=== PATIENT | female | born 1990 | race Caucasian/White ===

== ENCOUNTER 2024-01-27 19:52 | Outpatient (REF) | payer BC, SELFPAY ==
[2024-02-03 17:08] LABS: Age Gdln ACOG Testing Note (.); HPV Aptima Positive (Negative); IGP, Aptima HPV, rfx 16/18,45 Note (.)
== END 2024-01-27 19:53 | disposition home or self-care (01) ==
LOC: LAB 19:52
PROVIDERS: Visit Provider Obstetrics & Gynecology
DX: Z01.419 Encounter for gynecological examination (general) (routine) without abnormal findings (principal)
CPT/HCPCS: 87624; G0145

== ENCOUNTER 2024-02-09 12:17 | Outpatient (REF) | payer BC, SELFPAY | END 2024-02-09 12:18 | disposition home or self-care (01) | LOC: LAB 12:17 | PROVIDERS: Visit Provider Obstetrics & Gynecology | DX: R87.622 Low grade squamous intraepithelial lesion on cytologic smear of vagina (LGSIL) (principal) | CPT/HCPCS: 88305 ==

== ENCOUNTER 2024-08-16 21:05 | Outpatient (REF) | payer BC, SELFPAY ==
--- OUTSIDE RECORDS SUMMARY | 2024-08-16 21:09 | XMS_ITS | CCD ---
Author Organization [facility] Care Team Providers Care Piping Manager Name Role Phone PAOLA, DR MENDIETA Attending Unavailable PAOLA, DR MENDIETA Consulting Unavailable PAOLA, DR MENDIETA Admitting Unavailable REQUEST, DR NONE LISTED Primary Care UnavailJeanne Ceballos Primary Care Physician Rosenda William Attending Provider Rosenda William Attending Unavailable Rosenda William Admitting Unavailable ROSENDA WILLIAM Attending Unavailable ROSENDA WILLIAM Attending Unavailable ROSENDA WILLIAM Attending Unavailable Madhav Fuentes Primary Care Physician Den Mcqueen Attending Unavailable Jorge Sue Attending Unavailable Natalya Prado Attending Unavailable Ender Logan Referring Unavailable Natalya Prado Attending Unavailable Natalya Prado Referring Unavailable Cuco Uribe Attending Unavailable HARSHA HOFFMAN Attending Unavailabl Madhav Snyder Attending Unavailable Madhav Fuentes Attending Unavailable Ender Logan Admitting Unavailable Ender Logan Attending Unavailable Ender Logan Referring Unavailable Ender Logan Admitting Unavailable Ender Logan Attending Unavailable Ender Logan Referring Unavailable Allergies Allergy Classification Reported Allergen(s) Allergy Type Date of Onset Reaction(s) Facility Penicillins (antibiotic) (2 sources) Penicillin; Translations: [penicillins] Drug Allergy [facility] Repository (8 sources) Penicillins; Translations: [penicillins] Drug allergy [facility] Medications Current Medications Medication Drug Class(es) Dates Sig (Normalized) Sig (Original) Tylenol (2 sources) Start: 07-21-2024 Tylenol 500 mg, Daily, PRN as needed for pain, Refills(s) 0 Start Date: 07/21/24 Status: Ordered gabapentin 300 mg oral capsule (3 sources) Anti-epileptic Agent Start: 07-21-2024 End: 09-19-2024 take 2 capsules by mouth three times daily gabapentin 300 mg Cap 600 mg = 2 cap(s), Oral, TID, X 30 day(s), # 180 cap(s), Refills(s) 1, Pharmacy: [id number], 152.4, cm, 07/21/24 12:58:00 EDT, Height/Length Dosing, 58.1, kg, 07/21/24 12:58:00 EDT, Weight Dosing Start Date: 07/21/24 Stop Date: 09/19/24 Status: Ordered Start: 06-03-2024 End: 06-13-2024 take 1 capsule by mouth twice daily gabapentin 100 mg Cap 100 mg = 1 cap(s), Oral, BID, X 10 day(s), # 20 cap(s), Refills(s) 0, Pharmacy: [id number], 152, cm, 06/03/24 13:25:00 EDT, Height/Length Dosing, 61.5, kg, 06/03/24 13:25:00 EDT, Weight Dosing Start Date: 06/03/24 Stop Date: 06/13/24 Status: Ordered Ibuprofen (2 sources) Nonsteroidal Anti-inflammatory Drug Start: 07-21-2024 ibuprofen 200 mg, Daily, PRN as needed for pain, Refills(s) 0 Start Date: 07/21/24 Status: Ordered Magnesium (2 sources) Start: 07-21-2024 Magnesium Magnesium, Oral, Daily Start Date: 07/21/24 Status: Ordered methocarbamol 500 mg oral tablet (2 sources) Muscle Relaxant Start: 06-01-2024 End: 06-08-2024 take 2 tablets by mouth four times daily methocarbamol 500 mg Tab 1,000 mg = 2 tab(s), Oral, QID, X 7 day(s), # 56 tab(s), Refills(s) 0, Pharmacy: [id number], 152, cm, 06/01/24 9:55:00 EDT, Height/Length Dosing, 59, kg, 06/01/24 9:55:00 EDT, Weight Dosing Start Date: 06/01/24 Stop Date: 06/08/24 Status: Ordered naproxen 500 mg oral tablet (6 sources) Nonsteroidal Anti-inflammatory Drug Start: 07-06-2024 take 1 tablet by mouth twice daily as needed for pain naproxen 500 mg Tab 500 mg = 1 tab(s), Oral, BID, PRN Pain, # 30 tab(s), Refills(s) 0, Pharmacy: [id number], 152.4, cm, 07/06/24 20:34:00 EDT, Height/Length Dosing, 58.3, kg, 07/06/24 20:34:00 EDT, Weight Dosing Start Date: 07/06/24 Status: Ordered Start: 06-03-2024 End: 06-13-2024 take 1 tablet by mouth twice daily naproxen 500 mg Tab 500 mg = 1 tab(s), Oral, BID, X 10 day(s), # 20 tab(s), Refills(s) 0, Pharmacy: [id number], 152, cm, 06/03/24 13:25:00 EDT, Height/Length Dosing, 61.5, kg, 06/03/24 13:25:00 EDT, Weight Dosing Start Date: 06/03/24 Stop Date: 06/13/24 Status: Ordered predniSONE 50 mg oral tablet (5 sources) Start: 07-06-2024 End: 07-13-2024 take 1 tablet by mouth once daily predniSONE 50 mg Tab 50 mg = 1 tab(s), Oral, Daily, X 7 day(s), # 7 tab(s), Refills(s) 0, Pharmacy: [id number], 152.4, cm, 07/06/24 20:34:00 EDT, Height/Length Dosing, 58.3, kg, 07/06/24 20:34:00 EDT, Weight Dosing Start Date: 07/06/24 Stop Date: 07/13/24 Status: Ordered Start: 06-03-2024 End: 06-08-2024 take 3 tablets by mouth once daily predniSONE 20 mg Tab 60 mg = 3 tab(s), Oral, Daily, X 5 day(s), # 15 tab(s), Refills(s) 0, Pharmacy: [id number], 152, cm, 06/03/24 13:25:00 EDT, Height/Length Dosing, 61.5, kg, 06/03/24 13:25:00 EDT, Weight Dosing Start Date: 06/03/24 Stop Date: 06/08/24 Status: Ordered Start: 06-01-2024 End: 06-08-2024 take 2 tablets by mouth once daily predniSONE 20 mg Tab 40 mg = 2 tab(s), Oral, Daily, X 7 day(s), # 14 tab(s), Refills(s) 0, Pharmacy: [id number], 152, cm, 06/01/24 9:55:00 EDT, Height/Length Dosing, 59, kg, 06/01/24 9:55:00 EDT, Weight Dosing Start Date: 06/01/24 Stop Date: 06/08/24 Status: Ordered Problems Active Problems Problem Classification Problem Date Documented Date Episodic/Chronic Asthma (8 sources) Asthma 02-24-2017 Chronic Immunizations and screening for infectious disease (1 source) Encounter for screening for human papillomavirus (HPV); Translations: [ENC SCREENING HUMAN PAPILLOMAVIRUS] Onset: 04-05-2021 Episodic Other nervous system disorders (1 source) Chronic pain; Translations: [Other chronic pain] Onset: 07-06-2024 Chronic Other non-traumatic joint disorders (3 sources) Pain of left shoulder joint; Translations: [Pain in left shoulder] Onset: 06-01-2024 Episodic Other non-traumatic joint disorders (2 sources) Shoulder joint pain; Translations: [Pain in unspecified shoulder] Onset: 07-09-2024 Episodic Other non-traumatic joint disorders (4 sources) Shoulder pain 07-09-2024 Episodic Other nutritional; endocrine; and metabolic disorders (2 sources) Overweight in adulthood with body mass index of 25 or more but less than 30; Translations: [Body mass index (BMI) 25.0-25.9, adult] Onset: 07-09-2024 Episodic Other screening for suspected conditions (not mental disorders or infectious disease) (4 sources) Encounter for screening for malignant neoplasm of cervix; Translations: [ENC SCREENING MALIG NEOPLASM CERV] Onset: 03-29-2021 Episodic Residual codes; unclassified (2 sources) Patient encounter status; Translations: [Other specified health status] Onset: 07-09-2024 Episodic Spondylosis; intervertebral disc disorders; other back problems (1 source) Degeneration of cervical intervertebral disc; Translations: [Other cervical disc degeneration, unspecified cervical region] Onset: 07-29-2024 Chronic Spondylosis; intervertebral disc disorders; other back problems (9 sources) Neck pain; Translations: [Cervicalgia] Onset: 06-03-2024 Episodic Past or Other Problems Problem Classification Problem Date Documented Da te Episodic/Chronic Other complications of (7 sources) Abnormal placenta affecting management of mother Onset: 09-04-2018 06-01-2024 Episodic Viral infection (1 source) Disease caused by 2019-nCoV; Translations: [COVID-19] Results Test Name Value Interpretation Reference Range Facil ity CT Spine Cervical w/o Contra ston 08-13-2024 CT Spine Cervical w/o Contrast Exam Date/Time: 08/10/2024 17:30 EDT Reason for Exam: M47.22 Report IMPRESSION: LEFT C6-7 DISC PROTRUSION/EXTRUSION, SIMILAR TO THE RECENT MRI. MILD CERVICAL SPONDYLOSIS. EXAM: CT Spine Cervical w/o Contrast DATE: 08/10/2024 4:56 PM CLINICAL HISTORY: M47.22. COMPARISON: Cervical spine MRI 07/13/[address] with contrast 02/24/2017. TECHNIQUE: Spiral unenhanced imaging was obtained of the cervical spine, with routine reconstructions performed. All CT scans at this facility use dose modulation, iterative reconstruction, and/or weight based dosing when appropriate to reduce radiation dose to as low as reasonably achievable. FINDINGS: The spine is visualized from the craniovertebral junction through the T2-3 level. There is no fracture, dislocation, or acute findings identified. Mild reversal of the normal cervical lordosis is probably related to patient positioning and/or muscle spasm, similar to 02/24/2017. Mild disc space narrowing and posterolateral endplate osteophytosis is present at C3-4, C5-6, and C6-7. An approximately 6 to 7 mm left subarticular to foraminal disc protrusion/extrusion at C6-7 (image 67 - axial series 5) , similar to the previous CT. Ordering Provider: Ender Logan FINAL REPORT Dictated: 08/13/2024 1:51 pm Ayaan Dong MD Signed (Electronic Signature): 08/13/2024 1:51 pm Signed by: Ayaan Dong MD Transcribed by: OLY Technologist: APURVA [facility] Ambulatory Visit Summaryon 0 07-29-2024 Ambulatory Visit Summary Ambulatory Visit Summary DARRICK MCKEON :1990 Visit Date:07/29/2024 Ambulatory Visit Instructions Your Diagnosis Degenerative disc disease, cervical Cervical radiculopathy at C7 Shoulder pain BMI 25.0-25.9,adult Non-smoker Your Care Team Attending Physician Madhav Guzman DO Primary Care Physician - Madhav Fuentes DO This Is Your Medications List Non-Formulary Medication (Magnesium) acetaminophen (Tylenol) gabapentin (gabapentin 300 mg Cap) ibuprofen naproxen (naproxen 500 mg Tab) Procedures Performed Laparoscope (2007). Discharge Vitals Heart Rate (Peripheral) 82 Blood Pressure 112/72 Height 152.4 cm Height 60 in Weight 59.6 kg Weight 131.12 lb BMI 25.66 What to do next Scheduled Follow-Up Appointments 2023 5:00 PM EDT With: Where: [facility] 2023 4:15 PM EDT With: Where: [facility] Friday 1:45 PM EDT With: Where: [facility] Friday 5:00 PM EDT With: Where: [facility] Friday 4:00 PM EDT With: Where: [facility] Friday 4:00 PM EDT With: Where: [facility] Friday 12:30 PM EDT With: Natalya Prado PA-C Where: [facility] Medications What How Much When Why Instructions Unchanged acetaminophen (Tylenol) 500 Milligram Every day as needed for as needed for pain Unchanged gabapentin (gabapentin 300 mg Cap) 2 Capsules By Mouth 3 times a day Cervical neuritis Cervical herniation Degeneration of cervical disc without myelopathy Cervical spinal stenosis Duration: 30 Days Unchanged ibuprofen 200 Milligram Every day as needed for as needed for pain Unchanged naproxen (naproxen 500 mg Tab) 1 Tablets By Mouth 2 times a day as needed for Pain Unchanged Non-Formulary Medication (Magnesium) By Mouth Every day Medications and Immunizations Administered Not Given influenza virus vaccine, inactivated, Postpone due to refusal Allergies penicillins Problems Ongoing - Any problem that you are currently receiving treatment for. Abnormal placenta affecting management of mother Cervical dysfunction Shoulder pain Patient Survey You may receive a survey via text or e-mail asking about your office visit. Please share your experience with us by completing your survey. We appreciate your feedback and thank you for choosing us for your care. [facility] Family Medicine Office/Clini c Noteon 07-29-2024 Family Medicine Office/Clinic Note Family Medicine Office/Clinic Note Chief Complaint 2 week follow up HPI Staff Patient here for 2 week f/u Cervical dysfunction: At last visit patient received a trigger point injection, notes no improvement. Completed MRI, would like to review today. Patient has seen pain management, last visit 07/21, advised patient to start a Gabapentin titration schedule, working up to 600mg TID and referred to PT (patient has had 2 appointment so far) . Has an appointment with Neurosurgeon on 08/03. Flu: declines Pap: per pt 02/14, Dr. William History of Present Illness Patient presents today for 2 weeks follow-up on testing. - Patient following with Dr. Logan for cervical radiculopathy, MRI completed - Trigger point injection provided at last visit Patient states that her pain is better controlled after the trigger point injection. It still reaches 8-9/10 depending on her activity level. She would like to review her MRI. She sees her surgeon on 08/03/2024. Denies any new symptoms today. Review of Systems PHQ Score Initial Depression Screen Score: 0 SCORE ROS - Provider Constitutional: no fever, no chills Skin: no rash, no lesions ENMT: no ear pain, no sore throat, no congestion, no hoarseness. Respiratory: no shortness of breath, no cough, no wheezing. Cardiovascular: no chest pain, no palpitations, no edema. Gastrointestinal: no nausea, no vomiting, no diarrhea, Musculoskeletal: yes back pain, no trauma, yes left shoulder pain Neurologic: no headache, no dizziness, yes numbness, no weakness. Psychiatric: no sleeping problems, no irritability, no mood swings/depression. Physical Exam Vitals & Measurements HR: 82(Peripheral) BP: 112/72 SpO2: 98% HT: 60 in HT: 152.4 cm WT: 59.6 kg WT: 131.12 lb BMI: 25.66 General: Well developed, well nourished, in no acute distress Head: Normocephalic/atraumati c Eyes: Pupils equal, round, and reactive to light. Sclerae normal, and extraocular movements intact Lungs: Normal respiratory effort and clear to auscultation Cardio: Regular rate and rhythm, normal S1 and S2, no murmur, no rub Musculoskeletal: No deformity or scoliosis noted. Normal range of motion. Joints normal. No erythema, edema, effusion, or ecchymosis, exquisitely tender to touch, unable to diagnose shoulder for pain, hypertonicity in the left shoulder musculature diffusely with tissue edema and bogginess Extremity: No clubbing, cyanosis, edema, or deformity, with normal ROM in both upper and lower bilateral extremities Neurologic: Grossly normal Skin: No rash, petechiae, suspicious lesions Mental Status: Alert and oriented x3. Normal mood and affect Assessment/Plan 1. Degenerative disc disease, cervical (M50.30: Other cervical disc degeneration, unspecified cervical region) Identified on the MRI at the C7 nerve root level. Follow with neurosurgery, manage with pain control at this time as tolerated, and consider surgical intervention. Patient to call with any concerns or new symptoms. 2. Cervical radiculopathy at C7 (M54.12: Radiculopathy, cervical region) Secondary to #1 3. Shoulder pain (M25.519: Pain in unspecified shoulder) Secondary to #1 4. BMI 25.0-25.9,adult (Z68.25: Body mass index [BMI] 25.0-25.9, adult) The standard range for ages 18 and older is >=18.5 and < 25 kg/m2. Your BMI today was above this range, this falls in the overweight to obese category and there are medical benefits to weight loss. We can offer counselling, referral, and/or medical support in addressing this problem. Your BMI and weight management will be followed at subsequent visits. 5. Non-smoker (Z78.9: Other specified health status) Stable. Follow-up With When Contact Information Link Madhav [facility] Within 4 weeks [address] [place] [address]- Additional Instructions: 4 WEEKS FOLLOWUP Problem List/Past Medical History Ongoing Abnormal placenta affecting management of mother Cervical dysfunction Shoulder pain Historical No qualifying data Procedure/Surgical History Laparoscope (2008). Medications gabapentin 300 mg Cap, 600 mg= 2 cap(s), Oral, TID, 1 refills ibuprofen, 200 mg, Daily, PRN Magnesium, Oral, Daily naproxen 500 mg Tab, 500 mg= 1 tab(s), Oral, BID, PRN Tylenol, 500 mg, Daily, PRN Allergies penicillins Social History Alcohol - Denies Alcohol Use, 04/25/2019 Substance Abuse - Denies Substance Abuse, 07/09/2024 Tobacco - Denies Tobacco Use, 09/11/2021 Never (less than 100 in lifetime) Tobacco Use:. Never Smokeless Tobacco Use:. Household tobacco concerns: No., 07/29/2024 Family History Family history is negative Immunizations Vaccine Date Status Comments influenza virus vaccine, inactivated - Not Given Postpone due to refusal [facility] Comment on above: Result Comment: Elec tronically Signed By: Madhav Fuentes DO.br\Date and Time Signed: 07/29/24 09:08 EDT Provider Letteron 07-29-2024 Provider Letter Provider Letter July 29, 2024 DARRICK MCKEON [address] [place] [address] : 1990 To Whom It May Concern, Please excuse above patient from work. Date of Illness: From: 07/29/24 May Return to Work On: Same day Restrictions: none Comments: none Sincerely, Family [facility] [address] [place] [address] [facility] MRI Spine Cervical w/o Contr tunde 07-19-2024 MRI Spine Cervical w/o Contrast Exam Date/Time: 07/13/2024 18:56 EDT Reason for Exam: M47.22 Report IMPRESSION: Degenerative changes cervical spine as discussed. Disc protrusion at C6-C7 with abutment/effacement of the exiting left C7 nerve root. Small disc protrusions at C3-C4 and C5-C6 as discussed. EXAMINATION: MRI Spine Cervical w/o Contrast HISTORY: Left shoulder pain with numbness and tingling in the left arm and hand. No recent injury. TECHNIQUE: Routine cervical spine MR protocol without gadolinium. COMPARISON: Radiographs 06/03/2024 RESULT: CERVICAL: Counting reference: Craniocervical junction. Anatomic Variants: None. Alignment: Straightening/reversal of the cervical lordosis. Otherwise alignment anatomic. Craniocervical junction: Craniocervical junction is unremarkable. Cord: The cervical spinal cord is within normal limits of signal intensity and morphology. Bone marrow signal/fracture: No evidence for acute or chronic fracture. No destructive osseous process. Cervical soft tissues: The paraspinal soft tissues are unremarkable. C2-C3: No significant canal or foraminal narrowing. C3-C4: Endplate osteophytes with associated small disc protrusions in the bilateral foraminal zones. Mild bilateral foraminal narrowing without significant canal narrowing. C4-C5: No significant canal or foraminal narrowing. C5-C6: Broad-based disc bulge. Endplate osteophytes. Small disc protrusions within Report the bilateral foraminal zones. Mild bilateral foraminal narrowing without significant canal narrowing. C6-C7: Moderate to large disc protrusion within the left foraminal zone with moderate left foraminal narrowing and abutment/effacement of the exiting left C7 nerve root. No significant canal or right foraminal narrowing.. C7-T1: No significant canal or foraminal narrowing. Upper thoracic spine: Visualized upper thoracic canal and foramina without significant narrowing. Ordering Provider: Ender Logan FINAL REPORT Dictated: 07/19/2024 11:57 am Mookie Carter MD Signed (Electronic Signature): 07/19/2024 11:57 am Signed by: Mookie Carter MD Transcribed by: OLY Technologist: COLTON Technical Comments None [facility] Ambulatory Visit Summaryon 0 07-09-2024 Ambulatory Visit Summary Ambulatory Visit Summary DARCIDARRICK DIAZ :1990 Visit Date:07/09/2024 Ambulatory Visit Instructions Your Diagnosis Cervical dysfunction Shoulder pain BMI 25.0-25.9,adult Non-smoker Your Care Team Attending Madhav Buitrago DO Primary Care Physician - Madhav Fuentes DO This Is Your Medications List naproxen (naproxen 500 mg Tab) predniSONE (predniSONE 50 mg Tab) Procedures Performed Laparoscope (2007). Discharge Vitals Heart Rate (Peripheral) 72 Blood Pressure 119/78 Height 152.4 cm Height 60 in Weight 59.5 kg Weight 130.9 lb BMI 25.62 What to do next Scheduled Follow-Up Appointments Friday 1:00 PM EDT With: Natalya Prado PA-C Where: [facility] Medications What How Much When Instructions Unchanged naproxen (naproxen 500 mg Tab) 1 Tablets By Mouth 2 times a day as needed for Pain Unchanged predniSONE (predniSONE 50 mg Tab) 1 Tablets By Mouth Every day Duration: 7 Days Medications and Immunizations Administered Given Kenalog-40, 40 mg, IntraMuscular. For: Cervical dysfunction Allergies penicillins Problems Ongoing - Any problem that you are currently receiving treatment for. Abnormal placenta affecting management of mother Cervical dysfunction Shoulder pain Patient Survey You may receive a survey via text or e-mail asking about your office visit. Please share your experience with us by completing your survey. We appreciate your feedback and thank you for choosing us for your care. [facility] Family Medicine Office/Clini c Noteon 07-09-2024 Family Medicine Office/Clinic Note Family Medicine Office/Clinic Note Chief Complaint Establish Care HPI Staff Patient here to establish care Establish Care: History: Any previous diagnosis: no History of seeing any specialist: Neurology (Dr. Logan) When was your last doctors visit: quite a while ago Last provider: Jeanne Ocampo Any recent labs: no Health Maintenance UTD: Pelvic/Pap: Per pt 01/2024, Dr. William ([place]) Acute: Current issues/complaints: Patient was recently seen at [facility] 07/06/24. Left shoulder/arm pain. Given Ketorolac and Prednisone in ER. Prescribed Naproxen and Prednisone. Advised to f/u with PCP. - Per pt pain in left shoulder/arm started 05/2024. Denies any trauma to area. ER referred to Neurology after x-rays were clear. Patient has tried ice, heat, Biofreeze, aspirin, Tylenol, Motrin, Aleve and Gabapentin. Has seen Chiropractor. Patient notes she did have some relief when taking Prednisone, but about 5 days after completing pain came back more intense. History of Present Illness Care History Patient known to me from prior practice at [facility]. Previously seen Jeanne Ocampo INCOMING FREIGHT CLERK. Patient currently sees neurosurgery for cervical radiculopathy. She is pending an MRI approval for imaging of her neck for findings. She denies any new falls or injuries. She was recently (07/06/2024) for this and received Toradol and prednisone. She has been following with Dr. Logan, and is scheduling to get an MRI done. She states that she has had no new findings, but her pain is severe, 10/10, and radiates from shoulder to arm. pins and needles sensation is confined to left forearm and digits 1-3. She states that she has some pins and needles that will radiate to her anterior chest intermittently as well as by her shoulderblade intermittently. She has tried gabapentin without benefit, NSAID's are only very mildly beneficial, and she has had only had improvement with steroid bursts temporarily. Social Patient is a 34-year-old female Patient is currently , she has 3 children. 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 Patient has no smoking history. Patient has no use of marijuana. Patient has never abused drugs or prescriptions. Patient has social alcohol use without abuse. Patient has from records found to have the following information relevant to their care: - [facility] Review of Systems PHQ Score Initial Depression Screen Score: 0 SCORE ROS - Provider Constitutional: no fever, no chills Skin: no rash, no lesions ENMT: no ear pain, no sore throat, no congestion, no hoarseness. Respiratory: no shortness of breath, no cough, no wheezing. Cardiovascular: no chest pain, no palpitations, no edema. Gastrointestinal: no nausea, no vomiting, no diarrhea, Musculoskeletal: yes back pain, no trauma, yes left shoulder pain Neurologic: no headache, no dizziness, yes numbness, no weakness. Psychiatric: no sleeping problems, no irritability, no mood swings/depression. Physical Exam Vitals & Measurements HR: 72(Peripheral) BP: 119/78 SpO2: 98% HT: 60 in HT: 152.4 cm WT: 59.5 kg WT: 130.9 lb BMI: 25.62 General: Well developed, well nourished, in no acute distress Head: Normocephalic/atraumati c Eyes: Pupils equal, round, and reactive to light. Sclerae normal, and extraocular movements intact Lungs: Normal respiratory effort and clear to auscultation Cardio: Regular rate and rhythm, normal S1 and S2, no murmur, no rub Musculoskeletal: No deformity or scoliosis noted. Normal range of motion. Joints normal. No erythema, edema, effusion, or ecchymosis, exquisitely tender to touch, unable to diagnose shoulder for pain, hypertonicity in the left shoulder musculature diffusely with tissue edema and bogginess Extremity: No clubbing, cyanosis, edema, or deformity, with normal ROM in both upper and lower bilateral extremities Neurologic: Grossly normal Skin: No rash, petechiae, suspicious lesions Mental Status: Alert and oriented x3. Normal mood and affect Osteopathic: Evaluation and treatment of somatic dysfunction as per the procedures section. Procedure Patient informed of the risks and benefits of the procedure. Risks are stated to include, but are not limited to, injection into improper location, infection, nerve damage, muscle damage, medication reaction, and instrumentation failure. Patient accepts these risks and wishes to pursue procedure. Sites were identified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 alternative treatments if conservative management fails 4. Work limitations due to pain - Encourage patient to continue working as tolerated - Reevaluate work limitations at follow-up visit after initiating gabapentin and physical therapy 5. Follow up with primary care physician, Dr. Fuentes - Encourage patient to maintain scheduled appointment with Dr. Fuentes for continuity of care and additional evaluation if needed FELISHA score: 48%. OARRS reviewed. Future Appointments Appointment Date:07/23/2024 03:30:00 PM Scheduled Provider: Location:[facility] [place] Appointment Type:PT Evmaryann (FT) Appointment Date:07/29/2024 08:40:00 AM Scheduled Provider:Madhav Fuentes DO Location:[facility] [place] Appointment Type:FM Open Appointment Date:09/01/2024 12:30:00 PM Scheduled Provider:Natalya Prado PA-C Location:[facility] Appointment Type:Pain Management - Follow Up (FT) [facility] 08-28-2024 NoteConsultation Note Patient: DARRICK MCKEON Age: 34 years Sex: Female : 1990 Associated Diagnoses: None Author: Natalya Prado PA-C Basic Information Accompanied by: No one. Source of history: Self. Referral source: Doreen LUKE, Ender Hassan History limitation: None. Chief Complaint 07/21/2024 12:42 EDT Left shoulder and neck pain History of Present Illness The patient is a 34-year-old individual presenting with left arm pain, which began around June 01.The pain is associated with a disc herniation impacting the left C7 nerve, as confirmed by a recentMRI. The patient reports that the pain worsens with any movement of the arm or neck and is particularly severe when lying down. There is no recollection of any specific injury or incident that triggered the pain, and the patient initially assumed it was due to sleeping on the left side. The patient has experienced extreme, excruciating nerve pain, which at one point was so severe thatit led to passing out and a subsequent visit to the ER. During the ER visits, the patient was treated with gabapentin, steroids, and naproxen. The patient is uncertain which medication provided relief, but naproxen alone did not seem effective. Gabapentin is suspected to have been beneficial, as itis known to help with nerve irritation. She has since seen a surgeon and she has not yet scheduled follow-up to follow-up after the MRI as this was just done earlier this week. 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 The patient has previously received three steroid injections from their family doctor, which did not provide significant relief, and an additional muscle injectionwas administered in the office. The patient does not smoke and is otherwise healthy. Review of Systems Constitutional: No fever, No chills. Eye: No recent visual problem. Ear/Nose/Mouth/Throat: No decreased hearing. Respiratory: No shortness of breath, No cough. Cardiovascular: No chest pain. Gastrointestinal: No nausea, No vomiting. Genitourinary: No dysuria, No hematuria. Hematology/Lymphatics: No bruising tendency, No bleeding tendency. Immunologic: Not immunocompromised. Musculoskeletal: Neck pain, Muscle pain, Claudication. Integumentary: No rash, No pruritus. Neurologic: Alert and oriented X4, Numbness, Tingling. Psychiatric: No anxiety, No depression. Health Status Allergies: Allergic Reactions (Selected) Severity Not Documented Penicillins- No reactions were documented. Current medications: No qualifying data available Problem list: All Problems Asthma / SNOMED CT 8196840172 / Confirmed Abnormal placenta affecting management of mother / SNOMED CT 81862364 / Confirmed Cervical dysfunction / SNOMED CT 683047266 / Confirmed Shoulder pain / SNOMED CT 64987531 / Confirmed Histories Past Medical History: No active or resolved past medical history items have been selected or recorded. Family History: Entire family history is negative. Procedure history: Laparoscope (SNOMED CT 263744886) in 2007 at 18 Years. Comments: 07/09/2024 7:04 Nikole Prasad LPN To check for Endometriosis Social History Social & Psychosocial Habits Alcohol 07/21/2024 Risk Assessment: Denies Alcohol Use Substance Abuse 07/21/2024 Risk Assessment: Denies Substance Abuse Tobacco 07/21/2024 Risk Assessment: Denies Tobacco Use 07/21/2024 Tobacco Use: Never (less than 100 in l Smokeless tobacco use: Never Concerns about tobacco use in household: No . Physical Examination Vital Signs (last 24 hrs) Last Charted Heart Rate Peripheral 74 bpm (JUL 21 12:42) SBP 117 mmHg (JUL 21 12:42) DBP 87 mmHg (JUL 21 12:42) Weight 58.1 kg (JUL 21 12:42) BMI 25.02 (JUL 21 12:42) General: Alert and oriented, Mild distress. Eye: Pupils are equal, round and reactive to light. HENT: Normocephalic, Normal hearing. Respiratory: Respirations are non-labored. Cardiovascular: No edema. Musculoskeletal Normal range of motion. Normal strength. 5/5 upper extremity strength other than left deltoid 4/5 Negative Wilda's. Neurologic: Alert, Oriented. Cognition and Speech: Oriented, Speech clear and coherent. Psychiatric: Cooperative, Appropriate mood & affect. Integumentary: Warm, Dry, [place]. Review / Management Results review: No qualifying data available . * Final Report * Reason For Exam M47.22 POWERSCRIBE REPORT IMPRESSION: Degenerative changes cervical spine as discussed. Disc protrusion at C6-C7 with abutment/effacement of the exiting left C7 nerve root. Small disc protrusions at C3-C4 and C5-C6 as discussed. EXAMINATION: MRI Spine Cervical w/o Contrast HISTORY: Left shoulder pain with numbness and tin (more content not included)... [facility] Comment: Electronically Signed By: Johan TSANG, Ntaalya\.br\Date and Time Signed: 07/21/24 13:13 EDT 07-09-2024 Hospital Discharge instructions Follow Up Care 07/09/2024 07:50:06 With:Madhav Fuentes DO, FAM Address: [address] [place] [address]- When:4 weeks Comments:4 WEEKS FOLLOWUP [facility] 08-13-2024 Hospital Discharge instructions Patient Education 07/06/2024 21:32:51 Cervical Radiculopathy, Rdwj-ln-Ybbn Cervical Radiculopathy Cervical radiculopathy means that a nerve in the neck (a cervical nerve) is pinched or bruised. This can happen because of an injury to the cervical spine (vertebrae) in the neck, or as a normal partof getting older. This condition can cause pain or loss of feeling (numbness) that runs from your neck all the way down to your arm and fingers. Often, this condition gets better with rest. Treatmentmay be needed if the condition does not get better. What are the causes? A neck injury. A bulging disk in your spine. Sudden muscle tightening (muscle spasms). Tight muscles in your neck due to overuse. Arthritis. Breakdown in the bones and joints of the spine (spondylosis) due to getting older. Bone spurs that form near the nerves in the neck. What are the signs or symptoms? Pain. The pain may: ?Run from the neck to the arm and hand. ?Be very bad or irritating. ?Get worse when you move your neck. Loss of feeling or tingling in your arm or hand. Weakness in your arm or hand, in very bad cases. How is this treated? In many cases, treatment is not needed for this condition. With rest, the condition often gets better over time. If treatment is needed, options may include: Wearing a soft neck collar (cervical collar) for short periods of time. Doing exercises (physical therapy) to strengthen your neck muscles. Taking medicines. Having shots (injections) in your spine, in very bad cases. Having surgery. This may be needed if other treatments do not help. The type of surgery that is used will depend on the cause of your condition. Follow these instructions at home: If you have a soft neck collar: Wear it as told by your doctor. Take it off only as told by your doctor. Ask your doctor if you can take the collar off for cleaning and bathing. If you are allowed to takethe collar off for cleaning or bathing: ?Follow instructions from your doctor about how to take off the collar safely. ?Clean the collar by wiping it with mild soap and water and drying it completely. ?Take out any removable pads in the collar every 1 2 days. Wash them by hand with soap and water. Let them air-dry completely before you put them back in the collar. ?Check your skin under the collar for redness or sores. If you see any, tell your doctor. Managing pain Take ogfg-ztl-hemtnoz and prescription medicines only as told by your doctor. If told, put ice on the painful area. To do this: ?If you have a soft neck collar, take if off as told by your doctor. ?Put ice in a plastic bag. ?Place a towel between your skin and the bag. ?Leave the ice on for 20 minutes, 2 3 times a day. ?Take off the ice if your skin turns bright red. This is very important. If you cannot feel pain, heat, or cold, you have a greater risk of damage to the area. If using ice does not help, you can try using heat. Use the heat source that your doctor recommends, such as a moist heat pack or a heating pad. ?Place a towel between your skin and the heat source. ?Leave the heat on for 20 30 minutes. ?Take off the heat if your skin turns bright red. This is very important. If you cannot feel pain, heat, or cold, you have a greater risk of getting burned. You may try a gentle neck and shoulder rub (massage). Activity Rest as needed. Return to your normal activities when your doctor says that it is safe. Do exercises as told by your doctor or physical therapist. You may have to avoid lifting. Ask your doctor how much you can safely lift. General instructions Use a flat pillow when you sleep. Do not drive while wearing a soft neck collar. If you do not have a soft neck collar, ask your doctor if it is safe to drive while your neck heals. Ask your doctor if you should avoid driving or using machines while you are taking your medicine. Do not smoke or use any products that contain nicotine or tobacco. If you need help quitting, ask your doctor. Keep all follow-up visits. Contact a doctor if: Your condition does not get better with treatment. Get help right away if: Your pain gets worse and medicine does not help. You lose feeling or feel weak in your hand, arm, face, or leg. You have a high fever. Your neck is stiff. You cannot control when you poop or pee (have incontinence). You have trouble with walking, balance, or talking. Summary Cervical radiculopathy means that a nerve in the neck is pinched or bruised. A nerve can get pinched from a bulging disk, arthritis, an injury to the neck, or other causes. Symptoms include pain, tingling, or loss of feeling that goes from the neck to the arm or hand. Weakness in your arm or hand can happen in very bad cases. Treatment may include resting, wearing a soft neck collar, and doing exercises. You might need to take medicines for pain. In very bad cases, shots or surgery may be needed. This information is not intended to replace advice given to you by your health care provider. Make sure you discuss any questions you have with your health care provider. Document Revised: 05/16/2022 Document Reviewed: 05/16/2022 [employer] Patient Education 2022 [employer]. Follow Up Care 07/06/2024 20:29:46 With:Continue following up with your back surgeon as previously scheduled for the MRI. Use the naproxen as needed and the steroid as prescribed. Return to the ED with any worsening symptoms. Address:Unknown When:07/09/2024 21:31:40 With:Jeanne Ocampo Address: [address] [place] [address], [address] [place] [address]- Business (1) When:Within 3 Day(s) [facility] 08-13-2024 NoteED Patient Education Note Orthopedics Cervical Radiculopathy Cervical radiculopathy means that a nerve in the neck (a cervical nerve) is pinched or bruised. This can happen because of an injury to the cervical spine (vertebrae) in the neck, or as a normal partof getting older. This condition can cause pain or loss of feeling (numbness) that runs from your neck all the way down to your arm and fingers. Often, this condition gets better with rest. Treatmentmay be needed if the condition does not get better. What are the causes? ? A neck injury. ? A bulging disk in your spine. ? Sudden muscle tightening (muscle spasms). ? Tight muscles in your neck due to overuse. ? Arthritis. ? Breakdown in the bones and joints of the spine (spondylosis) due to getting older. ? Bone spurs that form near the nerves in the neck. What are the signs or symptoms? ? Pain. The pain may: ? Run from the neck to the arm and hand. ? Be very bad or irritating. ? Get worse when you move your neck. ? Loss of feeling or tingling in your arm or hand. ? Weakness in your arm or hand, in very bad cases. How is this treated? In many cases, treatment is not needed for this condition. With rest, the condition often gets better over time. If treatment is needed, options may include: ? Wearing a soft neck collar (cervical collar) for short periods of time. ? Doing exercises (physical therapy) to strengthen your neck muscles. ? Taking medicines. ? Having shots (injections) in your spine, in very bad cases. ? Having surgery. This may be needed if other treatments do not help. The type of surgery that is used will depend on the cause of your condition. Follow these instructions at home: If you have a soft neck collar: ? Wear it as told by your doctor. Take it off only as told by your doctor. ? Ask your doctor if you can take the collar off for cleaning and bathing. If you are allowed to take the collar off for cleaning or bathing: ? Follow instructions from your doctor about how to take off the collar safely. ? Clean the collar by wiping it with mild soap and water and drying it completely. ? Take out any removable pads in the collar every 1?2 days. Wash them by hand with soap and water. Let them air-dry completely before you put them back in the collar. ? Check your skin under the collar for redness or sores. If you see any, tell your doctor. Managing pain ? Take ycua-ukr-sgayfik and prescription medicines only as told by your doctor. ? If told, put ice on the painful area. To do this: ? If you have a soft neck collar, take if off as told by your doctor. ? Put ice in a plastic bag. ? Place a towel between your skin and the bag. ? Leave the ice on for 20 minutes, 2?3 times a day. ? Take off the ice if your skin turns bright red. This is very important. If you cannot feel pain, heat, or cold, you have a greater risk of damage to the area. ? If using ice does not help, you can try using heat. Use the heat source that your doctor recommends, such as a moist heat pack or a heating pad. ? Place a towel between your skin and the heat source. ? Leave the heat on for 20?30 minutes. ? Take off the heat if your skin turns bright red. This is very important. If you cannot feel pain,heat, or cold, you have a greater risk of getting burned. ? You may try a gentle neck and shoulder rub (massage). Activity ? Rest as needed. ? Return to your normal activities when your doctor says that it is safe. ? Do exercises as told by your doctor or physical therapist. ? You may have to avoid lifting. Ask your doctor how much you can safely lift. General instructions ? Use a flat pillow when you sleep. ? Do not drive while wearing a soft neck collar. If you do not have a soft neck collar, ask your doctor if it is safe to drive while your neck heals. ? Ask your doctor if you should avoid driving or using machines while you are taking your medicine. ? Do not smoke or use any products that contain nicotine or tobacco. If you need help quitting, askyour doctor. ? Keep all follow-up visits. Contact a doctor if: ? Your condition does not get better with treatment. Get help right away if: ? Your pain gets worse and medicine does not help. ? You lose feeling or feel weak in your hand, arm, face, or leg. ? You have a high fever. ? Your neck is stiff. ? You cannot control when you poop or pee (have incontinence). ? You have trouble with walking, balance, or talking. Summary ? Cervical radiculopathy means that a nerve in the neck is pinched or bruised. ? A nerve can get pinched from a bulging disk, arthritis, an injury to the neck, or other causes. ? Symptoms include pain, tingling, or loss of feeling that goes from the neck to the arm or hand. ? Weakness in your arm or hand can happen in very bad cases. ? Treatment may include resti (more content not included)...[facility] Evaluation + Plan noteExtracted from: Title:ED Note Author:Eri Bobo PA-C te:07/06/24 Cervical radiculopathy, lunchroom monitor bertha (M54.12: Radiculopathy, cervical region) Chronic left shoulder pain (M25.512: Pain in left shoulder) Other chronic pain (G89.29: Other chronic pain) Orders: ketorolac, 30 mg = 1 mL, Injection, IntraMuscular, Once, Stop date 07/06/24 21:16:00 EDT, STAT, Start date 07/06/24 21:16:00 EDT, 07/06/24 21:16:00 EDT predniSONE, 60 mg = 3 tab(s), Tab, Oral, Once, Stop date 07/06/24 21:16:00 EDT, STAT, Start date 07/06/24 21:16:00 EDT, 07/06/24 21:16:00 EDT Future Appointments Appointment Date:07/09/2024 07:00:00 AM Scheduled Provider:Link DO, Madhav C Location:[facility] Appointment Type:FM New Patient - Adult Appointment Date:07/21/2024 01:00:00 PM Scheduled Provider:Natalya Prado PA-C Location[facility] [place] Appointment Type:Pain Management - New (FT) [facility] 08-13-2024 Hospital Discharge instructions Follow Up Care 07/06/2024 09:59:04 With:Madhav Fuentes DO, FAM Address: [address] [address]- When:4 weeks Comments:4 WEEKS FOLLOWUP [facility] [place] 07-11-2024 Hospital Discharge instructions Patient Education 06/03/2024 15:28:27 Cervical Radiculopathy Cervical Radiculopathy Cervical radiculopathy happens when a nerve in the neck (a cervical nerve) is pinched or bruised. This condition can happen because of an injury to the cervical spine (vertebrae) in the neck, or as part of the normal aging process. Pressure on the cervical nerves can cause pain or numbness that travels from the neck all the way down to the arm and fingers. This condition usually gets better with rest. Treatment may be needed if the condition does not improve. What are the causes? This condition may be caused by: A neck injury. A bulging (herniated) disk. Muscle spasms. Muscle tightness in the neck due to overuse. Arthritis. Breakdown or degeneration in the bones and joints of the spine (spondylosis) due to aging. Bone spurs that may develop near the cervical nerves. What are the signs or symptoms? Symptoms of this condition include: Pain. The pain may travel from the neck to the arm and hand. The pain can be severe or irritating. It may get worse when you move your neck. Numbness or tingling in your arm or hand. Weakness in the affected arm and hand, in severe cases. How is this diagnosed? This condition may be diagnosed based on your symptoms, your medical history, and a physical exam. You may also have tests, including: X-rays. CT scan. MRI. Electromyogram (EMG). Nerve conduction tests. How is this treated? In many cases, treatment is not needed for this condition. With rest, the condition usually gets better over time. If treatment is needed, options may include: Wearing a soft neck collar (cervical collar) for short periods of time. Doing physical therapy to strengthen your neck muscles. Taking medicines. These may include NSAIDs, such as ibuprofen, or oral corticosteroids. Having spinal injections, in severe cases. Having surgery. This may be needed if other treatments do not help. Different types of surgery may be done depending on the cause of this condition. Follow these instructions at home: If you have a cervical collar: Wear it as told by your health care provider. Remove it only as told by your health care provider. Ask your health care provider if you can remove the cervical collar for cleaning and bathing. If you are allowed to remove the collar for cleaning or bathing: ?Follow instructions from your health care provider about how to remove the collar safely. ?Clean the collar by wiping it with mild soap and water and drying it completely. ?Take out any removable pads in the collar every 1 2 days, and wash them by hand with soap and water. Let them air-dry completely before you put them back in the collar. ?Check your skin under the collar for irritation or sores. If you see any, tell your health care provider. Managing pain Take ciqg-zkj-uhgstpi and prescription medicines only as told by your health care provider. If directed, put ice on the affected area. To do this: ?If you have a soft neck collar, remove it as told by your health care provider. ?Put ice in a plastic bag. ?Place a towel between your skin and the bag. ?Leave the ice on for 20 minutes, 2 3 times a day. ?Remove the ice if your skin turns bright red. This is very important. If you cannot feel pain, heat, or cold, you have a greater risk of damage to the area. If applying ice does not help, you can try using heat. Use the heat source that your health care provider recommends, such as a moist heat pack or a heating pad. ?Place a towel between your skin and the heat source. ?Leave the heat on for 20 30 minutes. ?Remove the heat if your skin turns bright red. This is especially important if you are unable to feel pain, heat, or cold. You have a greater risk of getting burned. Try a gentle neck and shoulder massage to help relieve symptoms. Activity Rest as needed. Return to your normal activities as told by your health care provider. Ask your health care provider what activities are safe for you. Do stretching and strengthening exercises as told by your health care provider or your physical therapist. You may have to avoid lifting. Ask your health care provider how much you can safely lift. General instructions Use a flat pillow when you sleep. Do not drive while wearing a cervical collar. If you do not have a cervical collar, ask your healthcare provider if it is safe to drive while your neck heals. Ask your health care provider if the medicine prescribed to you requires you to avoid driving or using machinery. Do not use any products that contain nicotine or tobacco. These products include cigarettes, chewing tobacco, and vaping devices, such as e-cigarettes. If you need help quitting, ask your health careprovider. Keep all follow-up visits. This is important. Contact a health care provider if: Your condition does not improve with treatment. Get help right away if: Your pain gets much worse and is not controlled with medicines. You have weakness or numbness in your hand, arm, face, or leg. You have a high fever. You have a stiff, rigid neck. You lose control of your bowels or your bladder (have incontinence). You have trouble with walking, balance, or speaking. Summary Cervical radiculopathy happens when a nerve in the neck is pinched or bruised. A nerve can get pinched from a bulging disk, arthritis, muscle spasms, or an injury to the neck. Symptoms include pain, tingling, or numbness radiating from the neck to the arm or hand. Weakness can also occur in severe cases. Treatment may include rest, wearing a cervical collar, and physical therapy. Medicines may be prescribed to help with pain. In severe cases, injections or surgery may be needed. This information is not intended to replace advice given to you by your health care provider. Make sure you discuss any questions you have with your health care provider. Document Revised: 05/16/2022 Document Reviewed: 05/16/2022 [employer] Patient Education 2022 [employer]. Follow Up Care 06/03/2024 13:10:01 With:Ender Logan Address: [address], [address] [place] [address]- [phone] Business (1) When:06/06/2024 15:18:17 With:Jeanne Beck Address: [address] [place] [address], [address] [place] [phone] Business (1) When:Within 3 Day(s) [facility]07-11-2024 NoteED Patient Education Note Orthopedics Cervical Radiculopathy Cervical radiculopathy happens when a nerve in the neck (a cervical nerve) is pinched or bruised. This condition can happen because of an injury to the cervical spine (vertebrae) in the neck, or as part of the normal aging process. Pressure on the cervical nerves can cause pain or numbness that travels from the neck all the way down to the arm and fingers. This condition usually gets better with rest. Treatment may be needed if the condition does not improve. What are the causes? This condition may be caused by: ? A neck injury. ? A bulging (herniated) disk. ? Muscle spasms. ? Muscle tightness in the neck due to overuse. ? Arthritis. ? Breakdown or degeneration in the bones and joints of the spine (spondylosis) due to aging. ? Bone spurs that may develop near the cervical nerves. What are the signs or symptoms? Symptoms of this condition include: ? Pain. The pain may travel from the neck to the arm and hand. The pain can be severe or irritating. It may get worse when you move your neck. ? Numbness or tingling in your arm or hand. ? Weakness in the affected arm and hand, in severe cases. How is this diagnosed? This condition may be diagnosed based on your symptoms, your medical history, and a physical exam. You may also have tests, including: ? X-rays. ? CT scan. ? MRI. ? Electromyogram (EMG). ? Nerve conduction tests. How is this treated? In many cases, treatment is not needed for this condition. With rest, the condition usually gets better over time. If treatment is needed, options may include: ? Wearing a soft neck collar (cervical collar) for short periods of time. ? Doing physical therapy to strengthen your neck muscles. ? Taking medicines. These may include NSAIDs, such as ibuprofen, or oral corticosteroids. ? Having spinal injections, in severe cases. ? Having surgery. This may be needed if other treatments do not help. Different types of surgery may be done depending on the cause of this condition. Follow these instructions at home: If you have a cervical collar: ? Wear it as told by your health care provider. Remove it only as told by your health care provider. ? Ask your health care provider if you can remove the cervical collar for cleaning and bathing. If you are allowed to remove the collar for cleaning or bathing: ? Follow instructions from your health care provider about how to remove the collar safely. ? Clean the collar by wiping it with mild soap and water and drying it completely. ? Take out any removable pads in the collar every 1?2 days, and wash them by hand with soap and water. Let them air-dry completely before you put them back in the collar. ? Check your skin under the collar for irritation or sores. If you see any, tell your health care provider. Managing pain ? Take fefd-unf-bbzvmfi and prescription medicines only as told by your health care provider. ? If directed, put ice on the affected area. To do this: ? If you have a soft neck collar, remove it as told by your health care provider. ? Put ice in a plastic bag. ? Place a towel between your skin and the bag. ? Leave the ice on for 20 minutes, 2?3 times a day. ? Remove the ice if your skin turns bright red. This is very important. If you cannot feel pain, heat, or cold, you have a greater risk of damage to the area. ? If applying ice does not help, you can try using heat. Use the heat source that your health care provider recommends, such as a moist heat pack or a heating pad. ? Place a towel between your skin and the heat source. ? Leave the heat on for 20?30 minutes. ? Remove the heat if your skin turns bright red. This is especially important if you are unable to feel pain, heat, or cold. You have a greater risk of getting burned. ? Try a gentle neck and shoulder massage to help relieve symptoms. Activity ? Rest as needed. ? Return to your normal activities as told by your health care provider. Ask your health care provider what activities are safe for you. ? Do stretching and strengthening exercises as told by your health care provider or your physical therapist. ? You may have to avoid lifting. Ask your health care provider how much you can safely lift. General instructions ? Use a flat pillow when you sleep. ? Do not drive while wearing a cervical collar. If you do not have a cervical collar, ask your health care provider if it is safe to drive while your neck heals. ? Ask your health care provider if the medicine prescribed to you requires you to avoid driving or using machinery. ? Do not use any products that contain nicotine or tobacco. These products include cigarettes, chewing tobacco, and vaping devices, such as e-cigarettes. If you need help quitting, ask your health care provider. ? Keep all follow-up visits. This is im (more content not included)...[facility]07-09-2024 Hospital Discharge instructions Patient Education 06/01/2024 10:18:00 Musculoskeletal Pain Musculoskeletal Pain Musculoskeletal pain refers to aches and pains in your bones, joints, muscles, and the tissues thatsurround them. This pain can occur in any part of the body. It can last for a short time (acute) ora long time (chronic). A physical exam, lab tests, and imaging studies may be done to find the cause of your musculoskeletal pain. Follow these instructions at home: Lifestyle Try to control or lower your stress levels. Stress increases muscle tension and can worsen musculoskeletal pain. It is important to recognize when you are anxious or stressed and learn ways to manageit. This may include: ?Meditation or yoga. ?Cognitive or behavioral therapy. ?Acupuncture or massage therapy. You may continue all activities unless the activities cause more pain. When the pain gets better, slowly resume your normal activities. Gradually increase the intensity and duration of your activities or exercise. Managing pain, stiffness, and swelling Treatment may include medicines for pain and inflammation that are taken by mouth or applied to theskin. Take gsxt-utr-ntamwch and prescription medicines only as told by your health care provider. When your pain is severe, bed rest may be helpful. Lie or sit in any position that is comfortable, but get out of bed and walk around at least every couple of hours. If directed, apply heat to the affected area as often as told by your health care provider. Use theheat source that your health care provider recommends, such as a moist heat pack or a heating pad. ?Place a towel between your skin and the heat source. ?Leave the heat on for 20 30 minutes. ?Remove the heat if your skin turns bright red. This is especially important if you are unable to feel pain, heat, or cold. You may have a greater risk of getting burned. If directed, put ice on the painful area. To do this: ?Put ice in a plastic bag. ?Place a towel between your skin and the bag. ?Leave the ice on for 20 minutes, 2 3 times a day. ?Remove the ice if your skin turns bright red. This is very important. If you cannot feel pain, heat, or cold, you have a greater risk of damage to the area. General instructions Your health care provider may recommend that you see a physical therapist. This person can help youcome up with a safe exercise program. If told by your health care provider, do physical therapy exercises to improve movement and strength in the affected area. Keep all follow-up visits. This is important. This includes any physical therapy visits. Contact a health care provider if: Your pain gets worse. Medicines do not help ease your pain. You cannot use the part of your body that hurts, such as your arm, leg, or neck. You have trouble sleeping. You have trouble doing your normal activities. Get help right away if: You have a new injury and your pain is worse or different. You feel numb or you have tingling in the painful area. Summary Musculoskeletal pain refers to aches and pains in your bones, joints, muscles, and the tissues thatsurround them. This pain can occur in any part of the body. Your health care provider may recommend that you see a physical therapist. This person can help youcome up with a safe exercise program. Do any exercises as told by your physical therapist. Lower your stress level. Stress can worsen musculoskeletal pain. Ways to lower stress may include meditation, yoga, cognitive or behavioral therapy, acupuncture, and massage therapy. This information is not intended to replace advice given to you by your health care provider. Make sure you discuss any questions you have with your health care provider. Document Revised: 03/15/2021 Document Reviewed: 02/21/2021 [employer] Patient Education 2022 [employer] 06/01/2024 10:17:57 Heat Therapy, Eswn-zm-Hppi Heat Therapy Heat therapy can help ease sore, stiff, injured, and tight muscles and joints. Heat relaxes your muscles. This may help ease your pain and muscle spasms. What are the risks? If you have any of the following conditions, do not use heat therapy unless your doctor says it is okay. These conditions include: New bruises. Open wounds. Any of these in the area being treated: ?Healing wounds. ?Infected skin. ?Scarred skin. Problems with how blood moves through your body (circulation). Loss of feeling (numbness) in the part of your body that is being treated. Unusual swelling of the part of the body that is being treated. Blood clots. Diabetes. Heart disease. Cancer. Not being able to communicate pain. This may include young children and people who have problems with their brain function (dementia). How to use heat therapy There are different kinds of heat therapy. These include: Moist heat pack. Hot water bottle. Electric heating pad. Heated gel pack. Heated wrap. Warm water bath. Your doctor will tell you how to use heat therapy. In general, you should: 1.Place a towel between your skin and the heat source. 2.Leave the heat on for 20 30 minutes. Your skin may turn pink. 3.Take off the heat if your skin turns bright red. This is very important. If you cannot feel pain,heat, or cold, you have a greater risk of getting burned. Your doctor may also tell you to take a warm water bath. To do this: 1.Put a non-slip pad in the bathtub to prevent a fall. 2.Fill the bathtub with warm water. 3.Check the water temperature. 4.Soak in the water for 15 20 minutes, or as told by your doctor. 5.Be careful when you stand up after the bath. You may feel dizzy. 6.Pat yourself dry after the bath. Do not rub your skin to dry it. General recommendations for heat therapy Be careful not to burn your skin when using heat therapy. High heat or using heat for a long time can cause sandoval. Do not sleep while using heat therapy. Only use heat therapy while you are awake. Check your skin during heat therapy. Do not use heat therapy if you have a new injury, especially if you have swelling on the injured area. Do not use heat therapy on areas of your skin that are already irritated, such as with a rash or sunburn. Do not use heat therapy if your skin turns bright red. Contact a doctor if: You have blisters, redness, swelling, or loss of feeling in the area where you use heat therapy. You have new pain. You have pain that gets worse. Summary Heat therapy is the use of heat to help ease sore, stiff, injured, and tight muscles and joints. There are different types of heat therapy. Your doctor will tell you which one to use. Only use heat therapy while you are awake. Watch your skin to make sure you do not get burned while using heat therapy. This information is not intended to replace advice given to you by your health care provider. Make sure you discuss any questions you have with your health care provider. Document Revised: 09/12/2021 Document Reviewed: 09/12/2021 [employer] Patient Education 2022 [employer]. [facility] 07-09-2024 NotePatient Education Orthopedics Musculoskeletal Pain Musculoskeletal pain refers to aches and pains in your bones, joints, muscles, and the tissues thatsurround them. This pain can occur in any part of the body. It can last for a short time (acute) ora long time (chronic). A physical exam, lab tests, and imaging studies may be done to find the cause of your musculoskeletal pain. Follow these instructions at home: Lifestyle ? Try to control or lower your stress levels. Stress increases muscle tension and can worsen musculoskeletal pain. It is important to recognize when you are anxious or stressed and learn ways to manage it. This may include: ? Meditation or yoga. ? Cognitive or behavioral therapy. ? Acupuncture or massage therapy. ? You may continue all activities unless the activities cause more pain. When the pain gets better,slowly resume your normal activities. Gradually increase the intensity and duration of your activities or exercise. Managing pain, stiffness, and swelling ? Treatment may include medicines for pain and inflammation that are taken by mouth or applied to the skin. Take erfd-gzr-orfllle and prescription medicines only as told by your health care provider. ? When your pain is severe, bed rest may be helpful. Lie or sit in any position that is comfortable, but get out of bed and walk around at least every couple of hours. ? If directed, apply heat to the affected area as often as told by your health care provider. Use the heat source that your health care provider recommends, such as a moist heat pack or a heating pad. ? Place a towel between your skin and the heat source. ? Leave the heat on for 20?30 minutes. ? Remove the heat if your skin turns bright red. This is especially important if you are unable to feel pain, heat, or cold. You may have a greater risk of getting burned. ? If directed, put ice on the painful area. To do this: ? Put ice in a plastic bag. ? Place a towel between your skin and the bag. ? Leave the ice on for 20 minutes, 2?3 times a day. ? Remove the ice if your skin turns bright red. This is very important. If you cannot feel pain, heat, or cold, you have a greater risk of damage to the area. General instructions ? Your health care provider may recommend that you see a physical therapist. This person can help you come up with a safe exercise program. ? If told by your health care provider, do physical therapy exercises to improve movement and strength in the affected area. ? Keep all follow-up visits. This is important. This includes any physical therapy visits. Contact a health care provider if: ? Your pain gets worse. ? Medicines do not help ease your pain. ? You cannot use the part of your body that hurts, such as your arm, leg, or neck. ? You have trouble sleeping. ? You have trouble doing your normal activities. Get help right away if: ? You have a new injury and your pain is worse or different. ? You feel numb or you have tingling in the painful area. Summary ? Musculoskeletal pain refers to aches and pains in your bones, joints, muscles, and the tissues that surround them. ? This pain can occur in any part of the body. ? Your health care provider may recommend that you see a physical therapist. This person can help you come up with a safe exercise program. Do any exercises as told by your physical therapist. ? Lower your stress level. Stress can worsen musculoskeletal pain. Ways to lower stress may includemeditation, yoga, cognitive or behavioral therapy, acupuncture, and massage therapy. This information is not intended to replace advice given to you by your health care provider. Make sure you discuss any questions you have with your health care provider. Document Revised: 03/15/2021 Document Reviewed: 02/21/2021 [employer] Patient Education ? 2022 [employer] [facility] Heat Therapy Heat therapy can help ease sore, stiff, injured, and tight muscles and joints. Heat relaxes your muscles. This may help ease your pain and muscle spasms. What are the risks? If you have any of the following conditions, do not use heat therapy unless your doctor says it is okay. These conditions include: ? New bruises. ? Open wounds. ? Any of these in the area being treated: ? Healing wounds. ? Infected skin. ? Scarred skin. ? Problems with how blood moves through your body (circulation). ? Loss of feeling (numbness) in the part of your body that is being treated. ? Unusual swelling of the part of the body that is being treated. ? Blood clots. ? Diabetes. ? Heart disease. ? Cancer. ? Not being able to communicate pain. This may include young children and people who have problems with their brain function (dementia). How to use heat therapy There are different kinds of heat therapy. These include: ? Moist heat (more content not included)...[facility]10-19-2021 Evaluation + Plan note Future Scheduled Tests Laboratory* Rapid COVID Antigen ([facility]) 09[facility]11/[facility] Future [facility]ments Appointment Date:06/11/2024 02:40:00 PM Scheduled Provider:MODESTO SALTER Location:[facility] Appointment Type: New [facility] - Adult [facility] Future Appointments Appointment Date:07/21/2024 01:00:00 PM Scheduled Provider:Natalya Prado PA-C [facility] [place] [facility] Type:Pain Management - New () Appointment Date:07/29/2024 08:40:00 AM Scheduled Provider:Madhav Fuentes DO Location:[facility] Appointment Type: Open [facility] [place] Evaluation + Plan note Future Appointments Appointment Date:08/05/2024 04:15:00 PM Scheduled [facility]: [facility] [place] [facility]:PT 45 ([facility]) Appointment Date:08/06/2024 01:45:00 PM Scheduled Provider: Location:[facility] [place] Appointment Type:PT 45 (FT) Appointment Date:08/10/2024 05:00:00 PM Scheduled Provider: Location[place] [place] Appointment Type:PT 45 (FT) Appointment Date:08/13/2024 04:00:00 PM Scheduled Provider: Location:[facility] [place] Appointment Type:PT 45 (FT) Appointment Date:08/18/2024 04:00:00 PM Scheduled Provider: Location:[facility] [place] Appointment Type:PT Re-Eval 30 (FT) Appointment Date:09/01/2024 12:30:00 PM Scheduled Provider:Natalya Prado PA-C Location:[facility] [place] Appointment Type:Pain Management - Follow Up ([facility]) [facility] [place] Evaluation noteNo assessment information available [facility] Work Phone: Hospital course Narrative No data available for this section [facility] No data available for this section [facility] No data available for this section [facility] Summary Purpose Family History No Family History Records FoundNo Family History Records FoundNo Family History Records Found No data available for this section No data available for this section No data available for this section No data available for this section No data available for this section No data available for this section No data available for this section No Family History Records Found Advance Directives No Advanced Directives Records FoundNo Advanced Directives Records FoundNo Advanced Directives Records FoundNo Advanced Directives Records Found Additional Source Comments INFORMATION SOURCE (unrecogn ized section and content) DATE CREATED AUTHOR 04/07/2021 [facility] DATE CREATED AUTHOR AUTHOR'S ORGANIZ ATION 02/17/2024 [facility] DATE CREATED AUTHOR AUTHOR'S ORGANIZ ATION 05/08/2024 [facility] EPIC DATE CREATED AUTHOR AUTHOR'S ORGANIZ ATION 08/16/2024 [facility] Care Team (unrecognized sect ion and content) Team Status: Inactive Member Role Status Dates Rosenda William Attending Provider Active Start: [facility] 2023 End: February 09, 2024 Goals (unrecognized section and content) Goals may be documented in a n alternate section FOR RECORDS PERTAINING TO PATIENTS WHO ARE OR HAVE BEEN ENROLLED IN A CHEMICAL DEPENDENCY/SUBSTANCEABUSE PROGRAM, SOME INFORMATION MAY BE OMITTED. This clinical summary was aggregated from multiple sources. Caution should be exercised in using it in the provision of clinical care. This summary normalizes information from multiple sources, and as a consequence, information in this document may materially change the coding, format and clinical context of patient data. In addition, data may be omitted in some cases. CLINICAL DECISIONS SHOULD BE BASED ON THE PRIMARY CLINICAL RECORDS. [facility] [employer] [facility]. provides no warranty or guarantee of the accuracy or completeness of information in this document.
== END 2024-08-16 21:06 | disposition home or self-care (01) ==
LOC: LAB 21:05
PROVIDERS: Visit Provider Obstetrics & Gynecology
DX: R87.612 Low grade squamous intraepithelial lesion on cytologic smear of cervix (LGSIL) (principal)
CPT/HCPCS: 87624; 88175

== ENCOUNTER 2025-01-27 10:13 | Outpatient (OUT) | payer BC, SELFPAY | END 2025-01-27 10:14 | disposition home or self-care (01) | PROVIDERS: PCP Family Medicine; Visit Provider Obstetrics & Gynecology | DX: Z01.818 Encounter for other preprocedural examination (principal); R87.612 Low grade squamous intraepithelial lesion on cytologic smear of cervix (LGSIL); R87.810 Cervical high risk human papillomavirus (HPV) DNA test positive ==

== ENCOUNTER 2025-02-04 05:45 | Day surgery (SDC) | payer BC, SELFPAY ==
[2025-01-27 10:24] VITALS: BP 106/67; PULSE 80; TEMP 36.3; O2SAT 98; BMI 25.4
--- OUTSIDE RECORDS SUMMARY | 2025-02-04 05:49 | XMS_ITS | CCD ---
Author Organization [facility] Care Team Providers Care Heel Seat Pounder Name Role Phone PAOLA, DR MENDIETA Attending Unavailable PAOLA, DR MENDIETA Consulting Unavailable PAOLA, DR MENDIETA Admitting Unavailable REQUEST, NONE LISTED Primary Care Unavaila Jeanne Blount Primary Care Physician Willem William Attending Provider Willem William Attending Unavailable Willem William Admitting Unavailable Madhav Fuentes Primary Care Physician Unallocated , Noms Provider Primary Care Provi jonathan Ender Logan Attending Unavailable Ender Logan Referring Unavailable Ender Logan Admitting Unavailable Ender Logan Admitting Unavailable Ender Logan Attending Unavailable Ender Logan Referring Unavailable Jeanne Ocampo Referring Unavailable Natalya Prado Admitting Unavailable Natalya Prado Attending Unavailable Christofferson, TOGGLE PRESS OPERATOR Natalya L Consulting Willow vailable Christofferson, Natalya L Consulting Unavail able Christofferson, Natalya L Consulting Unavail able Christofferson, Natalya L Consulting Unavail able Christofferson, Natalya L Consulting Unavail able Christofferson, Natalya L Consulting Unavail able Christofferson, Natalya L Consulting Unavail able Christofferson, Natalya L Consulting Unavail able Christofferson, Natalya L Consulting Unavail able Christofferson, Natalya L Consulting Unavail able Ender Logan Referring Unavailable Ender Logan Attending Unavailable Ender Loagn Admitting Unavailable Christofferson, Natalya L Consulting Unavail able Christofferson, Natalay L Consulting Unavail able Christofferson, Natalya L Consulting Unavail able Christofferson, Natalya L Consulting Unavail able Christofferson, Natalya L Consulting Unavail able Christofferson, Antalya L Consulting Unavail able Christofferson, Natalya L Consulting Unavail able Christofferson, Natalya L Consulting Unavail able Prado, Natalya Attending Unavailable Prado, Natalya Referring Unavailable Rhiew, Ender B Attending Unavailable Rhiew, Ender B Referring Unavailable Rhiew, Ender B Admitting Unavailable Cuco Uribe Attending Unavailable HARSHA HOFFMAN Attending Unavailabl Madhav Snyder Attending Unavailable Link, Madhav Anne Attending Unavailable Rhiew, Ender Sood Attending Unavailable Rhiew, Ender B Referring Unavailable Rhiew, Ender B Admitting Unavailable Jorge Sue Attending Unavailable Den Mcqueen Attending Unavailable Rhiew, Ender Sood Attending Unavailable Rhiew, Ender B Referring Unavailable Rhiew, Ender B Admitting Unavailable Prado, Natalya Attending Unavailable Rhmercyw, Ender B Referring Unavailable Prado, Natalya Admitting Unavailable Prado, Natalya Attending Unavailable Link, Madhav Anne Referring Unavailable Unallocated MD, Noms Provider Primary Care Provi jonathan WILLEM WILLIAM Attending Unavailable NATALIIA, WILLEM Attending Unavailable NATALIIA, WILLEM Attending Unavailable NATALIIA, WILLEM Attending Unavailable NATALIIA, WILLEM Attending Unavailable NATALIIA, WILLEM Attending Unavailable Allergies Allergy Classification Reported Allergen(s) Allergy Type Date of Onset Reaction(s) Facility Penicillins (antibiotic) (2 sources) Penicillin; Translations: [penicillins] Drug Allergy [facility] Repository (20 sources) Penicillins; Translations: [penicillins] Drug allergy 3 Hives, Rash, Wheezing [facility] Medications Current Medications Medication Drug Class(es) Dates Sig (Normalized) Sig (Original) Tylenol (7 sources) Start: 07-21-2024 Tylenol 500 mg, Daily, PRN as needed for pain, Refills(s) 0 Start Date: 07/21/24 Status: Ordered acetaminophen 325 mg / oxyCODONE hydrochloride 5 mg oral tablet (1 source) Opioid Agonist Start: 09-16-2024 End: 09-23-2024 Percocet 5 mg-325 mg oral tablet 1 tab(s), Oral, TID Pain 4-7 for 7 day(s), 21 tab(s), Refill(s) 0, [facility], 155.5, cm, 09/01/24 10:15:00 EDT, Height/Length Dosing, 59, kg, 09/01/24 10:15:00 EDT, Weight Dosing Start Date: 09/16/24 Stop Date: 09/23/24 Status: Ordered amitriptyline hydrochloride 25 mg oral tablet (4 sources) Tricyclic Antidepressant Start: 09-01-2024 End: 10-31-2024 take 2 tablets by mouth once daily at bedtime amitriptyline (Elavil) 25 MG tablet TAKE 2 TABLETS BY MOUTH EVERY DAY AT BEDTIME 09/13/2024 Active cyclobenzaprine hydrochloride 10 mg oral tablet (1 source) Muscle Relaxant Start: 09-16-2024 End: 10-07-2024 take 1 tablet by mouth three times daily cyclobenzaprine 10 mg Tab 10 mg = 1 tab(s), Oral, TID, X 21 day(s), # 63 tab(s), Refills(s) 0, Pharmacy: [facility] #37, 155.5, cm, 09/01/24 10:15:00 EDT, Height/Length Dosing, 59, kg, 09/01/24 10:15:00 EDT, Weight Dosing Start Date: 09/16/24 Stop Date: 10/07/24 Status: Ordered [id number] 0.3 ml EPINEPHrine 1 mg/ml auto-injector (1 source) alpha-Adrenergic Agonist, beta-Adrenergic Agonist, Catecholamine Start: 09-02-2022 EPINEPHrine (EpiPen 2-Armando) 0.3 MG/0.3ML injection syringe as directed Injection outside of thigh prn for 1 year 09/02/2022 Active gabapentin 300 mg oral capsule (5 sources) Anti-epileptic Agent Start: 07-21-2024 End: 09-19-2024 take 2 capsules by mouth in the morning, then take 2 capsules by mouth in the evening, then take 2 capsules by mouth at bedtime gabapentin (Neurontin) 300 MG capsule Take 600 mg by mouth in the morning and 600 mg in the evening and 600 mg before bedtime. 07/21/2024 Active Start: 06-03-2024 End: 06-13-2024 take 1 capsule by mouth twice daily gabapentin 100 mg Cap 100 mg = 1 cap(s), Oral, BID, X 10 day(s), # 20 cap(s), Refills(s) 0, Pharmacy: [facility] #37, 152, cm, 06/03/24 13:25:00 EDT, Height/Length Dosing, 61.5, kg, 06/03/24 13:25:00 EDT, Weight Dosing Start Date: 06/03/24 Stop Date: 06/13/24 Status: Ordered Ibuprofen (3 sources) Nonsteroidal Anti-inflammatory Drug Start: 07-21-2024 ibuprofen 200 mg, Daily, PRN as needed for pain, Refills(s) 0 Start Date: 07/21/24 Status: Ordered levonorgestrel 0.277784 mg/hr intrauterine system (8 sources) Progestin, Progestin-containing Intrauterine Device Start: 03-15-2024 End: 03-14-2029 Levonorgestrel intrauterine device 52 mg Magnesium (3 sources) Start: 07-21-2024 Magnesium Magnesium, Oral, Daily Start Date: 07/21/24 Status: Ordered methocarbamol 500 mg oral tablet (2 sources) Muscle Relaxant Start: 06-01-2024 End: 06-08-2024 take 2 tablets by mouth four times daily methocarbamol 500 mg Tab 1,000 mg = 2 tab(s), Oral, QID, X 7 day(s), # 56 tab(s), Refills(s) 0, Pharmacy: [facility] #37, 152, cm, 06/01/24 9:55:00 EDT, Height/Length Dosing, 59, kg, 06/01/24 9:55:00 EDT, Weight Dosing Start Date: 06/01/24 Stop Date: 06/08/24 Status: Ordered naproxen 500 mg oral tablet (7 sources) Nonsteroidal Anti-inflammatory Drug Start: 07-06-2024 take 1 tablet by mouth twice daily as needed for pain naproxen 500 mg Tab 500 mg = 1 tab(s), Oral, BID, PRN Pain, # 30 tab(s), Refills(s) 0, Pharmacy: [facility] #37, 152.4, cm, 07/06/24 20:34:00 EDT, Height/Length Dosing, 58.3, kg, 07/06/24 20:34:00 EDT, Weight Dosing Start Date: 07/06/24 Status: Ordered Start: 06-03-2024 End: 06-13-2024 take 1 tablet by mouth twice daily naproxen 500 mg Tab 500 mg = 1 tab(s), Oral, BID, X 10 day(s), # 20 tab(s), Refills(s) 0, Pharmacy: [facility] #37, 152, cm, 06/03/24 13:25:00 EDT, Height/Length Dosing, 61.5, kg, 06/03/24 13:25:00 EDT, Weight Dosing Start Date: 06/03/24 Stop Date: 06/13/24 Status: Ordered predniSONE 50 mg oral tablet (5 sources) Start: 07-06-2024 End: 07-13-2024 take 1 tablet by mouth once daily predniSONE 50 mg Tab 50 mg = 1 tab(s), Oral, Daily, X 7 day(s), # 7 tab(s), Refills(s) 0, Pharmacy: [facility] #37, 152.4, cm, 07/06/24 20:34:00 EDT, Height/Length Dosing, 58.3, kg, 07/06/24 20:34:00 EDT, Weight Dosing Start Date: 07/06/24 Stop Date: 07/13/24 Status: Ordered Start: 06-03-2024 End: 06-08-2024 take 3 tablets by mouth once daily predniSONE 20 mg Tab 60 mg = 3 tab(s), Oral, Daily, X 5 day(s), # 15 tab(s), Refills(s) 0, Pharmacy: [facility] #37, 152, cm, 06/03/24 13:25:00 EDT, Height/Length Dosing, 61.5, kg, 06/03/24 13:25:00 EDT, Weight Dosing Start Date: 06/03/24 Stop Date: 06/08/24 Status: Ordered Start: 06-01-2024 End: 06-08-2024 take 2 tablets by mouth once daily predniSONE 20 mg Tab 40 mg = 2 tab(s), Oral, Daily, X 7 day(s), # 14 tab(s), Refills(s) 0, Pharmacy: [facility] #37, 152, cm, 06/01/24 9:55:00 EDT, Height/Length Dosing, 59, kg, 06/01/24 9:55:00 EDT, Weight Dosing Start Date: 06/01/24 Stop Date: 06/08/24 Status: Ordered pregabalin 200 mg oral capsule (12 sources) Start: 09-01-2024 take 1 capsule by mouth three times daily Lyrica 200 mg Cap 200 mg = 1 cap(s), Oral, TID, # 90 cap(s), Refills(s) 1, Pharmacy: [facility] #37, 155.5, cm, 09/01/24 10:15:00 EDT, Height/Length Dosing, 59, kg, 09/01/24 10:15:00 EDT, Weight Dosing Start Date: 09/01/24 Status: Ordered Start: 08-18-2024 take 1 capsule by [facility] three times daily Lyrica 200 mg Cap 200 mg = 1 cap(s), Oral, TID, # 90 cap(s), Refills(s) 0, Pharmacy: [facility] #37, 152.4, cm, 07/29/24 8:42:00 EDT, Height/Length Dosing, 59.6, kg, 07/29/24 8:42:00 EDT, Weight Dosing Start Date: 08/18/24 Status: Ordered Start: 08-06-2024 End: 12-27-2024 take 1 capsule by mouth once daily pregabalin (Lyrica) 200 MG capsule Take 200 mg by mouth Daily 08/06/2024 12/27/2024 Discontinued Start: 08-06-2024 take 1 capsule by [facility] twice daily pregabalin 200 mg Cap 200 mg = 1 cap(s), Oral, BID, DC GPN, # 60 cap(s), Refills(s) 0, Pharmacy: [facility] #37, 152.4, cm, 07/29/24 8:42:00 EDT, Height/Length Dosing, 59.6, kg, 07/29/24 8:42:00 EDT, Weight Dosing Start Date: 08/06/24 Status: Ordered Completed/Discontinued Medications Medication Drug Class(es) Dates Sig (Normalized) Sig (Original) Vit-Fe Svv-NM-Gpevl (PNV Plus Multivit+DHA) 27-1 & 312 MG misc (2 sources) End: 08-16-2024 take 1 tablet by mouth in the morning Vit-Fe Vhr-FI-Szvtj (PNV Plus Multivit+DHA) 27-1 & 312 MG misc Take 1 tablet by mouth in the morning. 08/16/2024 Discontinued take 1 tablet by mouth in the mo rning Vit-Fe Psj-RZ-Lcosl (PNV Plus Multivit+DHA) 27-1 & 312 MG misc Take 1 tablet by mouth in the morning. Active Problems Active Problems Problem Classification Problem Date Documented Date Episodic/Chronic Asthma (13 sources) Asthma 02-24-2017 Chronic Cancer of cervix (4 sources) Low grade squamous intraepithelial lesion on cervical Papanicolaou smear; Translations: [Low grade squamous intraepithelial lesion on cytologic smear of cervix (LGSIL)] 08-16-2024 Episodic Immunizations and screening for infectious disease (1 source) Encounter for screening for human papillomavirus (HPV); Translations: [ENC SCREENING HUMAN PAPILLOMAVIRUS] Onset: 04-05-2021 Episodic Other aftercare (1 source) Long-term current use of drug therapy; Translations: [Other half-way (current) drug therapy] Onset: 09-17-2024 Episodic Other nervous system disorders (1 source) Chronic pain; Translations: [Other chronic pain] Onset: 07-06-2024 Chronic Other non-traumatic joint disorders (3 sources) Pain of left shoulder joint; Translations: [Pain in left shoulder] Onset: 06-01-2024 Episodic Other non-traumatic joint disorders (2 sources) Shoulder joint pain; Translations: [Pain in unspecified shoulder] Onset: 07-09-2024 Episodic Other non-traumatic joint disorders (9 sources) Shoulder pain 07-09-2024 Episodic Other nutritional; endocrine; and metabolic disorders (2 sources) Overweight in adulthood with body mass index of 25 or more but less than 30; Translations: [Body mass index (BMI) 25.0-25.9, adult] Onset: 07-09-2024 Episodic Other upper respiratory disease (8 sources) Allergic rhinitis due to pollen; Translations: [Allergic rhinitis due to pollen] Onset: 05-05-2023 05-05-2023 Chronic Residual codes; unclassified (2 sources) Patient encounter status; Translations: [Other specified health status] Onset: 07-09-2024 Episodic Sexually transmitted infections (not HIV or hepatitis) (1 source) Human papillomavirus deoxyribonucleic acid test positive, high risk on cervical specimen; Translations: [Cervical high risk human papillomavirus (HPV) DNA test positive] 01-12-2025 Episodic Spondylosis; intervertebral disc disorders; other back problems (1 source) Degeneration of cervical intervertebral disc; Translations: [Other cervical disc degeneration, unspecified cervical region] Onset: 07-29-2024 Chronic Spondylosis; intervertebral disc disorders; other back problems (14 sources) Neck pain; Translations: [Cervicalgia] Onset: 06-03-2024 Episodic Past or Other Problems Problem Classification Problem Date Documented Da te Episodic/Chronic Other complications of (12 sources) Abnormal placenta affecting management of mother Onset: 09-04-2018 06-01-2024 Episodic Other screening for suspected conditions (not mental disorders or infectious disease) (12 sources) Encounter for screening for malignant neoplasm of cervix; Translations: [Abnormal cervical Papanicolaou smear] Onset: 03-29-2021 Episodic Viral infection (1 source) Disease caused by 2019-nCoV; Translations: [COVID-19] Results Test Name Value Interpretation Reference Range Facility XR Spine Single View Specify Levelon 09-22-2024 XR Spine Single View Specify Level Exam Date/Time: 09/16/2024 12:40 EDT Reason for Exam: Disc problems Report IMPRESSION: Intraoperative imaging. EXAMINATION/TECHNIQUE : XR Spine Single View Specify Level HISTORY: ACDF C6-C7. COMPARISON: CT 09/17/2024. MRI 07/13/2024. RESULT: Fluoroscopy provided for surgical procedure. Air Kerma (Ka,r): 2.95 mGy. No diagnostic images. Please refer to performing provider note for further details. ACDF C6-C7. No other significant abnormality. Ordering Provider: Ender Logan FINAL REPORT Dictated: 09/22/2024 10:51 am Mookie Carter MD. Signed (Electronic Signature): 09/22/2024 10:51 am Signed by: Mookie Carter MD Transcribed by: OLY Technologist: APURVA Technical Comments Radiation Dose: Ka,r in mGy = 2.95 DAP = na Normal [facility] Main OR Intraoperative Recor don 09-20-2024 Main OR Intraoperative Record Main OR Intraoperative Record IntraOp Document Type FT Summary Primary Physician: Ender Loagn MD Finalized Date/Time: 09/20/24 08:44:42 Pt. Name: DARRICK VILLAFUERTE.O.B./Sex: 1990 Female Med Rec #: [id number] Physician: Ender Logan MD Financial #: [id number] Pt. Type: O Room/Bed: [place] [address] Admit/Disch: 09/16/24 09:22:53 - 09/17/24 16:45:00 Institution: Case Times FT Entry 1 Patient Times In Room 09/16/24 10:42:00 Out Room 09/16/24 12:53:00 Procedure Times Start 09/16/24 11:15:00 Stop 09/16/24 12:39:00 Anesthesia Times Start 09/16/24 10:42:00 Stop 09/16/24 12:53:00 Last Modified By: Juve GUILLEN, Yasmine Kamara 09/16/24 12:53:06 General Comments: 09/20/24 Chart opened to review and send charges [facility] CSFA Case Attendance FT Entry 1 Entry 2 Entry 3 Case Attendee Kayleigh DNP, SOFTWARE SUPPORT REPRESENTATIVE, Ender Briceno MD, CST, Agustín Ridley Role Performed SOFTWARE SUPPORT REPRESENTATIVE Surgeon - Primary PEDIATRIC ASSISTANT/SA Time In 09/16/24 10:42:00 09/16/24 10:42:00 09/16/24 10:42:00 Time Out 09/16/24 12:53:00 09/16/24 12:53:00 09/16/24 12:53:00 Procedure CERVICAL ANTERIOR CERVICAL ANTERIOR CERVICAL ANTERIOR DISCECTOMY W/ FUSION,(.) DISCECTOMY W/ FUSION,(.) DISCECTOMY W/ FUSION,(.) Comments DR GO SUPERVISING OUT OF ROOM [id number] Last Modified By: Juve GUILLEN, Yasmine An RN, Yasmine Hill RN 09/16/24 12:53:07 09/16/24 12:53:07 09/16/24 12:53:07 Entry 4 Entry 5 Entry 6 Case Attendee Aniyah Lacey RN, Yasmine Jonas DEVOPS ENGINEERGrecia Role Performed EDGE SETTER Fabrication Manager - Primary Scrub - Primary Time In 09/16/24 10:42:00 09/16/24 10:42:00 09/16/24 10:42:00 Time Out 09/16/24 12:53:00 09/16/24 12:53:00 09/16/24 12:53:00 Procedure CERVICAL ANTERIOR CERVICAL ANTERIOR CERVICAL ANTERIOR DISCECTOMY W/ FUSION,(.) DISCECTOMY W/ FUSION,(.) DISCECTOMY W/ FUSION,(.) Comments OUT OF ROOM [id number] OUT FOR LUNCH FROM OUT OF ROOM [id number] Last Modified By: Juve RN, Yasmine An RN, Yasmine An RN, Yasmine Kamara 09/16/24 12:53:07 09/16/24 12:53:07 09/16/24 12:53:07 Entry 7 Entry 8 Entry 9 Case Attendee Coby Schultz, Peggy Alvares Performed Fabrication Manager - Relief Scrub - Relief Engineering Coordinator Time In 09/16/24 11:03:00 09/16/24 11:45:00 09/16/24 10:42:00 Time Out 09/16/24 11:39:00 09/16/24 12:25:00 09/16/24 12:33:00 Procedure CERVICAL ANTERIOR CERVICAL ANTERIOR CERVICAL ANTERIOR DISCECTOMY W/ FUSION,(.) DISCECTOMY W/ FUSION,(.) DISCECTOMY W/ FUSION,(.) Comments LUNCH RELIEF Last Modified By: Juve RN, Yasmine An RN, Yamsine An RN, Yasmine Kamara 09/16/24 12:53:07 09/16/24 12:53:07 09/16/24 12:53:07 General Comments: TESHA GOMEZ, GLOBUS REP, AND ISABEL KERR, SYNAPSES REP, ALSO IN ATTENDANCE. Epifanio CONTRERAS Perioperative Protocols FT Pre-Care Text: Implements protective measures prior to operative or invasive procedure, confirms identity before the operative or invasive procedure, verifies operative procedure, surgical site, and laterality Entry 1 Procedure(s) CERVICAL ANTERIOR Patient Identity Birthday, ID Band DISCECTOMY W/ FUSION,(.) Verified (select at Check, Patient least 2): Participation Consents / H and P Anesthesia Consent, Operative Site Present Verified H&P, Surgery/Procedure Marking Verified Consent Surgical Site Yes Laterality Verified n/a Verified Procedure Verified Yes Correct Patient Yes Position Verified Availability Equipment, Implant, Prep Dry Yes Verified (If Medication, X-ray Applicable) PreOp Antibiotic Yes Time Out Kayleigh LOCKHART, VARGAS, Queen Jeronimo Participants NLynnette, Doreen LUKE, Ender Sood, Wilner ALAN, Abhijit Dee Amber M, Antoine, Coby E, [place] DEVOPS ENGINEER, Grecia Fuentes, Peggy Pan Time Out Complete 09/16/24 11:10:00 Outcomes Met? Yes Last Modified By: Yasmine An RN 09/16/24 11:50:22 Post-Care Text: The patient is free from signs and symptoms of injury caused by extraneous objects Allergy Information FT Pre-Care Text: Verifies allergies Entry 1 Allergies Reviewed? Yes Allergies Reviewed Self/Patient With Outcomes Met? Yes Last Modified By: Yasmine An RN 09/16/24 08:35:20 Post-Care Text: The patient received appropriate medication(s) safely administered during the perioperative period Surgical Procedures FT Entry 1 Procedure Description Procedure CERVICAL ANTERIOR Modifiers . DISCECTOMY W/ FUSION, (ACDF) Surgeon Description ANTERIOR CERVICAL DISCECTOMY, ARTHRODESIS, C6-7, MICRODISSECTION, FLUOROSCOPY, SPINAL MONITORING, PREOPERATIVE STEREOTACTIC PLANNING, INSERTION PLATE SCREWS INTERBODY CAGE Primary Procedure Yes Primary Surgeon Ender Logan MD Start 09/16/24 11:15:00 Stop 09/16/24 12:39:00 Anesthesia Type General Surgical Service Neurology Wound Class 1 - Clean Last Modified By: Yasmine An RN 09/16/24 12:53:09 General Case Data FT Pre-Care Text: Classifies surgical wound, implements aseptic technique, initiates traffic control Entry (more content not included)... Normal [facility] Surgical Pathology Reporton 09-20-2024 Surgical Pathology Report [address] [place] [address]- Surgical Pathology Report Collected Date/Time: 09/16/2024 12:06 EDT Pathologist: Saravanan LUKE PhD, Skylar Flores Received Date/Time: 09/16/2024 14:14 EDT Ender Logan MD, MD, Richard B Surgical Pathology Report - 09/20/2024 15:58 EDT - Auth (Verified) Final Diagnosis HERNIATED DISC, CERVICAL SPINE, DISCECTOMY: - BENIGN CARTILAGINOUS TISSUE, CONSISTENT WITH HERNIATED DISC. (Electronic Signature) Skylar Coe MD PhD 09/20/2024 15:58 Clinical Information Cervical stenosis c6-7 Pre-Op Diagnosis: Cervical stenosis c6-7 Procedure: Anterior cervical discectomy Post-Op Diagnosis: cervical herniated disc stenosis c67 triceps biceps hand intrinsics weakness 2/5 with numbness thumb index middle fingers left Specimen(s) Received Herniated disc cervical spine Gross Description Received in formalin labeled with patient name, number, and herniated disc cervical spine are multiple fragments of soot/pink firm rubbery granular tissue measuring in aggregate 2.5 x 1.8 x 0.5 cm. Specimen is entirely submitted in one cassette. (DC) DC:[facility] Microscopic Description Microscopic examination performed unless gross only specified. Normal [facility] Comment on above: Performed By: #### [id number] #### [facility] [address] [place] [address] Ionized Calciumon 09-18-2024 Calcium.ionized ISE [Mass/Vol] 4.9 mg/dL Invalid Interpretation Code 4.5-5.6 [facility] Comment on above: Result Comment: Perf ormed at: [facility] [address] [id number] PhD Kristal Vieira Performed By: #### 2 [id number] #### [facility] [address] [place] [address] BMPon 09-17-2024 Anion gap [Moles/Vol] 8 mmol/L Normal 6-16 [facility] Comment on above: Performed By: #### 2 [id number] #### [facility] [address] [place] [address] Calcium [Mass/Vol] 8.6 mg/dL Low 8.9-11.1 [facility] Comment on above: Performed By: #### 2 [id number] #### [facility] [address] [place] [address] Chloride [Moles/Vol] 107 mmol/L Normal 101-111 [facility] Comment on above: Performed By: #### 2 [id number] #### [facility] [address] [place] [address] CO2 [Moles/Vol] 27 mmol/L Normal 21-31 [facility] Comment on above: Performed By: #### 2 [id number] #### [facility] [address] [place] [address] Creatinine [Mass/Vol] 0.6 mg/dL Normal 0.5-1.3 [facility] Comment on above: Performed By: #### 2 [id number] #### [facility] [address] [place] [address] Glucose [Mass/Vol] 104 mg/dL Normal 55-199 [facility] Comment on above: Performed By: #### 2 [id number] #### [facility] [address] [place] [address] Potassium [Moles/Vol] 3.8 mmol/L Normal 3.5-5.3 [facility] Comment on above: Performed By: #### 2 [id number] #### [facility] [address] [place] [address] Sodium [Moles/Vol] 138 mmol/L Normal 135-145 [facility] Comment on above: Performed By: #### 2 [id number] #### [facility] [address] [place] [address] Urea nitrogen [Mass/Vol] 9 mg/dL Normal 5-21 [facility] Comment on above: Performed By: #### 2 [id number] #### [facility] [address] [place] [address] Urea nitrogen/Creatinine [Mass ratio] 15 No Units Normal 10-20 [facility] Comment on above: Performed By: #### 2 [id number] #### [facility] [address] [place] [address] CBC w/Indiceson 09-17-2024 Erythrocyte distribution width (RBC) [Ratio] 15.0 % High 10.9-14.2 [facility] Comment on above: Performed By: #### 2 [id number] #### [facility] [address] [place] [address] Hematocrit (Bld) [Volume fraction] 35.8 % Normal 34.0-46.0 [facility] Comment on above: Performed By: #### 2 [id number] #### [facility] [address] [place] [address] Hemoglobin (Bld) [Mass/Vol] 12.2 g/dL Normal 12.0-16.0 [facility] Comment on above: Performed By: #### 2 [id number] #### [facility] [address] [place] [address] MCH (RBC) [Entitic mass] 29.5 pg Normal 27.0-34.0 [facility] Comment on above: Performed By: #### 2 [id number] #### [facility] [address] [place] [address] MCHC (RBC) [Mass/Vol] 33.9 g/dL Normal 31.4-36.0 [facility] Comment on above: Performed By: #### 2 [id number] #### [facility] [address] [place] [address] MCV (RBC) [Entitic vol] 86.8 fL Normal 80.0-100.0 [facility] Comment on above: Performed By: #### 2 [id number] #### [facility] Laboratory [address] [place] [address] Platelet mean volume (Bld) [Entitic vol] 8.3 fL Normal 6.4-10.8 [facility] Comment on above: Performed By: #### 2 [id number] #### [facility] Laboratory [address] [place] [address] Platelets (Bld) [#/Vol] 305.0 E9/L Normal 150.0-500.0 [facility] Comment on above: Performed By: #### 2 [id number] #### [facility] Laboratory [address] [place] [address] RBC (Bld) [#/Vol] 4.1 E12/L Low 4.3-5.9 [facility] Comment on above: Performed By: #### 2 [id number] #### [facility] Laboratory [address] [place] [address] WBC corrected for nucl RBC Auto (Bld) [#/Vol] 9.5 E9/L Normal 4.0-11.0 [facility] Comment on above: Performed By: #### 2 [id number] #### [facility] Laboratory [address] [place] [address] CHEMISTRYOrdered By: SYSTEM SYSTEM on 09-17-2024 Anion gap [Moles/Vol] 8 mmol/L Normal 6 - 16 mEq/L R emisol Chem Calcium [Mass/Vol] 8.6 mg/dL Low 8.9 - 11. 1 mg/dL Remisol Chem Chloride [Moles/Vol] 107 mmol/L Normal 101 - 1 11 mmol/L Remisol Chem CO2 [Moles/Vol] 27 mmol/L Normal 21 - 31 mmol/L Remisol Chem Creatinine [Mass/Vol] 0.6 mg/dL Normal 0.5 - 1.3 mg/dL Remisol Chem eGFR 120 mL/min/1.73 m2 Normal >=59mL/mi n/1 .73 m2 Remisol Chem Glucose [Mass/Vol] 104 mg/dL Normal 55 - 199 mg/dL Remisol Chem Magnesium [Mass/Vol] 1.8 mg/dL Normal 1.3 - 2 .4 mg/dL Remisol Chem Phosphate [Mass/Vol] 3.8 mg/dL Normal 1.9 - 4 .6 mg/dL Remisol Chem Potassium [Moles/Vol] 3.8 mmol/L Normal 3.5 - 5.3 mmol/L Remisol Chem Sodium [Moles/Vol] 138 mmol/L Normal 135 - 145 mmol/L Remisol Chem Urea nitrogen [Mass/Vol] 9 mg/dL Normal 5 - 21 mg/dL Remisol Chem Urea nitrogen/Creatinine [Mass ratio] 15 mg/mg Normal 10 - [address] Spine Cervical w/o Contra ston 09-17-2024 CT Spine Cervical w/o Contrast Exam Date/Time: 09/17/2024 08:06 EDT Reason for Exam: Post Cervical Spine Surgery;Other (please specify) Report IMPRESSION: EXPECTED POSTOPERATIVE CHANGES FROM INTERVAL C6-7 ACDF. EXAM: CT Spine Cervical w/o Contrast DATE: 09/17/2024 8:02 AM CLINICAL HISTORY: Post Cervical Spine Surgery. COMPARISON: Preoperative cervical spine CT 08/10/2024 and MRI 07/13/2024. TECHNIQUE: Spiral unenhanced imaging was obtained of the cervical spine, with routine reconstructions performed. All CT scans at this facility use dose modulation, iterative reconstruction, and/or weight based dosing when appropriate to reduce radiation dose to as low as reasonably achievable. FINDINGS: The spine is visualized from the craniovertebral junction through the T3 level. Expected postoperative changes from interval placement of an integrated plate-space or fixation implant at the C6-7 level, with mild associated soft tissue swelling. There are no other significant changes identified. Ordering Provider: Ender Logan FINAL REPORT Dictated: 09/17/2024 8:44 am Ayaan Dong MD Signed (Electronic Signature): 09/17/2024 8:44 am Signed by: Ayaan Dong MD Transcribed by: OLY Technologist: ELLI Blum [facility] Discharge Note-Nursingon Discharge Note-Nursing Discharge Note-Nursing DARRICK VILLAFUERTE :1990 Visit Date:09/16/2024 Inpatient Discharge Instructions Your Care Team Admitting Physician - Ender Logan MD Consulting Physician - Natalya Quintero CNP Referring Physician - Ender Logan MD Reason for Your Visit M47.22 OTHER SPONDYLOSIS WITH RADICULOPATHY, CERVICAL REGIONAL Your Diagnosis Cervical stenosis of spine On deep vein thrombosis (DVT) prophylaxis Tests Performed Ionized Calcium Level -- Results Pending -- CT Spine Cervical w/o Contrast XR Spine Single View Specify Level -- Results Pending -- Please visit your patient portal for your results or contact your primary care physician. This Is Your Medications List acetaminophen (Tylenol) acetaminophen-oxycodo ne (Percocet 5 mg-325 mg oral tablet) amitriptyline (amitriptyline 25 mg Tab) cyclobenzaprine (cyclobenzaprine 10 mg Tab) pregabalin (Lyrica 200 mg Cap) Procedure History Laparoscope (2007). Discharge Vitals Temperature (Axillary) 37.6 ???C Heart Rate (Monitored) 113 Respiratory Rate 14 Blood Pressure 91/64 Weight 65.3 kg What to do next Instructions From Your Doctor No qualifying data available. Previously Scheduled Follow-Up Appointments Friday 10:30 AM EST With: Natalya Prado PA-C Where: [facility] New Follow Up Appointments after Discharge Follow Up with Ender Logan When: Comments: f/u3wks ok shower and remove dressing [id number] no lift>5lbs keep incis dry clean, wear cervical brace 24/ 6wks Where: [id number] [facility], [address] [place] [phone] [employer] (1) Medications What How Much When Why Instructions Next Dose Unchanged acetaminophen (Tylenol) 500 Milligram Every day as needed for as needed for pain Take every day as needed for pain Unchanged acetaminophen-oxycodo ne (Percocet 5 mg-325 mg oral tablet) 1 Tablets By Mouth 3 times a day as needed for Pain 4-7 Cervical stenosis of spine Duration: 7 Days Pickup at [facility] Take as needed 3 times a day as needed for severe pain. Unchanged amitriptyline (amitriptyline 25 mg Tab) 2 Tablets By Mouth Once a day (at bedtime) Duration: 30 Days 9pm Unchanged cyclobenzaprine (cyclobenzaprine 10 mg Tab) 1 Tablets By Mouth 3 times a day Duration: 21 Days Pickup at [facility] 9pm Unchanged pregabalin (Lyrica 200 mg Cap) 1 Capsules By Mouth 3 times a day 9pm Pharmacy Information [facility]: [address], [place] [phone] Test Results CBC BMP WBC: 9.5 E9/L (09/17/24 05:50:00) Glucose Lvl: 104 mg/dL (09/17/24 05:50:00) RBC: 4.1 E12/L Low (09/17/24 05:50:00) BUN: 9 mg/dL (09/17/24 05:50:00) HGB: 12.2 gm/dL (09/17/24 05:50:00) Creatinine: 0.6 mg/dL (09/17/24 05:50:00) Hct: 35.8 % (09/17/24 05:50:00) BUN/Creat Ratio: 15 (09/17/24 05:50:00) MCV: 86.8 fL (09/17/24 05:50:00) Sodium Lvl: 138 mmol/L (09/17/24 05:50:00) MCH: 29.5 pg (09/17/24 05:50:00) Potassium Lvl: 3.8 mmol/L (09/17/24 05:50:00) MCHC: 33.9 gm/dL (09/17/24 05:50:00) Chloride: 107 mmol/L (09/17/24 05:50:00) RDW: 15 % High (09/17/24 05:50:00) CO2: 27 mmol/L (09/17/24 05:50:00) Platelet: 305 E9/L (09/17/24 05:50:00) AGAP: 8 mEq/L (09/17/24 05:50:00) MPV: 8.3 fL (09/17/24 05:50:00) Calcium Lvl: 8.6 mg/dL Low (09/17/24 05:50:00) Allergies penicillins (Hives) Problems Ongoing - Any problem that you are currently receiving treatment for. Abnormal placenta affecting management of mother Cervical dysfunction Shoulder pain Devices Implanted/Removed This Visit Notice: You have devices implanted this visit that may not be MRI compatible. Implanted CERVICAL ANTERIOR DISCECTOMY W/ FUSION, Neck OSTEOCEL PRO ALLOGRAFT CELLULAR BONE MATRIX 09/16/2024 [facility] AGXRP PLATE 09/16/2024 HEDRON IC SPACER 09/16/2024 SCREW (2), 09/16/2024 [employer] Anterior Cervical Diskectomy and Fusion Anterior cervical diskectomy and fusion is a surgery to remove and replace an intervertebral disk. Intervertebral disks are plates of cartilage located between the bones of the spine. This surgery is done when an intervertebral disk in the neck puts pressure on the spine or on a nerve. The surgery is done through the front (anterior) part of the neck. During the surgery, the damaged disk is removed and replaced with a plastic implant, a bone from another part of the body (bone graft), or both. Sometimes metal plates and screws are also used to keep the implant or bone graft in place and to join the bones together. Tell a health care provider about: ??? Any allergies you have. ??? All medicines you are taking, including vitamins, herbs, eye drops, creams, and vxqf-nne-xyuppfs medicines. ??? Any problems you or family members have had with anesthetic medicines. ??? Any blood disorders you have. ??? Any surgeries you have (more content not included)... Normal [facility] HEMATOLOGYOrdered By: SYSTEM SYSTEM on 09-17-2024 Erythrocyte distribution width (RBC) [Ratio] 15.0 % High 10.9 - 14.2 % Remisol Heme Hematocrit (Bld) [Volume fraction] 35.8 % Normal 34.0 - 46.0 % Remisol Heme Hemoglobin (Bld) [Mass/Vol] 12.2 g/dL Normal 12.0 - 16.0 gm/dL Remisol Heme MCH (RBC) [Entitic mass] 29.5 pg Normal 27.0 - 34.0 pg Remisol Heme MCHC (RBC) [Mass/Vol] 33.9 g/dL Normal 31.4 - 36.0 gm/dL Remisol Heme MCV (RBC) [Entitic vol] 86.8 fL Normal 80.0 - 100.0 fL Remisol Heme Platelet mean volume (Bld) [Entitic vol] 8.3 fL Normal 6.4 - 10.8 fL Remisol Heme Platelets (Bld) [#/Vol] 305.0 E9/L Normal 150.0 - 500.0 E9/L Remisol Heme RBC (Bld) [#/Vol] 4.1 E12/L Low 4.3 - 5.9 E12/L Remisol Heme WBC corrected for nucl RBC Auto (Bld) [#/Vol] 9.5 E9/L Normal 4.0 - 11.0 E9/L Remisol Heme Interdisciplinary Note - Alejandro e Manageron 09-17-2024 Interdisciplinary Note - Ruffling Hemmer Automatic Interdisciplinary Note - Ruffling Hemmer Automatic CRM to room 315 Patient is awake, alert and oriented. Patient is from home with her fiancee, children and her Mom. She [place] have a ride at [place]. Patient verified PCP, DME and insurance. Patient is an ambulatory surgery for Stenosis Sx. She is assigned to Dr Logan and hospitalist Holly DOMÍNGUEZ, see notes. Patient has no DC needs for DME, HH or Paramed. PT has cleared for no needs. She will DC once Dr Logan clears. Patient was provided CRM contact, white board updated. CRM following Normal [facility] Comment on above: Result Comment: Elec tronically Signed By: Aniyah Castro\.br\Date and Time Signed: 09/17/24 11:38 EDT Interdisciplinary Note - Carrie n 09-17-2024 Interdisciplinary Note - OT Interdisciplinary Note - OT Ot [facility] six clicks score / = no further OT inpatient needs. Patient is Ind w/ basic adls/transfers and is aware of all post op precautions w/ good carryover during functional tasks. DC inpatient OT services. Normal [facility] Magnesiumon 09-17-2024 Magnesium [Mass/Vol] 1.8 mg/dL Normal 1.3-2.4 [facility] Comment on above: Performed By: #### 2 [id number] #### [facility] Laboratory [address] [place] [address] Phosphoruson 09-17-2024 Phosphate [Mass/Vol] 3.8 mg/dL Normal 1.9-4.6 [facility] Comment on above: Performed By: #### 2 [id number] #### [facility] Laboratory [address] [place] [address] eGFRon 09-17-2024 eGFR 120 mL/min/1.73 m2 Normal >=59 [facility] Comment on above: Performed By: #### 1 [id number] #### [facility] Laboratory [address] [place] [address] ABO/Rhon 09-16-2024 ABO/Rh Positive Invalid Interpretation Code [facility] Comment on above: Performed By: #### 2 [id number] #### [facility] Laboratory [address] [place] [address] ABO/Rh History Checkon 09-16 ABO/Rh History Check Verified Hx Blood Type Normal [facility] Comment on above: Performed By: #### 1 [id number] #### [facility] Laboratory [address] [place] [address] ABSCon 09-16-2024 ABSC Gel Interp Negative Normal [facility] Comment on above: Performed By: #### 1 [id number] #### [facility] Laboratory [address] [place] [address] BLOOD BANKOrdered By: Francia De La Cruz on 09-16-2024 ABO/Rh Interp Positive Invalid Interpretation Code [facility] BB Subsection ABSC Gel Interp Negative (09/16/24 10:04 AM) Normal [facility] BB Subsection Blood Bank ID#on 09-16-2024 BBID# [id number] Invalid Interpretation Code [facility] Comment on above: Performed By: #### 1 [id number] #### [facility] Laboratory [address] [place] [address] Inpatient Patient Summaryon 09-16-2024 Inpatient Patient Summary Inpatient Patient Summary [address] [address] [facility] Clinical Discharge Instructions PERSON INFORMATION Name: DARRICK VILLAFUERTE PHYSICIANS Admitting Physician: Ender Logan MD Attending Physician: Ender Logan MD PCP: Madhav Fuentes DO Discharge Diagnosis: Comment: PATIENT EDUCATION INFORMATION Instructions: Medication Leaflets: Follow up: With: Address: When: Ender Logan [address] [facility], [address] [place] [phone] Business (1) Comments: f/u3wks ok shower and remove dressing [id number] no lift>5lbs keep incis dry clean, wear cervical brace 16/06 6wks Type Location Start [facility] - Follow Up ([facility]) [facility] [employer] 10/29/2024 10:30 AM 10/29/2024 10:45 AM Confirmed MEDICATION LIST New Medications [facility] [address], [address], [place] [id number], [phone] acetaminophen-oxycodo ne (Percocet 5 mg-325 mg oral tablet) 1 Tablets By Mouth 3 times a day as needed Pain 4-7 for 7 Days. Refills: 0. cyclobenzaprine (cyclobenzaprine 10 mg Tab) 1 Tablets By Mouth 3 times a day for 21 Days. Refills: 0. Medications to Continue Taking That Have Changed Other Medications START: pregabalin (Lyrica 200 mg Cap) 1 Capsules By Mouth 3 times a day. Refills: 1. Medications to Continue with No Changes Other Medications acetaminophen (Tylenol) 500 Milligram every day as needed as needed for pain. amitriptyline (amitriptyline 25 mg Tab) 2 Tablets By Mouth once a day (at bedtime) for 30 Days. Refills: 1. Comment: Normal [facility] Main OR Intraoperative Recor don 09-16-2024 Main OR Intraoperative Record Main OR Intraoperative Record IntraOp Document Type FT Summary Primary Physician: Ender Logan MD Finalized Date/Time: 09/16/24 12:53:16 Pt. Name: DARRICK VILLAFUERTE./Sex: 1990 Female Med Rec #: [id number] Physician: Ender Logan MD Financial #: [id number] Pt. Type: A Room/Bed: [place] [address] Admit/Disch: 09/16/24 09:22:53 - Institution: Case Times FT Entry 1 Patient Times In Room 09/16/24 10:42:00 Out Room 09/16/24 12:53:00 Procedure Times Start 09/16/24 11:15:00 Stop 09/16/24 12:39:00 Anesthesia Times Start 09/16/24 10:42:00 Stop 09/16/24 12:53:00 Last Modified By: Yasmine An RN 09/16/24 12:53:06 Case Attendance FT Entry 1 Entry 2 Entry 3 Case Attendee Kayleigh LOCKHART, VARGAS, Ender Briceno MD, CST, Wolf M N. Role Performed VARGAS Surgeon - Primary PEDIATRIC ASSISTANT/SA Time In 09/16/24 10:42:00 09/16/24 10:42:00 09/16/24 10:42:00 Time Out 09/16/24 12:53:00 09/16/24 12:53:00 09/16/24 12:53:00 Procedure CERVICAL ANTERIOR CERVICAL ANTERIOR CERVICAL ANTERIOR DISCECTOMY W/ FUSION,(.) DISCECTOMY W/ FUSION,(.) DISCECTOMY W/ FUSION,(.) Comments DR GO SUPERVISING OUT OF ROOM [id number] Last Modified By: Juve GUILLEN, Yasmine An RN, Yasmine An RN, Yasmine Kamara 09/16/24 12:53:07 09/16/24 12:53:07 09/16/24 12:53:07 Entry 4 Entry 5 Entry 6 Case Attendee Aniyah Lacey RN, Yasmine Jonas DEVOPS ENGINEER, Grecia Fuentes Role Performed EDGE SETTER Fabrication Manager - Primary Scrub - Primary Time In 09/16/24 10:42:00 09/16/24 10:42:00 09/16/24 10:42:00 Time Out 09/16/24 12:53:00 09/16/24 12:53:00 09/16/24 12:53:00 Procedure CERVICAL ANTERIOR CERVICAL ANTERIOR CERVICAL ANTERIOR DISCECTOMY W/ FUSION,(.) DISCECTOMY W/ FUSION,(.) DISCECTOMY W/ FUSION,(.) Comments OUT OF ROOM [id number] OUT FOR LUNCH FROM OUT OF ROOM [id number] Last Modified By: Juve GUILLEN, Yasmine An RN, Yasmine An RN, Yasmine Kamara 09/16/24 12:53:07 09/16/24 12:53:07 09/16/24 12:53:07 Entry 7 Entry 8 Entry 9 Case Attendee Coby Schultz, Peggy Alvares Role Performed Fabrication Manager - Relief Scrub - Relief Engineering Coordinator Time In 09/16/24 11:03:00 09/16/24 11:45:00 09/16/24 10:42:00 Time Out 09/16/24 11:39:00 09/16/24 12:25:00 09/16/24 12:33:00 Procedure CERVICAL ANTERIOR CERVICAL ANTERIOR CERVICAL ANTERIOR DISCECTOMY W/ FUSION,(.) DISCECTOMY W/ FUSION,(.) DISCECTOMY W/ FUSION,(.) Comments LUNCH RELIEF Last Modified By: Juve GUILLEN, Yasmine An RN, Yasmine An RN, Yasmine Kamara 09/16/24 12:53:07 09/16/24 12:53:07 09/16/24 12:53:07 General Comments: TESHA GOMEZ, JEAN REP, AND ISABEL KERR, [facility] REP, ALSO IN ATTENDANCE. Epifanio CONTRERAS Perioperative Protocols FT Pre-Care Text: Implements protective measures prior to operative or invasive procedure, confirms identity before the operative or invasive procedure, verifies operative procedure, surgical site, and laterality Entry 1 Procedure(s) CERVICAL ANTERIOR Patient Identity Birthday, ID Band DISCECTOMY W/ FUSION,(.) Verified (select at Check, Patient least 2): Participation Consents / H and P Anesthesia Consent, Operative Site Present Verified H&P, Surgery/Procedure Marking Verified Consent Surgical Site Yes Laterality Verified n/a Verified Procedure Verified Yes Correct Patient Yes Position Verified Availability Equipment, Implant, Prep Dry Yes Verified (If Medication, X-ray Applicable) PreOp Antibiotic Yes Time Out Kayleigh LOCKHART, VARGAS, Queen Jeronimo Participants N., Doreen LUKE, Ender Sood, Wilner ALAN, Agustín Perez, Aniyah Lacey, Coby Schultz, Pritesh CAGEN, Viviane Ding Chelsea R Time Out Complete 09/16/24 11:10:00 Outcomes Met? Yes Last Modified By: Yasmine An RN 09/16/24 11:50:22 Post-Care Text: The patient is free from signs and symptoms of injury caused by extraneous objects Allergy Information FT Pre-Care Text: Verifies allergies Entry 1 Allergies Reviewed? Yes Allergies Reviewed Self/Patient With Outcomes Met? Yes Last Modified By: Yasmine An RN 09/16/24 08:35:20 Post-Care Text: The patient received appropriate medication(s) safely administered during the perioperative period Surgical Procedures FT Entry 1 Procedure Description Procedure CERVICAL ANTERIOR Modifiers . DISCECTOMY W/ FUSION, (ACDF) Surgeon Description ANTERIOR CERVICAL DISCECTOMY, ARTHRODESIS, C6-7, MICRODISSECTION, FLUOROSCOPY, SPINAL MONITORING, PREOPERATIVE STEREOTACTIC PLANNING, INSERTION PLATE SCREWS INTERBODY CAGE Primary Procedure Yes Primary Surgeon Ender Logan MD Start 09/16/24 11:15:00 Stop 09/16/24 12:39:00 Anesthesia Type General Surgical Service Neurology Wound Class 1 - Clean Last Modified By: Yasmine An RN 09/16/24 12:53:09 General Case Data FT Pre-Care Text: Classifies surgical wound, implements aseptic technique, initiates traffic control Entry 1 Case Information OR OR 7 FT Case Level Level 6 Wound Class 1 - Clean Specialty Neurology ASA (more content not included)... Normal [facility] Main OR PACU I Recordon 08-25 Main OR PACU I Record Main OR PACU I Rec ord PACU Phase I Document Type FT Summary Primary Physician: Ender Logan MD Finalized Date/Time: 09/16/24 13:49:57 Pt. Name: DARRICK VILLAFUERTE Tacho LovelaceB./Sex: 1990 Female Med Rec #: [id number] Physician: Ender Logan MD Financial #: [id number] Pt. Type: A Room/Bed: [facility] Admit/Disch: 09/16/24 09:22:53 - Institution: Case Times PACU I FT Pre-Care Text: Identifies barriers to communication and implements measures to provide psychological support Develops individualized plan of care, and ensures continuity of care Maintains patient's dignity and privacy, and maintains patient confidentiality Identifies and reports philosophical, cultural, and spiritual beliefs and values Identifies individual values and wishes concerning care Implements aseptic technique, and administers prescribed antibiotic therapy and immunizing agents as ordered Evaluates postoperative tissue perfusion Implements thermoregulation measures, and monitors body temperature Evaluates postoperative respiratory status Evaluates postoperative cardiac status Evaluates postoperative neurological status Assesses pain control, collaborated in initiating patient-controlled analgesia and implements alternative methods of pain control Verifies allergies, administers prescribed medications and solutions, evaluates response to medications Entry 1 In PACU I 09/16/24 12:55:00 Discharge from PACU 09/16/24 13:25:00 I Outcomes Met? Yes Last Modified By: Rocío Caba RN 09/16/24 13:49:42 Post-Care Text: The patient demonstrates knowledge of the expected response to the operative or invasive procedure The patient's care is consistent with the individualized perioperative plan of care The patient's right to privacy is maintained The patient's value system, lifestyle, ethnicity, and culture are considered, respected, and incorporated into the perioperative plan of care The patient participates in decisions affecting his or her perioperative plan of care The patient is free from signs and symptoms of infection The patient has wound/tissue perfusion consistent with or improved from baseline levels established preoperatively The patient is at or returning to normothermia at the conclusion of the immediate postoperative period The patient's respiratory function is consistent with or improved from baseline levels established preoperatively The patient's cardiovascular status is consistent with or improved from baseline levels established preoperatively The patient's cardiovascular status is consistent with or improved from baseline levels established preoperatively The patient demonstrates and/or reports adequate pain control throughout the perioperative period The patient received appropriate medication(s), safely administered during the perioperative period Acuity Level PACU I FT Entry 1 Start Time 09/16/24 12:55:00 Stop Time 09/16/24 13:25:00 Acuity Level Acuity Level I Last Modified By: Rocío Caba RN 09/16/24 13:49:53 Finalized By: Rocío Caba RN Document Signatures Signed By: Rocío Caba RN 09/16/24 13:49 Normal [facility] Main OR PACU II Recordon Main OR PACU II Record Main OR PACU II Record PACU Phase II Document Type FT Summary Primary Physician: Ender Logan MD Finalized Date/Time: 09/16/24 15:41:40 Pt. Name: NOYDARRICK D.O.B./Sex: 1990 Female Med Rec #: [id number] Physician: Ender Lgoan MD Financial #: [id number] Pt. Type: A Room/Bed: N315[facility] Admit/Disch: 09/16/24 09:22:53 - Institution: Case Times PACU II FT Pre-Care Text: Identifies barriers to communication and implements measures to provide psychological support and determines knowledge level Develops individualized plan of care, and ensures continuity of care Maintains patient's dignity and privacy, and maintains patient confidentiality Identifies and reports philosophical, cultural, and spiritual beliefs and values Identifies individual values and wishes concerning care administers prescribed antibiotic therapy and immunizing agents as ordered, Evaluates postoperative tissue perfusion Implements thermoregulation measures, and monitors body temperature Evaluates postoperative respiratory status Evaluates postoperative cardiac status Evaluates postoperative neurological status Assesses pain control, collaborated in initiating patient-controlled analgesia and implements alternative methods of pain control Verifies allergies, administers prescribed medications and solutions, evaluates response to medications Entry 1 In PACU II 09/16/24 13:25:00 Discharge from PACU 09/16/24 15:25:00 II Outcomes Met? Yes Last Modified By: Peggy Sheikh RN 09/16/24 15:41:38 Post-Care Text: The patient demonstrates knowledge of the expected response to the operative or invasive procedure The patient's care is consistent with the individualized perioperative plan of care The patient's right to privacy is maintained The patient's value system, lifestyle, ethnicity, and culture are considered, respected, and incorporated into the perioperative plan of care The patient participates in decisions affecting his or her perioperative plan of care. The patient is free from signs and symptoms of infection The patient has wound/tissue perfusion consistent with or improved from baseline levels established preoperatively The patient is at or returning to normothermia at the conclusion of the immediate postoperative period The patient's respiratory function is consistent with or improved from baseline levels established preoperatively The patient's cardiovascular status is consistent with or improved from baseline levels established preoperatively The patient's neurological status is consistent with or improved from baseline levels established preoperatively The patient demonstrates and/or reports adequate pain control throughout the perioperative period The patient received appropriate medication(s), safely administered during the perioperative period Finalized By: Peggy Sheikh RN Document Signatures Signed By: Peggy Sheikh RN 09/16/24 15:41 Normal [facility] Main OR Preoperative Recordo n 09-16-2024 Main OR Preoperative Record Main OR Preoperative Record PreOp Document Type FT Summary Primary Physician: Ender Logan MD Finalized Date/Time: 09/16/24 11:50:36 Pt. Name: DARRICK VILLAFUERTE/Sex: 1990 Female Med Rec #: [id number] Physician: Ender Logan MD Financial #: [id number] Pt. Type: A Room/Bed: [place] [address] Admit/Disch: 09/16/24 09:22:53 - Institution: Case Times PreOp FT Pre-Care Text: Verifies consent for planned procedure, identifies individual values and wishes concerning care, includes family members in perioperative teaching Entry 1 Patient Times. In Pre Surgery 09/16/24 09:25:00 Out Pre Surgery 09/16/24 10:40:00 Outcomes Met? Yes Last Modified By: Yasmine An RN 09/16/24 11:50:34 Post-Care Text: The patient participates in decisions affecting his or her perioperative plan of care Finalized By: Yasmine An RN Document Signatures Signed By: Yasmine An RN 09/16/24 11:50 Normal [facility] Operative Reporton Operative Report Operative Report Patient: DARRICK VILLAFUERTE Age: 34 years Sex: Female : 1990 Associated Diagnoses: None Author: Ender Logan MD Postoperative Information Procedure: c6-7 anterior cervical discectomy arthrodesis autograft allograft microdissection fluoroscopy spinal monitoring preoperative stereotactic planning insertion interbody cage plate screws Date/ Time: 09/16/2024 12:47:00 Preoperative Diagnosis: cervical herniated disc stenosis c67 triceps biceps hand intrinsics weakness 2/5 with numbness thumb index middle fingers left. Postoperative Diagnosis: same. Performed by: Ender Logan MD. Prosthesis: globus. . Estimated Blood Loss: 10 ml. Complications: None. Notes: Risks, benefits and alternatives to surgery were discussed: Risks including bleeding, infection, temporary or permanent numbness, tingling, weakness, paralysis, bowel or bladder dysfunction, leaking of cerebrospinal fluid leading to meningitis, no pain improvement or worsening of pain, future staged surgery, seizure, stroke, blindness, heart attack, blood clot in legs, pulmonary embolism, coma, , or other. Risk of recurrent or residual symptoms and scar tissue formation which cannot be improved by further surgery. Benefit to include neurologic stabilization to that there is no further loss of function but without promise or guarantee of any improvement as any function already lost may be irreversible from longstanding injury or an injury that was too severe to allow recovery. The goal of surgery would be to prevent you from becoming any worse and losing even more neurological function, such as weakness, numbness or worse pain. Alternatives to be exhausted prior to surgery may include: medication, therapy, interventional pain management, chiropractic, acupuncture, massage therapy. Operative procedure: Patient was brought to the operating room at [facility]. Timeout procedure performed. Patient was intubated by anesthesia service, monitoring lines were placed, preoperative antibiotics were given. Patient was placed in a supine position meticulous padding all pressure points to prevent pressure sores. I performed preoperative stereotactic planning and was placed on multiple axial sagittal coronal plane images on x-ray CT MRI. Spinal monitoring was used with pre and post positioning monitoring within acceptable parameters. Patient prepped and draped in the usual sterile manner as well as operative microscope. Operative microdissection and microtechnique required and used throughout the case. Fluoroscopy was draped in its usual sterile manner multiple AP lateral fluoroscopy images used throughout the case with my real-time interpretation of those images. Local anesthesia was infiltrated and sharp skin incision was made. Dissection through the platysma. Identification and preservation and retraction of the carotid sheath laterally and the trachea esophagus medially. Dissection to the prevertebral fascia with retractors placed. Osteophytectomy performed with removal anterior longitudinal ligament complete discectomy including posterior longitudinal ligament at C6-7. Application of intervertebral biomechanical device interbody cage at C6-7. Anterior instrumentation with plate and screws at C6-7. Anterior interbody arthrodesis with disc base preparation discectomy osteophytectomy decompression spinal cord and nerve roots at C6-7 with autograft local fragments from same incision and allograft morselized osteoporotic material for spine surgery. Full decompression of the thecal sac and nerve roots was performed at C6-7. Large herniated disc fragment noted left C6-7 into foramen and removed and sent for permanent pathology 7mm. Copious antibiotic irrigation applied and meticulous hemostasis was achieved. All sponge needle instrument counts were correct multiple times. Multilayer closure was performed and sterile dressing was applied. Patient was extubated and transferred to recovery room in stable condition. Cervical collar placed and head of bed 30 degrees. This note was created using voice recognition software and was not corrected for typographical or grammatical errors and may have unintended errors . Anesthesia type: General. Normal [facility] Comment on above: Result Comment: Elec tronically Signed By: Doreen LUKE, Ender Sood\.joe\Date and Time Signed: 09/16/24 12:48 EDT Outpatient Surgery Discharge Instructionon 09-16-2024 Outpatient Surgery Discharge Instruction Outpatient Surgery Discharge Instruction [address] [address] Patient Discharge Instructions PERSON INFORMATION Name: DARRICK VILLAFUERTE Date of : 1990 Current Date: 09/16/2024 10:11:12 PHYSICIANS Admitting Physician: Doreen LUKE, Ender Sood Discharge Diagnosis: ANITAMARKOSDAVY DARRICK S has been given the following list of follow-up instructions, prescriptions, and patient education materials: IF UNABLE TO CONTACT YOUR PHYSICIAN AND YOU FEEL IT IS AN EMERGENCY, GO TO THE NEAREST EMERGENCY ROOM OR CALL 911 I, DARRICK VILLAFUERTE, have received the attached patient education materials/instruction s and have verbalized understanding: May we do a follow up call? Yes No I was present when discharge instructions were given Patient Signature Date Clinican/Nurse Signature Date Follow up: With: Address: When: Ender Logan [address] [facility], [address] [place] [address] [phone] Business (1) Comments: f/u3wks ok shower and remove dressing [id number] no lift>5lbs keep incis dry clean, wear cervical brace 16/06 6wks Type Location Start Finish State Pain Management - Follow Up (FT) FT.Pain Mgmt [place] 10/29/2024 10:30 AM 10/29/2024 10:45 AM Confirmed Pharmacy Information: You may receive a survey from [employer] asking you to rate your care experience. Your feedback is important and will help us understand what we do well and how we can improve the quality of care we provide to you, your loved ones and our community. It???s an honor to serve you. Thank you for choosing [facility] HERE ARE THE MEDICATION CHANGES THAT OCCURRED DURING YOUR HOSPITAL STAY New Medications [employer] [id number], [address] [place] [id number], [phone] acetaminophen-oxycodo ne (Percocet 5 mg-325 mg oral tablet) 1 Tablets By Mouth 3 times a day as needed Pain 4-7 for 7 Days. Refills: 0. cyclobenzaprine (cyclobenzaprine 10 mg Tab) 1 Tablets By Mouth 3 times a day for 21 Days. Refills: 0. Medications to Continue Taking That Have Changed Other Medications START: pregabalin (Lyrica 200 mg Cap) 1 Capsules By Mouth 3 times a day. Refills: 1. Medications to Continue with No Changes Other Medications acetaminophen (Tylenol) 500 Milligram every day as needed as needed for pain. amitriptyline (amitriptyline 25 mg Tab) 2 Tablets By Mouth once a day (at bedtime) for 30 Days. Refills: 1. PATIENT EDUCATION INFORMATION Instructions: Medication Leaflets: Normal [facility] Patient Education - Texton 1 Patient Education - Text Patient Education - Text Normal [facility] SEROLOGYOrdered By: Blanca De La Cruz on 09-16-2024 HCG.beta subunit (U) [Moles/Vol] Negative Normal [facility] Man Sero U BetaHcg Qualon 09-16-2024 HCG.beta subunit (U) [Moles/Vol] Negative Normal [facility] Comment on above: Performed By: #### 2 [id number] #### [facility] Laboratory [address] [place] [address] XR Chest 2 Viewson XR Chest 2 Views Exam Date/Time: 08/25/2024 10:16 EDT Reason for Exam: P.A.T. Report IMPRESSION: NO RADIOGRAPHIC EVIDENCE OF ACUTE INTRATHORACIC PROCESS. EXAMINATION: XR Chest 2 Views HISTORY: Preoperative evaluation TECHNIQUE: Frontal and lateral views of the chest. COMPARISON: FINDINGS: Cardiomediastinal silhouette is within normal limits. No pneumothorax, pleural effusion, or consolidation. S-shaped scoliotic curvature of the thoracolumbar spine. No acute osseous abnormality. Ordering Provider: Ender Logan FINAL REPORT Dictated: 08/27/2024 4:08 pm Gilmar Diego DO Signed (Electronic Signature): 08/27/2024 4:08 pm Signed by: Gilmar Diego DO Transcribed by: OLY Technologist: ALY Technical Comments Radiation Dose: Ka,r in mGy = . DAP = . Normal [facility] BMPon 08-25-2024 Anion gap [Moles/Vol] 9 mmol/L Normal 6-16 [facility] Comment on above: Performed By: #### 2 [id number] #### [facility] [address] [place] [address] Calcium [Mass/Vol] 9.3 mg/dL Normal 8.9-11.1 [facility] Comment on above: Performed By: #### 2 [id number] #### [facility] [address] [place] [address] Chloride [Moles/Vol] 105 mmol/L Normal 101-111 [facility] Comment on above: Performed By: #### 2 [id number] #### [facility] [address] [place] [address] CO2 [Moles/Vol] 28 mmol/L Normal 21-31 [facility] Comment on above: Performed By: #### 2 [id number] #### [facility] [address] [place] [address] Creatinine [Mass/Vol] 0.6 mg/dL Normal 0.5-1.3 [facility] Comment on above: Performed By: #### 2 [id number] #### [facility] [address] [place] [address] Glucose [Mass/Vol] 80 mg/dL Normal 55-199 [facility] Comment on above: Performed By: #### 2 [id number] #### [facility] [address] [place] [address] Potassium [Moles/Vol] 4.2 mmol/L Normal 3.5-5.3 [facility] Comment on above: Performed By: #### 2 [id number] #### [facility] [address] [place] [address] Sodium [Moles/Vol] 138 mmol/L Normal 135-145 [facility] Comment on above: Performed By: #### 2 [id number] #### [facility] [address] [place] [address] Urea nitrogen [Mass/Vol] 11 mg/dL Normal 5-21 [facility] Comment on above: Performed By: #### 2 [id number] #### [facility] [address] [place] [address] Urea nitrogen/Creatinine [Mass ratio] 18 No Units Normal 10-20 [facility] Comment on above: Performed By: #### 2 [id number] #### [facility] [address] [place] [address] CBC w/ Auto Diffon 4 Basophils/100 WBC (Bld) 0.5 % Normal 0.0-2.0 [facility] Comment on above: Performed By: #### 2 [id number] #### [facility] [address] [place] [address] Basophils/Leukocytes Auto (Bld) [Pure # fraction] 0.0 E9/L Normal 0.0-0.2 [facility] Comment on above: Performed By: #### 2 [id number] #### [facility] [address] [place] [address] Eosinophils (Bld) [#/Vol] 0.1 E9/L Normal 0.0-0.5 [facility] Comment on above: Performed By: #### 2 [id number] #### [facility] [address] [place] [address] Eosinophils/100 WBC (Bld) 2.5 % Normal 0.0-8.0 [facility] Comment on above: Performed By: #### 2 [id number] #### [facility] [address] [place] [address] Erythrocyte distribution width (RBC) [Ratio] 16.1 % High 10.9-14.2 [facility] Comment on above: Performed By: #### 2 [id number] #### [facility] [address] [place] [address] Hematocrit (Bld) [Volume fraction] 38.9 % Normal 34.0-46.0 [facility] Comment on above: Performed By: #### 2 [id number] #### [facility] [address] [place] [address] Hemoglobin (Bld) [Mass/Vol] 12.9 g/dL Normal 12.0-16.0 [facility] Comment on above: Performed By: #### 2 [id number] #### [facility] Laboratory [address] [place] [address] Lymphocytes (Bld) [#/Vol] 1.3 E9/L Normal 1.0-4.0 [facility] Comment on above: Performed By: #### 2 [id number] #### [facility] [address] [place] [address] Lymphocytes/100 WBC (Bld) 25.4 % Normal 14.0-50.0 [facility] Comment on above: Performed By: #### 2 [id number] #### [facility] [address] [place] [address] MCH (RBC) [Entitic mass] 28.7 pg Normal 27.0-34.0 [facility] Comment on above: Performed By: #### 2 [id number] #### [facility] [address] [place] [address] MCHC (RBC) [Mass/Vol] 33.1 g/dL Normal 31.4-36.0 [facility] Comment on above: Performed By: #### 2 [id number] #### [facility] [address] [place] [address] MCV (RBC) [Entitic vol] 86.8 fL Normal 80.0-100.0 [facility] Comment on above: Performed By: #### 2 [id number] #### [facility] [address] [place] [address] Monocytes (Bld) [#/Vol] 0.5 E9/L Normal 0.2-1.0 [facility] Comment on above: Performed By: #### 2 [id number] #### [facility] [address] [place] [address] Neutrophils (Bld) [#/Vol] 3.2 E9/L Normal 2.0-7.5 [facility] Comment on above: Performed By: #### 2 [id number] #### [facility] [address] [place] [address] Neutrophils/100 WBC (Bld) 61.0 % Normal 36.0-75.0 [facility] Comment on above: Performed By: #### 2 [id number] #### [facility] [address] [place] [address] Platelet mean volume (Bld) [Entitic vol] 8.4 fL Normal 6.4-10.8 [facility] Comment on above: Performed By: #### 2 [id number] #### [facility] [address] [place] [address] Platelets (Bld) [#/Vol] 274.0 E9/L Normal 150.0-500.0 [facility] Comment on above: Performed By: #### 2 [id number] #### [facility] [address] [place] [address] RBC (Bld) [#/Vol] 4.5 E12/L Normal 4.3-5.9 [facility] Comment on above: Performed By: #### 2 [id number] #### [facility] [address] [place] [address] WBC corrected for nucl RBC Auto (Bld) [#/Vol] 5.2 E9/L Normal 4.0-11.0 [facility] Comment on above: Performed By: #### 2 [id number] #### [facility] [address] [place] [address] CHEMISTRYOrdered By: SYSTEM SYSTEM on 08-25-2024 Anion gap [Moles/Vol] 9 mmol/L Normal 6 - 16 mEq/L R emisol Chem Calcium [Mass/Vol] 9.3 mg/dL Normal 8.9 - 11. 1 mg/dL [facility] Chloride [Moles/Vol] 105 mmol/L Normal 101 - 1 11 mmol/L [facility] CO2 [Moles/Vol] 28 mmol/L Normal 21 - 31 mmol/L [facility] Creatinine [Mass/Vol] 0.6 mg/dL Normal 0.5 - 1.3 mg/dL [facility] eGFR 120 mL/min/1.73 m2 Normal >=59mL/mi n/1 .73 m2 [facility] Glucose [Mass/Vol] 80 mg/dL Normal 55 - 199 mg/dL [facility] Potassium [Moles/Vol] 4.2 mmol/L Normal 3.5 - 5.3 mmol/L [facility] Sodium [Moles/Vol] 138 mmol/L Normal 135 - 145 mmol/L [facility] Urea nitrogen [Mass/Vol] 11 mg/dL Normal 5 - 21 mg/dL [facility] Urea nitrogen/Creatinine [Mass ratio] 18 mg/mg Normal 10 - 20 [facility] COAGULATIONOrdered By: Chuyita Lino on 08-25-2024 aPTT Coag (PPP) [Time] 33.7 s Normal 25.1 - 36.5 second(s) [facility] Auto Coag Comment on above: Interpretive Data: Yusra siu 15 days - 4 weeks 1 - 5 months 6 - 11 months 1 - 5 years 6 - 10 years 11 - 17 years PTT Mean: 35.4 (27.6-45.6) Mean: 33.5 (24.8-40.7) Mean: 32.4 (25.1-40.7) Mean: 31.6 (24.0-39.2) Mean: 31.6 (26.9-38.7) Mean: 31.0 (24.6-38.4) Pediatric Reference ranges were obtained from a study by Juan Carlos Norfolk, et al. prepared from 1437 samples obtained at 7 different centers using the same coagulation reagent and instrumentation as [facility]. Currently there are no coagulation studies available worldwide for children to 14 days, and no normal ranges. Heparin therapeutic range (represented by Anti-Factor Xa activity of 0.2 - 0.4 U/mL) corresponds to PTT of 56.6 - 109.0 sec. INR Coag (PPP) [Relative time] 1.00 {INR} Invalid Interpretation Code [facility] Auto Coag Comment on above: Interpretive Data: I NR results are specifically intended to assess patients stabilized on long-term Anticoagulation therapy suggested INR s Less Intensive Anticoagulation 2.0 3.0 Conventional Range 3.0 4.5 PT Coag (PPP) [Time] 11.2 s Normal 9.4 - 1 2.5 second(s) [facility] Auto Coag Comment on above: Interpretive Data: 1 5 days - 4 weeks 1 - 5 months 6 -11 months 1 5 years 6 10 years 11 -17 years Mean: 11.2 (9.5 12.6) Mean: 11.0 (9.7 12.8) Mean: 11.0 (9.8 13.0) Mean: 11.3 (9.9 13.4) Mean: 11.7 (10.0 14.6) Mean: 11.8 (10.0 - 14.1) Pediatric Reference ranges were obtained from a study by Juan Carlos French et al. prepared from 1437 samples obtained at 7 different centers using the same coagulation reagent and instrumentation as [facility]. Currently there are no coagulation studies available worldwide for children to 14 days, and no normal ranges. COAGULATIONOrdered By: Jasmin Pang on 08-25-2024 Platelet function (closure time) collagen+EPINEPHrine induced (Bld) [Time] 106 s Normal 70 - 138 second(s) [facility] Man Sero Comment on above: Interpretive Data: N ormal ASA vWD Glanzmann s Thrombasthenia ------- ------ ------- COL/EPI Normal Abnormal Abnormal Abnormal Col/ADP Normal Normal Abnormal Abnormal HEMATOLOGYOrdered By: SYSTEM SYSTEM on 08-25-2024 Basophils/100 WBC (Bld) 0.5 % Normal 0.0 - 2.0 % Remisol Heme Basophils/Leukocytes Auto (Bld) [Pure # fraction] 0.0 E9/L Normal 0.0 - 0.2 E9/L [facility] Eosinophils (Bld) [#/Vol] 0.1 E9/L Normal 0.0 - 0.5 E9/L [facility] Eosinophils/100 WBC (Bld) 2.5 % Normal 0.0 - 8.0 % [facility] Erythrocyte distribution width (RBC) [Ratio] 16.1 % High 10.9 - 14.2 % [facility] Hematocrit (Bld) [Volume fraction] 38.9 % Normal 34.0 - 46.0 % [facility]e Hemoglobin (Bld) [Mass/Vol] 12.9 g/dL Normal 12.0 - 16.0 gm/dL [facility] Lymphocytes (Bld) [#/Vol] 1.3 E9/L Normal 1.0 - 4.0 E9/L [facility] Lymphocytes/100 WBC (Bld) 25.4 % Normal 14.0 - 50.0 % [facility] MCH (RBC) [Entitic mass] 28.7 pg Normal 27.0 - 34.0 pg Rem[facility]e MCHC (RBC) [Mass/Vol] 33.1 g/dL Normal 31.4 - 36.0 gm/dL [facility] MCV (RBC) [Entitic vol] 86.8 fL Normal 80.0 - 100.0 fL [facility] Monocytes (Bld) [#/Vol] 0.5 E9/L Normal 0.2 - 1.0 E9/L [facility] Monocytes/100 WBC (Bld) 10.6 % Normal 4.0 - 14.0 % [facility] Neutrophils (Bld) [#/Vol] 3.2 E9/L Normal 2.0 - 7.5 E9/L [facility] Neutrophils/100 WBC (Bld) 61.0 % Normal 36.0 - 75.0 % [facility] Platelet mean volume (Bld) [Entitic vol] 8.4 fL Normal 6.4 - 10.8 fL [facility] Platelets (Bld) [#/Vol] 274.0 E9/L Normal 150.0 - 500.0 E9/L [facility] RBC (Bld) [#/Vol] 4.5 E12/L Normal 4.3 - 5.9 E12/L [facility] WBC corrected for nucl RBC Auto (Bld) [#/Vol] 5.2 E9/L Normal 4.0 - 11.0 E9/L Rem[facility]e PT & PTTon 08-25-2024 aPTT Coag (PPP) [Time] 33.7 second(s) Normal 25.1-36.5 [facility] Comment on above: Result Comment: Para meter 15 days - 4 weeks 1 - 5 months 6 - 11 months 1 - 5 years 6 - 10 years 11 - 17 years PTT Mean: 35.4 (27.6-45.6) Mean: 33.5 (24.8-40.7) Mean: 32.4 (25.1-40.7) Mean: 31.6 (24.0-39.2) Mean: 31.6 (26.9-38.7) Mean: 31.0 (24.6-38.4) Pediatric Reference ranges were obtained from a study by Juan Carlos French et al. prepared from 1437 samples obtained at 7 different centers using the same coagulation reagent and instrumentation as [facility]. Currently there are no coagulation studies available worldwide for children to 14 days, and no normal ranges. Heparin therapeutic range (represented by Anti-Factor Xa activity of 0.2 - 0.4 U/mL) corresponds to PTT of 56.6 - 109.0 sec. Performed By: #### 1 [id number] #### [facility] [address] [place] [address] INR Coag (PPP) [Relative time] 1.00 {INR} Invalid Interpretation Code [facility] Comment on above: Result Comment: INR results are specifically intended to assess patients stabilized on long-term Anticoagulation therapy suggested INR?s ?Less Intensive Anticoagulation? 2.0 ? 3.0 Conventional Range 3.0 ? 4.5 Performed By: #### 1 [id number] #### [facility] [address] [place] [address] PT Coag (PPP) [Time] 11.2 second(s) Normal 9.4-12.5 [facility] Comment on above: Result Comment: 15 d ays - 4 weeks 1 - 5 months 6 -11 months 1 ? 5 years 6 ? 10 years 11 -17 years Mean: 11.2 (9.5 ? 12.6) Mean: 11.0 (9.7 ? 12.8) Mean: 11.0 (9.8 ? 13.0) Mean: 11.3 (9.9 ? 13.4) Mean: 11.7 (10.0 ? 14.6) Mean: 11.8 (10.0 - 14.1) Pediatric Reference ranges were obtained from a study by Juan Carlos French et al. prepared from 1437 samples obtained at 7 different centers using the same coagulation reagent and instrumentation as [facility]. Currently there are no coagulation studies available worldwide for children to 14 days, and no normal ranges. Performed By: #### 1 [id number] #### [facility] [address] [place] [address] Plt Function Assayon 024 Platelet function (closure time) collagen+EPINEPHrine induced (Bld) [Time] 106 second(s) Normal 70-138 [facility] Comment on above: Result Comment: Norm al ASA vWD Glanzmann?s Thrombasthenia ------- ------ ------- COL/EPI Normal Abnormal Abnormal Abnormal Col/ADP Normal Normal Abnormal Abnormal Performed By: #### 1 [id number] #### [facility] [address] [place] [address] UA with Cult Rflxon 08-25-20 24 Bilirubin Ql (U) Negative Normal Negative [facility] Comment on above: Performed By: #### 4 [id number] #### [facility] [facility] [address] [place] [address] Clarity (U) Clear Normal Clear [facility] Comment on above: Performed By: #### 4 [id number] #### [facility] [address] [place] [address] Color (U) Colorless Abnormal Yellow [facility] Comment on above: Result Comment: Micr oscopic readings are only performed on those samples that meet specific criteria set forth by [facility]. Performed By: #### 4 [id number] #### [facility] [address] [place] [address] Glucose Ql (U) Negative Normal Negative [facility] Comment on above: Performed By: #### 4 [id number] #### [facility] [address] [place] [address] Hemoglobin Auto test strip (U) [Mass/Vol] Negative Normal Negative [facility] Comment on above: Performed By: #### 4 [id number] #### [facility] [address] [place] [address] Ketones Auto test strip Ql (U) Negative Normal Negative [facility] Comment on above: Performed By: #### 4 [id number] #### [facility] [address] [place] [address] Leukocyte esterase Auto test strip Ql (U) Negative Normal Negative [facility] Comment on above: Performed By: #### 4 [id number] #### [facility] [address] [place] [address] Nitrite Auto test strip Ql (U) Negative Normal Negative [facility] Comment on above: Performed By: #### 4 [id number] #### [facility] [address] [place] [address] pH (U) 6.5 [pH] Invalid Interpretation Code 5.0-9.0 [facility] Comment on above: Performed By: #### 4 [id number] #### [facility] [address] [place] [address] Protein Ql (U) Negative Normal Negative [facility] Comment on above: Performed By: #### 4 [id number] #### [facility] [address] [place] [address] Specific gravity (U) [Rel density] 1.005 Invalid Interpretation Code 1.005-1.030 [facility] Comment on above: Performed By: #### 4 [id number] #### [facility] [address] [place] [address] Urobilinogen (U) [Mass/Vol] Negative Normal Negative [facility] Comment on above: Performed By: #### 4 [id number] #### [facility] [address] [place] [address] Type of Urine collection method Clean Catch Normal [facility] Comment on above: Performed By: #### 4 [id number] #### [facility] [address] [place] [address] URINALYSISOrdered By: SYSTEM SYSTEM on 08-25-2024 Bilirubin Ql (U) Negative Normal Negativemg/ d L [facility] UA Auto SS Clarity (U) Clear (08/25/24 10:01 AM) Normal Clear [facility] UA Auto SS Color (U) Colorless 1 *ABN* (08/25/24 10:01 AM) Invalid Interpretation Code Yellow [facility] Auto SS Comment on above: Interpretive Data: M icroscopic readings are only performed on those samples that meet specific criteria set forth by [facility]. Glucose Ql (U) Negative Normal Negativemg/d L [facility] UA Auto SS Hemoglobin Auto test strip (U) [Mass/Vol] Negative Normal Negativemg/d L [facility] UA Auto SS Ketones Auto test strip Ql (U) Negative Normal Negativemg/d L [facility] UA Auto SS Leukocyte esterase Auto test strip Ql (U) Negative Normal NegativeLeu/ uL [facility] UA Auto SS Nitrite Auto test strip Ql (U) Negative Normal Negativemg/d L [facility] UA Auto SS pH (U) 6.5 *NA* (08/25/24 10:01 AM) Invalid Interpretation Code 5.0 - 9.0 [facility] UA Auto SS Protein Ql (U) Negative Normal Negativemg/d L [facility] UA Auto SS Specific gravity (U) [Rel density] 1.005 *NA* (08/25/24 10:01 AM) Invalid Interpretation Code 1.005 - 1.030 [facility] UA Auto SS Urobilinogen (U) [Mass/Vol] Negative Normal Negativemg/d L [facility] UA Auto SS URINALYSISOrdered By: Major Barillas on 08-25-2024 UA Spec Desc Clean Catch (08/25/24 10:01 AM) Normal [facility] UA Auto SS eGFRon 08-25-2024 eGFR 120 mL/min/1.73 m2 Normal >=59 [facility] Comment on above: Performed By: #### 1 [id number] #### [facility] [address] [place] [address] IGP,APTIMA HPV,AGE GDLNon AGE GDLN ACOG TESTING Note . [facility] Comment on above: TESTS RESULT FLAG UN ITS REF RANGE LAB Clinician Provided Cytology Information Source.............Cervix;Endocervix No. of containers..01 ThinPrep Vial Age Algo ACOG Araseli... 29 FLAG LEGEND: L-Low Normal,H-High Normal,LL-Alert Low,HH-Alert High <-Panic Low,>-Panic High,A-Abnormal,AA-Critical Abnormal Performed at: 01 =G [email or web address] [address] [place] [address] Michaela Thomas MD, HPV APTIMA Positive Abnormal Negative [facility] Comment on above: This nucleic acid am plification test detects fourteen high- risk HPV types (16,18,31,33,35,39,45,51,52,56,58,59,66,68) without differentiation. Performed at: =G [email or web address] [id number] Assemblies And Installations Inspector: Michaela Thomas MD, Phone: [phone] Performed at: [facility], [place] [id number] Assemblies And Installations Inspector: Michaela Thomas MD, Phone: [phone] IGP, APTIMA HPV, RFX 16/18,45 Note Abnormal . [facility] Comment on above: TESTS RESULT FLAG UN ITS REF RANGE LAB DIAGNOSIS: [A] 02 EPITHELIAL CELL ABNORMALITY. LOW GRADE SQUAMOUS INTRAEPITHELIAL LESION (LSIL). Specimen adequacy: 02 Satisfactory for evaluation. Endocervical and/or squamous metaplastic cells (endocervical component) are present. Performed by: Canelo Olson, Middle School Technology Teacher (ASCP) Electronically si... 02 Stephanie Bautista MD, Pathologist . 02 Pathologist ICD10: 02 R87.612 Note: Note 02 The Pap smear is a screening test designed to aid in the detection of premalignant and malignant conditions of the uterine cervix. It is not a diagnostic procedure and should not be used as the sole means of detecting cervical cancer. Both false-positive and false-negative reports do occur. Test Methodology: Note 02 This liquid based ThinPrep(R) pap test was screened with the use of an image guided system. HPV Genotype Reflex Note 02 Criteria not met, HPV Genotype not performed. FLAG LEGEND: L-Low Normal,H-High Normal,LL-Alert Low,HH-Alert High <-Panic Low,>-Panic High,A-Abnormal,AA-Critical Abnormal Performed at: [address] [facility] [place] [address] Michaela Thomas MD, Interpretation and review of laboratory results Abnormal [facility] BRUSH-SPATULA CERVIX ENDOCERVIX [facility] CT Spine Cervical w/o Contra ston 08-13-2024 [...] Dong MD Transcribed by: OLY Technologist: APURVA Salguero [facility] Ambulatory Visit Summaryon 0 07-29-2024 Ambulatory Visit Summary Ambulatory Visit Summary NOYDARRICK :1990 Visit Date:07/29/2024 Ambulatory Visit Instructions Your Diagnosis Degenerative disc disease, cervical Cervical radiculopathy at C7 Shoulder pain BMI 25.0-25.9,adult Non-smoker Your Care Team Attending Physician - Madhav Fuentes DO Primary Care Physician - Madhav Fuentes [...] choosing us for your care. Normal Salguero [facility] Family Medicine Office/Clini c Noteon 07-29-2024 [...] well nourished, in no acute distress Head: Normocephalic/atrauma tic Eyes: Pupils equal, round, and reactive to [...] GARVIN FAM Within 4 weeks [address] [place] [address]- Additional Instructions: 4 WEEKS FOLLOWUP Problem List/Past Medical History Ongoing Abnormal placenta affecting management of mother Cervical dysfunction Shoulder pain Historical No qualifying data Procedure/Surgical History Laparoscope (2007). Medications gabapentin 300 mg Cap, 600 mg= [...] - Not Given Postpone due to refusal [facility] Comment on above: Result Comment: Elec tronically Signed By: Madhav Fuentes DO\.br\Date and Time Signed: 07/29/24 09:08 EDT Provider Letteron 07-29-2024 Provider Letter Provider Letter July 29, 2024 DARRICK VILLAFUERTE [address] [place] [address] : 1990 To Whom It May Concern, Please excuse above patient from work. Date of Illness: From: 07/29/24 May Return to Work On: Same day Restrictions: none Comments: none Sincerely, [facility] [place] [address] [place] [address] Normal [facility] MRI Spine Cervical w/o Contr [...] reference: Craniocervical junction. Anatomic Variants: None. Alignment: Straightening/reversa l of the cervical lordosis. Otherwise alignment anatomic. [...] OLY Technologist: COLTON Technical Comments None Normal [facility] Ambulatory Visit Summaryon 0 07-09-2024 Ambulatory Visit Summary Ambulatory Visit Summary DARRICK VILLAFUERTE :1990 Visit Date:07/09/2024 Ambulatory Visit Instructions Your [...] choosing us for your care. Normal Salguero [facility] Family Medicine Office/Clini c Noteon 07-09-2024 Family [...] UTD: Pelvic/Pap: Per pt 01/2024, Dr. William ([place]) Acute: Current issues/complaints: Patient was recently seen at [facility] ER 07/06/24. Left shoulder/arm pain. Given Ketorolac [...] known to me from prior practice at [facility]. Previously seen Jeanne Ocampo CNP. Patient currently sees neurosurgery for cervical radiculopathy. [...] , she has 3 children. 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 Patient has no smoking history. Patient has no use of marijuana. Patient has never abused drugs or prescriptions. Patient has social alcohol use without abuse. Patient has from records found to have the following information relevant to their care: - [facility] Review of Systems PHQ Score Initial Depression [...] well nourished, in no acute distress Head: Normocephalic/atrauma tic Eyes: Pupils equal, round, and reactive to [...] and was satisfi (more content not included)... Normal [facility] Comment on above: Result Comment: Elec tronically Signed By: Madhav Fuentes DO\.br\Date and Time Signed: 07/09/24 07:52 EDT Provider Letteron 07-09-2024 Provider Letter Provider Letter July 09, 2024 DARRICK VILLAFUERTE [address] [place] [address] : 1990 To Whom It May Concern, Please excuse above patient from work. Date of Illness: From: 07/09/24 May Return to Work On: 07/13/24 Restrictions: none Comments: none Sincerely, [facility] [place] [address] [place] [address] [facility] ED Note-Physicianon 07-07-20 ED Note-Physician ED Note-Physician Basic Information Time Seen: Eir Bobo PA-C 07/06/2024 21:03 Chief Complaint L shoulder pain [...] Additional Instructions: Jeanne Ocampo In [address] [place] [address], [address] [place] [address]- Business (1) Additional Instructions: Patient Education Cervical Radiculopathy, Ilnk-mi-Yusm Attestation Patient seen and evaluated by the physician dairy and food laboratory assistant. Attending physician was present in the emergency department and supervised care. This visit was performed by both the physician and an APC. I performed all aspects of the MDM as documented. This report was transcribed using voice recognition software. Every effort was made to ensure accuracy, however, inadvertently computerized lactation specialist mistakes may be present. Appropriate (more content not included)... Normal [facility] Comment on above: Result Comment: Elec tronically Signed By: Eri Bobo PA-C\.br\Date and Time Signed: 07/06/24 23:48 EDT\.br\Electronically Co-Signed By: Jorge Sue DO\.br\Date and Time Co-Signed: 07/07/24 01:08 EDT ED Clinical Summaryon 2023 ED Clinical Summary ED Clinical Summary [place] [id number] ED Clinical Summary Person Information Name: DARRICK VILLAFUERTE [facility] Age: 34 Years : 1990 Sex: Female Language: Haitian PCP: Jeanne Ocampo CNP Marital Status: Single Phone: [phone] Visit Id: Visit Reason: Arm pain-swelling; LT [...] 07/06/2024 21:42:33 07/06/2024 21:42:33 07/06/2024 21:42:33 ADDRESS: [address] [place] [id number] PHYS DOC NOTES: MEDICAL INFORMATION: Prescriptions Given: New Medications [facility], [address] [place], [place] [id number], [phone] naproxen (naproxen 500 mg Tab) 1 Tablets By Mouth 2 times a day as needed Pain. Refills: 0. predniSONE (predniSONE 50 mg Tab) 1 Tablets By Mouth every day for 7 Days. Refills: 0. PATIENT EDUCATION INFORMATION: Instructions: Cervical Radiculopathy, Iiws-ug-Bhmz Follow up: With: Address: When: Continue following up with your back surgeon as previously scheduled for the MRI. Use the naproxen as needed and the steroid as prescribed. Return to the ED with any worsening symptoms. In 3 days 07/09/2024 With: Address: When: Jeanne Ocampo [address] [place] [address], [facility], [address] [place] [address] Business (1) In 3 days DIAGNOSIS: Cervical radiculopathy, chronic; Chronic left shoulder pain; Other chronic pain Normal [facility] ED Patient Summaryon 024 ED Patient Summary ED Patient Summary [facility] [address] [place], [place] [address] Patient Discharge Instructions Person Information Name: DARRICK VILLAFUERTE Age: 34 Years Arrival Date: 07/06/2024 20:27:28 Discharge Diagnosis: Cervical radiculopathy, chronic; Chronic left shoulder pain; Other chronic pain Primary Care Physician: Jeanne Ocampo CNP Provider Information Primary Provider: Jorge Sue DO Advanced Service Unit Operator Oil Well:Eri Bobo PA-C The exam and treatment you received in the Emergency Department were for an urgent problem and are not intended as complete care. It is important that you follow up with a doctor, nurse practitioner, or physician?s dairy and food laboratory assistant for ongoing care. If your symptoms become worse or you do not improve as expected and you are unable to reach your usual health care provider, you should return to the Emergency Department. We are available 24 hours a day. DARRICK VILLAFUERTE has been given the following list of patient education materials, prescriptions and follow-up instructions: Follow-up Instructions: With: Address: When: Continue following up with your back surgeon as previously scheduled for the MRI. Use the naproxen as needed and the steroid as prescribed. Return to the ED with any worsening symptoms. In 3 days 07/09/2024 With: Address: When: Jeanne Ocampo [address] [facility], [facility], [address] [place] [address] Business (1) In 3 days In the event that this physician does not participate in your insurance network, please consult with your insurance company to find a nearby participating provider. Patient Education Materials: Cervical Radiculopathy, Gtnr-bh-Wcbz A MESSAGE TO ALL PATIENTS REGARDING OPIOIDS PRESCRIPTION OPIOIDS: WHAT YOU NEED TO KNOW Prescription opioids can be used to help relieve rvbeimwi-lb-bwsozw pain and are often prescribed following a [...] Food a (more content not included)... Normal [facility] ED Note-Physicianon 06-04-20 ED Note-Physician ED Note-Physician [...] day(s), # 20 cap(s), Refills(s) 0, Pharmacy: [facility], 152, cm, 06/03/24 13:25:00 EDT, Height/Length Dosing, 61.5, kg, 06/03/24 13:25:00 EDT, Weight Dosing ketorolac, 30 mg = 1 mL, Injection, IntraMuscular, Once, Stop date 06/03/24 14:13:00 EDT, STAT, Start date 06/03/24 14:13:00 EDT, 06/03/24 14:13:00 EDT naproxen, 500 mg = 1 tab(s), Oral, BID, X 10 day(s), # 20 tab(s), Refills(s) 0, Pharmacy: [facility], 152, cm, 06/03/24 13:25:00 EDT, Height/Length Dosing, 61.5, kg, 06/03/24 13:25:00 EDT, Weight Dosing predniSONE, 60 mg = 3 tab(s), Oral, Daily, X 5 day(s), # 15 tab(s), Refills(s) 0, Pharmacy: [facility], 152, cm, 06/03/24 13:25:00 EDT, Height/Length [...] Ender Logan In 3 days 06/06/2024 EDT [address] [facility], [address] [place] [phone] Business (1) Additional Instructions: Jeanne Ocampo In 3 days [address] [facility], [address] [place] [address]- Business (1) Additional Instructions: Patient Education Cervical Radiculopathy Attestation Patient seen and evaluated by the physician dairy and food laboratory assistant. A (more content not included)... Normal [facility] Comment on above: Result Comment: Elec tronically Signed By: Wade Perez PA-C\.br\Date and Time Signed: 06/03/24 15:30 EDT\.br\Electronically Co-Signed By: Wade Perez PA-C\.br\Date and Time Co-Signed: 06/03/24 15:31 EDT\.br\Electronically Co-Signed By: Den Mcqueen M.D.\.br\Date and Time Co-Signed: 06/04/24 23:25 EDT ED Clinical Summaryon 2023 ED Clinical Summary ED Clinical Summary [address] [address] ED Clinical Summary Person Information Name: DARRIKC VILLAFUERTE/[place] Age: 34 Years : 1990 Sex: Female Language: Haitian PCP: Jeanne Ocampo CNP Marital Status: Single Phone: [phone] Visit Id: Visit Reason: Arm pain-swelling; LEFT [...] 06/03/2024 15:28:27 06/03/2024 15:28:27 06/03/2024 15:28:27 ADDRESS: [address] [place] [phone] PHYS DOC NOTES: MEDICAL INFORMATION: Prescriptions Given: New Medications [facility], [address], [place] [id number], [phone] gabapentin (gabapentin 100 mg Cap) 1 Capsules By Mouth 2 times a day for 10 Days. Refills: 0. naproxen (naproxen 500 mg Tab) 1 Tablets By Mouth 2 times a day for 10 Days. Refills: 0. Medications to Continue Taking That Have Changed [facility], [address] [place], [place] [id number], [phone] START: predniSONE (predniSONE 20 mg Tab) 3 [...] Follow up: With: Address: When: Ender Logan [address] [place] [address], [address] [place] [phone] Business (1) In 3 days 06/06/2024 With: Address: When: Jeanne Ocampo [address] [facility], [address] [place] [address] Business (1) In 3 days DIAGNOSIS: Cervical radiculopathy; Cervicalgia; Left shoulder pain Normal [facility] ED Patient Summaryon 024 ED Patient Summary ED Patient Summary [address] [address] Patient Discharge Instructions Person Information Name: DARRICK VILLAFUERTE Age: 34 Years Arrival Date: 06/03/2024 13:08:42 Discharge Diagnosis: Cervical radiculopathy; Cervicalgia; Left shoulder pain Primary Care Physician: Jeanne Ocampo CNP Provider Information Primary Provider: Den Mcqueen M.D. Advanced Service Unit Operator Oil Well:Wade Perez PA-C The exam and treatment you received in the Emergency Department were for an urgent problem and are not intended as complete care. It is important that you follow up with a doctor, nurse practitioner, or physician?s dairy and food laboratory assistant for ongoing care. If your symptoms become worse or you do not improve as expected and you are unable to reach your usual health care provider, you should return to the Emergency Department. We are available 24 hours a day. DARRICK VILLAFUERTE has been given the following list of patient education materials, prescriptions and follow-up instructions: Follow-up Instructions: With: Address: When: Ender Socrateskal [address] [facility], [address] [place] [phone] Business (1) In 3 days 06/06/2024 With: Address: When: Jeanne Ocampo [address] [facility], [address] [place], [place] [id number] Business (1) In 3 days In the event that this physician does not participate in your insurance network, please consult with your insurance company to find a nearby participating provider. Patient Education Materials: Cervical Radiculopathy A MESSAGE TO ALL PATIENTS REGARDING OPIOIDS PRESCRIPTION OPIOIDS: WHAT YOU NEED TO KNOW Prescription opioids can be used to help relieve cofhejhn-jq-whving pain and are often prescribed following a [...] guidance from the Food and Drug Administration (www.fda.gov/Drugs/Re sourcesForYou). ? Visit www.cdc.gov/drugoverd ose to learn about the risks of opioid (more content not included)... Normal [facility] XR Shoulder Complete Lefton 06-03-2024 XR Shoulder [...] mGy = . DAP = . Normal [facility] XR Spine Cervical 2 or 3 Vie [...] mGy = . DAP = . Normal [facility] Ambulatory Visit Summaryon 0 06-01-2024 Ambulatory Visit Summary Ambulatory Visit Summary DARRICK VILLAFUERTE :1990 Visit Date:06/01/2024 Ambulatory Visit Instructions Your [...] shoulder pain Duration: 7 Days Pickup at [facility] New predniSONE (predniSONE 20 mg Tab) 2 Tablets By Mouth Every day Left shoulder pain Duration: 7 Days Pickup at [facility] Pharmacy Information [facility]: [address] [place], [place] [id number] [phone] Allergies penicillins Problems Ongoing - Any problem that you are currently receiving treatment for. Abnormal placenta affecting management of mother Patient Survey You may receive a survey via text or e-mail asking about your office visit. Please share your experience with us by completing your survey. We appreciate your feedback and thank you for choosing us for your care. Normal [facility] Family Medicine Office/Clini c Noteon 06-01-2024 Family [...] agree with above documented HPI by medical office assistant instructor. Patient is a 34-year-old female who presents [...] strength in her hands. She denies any torr-vjx-pwuqmsu medications for symptom relief. She states she [...] day(s), # 56 tab(s), Refills(s) 0, Pharmacy: [facility], 152, cm, 06/01/24 9:55:00 EDT, Height/Length Dosing, 59, kg, 06/01/24 9:55:00 EDT, Weight Dosing predniSONE, 40 mg = 2 tab(s), Oral, Daily, X 7 day(s), # 14 tab(s), Refills(s) 0, Pharmacy: [facility], 152, cm, 06/01/24 9:55:00 EDT, Height/Length Dosing, 59, kg, 06/01/24 9:55:00 EDT, Weight Dosing Portions of this record may have been created with voice recognition artificial intelligence software, specifically [employer] and or [employer]. Occasional wrong-word or `lyukv-x-fnpa? substitutions may have occurred due to the inherent limitations of voice recognition and artificial intelligence software. Follow-up No qualifying data available Patient Education Musculoskeletal Pain Heat Therapy, Axyx-bj-Fnud Problem List/Past Medical History Ongoing Abnormal placenta [...] Family History Family history is negative Normal [facility] Comment on above: Result Comment: Elec tronically Signed By: Jojo ESPANA, Cuco Smith\.joe\Date and Time Signed: 06/01/24 10:18 EDT Ruben 02-09-2024 L Specimen: [id number] Received: 02/10/24-7 Status: SOUT Req Num: [id number] Spec Type: Surgical Subm Dr: Willem William Tissues: A Endometrium - Biopsy (EMBX) Procedures: HE/2, Gross/Micro L4 Age/ Patient Sex Location Account Attending Physician NoyDarrick 33/F [facility] [id number] Willem William SPEC NUM: [id number] RECD: 02/10/24 STATUS: SHAISTA VILLALTA NUM: [id number] HILDA: 02/09/24- SUBM DR: Willem William ENTERED: 02/10/24 [facility] DR: Joana,Lab SPEC TYPE: Surgical DEPT: LILIANA CHARLES ORDERED: HE/2, Gross/Micro L4 ORDERED: HE/2, Gross/Micro L4 Supplemental Report Addendum 1 Entered: 02/16/24 Supplementals for findings of consultation report from [facility]: A, Vagina Per requisition: -Benign endocervical epithelium Addendum Signed (signature on file) Chin-Matt Coe MD 02/16/24 1111 -------- Pathological Diagnosis Vagina per requisition: -Aggregate of clear mucus admixed with soto tissue -Case will also be submitted to [facility] for further consultation review Note: -The Proxy pathologist sign off this case for the original and/or assigned staff -------- Specimen: [id number] Received: 02/10/24 Status: SHAISTA Betina Num: [id number] Spec Type: Surgical Subm Dr: Willem William Tissues: A Endometrium - Biopsy (EMBX) Procedures: Gabe MORFIN/Daniela L4 -------- Patient: NoyDarrick S [id number] (Continued) -------- Specimen: [id number] Received: 02/10/24 (Continued) Signed (signature on file) Ramila Coe MD 02/16/24 1108 -------- Specimen: [id number] Received: 02/10/24 Status: SHAISTA Villalta Num: [id number] Spec Type: Surgical Subm Dr: Willem William Tissues: A Endometrium - Biopsy (EMBX) Procedures: ARTIEGabe Cooney/Daniela L4 -------- Patient: Darrick Villafuerte [id number] (Continued) -------- Specimen: [id number] Received: 02/10/24 (Continued) Clinical Information LGSIL, HPV positive Gross Description Received in formalin labeled with the patient's name, date of and vagina per requisition is a 2.7 x 0.7 x 0.1 cm aggregate of clear mucus admixed with soto tissue. Entirely submitted in one cassette labeled A1. CPT Codes 45022 -------- -------- Specimen: [id number] Received: 02/10/24 Status: SHAISTA Villalta Num: [id number] Spec Type: Surgical Subm Dr: Willem William Tissues: A Endometrium - Biopsy (EMBX) Procedures: HE/2, Gross/Micro L4 -------- Patient: Darrick Villafuerte [id number] (Continued) -------- Signed (signature on file) Ramila Coe MD 02/16/24 1108 [facility] PAP ACOG PANEL 2: 30 to 65on 04-03-2021 . . Normal [facility] Comment on above: Result Comment: Perf ormed at: WB Performed By: #### [id number] #### [facility] [address] [place] [address] Michelle Castro Age Gdln ACOG Testing 30-65 [facility] Comment on above: Performed By: #### [id number] #### [facility] [address] [place] [address] Michelle Castro DIAGNOSIS: Comment [facility] Comment on above: Result Comment: NEGA TIVE FOR INTRAEPITHELIAL LESION OR MALIGNANCY. Performed at: WB Performed By: #### [id number] #### [facility] [address] [address] Michelle Castro HPV Aptima Negative Normal Negative [facility] Comment on above: Result Comment: This nucleic acid amplification test detects fourteen high-risk HPV types (16,18,31,33,35,39,45,51,52,56,58,59,66,68) without differentiation. Performed at: =G Performed By: #### [id number] #### [facility] [address] [place] [address] Michelle Castro Methodology: Comment [facility] Comment on above: Result Comment: This liquid based ThinPrep(R) pap test was screened with the use of an image guided system. Performed at: WB Performed By: #### [id number] #### [facility] [address] [place] [address] Michelle Castro Note: Comment Normal [facility] Comment on above: Result Comment: The Pap smear is a screening test designed to aid in the detection of premalignant and malignant conditions of the uterine cervix. It is not a diagnostic procedure and should not be used as the sole means of detecting cervical cancer. Both false-positive and false-negative reports do occur. . Performed at: WB Performed By: #### [id number] #### [facility] [address] [place] [address] Michelle Castro Performed by: Comment Normal [facility] Comment on above: Result Comment: Rafael Ayon, Middle [employer] Technology Teacher (ASCP) Performed at: WB Performed By: #### [id number] #### [facility] [address] [place] [address] Michelle Castro Specimen adequacy: Comment Normal [facility] Comment on above: Result Comment: Sati sfactory for evaluation. Endocervical and/or squamous metaplastic cells (endocervical component) are present. Performed at: WB Performed By: #### [id number] #### [facility] [address] [place] [address] Michelle Castro Vital Signs Date Time Vital Sign Value Performing Clinician Facility 01-12-2025 14:10-0500 Body mass index (BMI) [Ratio] 25 kg/m2 [facility] Work Phone: [facility] 01-12-2025 14:10-0500 Body weight 58.06 kg [facility] Work Phone: [facility] 01-12-2025 14:10-0500 Diastolic blood pressure 74 mm[Hg] [facility] Work Phone: [facility] 01-12-2025 14:10-0500 Systolic blood pressure 112 mm[Hg] Willem Nataliia DO Work Phone: [facility] 12-27-2024 14:02-0500 Body mass index (BMI) [Ratio] 25.55 kg/m2 Willem Nataliia DO Work Phone: [facility] 12-27-2024 14:02-0500 Body weight 59.33 kg Willem Nataliia DO Work Phone: [facility] 12-27-2024 14:02-0500 Diastolic blood pressure 60 mm[Hg] Willem Nataliia DO Work Phone: [facility] 12-27-2024 14:02-0500 Systolic blood pressure 100 mm[Hg] Willem Nataliia DO Work Phone: [facility] 10-29-2024 10:35-0500 Diastolic blood pressure 78 mm[Hg] Natalya GoNabit [facility] 10-29-2024 10:35-0500 Heart rate 68 /min Natalya GoNabit [facility] 10-29-2024 10:35-0500 Mean blood pressure 85 mm[Hg] Natalya GoNabit [facility] 10-29-2024 10:35-0500 Respiratory rate 16 /min [facility]ya GoNabit [facility] 10-29-2024 10:35-0500 Systolic blood pressure 100 mm[Hg] Natalya GoNabit [facility] 09-17-2024 15:43-0400 Heart rate 113 /min Ender Rhiew [facility] 09-17-2024 15:43-0400 SaO2% (BldA) [Mass fraction] 96 % Ender Rh[facility] 09-17-2024 15:42-0400 Body temperature 99.68 [degF] Ender Rhiew [facility] 09-17-2024 15:42-0400 Diastolic blood pressure 64 mm[Hg] Ender Rhiew [facility] 09-17-2024 15:42-0400 Mean blood pressure 73 mm[Hg] Ender Rhiew [facility] 09-17-2024 15:42-0400 Systolic blood pressure 91 mm[Hg] Ender Rhiew [facility] 09-17-2024 15:06-0400 Hourly Rounding Ender Rh[facility] 09-17-2024 15:06-0400 Promise to Return Ender Rhiew [facility] 09-17-2024 14:56-0400 Hour[address] [facility]der [facility] 09-17-2024 14:56-0400 Promise to Return Ender Rhiew [facility] 09-17-2024 13:56-04[address] [facility]der [facility] 09-17-2024 13:56-0400 Promise to Return Ender Rhiew [facility] 09-17-2024 11:21-0400 Blood Pressure Location Ender Rhiew [facility] 09-17-2024 11:21-0400 Body temperature 98.06 [degF] Ender Rhiew [facility] 09-17-2024 11:21-0400 Diastolic blood pressure 60 mm[Hg] Ender Rhiew [facility] 09-17-2024 11:21-0400 Heart rate 93 /min [facility] 09-17-2024 11:21-0400 Mean blood pressure 71 mm[Hg] Ender Rh[facility] 09-17-2024 11:21-0400 Respiratory rate 14 /min [facility] 09-17-2024 11:21-0400 SaO2% (BldA) [Mass fraction] 98 % [facility]der [facility] 09-17-2024 11:21-0400 Systolic blood pressure 93 mm[Hg] Ender Rh[facility] 09-17-2024 07:21-0400 Blood Pressure Location Ender Rh[facility] 09-17-2024 07:21-0400 Body temperature 98.24 [degF] Ender Rh[facility] 09-17-2024 07:21-0400 Diastolic blood pressure 62 mm[Hg] Ender Rh[facility] 09-17-2024 07:21-0400 Heart rate 89 /min [facility] 09-17-2024 07:21-0400 Mean blood pressure 73 mm[Hg] Ender Rhiew [facility] 09-17-2024 07:21-0400 Respiratory rate 16 /min [facility] 09-17-2024 07:21-0400 SaO2% (BldA) [Mass fraction] 96 % [facility]der [facility] 09-17-2024 07:21-0400 Systolic blood pressure 96 mm[Hg] Ender Rhiew [facility] 09-17-2024 04:00-0400 Body temperature 97.88 [degF] Ender Rh[facility] 09-17-2024 04:00-0400 Mean blood pressure 77 mm[Hg] Ender [facility] 09-17-2024 00:59-0400 Body temperature 98.42 [degF] Ender Rhiew [facility] 09-16-2024 20:08-0400 Mean blood pressure 72 mm[Hg] Ender [facility] 09-16-2024 20:07-0400 Body temperature 98.6 [degF] Ender Rhiew [facility] 09-16-2024 15:35-0400 Mean blood pressure 73 mm[Hg] Ender Rhiew [facility] 09-16-2024 15:34-0400 Body temperature 98.06 [degF] Ender Rhiew [facility] 09-16-2024 14:00-0400 Body temperature 97.7 [degF] Ender Rhiew [facility] 09-16-2024 13:20-0400 Respiratory rate 15 /min [facility] 09-16-2024 13:10-0400 Respiratory rate 13 /min [facility] 09-16-2024 13:05-0400 Respiratory rate 12 /min [facility] 09-01-2024 10:06-0400 Diastolic blood pressure 74 mm[Hg] Natalya GoNabit [facility] 09-01-2024 10:06-0400 Heart rate 98 /min [facility]ya [facility]Nabit [facility] 09-01-2024 10:06-0400 Mean blood pressure 86 mm[Hg] Natalya GoNabit [facility] 09-01-2024 10:06-0400 Respiratory rate 20 /min Natalya Prado [facility] 09-01-2024 10:06-0400 Systolic blood pressure 110 mm[Hg] Natalya Prado [facility] 08-25-2024 09:32-0400 Blood Pressure Location Ender Rhiew [facility] 08-25-2024 09:32-0400 Diastolic blood pressure 76 mm[Hg] Ender Rhiew [facility] 08-25-2024 09:32-0400 Systolic blood pressure 105 mm[Hg] Ender Rhiew [facility] 08-25-2024 09:31-0400 Blood Pressure Location Ender Rhiew [facility] 08-25-2024 09:31-0400 Body temperature 98.24 [degF] Ender Rhiew [facility] 08-25-2024 09:31-0400 Diastolic blood pressure 74 mm[Hg] Ender Rhiew [facility] 08-25-2024 09:31-0400 Heart rate 73 /min Ender Rhiew [facility] 08-25-2024 09:31-0400 Respiratory rate 16 /min [facility]der Rhiew [facility] 08-25-2024 09:31-0400 SaO2% (BldA) [Mass fraction] 98 % Ender Rhiew [facility] 08-25-2024 09:31-0400 Systolic blood pressure 106 mm[Hg] Ender Rhiew [facility] 08-16-2024 09:09-0400 Body mass index (BMI) [Ratio] 25.55 kg/m2 Willem Nataliia DO Work Phone: [facility] 08-16-2024 09:09-0400 Body weight 59.33 kg Willem Nataliia DO Work Phone: [facility] 08-16-2024 09:09-0400 Diastolic blood pressure 70 mm[Hg] Willem Nataliia DO Work Phone: [facility] 08-16-2024 09:09-0400 Systolic blood pressure 110 mm[Hg] Willem Nataliia DO Work Phone: [facility] 07-29-2024 08:39-0400 Blood Pressure Location [facility]hav [facility] 07-29-2024 08:39-0400 Diastolic blood pressure 72 mm[Hg] [facility] 07-29-2024 08:39-0400 Heart rate 82 /min [facility] 07-29-2024 08:39-0400 SaO2% (BldA) [Mass fraction] 98 % [facility] 07-29-2024 08:39-0400 Systolic blood pressure 112 mm[Hg] Madhav [facility] 07-21-2024 12:42-0400 Diastolic blood pressure 87 mm[Hg] Natalya GoNabit [facility] 07-21-2024 12:42-0400 Heart rate 74 /min Natalya GoNabit [facility] 07-21-2024 12:42-0400 Mean blood pressure 97 mm[Hg] Natalya GoNabit [facility] 07-21-2024 12:42-0400 Respiratory rate 18 /min Natalya GoNabit [facility] 07-21-2024 12:42-0400 Systolic blood pressure 117 mm[Hg] Natalya Forter [facility] 07-09-2024 07:03-0400 Blood Pressure Location Madhav Link [facility] 07-09-2024 07:03-0400 Diastolic blood pressure 78 mm[Hg] Madhav Link [facility] 07-09-2024 07:03-0400 Heart rate 72 /min Madhav Link [facility] 07-09-2024 07:03-0400 SaO2% (BldA) [Mass fraction] 98 % Madhav Link [facility] 07-09-2024 07:03-0400 Systolic blood pressure 119 mm[Hg] Madhav Link [facility] 07-06-2024 20:29-0400 Body temperature 97.88 [degF] Jorge Linette [facility] 07-06-2024 20:29-0400 Diastolic blood pressure 77 mm[Hg] Jorge Linette [facility] 07-06-2024 20:29-0400 Heart rate 91 /min Jorge Linette [facility] 07-06-2024 20:29-0400 Respiratory rate 18 /min Jorge Linette [facility] 07-06-2024 20:29-0400 SaO2% (BldA) [Mass fraction] 99 % Jorge Linette [facility] 07-06-2024 20:29-0400 Systolic blood pressure 155 mm[Hg] Jorge Linette [facility] 06-03-2024 13:20-0400 Body temperature 98.24 [degF] Den Mcqueen [facility] 06-03-2024 13:20-0400 Diastolic blood pressure 67 mm[Hg] [facility] 06-03-2024 13:20-0400 Heart rate 83 /min [facility] 06-03-2024 13:20-0400 Respiratory rate 18 /min [facility] 06-03-2024 13:20-0400 SaO2% (BldA) [Mass fraction] 100 % [facility] 06-03-2024 13:20-0400 Systolic blood pressure 107 mm[Hg] [facility] 06-01-2024 09:53-0400 Blood Pressure Location [facility] 06-01-2024 09:53-0400 Body temperature 97.52 [degF] [facility] 06-01-2024 09:53-0400 Diastolic blood pressure 76 mm[Hg] [facility] 06-01-2024 09:53-0400 Heart rate 77 /min [facility] 06-01-2024 09:53-0400 SaO2% (BldA) [Mass fraction] 98 % [facility] 06-01-2024 09:53-0400 Systolic blood pressure 112 mm[Hg] [facility] Encounters Encounter Date Encounter Type Care Provider Facility Start: 01-12-2025 End: 01-12-2025 [employer] Willem Nataliia DO Work Phone: [facility] Start: 01-12-2025 End: 01-12-2025 [employer] Willem Nataliia DO Work Phone: [facility] Start: 01-12-2025 End: 01-12-2025 Office outpatient visit 15 minutes Willem Nataliia DO Work Phone: [facility] Comment on above: Pre-op evaluation; LGSIL on Pap smear of cervix; Cervical high risk human papillomavirus (HPV) DNA test positive Start: 01-12-2025 End: 01-12-2025 Preprocedural examination done Willem Nataliia DO Work Phone: [facility] Start: 01-12-2025 End: 01-12-2025 ambulatory WILLEM NATALIIA Not Available Start: 12-27-2024 End: 12-27-2024 Bamboo flowsheet Willem Nataliia DO Work Phone: [facility] Start: 12-27-2024 End: 12-27-2024 Bamboo flowsheet Willem Nataliia DO Work Phone: [facility] Start: 12-27-2024 End: 12-27-2024 Office outpatient visit 15 minutes Willem Nataliia DO Work Phone: [facility] Comment on above: LGSIL on Pap smear o f cervix Start: 12-27-2024 End: 12-27-2024 ambulatory WILLEM NATALIIA Not Available Start: 10-29-2024 End: 10-29-2024 ambulatory Natalya Prado Facility:[facility] Start: 10-29-2024 End: 10-29-2024 Patient encounter procedure Natalya Prado [facility] Start: 09-16-2024 End: 09-17-2024 ambulatory Ender Logan Facility:[facility] Start: 09-16-2024 End: 09-17-2024 Patient encounter procedure Ender Logan [facility] Start: 09-01-2024 End: 09-01-2024 ambulatory Jeanne Ocampo Facility:[facility] Start: 09-01-2024 End: 09-01-2024 Patient encounter procedure Natalya Prado [facility] Start: 08-25-2024 End: 08-25-2024 ambulatory Ender Logan Facility:[facility] Start: 08-25-2024 End: 08-25-2024 Patient encounter procedure Ender Logan [facility] Start: 08-16-2024 End: 08-16-2024 Bamboo flowsheet Willem Nataliia DO Work Phone: [facility] Start: 08-16-2024 End: 08-24-2024 Clinisync Result Encounter Willem Nataliia DO Work Phone: [facility] Unsolicited Start: 08-16-2024 End: 08-24-2024 Clinisync Result Encounter Willem Nataliia DO Work Phone: [facility] Unsolicited Start: 08-16-2024 End: 08-16-2024 Office outpatient visit 15 minutes Willem Nataliia DO Work Phone: [facility] Comment on above: LGSIL on Pap smear o f cervix Start: 08-16-2024 End: 08-16-2024 ambulatory WILLEM NATALIIA Not Available Start: 08-10-2024 End: 08-10-2024 ambulatory Ender Logan Facility:[facility] Start: 08-10-2024 End: 08-10-2024 Patient encounter procedure Ender Logan [facility] Start: 07-29-2024 End: 07-29-2024 ambulatory Madhav Fuentes Facility:[facility] Start: 07-29-2024 End: 07-29-2024 Patient encounter procedure Madhav Fuentes [facility] [place] Start: 07-23-2024 End: 09-23-2024 ambulatory Natalya Prado Facility:[facility] Start: 07-21-2024 End: 07-21-2024 ambulatory Natalya Prado Facility:[facility] Start: 07-21-2024 End: 07-21-2024 Pain Management [address] Prado [facility] Start: 07-13-2024 End: 07-13-2024 ambulatory Ender Logan Facility:[facility] Start: 07-13-2024 End: 07-13-2024 Patient encounter procedure Ender Logan [facility] Start: 07-09-2024 End: 07-09-2024 ambulatory Madhav C Link Facility:[facility] Start: 07-09-2024 End: 07-09-2024 Patient encounter procedure Madhav C Link [facility] [place] Start: 07-06-2024 End: 07-06-2024 Emergency department patient visit Jorge Sue [facility] Start: 07-06-2024 ambulatory Natalya Prado Facilit y:[facility] Start: 06-11-2024 ambulatory HARSHA HOFFMAN Fa cility:[facility] Start: 06-03-2024 End: 06-03-2024 Emergency department patient visit Den Reyes Charisse [facility] Start: 06-01-2024 End: 06-01-2024 ambulatory Cuco Uribe Facility:[facility] Start: 06-01-2024 End: 06-01-2024 Patient encounter procedure Cuco Uribe [facility] Start: 05-03-2024 End: 05-03-2024 ambulatory WILLEM NATALIIA Not Available Start: 04-12-2024 End: 04-12-2024 ambulatory WILLEM NATALIIA Not Available Start: 04-05-2024 End: 04-05-2024 ambulatory WILLEM NATALIIA Not Available Start: 03-15-2024 End: 03-15-2024 ambulatory WILLEM NATALIIA Not Available Start: 03-08-2024 End: 03-08-2024 ambulatory WILLEM NATALIIA Not Available Start: 02-16-2024 End: 02-16-2024 ambulatory WILLEM NATALIIA Not Available Start: 02-09-2024 End: 02-09-2024 ambulatory Willem Nataliia Facility:[facility] Start: 02-09-2024 End: 02-09-2024 ambulatory Willem Nataliia Work Phone: [facility] Work Phone: Start: 02-09-2024 End: 02-09-2024 Departed Referred Willem Nataliia Work Phone: [facility] Start: 02-09-2024 End: 02-09-2024 ambulatory WILLEM NATALIIA Not Available Start: 01-27-2024 End: 01-27-2024 ambulatory WILLEM NATALIIA Not Available Start: 01-26-2024 End: 01-26-2024 ambulatory WILLEM NATALIIA Not Available Start: 05-01-2022 End: 07-30-2022 Patient encounter procedure Jeanne Ocampo [facility] Start: 03-29-2021 End: 03-29-[address] ANAM GUEVARA Facility:[facility] Procedures Date Procedure Procedure Detail Performing Clinician Start: 09-16-2024 History of surgical procedure on cervical spine Natalya Prado Comment on above: Dr. Logan- 09/16/24 Start: 08-16-2024 IGP,APTIMA HPV,AGE GDLN Willem Nataliia DO Work Phone: Start: 08-16-2024 Microscopic observat ion [Identifier] in Cervix by Cyto stain Willem Nataliia DO Work Phone: Start: 01-27-2024 Microscopic observat ion [Identifier] in Cervix by Cyto stain Willem Nataliia DO Work Phone: Start: 11-24-2007 Laparoscope, device (physical object) Madhav Fuentes Comment on above: To check for Endomet riosis Laparoscope, device (physical object) Jeanne Ocampo Plan of Treatment Date Care Activity Detail Author Start: 08-16-2027 Screening for malign ant neoplasm of cervix [facility] Start: 01-26-2027 Screening for malign ant neoplasm of cervix [facility] Start: 02-09-2025 End: 02-09-2025 Patient encounter procedure 02/09/2025 3:40 PM EDT Procedure Visit [facility] [address] [place] [id number] Willem William, DO [address] [place] [address] [place] [address] [facility] Start: 01-12-2025 End: 01-12-2025 Patient encounter procedure [facility] Comment on above: Arrived Start: 12-27-2024 End: 12-27-2024 Patient encounter procedure 12/27/2024 1:50 PM EST Office Visit [facility] [address] [place] [id number] Willem William, DO [address] [place] [address] [place] [address] Arrived [facility] Comment on above: Arrived Start: 08-16-2024 End: 08-16-2024 Patient encounter procedure 08/16/2024 9:00 AM EDT Procedure Visit [facility] [address] [place] [id number] Willem William, DO [address] [place] [address] [place] [address] Arrived [facility] Comment on above: Arrived Start: 07-25-2024 Influenza vaccination Influenza Vacc ine (#1) [facility] Start: 2019 Screening for malign ant neoplasm of cervix HPV/Cotest [facility] Cytology Cervical or vaginal smear or scraping study Pap Smear Pathology and Cytology Routine LGSIL on Pap smear of cervix Ordered: 08/16/2024 [facility] Work Phone: Comment on above: Ordered: 08/16/2024 Human papilloma viru s DNA [Presence] in Unspecified specimen by Probe with amplification HPV DNA probe, amplified Microbiology Routine LGSIL on Pap smear of cervix Ordered: 08/16/2024 [facility] Comment on above: Ordered: 08/16/2024 Immunizations Immunization Date Immunization Notes Care Provider Kamilah breen NEGATED: Highlighted row has not occurred!07-29-2024 influenza virus vaccine, unspecified formulation Madhav Link [facility] [place] Payers Date Payer Category Payer Self-pay 2021 [facility] [[email or web address] BCBS Memb er Subscriber Plan / Payer (Effective 2021-Present) Name: AnitamarkosdavyDarrick Relation to Subscriber: Self Name: AnitaDarrick hernandez Payer ID: Not on file Type: Not on file Address: [address] [place] [id number] 2021 Unknown BCBS BCBS xxxxxx [id number] 2021-Present [phone] [id number] 2021 Unknown [id number] 1989 Unknown [id number] 2.16.840.1.141499.3.579. 2.593 1989 Unknown [id number] 2.16.840.1.850385.3.579. 2.727 1989 Unknown [id number] 2.16.840.1.322083.3.579. 2.727 1989 Unknown [id number] 2.16.840.1.977485.3.579. 2.727 1989 Unknown [id number] 2.16.840.1.025281.3.579. 2.72 1989 Unknown [id number] 2.16.840.1.733743.3.579. 2 1989 Unknown [id number] 2.16.840.1.599884.3.579. 2 1989 Unknown [id number] 2.840.1.057914.3.579. 2 1989 Unknown [id number] 2.16.840.1.147952.3.579. 2. 1989 Unknown [id number] 2.16840.1.775355.3.579. 2 1989 Unknown [id number] 2.840.1.886928.3.579. 2 1989 Unknown [id number] 2.840.1.722125.3.579. 2 1989 Unknown [id number] 2.840.1.976684.3.579. 2 1989 Unknown [id number] 2840.1.243865.3.579. 2 1989 Unknown [id number] 2.840.1.797849.3.579. 2 1989 Unknown [id number] 2840.1.782661.3.579. 2 1989 Unknown [id number] 2.16840.1.931144.3.579. 2. 1989 Unknown [id number] 2.16840.1.417190.3.579. 2 1989 Unknown [id number] 2.16840.1.342919.3.579. 2.1258 1989 Unknown [id number] 2.16840.1.821902.3.579. 2.1258 1989 Unknown [id number] 2.16.840.1.296176.3.579. 2.9 1989 Unknown [id number] 2.16.840.1.842722.3.579. 2.1258 1989 Unknown [id number] 2.16.840.1.183474.3.579. 2.1258 1989 Unknown [id number] 2.16.840.1.005138.3.579. 2.1258 1989 Unknown [id number] 2.16.840.1.993457.3.579. 2.1258 1989 Unknown [id number] 2.16.840.1.157003.3.579. 2.1258 1989 Unknown [id number] 2.16.840.1.155319.3.579. 2.1258 1989 Unknown [id number] 2.16.840.1.989974.3.579. 2.1258 1989 Unknown [id number] 2.16.840.1.683091.3.579. 2.1258 1989 Unknown [id number] 2.16.840.1.928405.3.579. 2.9 1959 Unknown [id number] Medicaid [employer]LL[employer] [id number] Unknown [id number] Social History Date Type Detail Facility Start: 09-11-2021 End: 06-30-2023 Tobacco smoking status Never smoked tobacco (finding) [facility] Tobacco smoking status Never [facility] Start: 03-15-2024 Sex Assigned At Female F [facility] Start: 1990 Sex Assigned At Female F [facility] Start: 06-30-2023 Tobacco use and exposure Smokeless tobacco non-user [facility] Start: 08-16-2024 End: 12-27-2024 Alcoholic beverage intake Lifetime non-drinker (finding) [facility] Start: 03-15-2024 History of Social function [facility] Start: 04-18-2023 Alcohol Comment Caffeine intak e: 1 cup per day of coffee [facility] Start: 1990 Sex assigned at Not on file N [facility] Medical Equipment Procedure Code Equipment Code Equipment Origin al Text Equipment Identifier Dates CERVICAL ANTERIO R DISCECTOMY W/ FUSION, Ender Logan MD 09/16/24 Unknown Neck FDA Start: 09-16-2024 CERVICAL ANTERIO R DISCECTOMY W/ FUSION, Ender Logan MD 09/16/24 Unknown Neck FDA Start: 09-16-2024 CERVICAL ANTERIO R DISCECTOMY W/ FUSION, Ender Logan MD 09/16/24 Unknown Neck FDA Start: 09-16-2024 CERVICAL ANTERIO R DISCECTOMY W/ FUSION, Ender Logan MD 09/16/24 Unknown Neck FDA Start: 09-16-2024 CERVICAL ANTERIO R DISCECTOMY W/ FUSIONDoreen MD, Richard B 09/16/24 Unknown Neck FDA Start: 09-16-2024 CERVICAL ANTERIO R DISCECTOMY W/ FUSION, Ender Logan MD 09/16/24 Unknown Neck FDA Start: 09-16-2024 CERVICAL ANTERIO R DISCECTOMY W/ FUSION, Ender Logan MD 09/16/24 Unknown Neck FDA Start: 09-16-2024 CERVICAL ANTERIO R DISCECTOMY W/ FUSIONDoreen MD, Richard B 09/16/24 Unknown Neck FDA Start: 09-16-2024 Functional Status Date Assessment Result Facility 10-29-2024 Functional Status N/A [facility] 09-01-2024 Functional Status N/A [facility] 08-25-2024 Functional Status No [facility] 07-29-2024 Functional Status N/A [facility] 07-21-2024 Functional Status N/A [facility] 07-09-2024 Functional Status N/A [facility] 07-06-2024 Functional Status N/A [facility] 06-03-2024 Functional Status N/A [facility] 06-01-2024 Functional Status N/A [facility] Clinical Notes 09-11-2021 to 01-12-2025 Nelda Ramos - 01/12/2025 1:50 PM ESTWillem William DO - 12/27/2024 1:50 PM EST Note Date & Type Note Facility 01-12-2025 History of Presen t illness Narrative Reason for Appointment: Patient ID: Darrick Villafuerte is a 34 y.o. female who presents for Pre-op Visit Patient presents today for Pre Op appointment. Patient is scheduled to undergo LEEP on 02/04/[address] William at [facility]. MEDICATIONS Current Outpatient Medications Medication Instructions amitriptyline (Elavil) 25 MG tablet TAKE 2 TABLETS BY MOUTH EVERY DAY AT BEDTIME EPINEPHrine (EpiPen 2-Armando) 0.3 MG/0.3ML injection syringe as directed Injection outside of thigh prn for 1 year gabapentin (NEURONTIN) 600 mg, 3 times daily ALLERGIES Allergies Allergen Reactions Penicillins Hives, Rash and Wheezing Other Reaction(s): Other: See Comments Possible trouble breathing. Happened when pt was 3 years old A YOUNG CHILD Other Reaction(s): Hives PROBLEMS Active Ambulatory Problems Diagnosis Date Noted Acute allergic rhinitis due to pollen 05/05/2023 Abnormal glandular Papanicolaou smear of cervix 02/09/2024 Resolved Ambulatory Problems Diagnosis Date Noted No Resolved Ambulatory Problems Past Medical History: Diagnosis Date Asthma ([facility]) Parotitis 02/24/2017 HISTORY PAST MEDICAL HISTORY SOCIAL HISTORY Past Medical History: Diagnosis Date Asthma ([facility]) Parotitis 02/24/2017 Social History Tobacco Use Smoking status: Never Smokeless tobacco: Never Substance Use Topics Alcohol use: Never Comment: Caffeine intake: 1 cup per day of coffee Drug use: Not on file FAMILY HISTORY Family History Problem Relation Name Age of Onset No Known Problems Mother No Known Problems Father Cancer Maternal Grandmother No Known Problems Maternal Grandfather No Known Problems Paternal Grandmother No Known Problems Paternal Grandfather No Known Problems Sibling No Known Problems Mother's Sister No Known Problems Child No Known Problems Father's Brother No Known Problems Father's Sister No Known Problems Mother's Brother SURGICAL HISTORY Past Surgical History: Procedure Laterality Date NECK SURGERY 08/2024 OTHER SURGICAL HISTORY 2009 Laparoscopy REVIEW OF SYSTEMS Review of Systems: Review of Systems Constitutional: Negative. HENT: Negative. Eyes: Negative. Respiratory: Negative. Cardiovascular: Negative. Gastrointestinal: Negative. Genitourinary: Negative. Musculoskeletal: Negative. Skin: Negative. Neurological: Negative. All other systems reviewed and are negative. Hematological: Negative. Endocrine: Negative. Allergic/Immunologic: Negative. OBJECTIVE Objective: Physical Exam Constitutional: Appearance: Normal appearance. She is well-developed. Cardiovascular: Rate and Rhythm: Normal rate and regular rhythm. Pulmonary: Effort: Pulmonary effort is normal. Breath sounds: Normal breath sounds. Abdominal: General: Bowel sounds are normal. There is no distension. Palpations: Abdomen is soft. Tenderness: There is no abdominal tenderness. There is no guarding or rebound. Musculoskeletal: General: No swelling. Normal range of motion. Right lower leg: No edema. Left lower leg: No edema. Neurological: Mental Status: She is alert and oriented to person, place, and time. Skin: General: Skin is warm and dry. Psychiatric: Mood and Affect: Mood normal. Behavior: Behavior normal. Vitals and nursing note reviewed. Exam conducted with a rigging man present. Vitals: Estimated body mass index is 25 kg/m as calculated from the following: Height as of 07/24/22: 5'. Weight as of this encounter: 128 lb. BP: 112/74 No LMP recorded. Patient has had an implant. ASSESSMENT & PLAN ICD-10-CM 1. Pre-op evaluation Z01.818 2. LGSIL on Pap smear of cervix R87.612 3. Cervical high risk human papillomavirus (HPV) DNA test positive R87.810 Pre Op: Patient is doing well but has complaints of LGSIL and HPV+found on Pap Smear. I have discussed conservative management vs. surgical management with the patient in detail and patient desires surgical management at this time. Patient will undergo LEEP on 02/04/2025. Surgical consents were signed, mmc was reviewed, and patient is to proceed to [facility] OR. Follow Up: Patient is to follow up between 1-2 weeks post operative to assess proper healing and recovery from procedure. Documented by Gloria Saha LPN on behalf of: Willem William DO documented in this encounter [facility] 12-27-2024 History of Presen t illness Narrative Reason for Appointment: Patient ID: Darrick Villafuerte is a 34 y.o. female who presents for Abnormal Pap Smear Patient presents today for Repeat Pap. Current Medications: has a current medication list which includes the following Facility-Administered Medications: levonorgestrel. Medical History: Active Ambulatory Problems Diagnosis Date Noted Acute allergic rhinitis due to pollen 05/05/2023 Abnormal glandular Papanicolaou smear of cervix 02/09/2024 Resolved Ambulatory Problems Diagnosis Date Noted No Resolved Ambulatory Problems Past Medical History: Diagnosis Date Asthma (CMS/HCC) Parotitis 02/24/2017 Family History Problem Relation Name Age of Onset No Known Problems Mother No Known Problems Father Cancer Maternal Grandmother No Known Problems Maternal Grandfather No Known Problems Paternal Grandmother No Known Problems Paternal Grandfather No Known Problems Sibling No Known Problems Mother's Sister No Known Problems Child No Known Problems Father's Brother No Known Problems Father's Sister No Known Problems Mother's Brother Social History Tobacco Use Smoking status: Never Smokeless tobacco: Never Substance Use Topics Alcohol use: Never Comment: Caffeine intake: 1 cup per day of coffee Drug use: Not on file Past Surgical History: Procedure Laterality Date NECK SURGERY 08/2024 OTHER SURGICAL HISTORY 2009 Laparoscopy Allergies Allergen Reactions Penicillins Hives, Rash and Wheezing Other Reaction(s): Other: See Comments Possible trouble breathing. Happened when pt was 3 years old A YOUNG CHILD Review of Systems: Review of Systems Constitutional: Negative. HENT: Negative. Eyes: Negative. Respiratory: Negative. Cardiovascular: Negative. Gastrointestinal: Negative. Genitourinary: Negative. Musculoskeletal: Negative. Skin: Negative. Neurological: Negative. All other systems reviewed and are negative. Hematological: Negative. Endocrine: Negative. Allergic/Immunologic: Negative. Objective Physical Exam Constitutional: Appearance: Normal appearance. She is well-developed. Genitourinary: Vulva normal. Cardiovascular: Rate and Rhythm: Normal rate and regular rhythm. Pulmonary: Effort: Pulmonary effort is normal. Breath sounds: Normal breath sounds. Abdominal: General: Bowel sounds are normal. There is no distension. Palpations: Abdomen is soft. Tenderness: There is no abdominal tenderness. There is no guarding or rebound. Musculoskeletal: General: No swelling. Normal range of motion. Right lower leg: No edema. Left lower leg: No edema. Neurological: Mental Status: She is alert and oriented to person, place, and time. Skin: General: Skin is warm and dry. Psychiatric: Mood and Affect: Mood normal. Behavior: Behavior normal. Vitals and nursing note reviewed. Exam conducted with a rigging man present. Vitals: Estimated body mass index is 25.55 kg/m as calculated from the following: Height as of 07/24/22: 5'. Weight as of this encounter: 130 lb 12.8 oz. BP: 100/60 No LMP recorded. Patient has had an implant. Assessment/Plan Encounter Diagnosis: ICD-10-CM 1. LGSIL on Pap smear of cervix R87.612 Repeat Pap: Patient presents today for a repeat pap. Previous pap results were reviewed and noted to be LGSIL. Question regarding previous results were discussed. Repeat Pap was obtained without difficulty. Follow Up: Patient is to return to the office in 6 months for an annual exam. Documented by Willem William DO on behalf of: Willem William DO documented in this encounter [facility] 10-29-2024 Evaluation + Plan note Extrac daylin from: Title:Pain Managment Follow up Author:Natalya Finley Date:10/29/24 Impression and Plan Patient is a 34-year-old female with a past medical history significant for recent cervical fusion. She is doing well. She is feeling well. She is comfort. She is happy. Her radicular symptoms have resolved. In fact, today she does not have any pain. She does not have any complaints. She does not have any concerns. She is overall doing very well. She has come off of the amitriptyline. She is using Lyrica 200 mg 3 times a day which she is tolerating but she would like to try to come off. How to wean off of the medication was discussed. At this time, she does not feel that she requires a refill. She will call us if and when she does. She is going to Wear herself off the medication over the next 3 to 4 weeks. She will call us if she realizes she does require the medication and we will get her back on the needed dose. Otherwise she is going to come off of this and follow-up as needed. FELISHA score: 10%. [facility] 12-06-2024 NoteConsultation Note Patient: DARRICK VILLAFUERTE Age: 34 years Sex: Female : 1990 Associated Diagnoses: None Author: Natalya Prado PA-C Subjective Chief complaint 10/29/2024 10:35 EST neck pain . Patient is a 34-year-old female following up today because she is now 6 weeks postop from her C6/7 ACDF. This was done by Dr. Logan on 09/16/2024. At this time, she is doing well. She is feeling well. She is comfortable. She is happy. Does not have any pain. She does not have any complaints. The amitriptyline was making her feel weird so she came off of it. She is here today to discuss coming offof the Lyrica. She is currently using 200 mg 3 times a day. She would like to try to come off this. Health Status Allergies: Allergic Reactions (Selected) Severity Not Documented Penicillins- Hives., Allergies (1) Active Severity Reaction penicillins Hives Current medications: (Selected) Prescriptions Prescribed Lyrica 200 mg Cap: 200 mg = 1 cap(s), Oral, TID, # 90 cap(s), Refills(s) 1, Pharmacy: [facility], 155.5, cm, 09/01/24 10:15:00 EDT, Height/Length Dosing, 59, kg, 09/01/24 10:15:00 EDT, Weight Dosing amitriptyline 25 mg Tab: 50 mg = 2 tab(s), Oral, Once a day (at bedtime), X 30 day(s), # 60 tab(s),Refills(s) 1, Pharmacy: [facility], 155.5, cm, 09/01/24 10:15:00 EDT, Height/LengthDosing, 59, kg, 09/01/24 10:15:00 EDT, Weight Dosing Documented Medications Documented Tylenol: 500 mg, Daily, PRN as needed for pain, Refills(s) 0 Problem list: All Problems Asthma / SNOMED CT 8827985684 / Confirmed Abnormal placenta affecting management of mother / SNOMED CT 59003287 / Confirmed Cervical dysfunction / SNOMED CT 085622627 / Confirmed Shoulder pain / SNOMED CT 70446500 / Confirmed Objective Vital Signs 10/29/2024 10:35 EST Peripheral Pulse Rate 68 bpm Respiratory Rate 16 br/min Systolic Blood Pressure 100 mmHg Diastolic Blood Pressure 78 mmHg Mean Arterial Pressure, Cuff 85 mmHg General: Alert and oriented, No acute distress. Eye: Normal conjunctiva. HENT: Normocephalic, Normal hearing. Cardiovascular: No edema. Musculoskeletal Normal range of motion. Normal strength. 5/5 strength Integumentary: Warm, Dry, [place]. Incision healing well Neurologic: Alert, Oriented. Psychiatric: Cooperative, Appropriate mood & affect. 14 point review of systems was negative unless otherwise noted. Impression and Plan Patient is a 34-year-old female with a past medical history significant for recent cervical fusion.She is doing well. She is feeling well. She is comfort. She is happy. Her radicular symptoms have resolved. In fact, today she does not have any pain. She does not have any complaints. She does not have any concerns. She is overall doing very well. She has come off of the amitriptyline. She is using Lyrica 200 mg 3 times a day which she is tolerating but she would like to try to come off. How to wean off of the medication was discussed. At this time, she does not feel that she requires a refill. She will call us if and when she does. She is going to Wear herself off the medication over the next 3 to 4 weeks. She will call us if she realizes she does require the medication and we will get her back on the needed dose. Otherwise she is going to come off of this and follow-up as needed. FELISHA score: 10%.[facility] CenterComment on above:Result Comment: Electronically Signed By: Natalya Prado PA-C\.joe\Date and Time Signed: 10/29/24 10:46 [id number] NoteProgress Note-Physician Assessment/Plan 1. Cervical stenosis of spine (M48.02: Spinal stenosis, cervical region) 09/16: S/p C6-7 ACDF arthrodesis autograft allograft microdissection insertion interbody cage platescrews. Secondary to cervical herniated disc and stenosis C6-7, triceps, biceps, hand intrinsic weakness 2/5 with numbness thumb index middle fingers left. Performed and managed by Dr. Logan -PT/OT -Trend labs -Pain mgt. -Education: Oral pain med regimen, I.S. and bowel regimen to avoid constipation Thank you for the opportunity to assist in the mgt. of your patient 2. On deep vein thrombosis (DVT) prophylaxis (Z79.899: Other half-way (current) drug therapy) SCDs, early ambulation, defer mgt. to orthospine Orders: magnesium sulfate + Dextrose 5% in Water intravenous solution 100 mL, 1 gram = 100 mL, Soln-IV, IV Piggyback, Once, Stop date 09/17/24 8:00:00 EDT, Routine, Start date 09/17/24 8:00:00 EDT, 100 mL/hr, Infuse over 60 minute(s), 09/17/24 7:19:00 EDT -Plan discussed w/ patient, nursing staff and CRM. -Disposition: Patient is appropriate for discharge from medical standpoint. This report was transcribed using voice recognition software. Every effort was made to ensure accuracy, however, inadvertently computerized lactation specialist mistakes may be present. Subjective No acute events overnight. Patient denies CP, pressure, palpitations, N/V, SOB or paresthesia. Review of Systems Respiratory: Negative Cardiovascular: Negative. Gastrointestinal: Denies abd pain. Passing flatus. Last BM: 09/16 Additional ROS info: Except as noted in the above Review of Systems and in the History of Present Illness all other systems have been reviewed and are negative or noncontributory Objective Vitals & Measurements T: 36.8 ???C(Oral) TMIN: 36.4 ???C(Temporal Artery) TMAX: 37 ???C(Oral) HR: 89(Monitored) RR: 16 BP: 96/62 SpO2: 96% WT: 65.3 kg Intake & Output This visit (24 hour periods starting at 07:00 EDT) 09/17/24 * 09/16/24 09/15/24 Total Summary Intake mL 1 2,466.68 -- Output mL -- 410 -- Fluid Balance 1 2,056.68 -- Intake (17) Generic Diluent, vancomycin mL -- 200 -- Lactated Ringers Injection mL -- 1,000 -- Lactated Ringers Injection 1,000 mL mL -- 50 -- Oral Intake mL -- 582 -- Sodium Chloride 0.9% intravenous solution 1,000 mL mL -- 491.47 -- acetaminophen mL -- 100 -- dexamethasone mL -- 1 -- esmolol mL -- 1.5 -- fentanyl mL -- 2 -- hydromorphone mL 1 2.5 -- lidocaine mL -- 3 -- midazolam mL -- 2 -- ondansetron mL -- 2 -- phenylephrine mL -- 0.21 -- propofol mL -- 18 -- rocuronium mL -- 9 -- sugammadex mL -- 2 -- Total 1 2,466.68 -- Output (2) EBL Surgery mL -- 10 -- Urine Voided mL -- 400 -- Total -- 410 -- Counts (0) * This column has not completed the indicated time period. Physical Exam General: Calm, able to communicate needs, NAD, kaibab J collar intact Head: Normocephalic/atraumatic Eyes: Pupils equal, round, Conjunctivae and sclerae normal, HEENT: Mucous membrane moist. 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 Pulses: Normal capillary refill Abdomen: Soft, non-distended, non-tender, normal BS Musculoskeletal: No deformity or scoliosis noted. Normal ROM for age. Integumentary: Warm, dry, surgical drsng CDI Extremity: No clubbing, Neurologic: Alert, oriented x 4, follows commands, Mental status: Pleasant & cooperative, approp. affect, Lab Results Size: 8X14, 7MM, 12 DEGREE (09/16/24 12:25:57) Size: 14W X 7H (09/16/24 12:25:57) Size: 3.6MM X 14MM (09/16/24 12:25:57) WBC: 9.5 E9/L (09/17/24 05:50:00) RBC: 4.1 E12/L Low (09/17/24 05:50:00) HGB: 12.2 gm/dL (09/17/24 05:50:00) Hct: 35.8 % (09/17/24 05:50:00) MCV: 86.8 fL (09/17/24 05:50:00) MCH: 29.5 pg (09/17/24 05:50:00) MCHC: 33.9 gm/dL (09/17/24 05:50:00) RDW: 15 % High (09/17/24 05:50:00) Platelet: 305 E9/L (09/17/24 05:50:00) MPV: 8.3 fL (09/17/24 05:50:00) Glucose Lvl: 104 mg/dL (09/17/24 05:50:00) BUN: 9 mg/dL (09/17/24 05:50:00) Creatinine: 0.6 mg/dL (09/17/24 05:50:00) eGFR: 120 mL/min/1.73 m2 (09/17/24 05:50:00) BUN/Creat Ratio: 15 (09/17/24 05:50:00) Sodium Lvl: 138 mmol/L (09/17/24 05:50:00) Potassium Lvl: 3.8 mmol/L (09/17/24 05:50:00) Chloride: 107 mmol/L (09/17/24 05:50:00) CO2: 27 mmol/L (09/17/24 05:50:00) AGAP: 8 mEq/L (09/17/24 05:50:00) Calcium Lvl: 8.6 mg/dL Low (09/17/24 05:50:00) Phosphorus: 3.8 mg/dL (09/17/24 05:50:00) Magnesium: 1.8 mg/dL (09/17/24 05:50:00) Diagnostic Results CT Spine Cervical w/o Contrast 09/17/24 08:47:44 IMPRESSION: EXPECTED POSTOPERATIVE CHANGES FROM INTERVAL C6-7 ACDF. EXAM: CT Spine Cervical w/o Contrast (more content not included)...[facility] CenterComment on above:Result Comment: Electronically Signed By: Holly VELEZ\.br\Date and Time Signed: 09/17/24 10:37 EDT\.br\Electronically Co-Signed By: Shyam LUKE, Quang Duckworth.br\Date and Time Co-Signed: 09/18/24 16:56 [id number] NoteDischarge Summary Patient: DARRICK VILLAFUERTE Age: 34 years Sex: Female : 1990 Associated Diagnoses: None Author: Ender Logan MD Discharge Information Discharge Summary Information: Admit Date/Time: 09/16/24 09:22 Discharge Date/Time: 09/17/24 11:00 Admitting Physician: Ender Logan MD Referring Physician for Admission: Ender Logan MD Consulting Physicians: Natalya Quintero CNP Admitting Diagnoses: Discharge Diagnoses: Other emt intermediate (current) drug therapy Prescription and Home Meds: acetaminophen (Tylenol) 500 mg, Daily, PRN: as needed for pain, 0 Refill(s) acetaminophen-oxycodone (Percocet 5 mg-325 mg oral tablet) 1 tab(s), Oral, TID, for 7 day(s), PRN: Pain 4-7, 21 tab(s), 0 Refill(s) amitriptyline (amitriptyline 25 mg Tab) 50 mg, 2 tab(s), Oral, Once a day (at bedtime), for 30 day(s), 60 tab(s), 1 Refill(s) cyclobenzaprine (cyclobenzaprine 10 mg Tab) 10 mg, 1 tab(s), Oral, TID, for 21 day(s), 63 tab(s), 0Refill(s) pregabalin (Lyrica 200 mg Cap) 200 mg, 1 cap(s), Oral, TID, 90 cap(s), 1 Refill(s) logan po ambulated w therapy urinated pain controlled. left arm weakness and numbness much improved postop and stable for dc home. postop ct stable hardware. Physical Examination Vital Signs (last 24 hrs) Last Charted Temp Axillary H 37.6 DegC (SEP 17 15:42) Heart Rate Monitored H 113 bpm (SEP 17 15:43) SBP 91 mmHg (SEP 17 15:42) DBP 64 mmHg (SEP 17 15:42)[facility] CenterComment on above:Result Comment: Electronically Signed By: Doreen LUKE, Ender Sands\Date and Time Signed: 09/18/24 11:01 [id number] Hospital Discharge instructions Patient Education 09/17/2024 15:58:58 Anterior Cervical Diskectomy and Fusion Anterior Cervical Diskectomy and Fusion Anterior cervical diskectomy and fusion is a surgery to remove and replace an intervertebral disk. Intervertebral disks are plates of cartilage located between the bones of the spine. This surgery isdone when an intervertebral disk in the neck puts pressure on the spine or on a nerve. The surgery is done through the front (anterior) part of the neck. During the surgery, the damaged disk is removed and replaced with a plastic implant, a bone from another part of the body (bone graft), or both. Sometimes metal plates and screws are also used to keep the implant or bone graft in place and to join the bones together. Tell a health care provider about: Any allergies you have. All medicines you are taking, including vitamins, herbs, eye drops, creams, and [id number] medicines. Any problems you or family members have had with anesthetic medicines. Any blood disorders you have. Any surgeries you have had. Any medical conditions you have or have had. Whether you are or may be . What are the risks? Generally, this is a safe procedure. However, problems may occur, including: Infection. Bleeding, which can sometimes require a blood transfusion. Injury to surrounding structures, including nerves. Leakage of fluid from the brain or spinal cord. Blood clots. Temporary breathing or speaking difficulties. Difficulty swallowing. What happens before the procedure? Staying hydrated Follow instructions from your health care provider about hydration, which may include: Up to 2 hours before the procedure you may continue to drink clear liquids, such as water, clear fruit juice, black coffee, and plain tea. Eating and drinking Follow instructions from your health care provider about eating and drinking, which may include: 8 hours before the procedure stop eating heavy meals or foods, such as meat, fried foods, or fatty foods. 6 hours before the procedure stop eating light meals or foods, such as toast or cereal. 6 hours before the procedure stop drinking milk or drinks that contain milk. 2 hours before the procedure stop drinking clear liquids. Medicines Ask your health care provider about: Changing or stopping your regular medicines. This is especially important if you are taking diabetes medicines or blood thinners. Taking medicines such as aspirin and ibuprofen. These medicines can thin your blood. Do not take these medicines unless your health care provider tells you to take them. Taking jiqu-evu-yqdmceq medicines, vitamins, herbs, and supplements. Surgery safety Ask your health care provider: How your surgery site will be marked. What steps will be taken to help prevent infection. These may include: ?Removing hair at the surgery site. ?Washing skin with a germ-killing soap. ?Receiving antibiotic medicine. General instructions Do not use any products that contain nicotine or tobacco for at least 4 weeks before the procedure.These products include cigarettes, e-cigarettes, and chewing tobacco. If you need help quitting, ask your health care provider. Plan to have someone take you home from the hospital or clinic. What happens during the procedure? An IV will be inserted into one of your veins. You will be given one or more of the following: ?A medicine to help you relax (sedative). ?A medicine to make you fall asleep (general anesthetic). A breathing tube will be placed. Your neck will be cleaned with a germ-killing solution (antiseptic solution). Your surgeon will make an incision in the front of your neck. Your neck muscles will be spread apart. The damaged disk and any damaged bone will be removed. The area where the disk was removed will be filled with a small plastic implant, a bone graft, or both. Hardware may be put in your neck. The incision will be closed with stitches (sutures). Adhesive strips or skin glue may be placed across the incision. A bandage (dressing) will be applied over the incision. The procedure may vary among health care providers and hospitals. What happens after the procedure? Your blood pressure, heart rate, breathing rate, and blood oxygen level will be monitored until youleave the hospital or clinic. You may continue to receive antibiotics. You can start to eat as soon as you feel comfortable. You may be given a neck brace to wear. This brace limits your neck movement while your bones are fusing. If you were given a sedative during the procedure, it can affect you for several hours. Do not drive or operate machinery until your health care provider says that it is safe. Summary Anterior cervical diskectomy and fusion is a surgery to remove and replace an intervertebral disk. The surgery is done through the front (anterior) part of the neck. Before the procedure, follow instructions from your health care provider about changing or stoppingyour medicines and about eating and drinking. During the procedure, the damaged disk and any damaged bone will be removed. You may be given a neck brace to wear. This brace limits your neck movement while your bones are fusing. This information is not intended to replace advice given to you by your health care provider. Make sure you discuss any questions you have with your health care provider. Document Revised: 02/28/2021 Document Reviewed: 02/28/2021 [email or web address] Patient Education 2023 [employer]. Follow Up Care 08/18/2024 12:27:51 With:Ender Logan Address: [id number] [place] [address], [address] [place] [address]- [phone] Business (1) When: Unknown Comments:f/u3wks ok shower and remove dressing [id number] no lift>5lbs keep incis dry clean, wear cervical brace 16/[address] [facility] 10-25-2024 NotePatient Education - Text Orthopedics Anterior Cervical Diskectomy and Fusion Anterior cervical diskectomy and fusion is a surgery to remove and replace an intervertebral disk. Intervertebral disks are plates of cartilage located between the bones of the spine. This surgery isdone when an intervertebral disk in the neck puts pressure on the spine or on a nerve. The surgery is done through the front (anterior) part of the neck. During the surgery, the damaged disk is removed and replaced with a plastic implant, a bone from another part of the body (bone graft), or both. Sometimes metal plates and screws are also used to keep the implant or bone graft in place and to join the bones together. Tell a health care provider about: ??? Any allergies you have. ??? All medicines you are taking, including vitamins, herbs, eye drops, creams, and jbxi-mcd-tpftbeh medicines. ??? Any problems you or family members have had with anesthetic medicines. ??? Any blood disorders you have. ??? Any surgeries you have had. ??? Any medical conditions you have or have had. ??? Whether you are or may be . What are the risks? Generally, this is a safe procedure. However, problems may occur, including: ??? Infection. ??? Bleeding, which can sometimes require a blood transfusion. ??? Injury to surrounding structures, including nerves. ??? Leakage of fluid from the brain or spinal cord. ??? Blood clots. ??? Temporary breathing or speaking difficulties. ??? Difficulty swallowing. What happens before the procedure? Staying hydrated Follow instructions from your health care provider about hydration, which may include: ??? Up to 2 hours before the procedure ? you may continue to drink clear liquids, such as water, clear fruit juice, black coffee, and plain tea. Eating and drinking Follow instructions from your health care provider about eating and drinking, which may include: ??? 8 hours before the procedure ? stop eating heavy meals or foods, such as meat, fried foods, or fatty foods. ??? 6 hours before the procedure ? stop eating light meals or foods, such as toast or cereal. ??? 6 hours before the procedure ? stop drinking milk or drinks that contain milk. ??? 2 hours before the procedure ? stop drinking clear liquids. Medicines Ask your health care provider about: ??? Changing or stopping your regular medicines. This is especially important if you are taking diabetes medicines or blood thinners. ??? Taking medicines such as aspirin and ibuprofen. These medicines can thin your blood. Do not take these medicines unless your health care provider tells you to take them. ??? Taking bxzn-toy-egezniq medicines, vitamins, herbs, and supplements. Surgery safety Ask your health care provider: ??? How your surgery site will be marked. ??? What steps will be taken to help prevent infection. These may include: ? Removing hair at the surgery site. ? Washing skin with a germ-killing soap. ? Receiving antibiotic medicine. General instructions ??? Do not use any products that contain nicotine or tobacco for at least 4 weeks before the procedure. These products include cigarettes, e-cigarettes, and chewing tobacco. If you need help quitting, ask your health care provider. ??? Plan to have someone take you home from the hospital or clinic. What happens during the procedure? An IV will be inserted into one of your veins. ??? You will be given one or more of the following: ? A medicine to help you relax (sedative). ? A medicine to make you fall asleep (general anesthetic). ??? A breathing tube will be placed. ??? Your neck will be cleaned with a germ-killing solution (antiseptic solution). ??? Your surgeon will make an incision in the front of your neck. ??? Your neck muscles will be spread apart. ??? The damaged disk and any damaged bone will be removed. ??? The area where the disk was removed will be filled with a small plastic implant, a bone graft, or both. ??? Hardware may be put in your neck. ??? The incision will be closed with stitches (sutures). ??? Adhesive strips or skin glue may be placed across the incision. ??? A bandage (dressing) will be applied over the incision. The procedure may vary among health care providers and hospitals. What happens after the procedure? Your blood pressure, heart rate, breathing rate, and blood oxygen level will be monitored untilyou leave the hospital or clinic. ??? You may continue to receive antibiotics. ??? You can start to eat as soon as you feel comfortable. ??? You may be given a neck brace to wear. This brace limits your neck movement while your bones are fusing. ??? If you were given a sedative during the procedure, it can affect you for several hours. Do not drive or operate machinery until your health care provider says that it is safe. Summary ??? Anterior cervical di (more content not included)...[facility]10-25-2024 NoteInterdisciplinary Note - PT PT Evaluation done this date. Pt. with on AM-PAC this date. She is safe and steady with functional activities. No further acute PT needs at this time. [facility]10-24-2024 NoteConsultation Note Reason for Consultation Hospitalist- Medical Consult Post Op History of Present Illness Darrick Villafuerte is a 34 year old female with history of cervical stenosis with disc herniation with associated upper extremity weakness/numbness. She underwent anterior cervical discectomy with Dr Logan 09/16/24. Hospitalist is consulted for post operative medical management. Patient denies any chronic health issues beyond pain related to cervical spine. She does not smoker nor drink alcohol. She reports feeling well post operatively and there were no perioperative events noted. She is afebrile, on RA and hemodynamically stable. Neurosurgeon has placed order for home meds, pain medications, post op abx, and DVT prophylaxis. Review of Systems Constitutional: Negative Eye: Negative. Ear/Nose/Mouth/Throat: Negative. Respiratory: Negative Cardiovascular: Negative. Gastrointestinal: Negative. Genitourinary: Negative. Hematology/Lymphatics: Negative. Endocrine: Negative. Immunologic: Negative Musculoskeletal: Negative. Integumentary: Negative. Neurologic: Alert and oriented X4. Psychiatric: Negative. Additional ROS info: Except as noted in the above Review of Systems and in the History of Present Illness all other systems have been reviewed and are negative or noncontributory Physical Exam Vitals & Measurements T: 36.7 ???C(Axillary) TMIN: 36.4 ???C(Temporal Artery) TMAX: 36.7 ???C(Axillary) HR: 84(Monitored)RR: 16 BP: 95/63 SpO2: 97% General: Adult female. Alert, calm, NAD Head: Normocephalic/atraumatic Eyes: PERRLA. Conjunctivae and sclerae normal, and intact EOM HEENT: Mucous membrane pink, moist, Normal midline tongue. Normal oropharynx, and posterior pharynxwithout lesions or exudates. Neck: Trachea midline, neck supple, anterior neck surgical site intact, [place] Cervical collar intact Chest: No chest wall deformity, no chest wall tenderness Lungs: on RA, lungs CTA Cardio: Regular S1, S2, no murmur, no gallop, no rub. Good perfusion Pulses: Normal capillary refill Abdomen: Soft, non-distended, non-tender, + BS x4 Musculoskeletal: No deformity or scoliosis noted. Normal ROM for age. Integumentary: Warm, dry, anterior neck surgical site is c,d,i Extremity: No clubbing, edema Neurologic: Alert, oriented x 4 follows commands, no obvious focal deficits Mental status: Pleasant & cooperative, normal judgment Assessment/Plan 1. Cervical stenosis of spine (M48.02: Spinal stenosis, cervical region) Patient with cervical stenosis with disc herniation with associated upper extremity weakness/numbness S/P anterior cervical discectomy with Dr Logan 09/16/24 Neuro Checks per protocol [place] Cervical Collar at all times CT Spine in am Pain Meds, IV Vanco, and Lovenox as per surgeon's orders PT/OT eval POD 1 Post operative orders, chronic meds resumed, and labs/imaging in for am- per neurosurgeon Hospitalist staff available for acute medical needs. Problem List/Past Medical History Ongoing Abnormal placenta affecting management of mother Cervical dysfunction Shoulder pain Historical No qualifying data Procedure/Surgical History Laparoscope (2007). Medications Inpatient acetaminophen 325 mg Tab, 650 mg= 2 tab(s), Oral, q4hr, PRN amitriptyline 25 mg Tab, 50 mg= 2 tab(s), Oral, Once a day (at bedtime) cyclobenzaprine 10 mg oral tablet, 10 mg= 1 tab(s), Oral, TID, PRN docusate sodium 100 mg Cap, 100 mg= 1 cap(s), Oral, BID Dulcolax 10 mg Supp, 10 mg= 1 supp, Rectal, Daily, PRN enoxaparin 30 mg/0.3 mL SC Radha, 30 mg= 0.3 mL, SubCutaneous, Daily HYDROmorphone 1 mg/mL injectable solution, 1 mg= 1 mL, IV Push, q4hr, PRN HYDROmorphone 1 mg/mL injectable solution, 2 mg= 2 mL, IV Push, q4hr, PRN Lactated Ringers IV Radha 1000 mL 1,000 mL, 1000 mL, IV Lyrica 100 mg Cap, 200 mg= 2 cap(s), Oral, TID melatonin 3 mg Tab, 3 mg= 1 tab(s), Oral, Bedtime, PRN NS 1000 mL Soln-IV 1,000 mL, 1000 mL, IV ondansetron 4 mg/2 mL Inj, 4 mg= 2 mL, IV Push, q6hr, PRN oxyCODONE 5 mg Tab, 5 mg= 1 tab(s), Oral, q4hr, PRN oxyCODONE 5 mg Tab, 10 mg= 2 tab(s), Oral, q4hr, PRN vancomycin additive + Generic Diluent 200 mL Home amitriptyline 25 mg Tab, 50 mg= 2 tab(s), Oral, Once a day (at bedtime), 1 refills cyclobenzaprine 10 mg Tab, 10 mg= 1 tab(s), Oral, TID Lyrica 200 mg Cap, 200 mg= 1 cap(s), Oral, TID, 1 refills Percocet 5 mg-325 mg oral tablet, 1 tab(s), Oral, TID, PRN Tylenol, 500 mg, Daily, PRN Allergies penicillins (Hives) Social History Alcohol - Denies Alcohol Use, 04/25/2019 Substance Abuse - Denies Substance Abuse, 07/09/2024 Tobacco - Denies Tobacco Use, 09/11/2021 Never (less than 100 in lifetime) Tobacco Use:. Never Smokeless Tobacco Use:. Household tobacco concerns: No., 07/29/2024 Family History Family history is negative Immunizations Vaccine Date Status Comments influenza virus vaccine, inactivated - Not Given Postpone due to refusal[facility] Center[facility] on above:Result Comment: Electronically Signed By: Natalya Quintero CNP\.br\Date and Time Signed: 09/16/24 18:43 EDT\.br\Electronically Co-Signed By: Alek MUNOZ MD\.br\Date and Time Co- Signed: 09/16/24 19:12 [id number] Evaluation + Plan noteExtracted from: Title:Consult Note Author:Anand Quintero CNP Date:09/16/24 1. Cervical stenosis of spin e (M48.02: Spinal stenosis, cervical region) Patient with cervical stenosis with disc herniation with associated upper extremity weakness/numbness S/P anterior cervical discectomy with Dr Logan 09/16/24 Neuro Checks per protocol [place] Cervical Collar at all times CT Spine in am Pain Meds, IV Vanco, and Lovenox as per surgeon's orders PT/OT eval POD 1 Post operative orders, chronic meds resumed, and labs/imaging in for am- per neurosurgeon Hospitalist staff available for acute medical needs. Extracted from: Title:ANES Post General Author:Reilly Go DO Date:09/16/24 Plan Transfer/Discharge: Patient exhibiting no signs of N/V. Hydration status is adequate. Extracted from: Title:[place] [facility] PRE Author:Camilo Go DO Date:09/16/24 Plan [employer] ([employer]A) physical status classification: Class II. Anesthetic Preoperative Plan: Anesthesia General. Future Appointments Appointment Date:10/29/2024 10:30:00 AM Scheduled Provider:Natalya Prado PA-C Location:[facility] [place] Appointment Type:Pain Management - Follow Up (FT) Diagnostic Tests Pending * Calcium Level Ionized 09/17/24 [facility] 10-24-2024 NoteProgress Note-Physician Patient: DARRICK VILLAFUERTE Age: 34 years Sex: Female : 1990 Associated Diagnoses: None Author: Rafy Go DO Postoperative Information Postoperative disposition: Postoperative disposition: To PACU. Anesthetic utilized: General. Health Status Allergies: Allergic Reactions (Selected) Severity Not Documented Penicillins- Hives. Current medications: (Selected) Inpatient Medications Ordered Dulcolax 10 mg Supp: 10 mg = 1 supp, Supp, Rectal, Daily PRN Constipation, Routine, Start date 09/16/24 12:51:00 EDT HYDROmorphone 1 mg/mL injectable solution: 0.4 mg = 0.4 mL, Injection, IV Push, q4min PRN Pain for 5 dose(s), Stop date Limited # of times, Routine, Start date 09/16/24 10:32:00 EDT, 09/16/24 10:32:00 EDT HYDROmorphone 1 mg/mL injectable solution: 1 mg = 1 mL, Injection, IV Push, q4hr PRN Pain 1-3 for 5day(s), Stop date 09/21/24 12:50:00 EDT, Routine, Start date 09/16/24 12:51:00 EDT, 09/16/24 12:51:00 EDT HYDROmorphone 1 mg/mL injectable solution: 2 mg = 2 mL, Injection, IV Push, q4hr PRN Pain 4-7 for 5day(s), Stop date 09/21/24 12:50:00 EDT, Routine, Start date 09/16/24 12:51:00 EDT, 09/16/24 12:51:00 EDT Lactated Ringers IV Radha 1000 mL 1,000 mL: 1,000 mL, IV, 100 mL/hr, Routine, Start date 09/16/24 10:32:00 EDT, 10 hour(s), Total volume (mL): 1,000, 59 kg, 1.6, m2 Lactated Ringers IV Radha 1000 mL 1,000 mL: 1,000 mL, IV, 150 mL/hr, Routine, Start date 09/16/24 9:30:00 EDT, 6.7 hour(s), Total volume (mL): 1,000, 59 kg, 1.6, m2 Lyrica 100 mg Cap: 200 mg = 2 cap(s), Cap, Oral, TID, Routine, Start date 09/16/24 14:00:00 EDT NS 1000 mL Soln-IV 1,000 mL: 1,000 mL, IV, 80 mL/hr, Routine, Start date 09/16/24 12:51:00 EDT, 12.5 hour(s), Total volume (mL): 1,000, 59 kg, 1.6, m2 Zofran 4 mg/2 mL Injection: 4 mg = 2 mL, Injection, IV Push, Once PRN Nausea/Vomiting, Routine, Start date 09/16/24 10:32:00 EDT, 09/16/24 10:32:00 EDT acetaminophen 325 mg Tab: 650 mg = 2 tab(s), Tab, Oral, q4hr PRN Pain/Fever, Routine, Start date 09/16/24 12:51:00 EDT, 09/16/24 12:51:00 EDT amitriptyline 25 mg Tab: 50 mg = 2 tab(s), Tab, Oral, Once a day (at bedtime), Routine, Start date 09/16/24 21:00:00 EDT cyclobenzaprine 10 mg oral tablet: 10 mg = 1 tab(s), Tab, Oral, TID PRN Muscle pain, Routine, Startdate 09/16/24 12:51:00 EDT docusate sodium 100 mg Cap: 100 mg = 1 cap(s), Cap, Oral, BID, Routine, Start date 09/16/24 21:00:00 EDT enoxaparin 30 mg/0.3 mL SC Radha: 30 mg = 0.3 mL, Injection, SubCutaneous, Daily for 30 day(s), Stop date 10/17/24 8:59:00 EST, Routine, Start date 09/17/24 9:00:00 EDT, Start in AM post-op day 1 melatonin 3 mg Tab: 3 mg = 1 tab(s), Tab, Oral, Bedtime PRN Insomnia, Routine, Start date 09/16/24 12:51:00 EDT ondansetron 4 mg/2 mL Inj: 4 mg = 2 mL, Injection, IV Push, q6hr PRN Nausea/Vomiting, Routine, Start date 09/16/24 12:51:00 EDT, 09/16/24 12:51:00 EDT oxyCODONE 5 mg Tab: 10 mg = 2 tab(s), Tab, Oral, q4hr PRN Pain 4-7 for 5 day(s), Stop date 09/21/2412:50:00 EDT, Routine, Start date 09/16/24 12:51:00 EDT, 09/16/24 12:51:00 EDT oxyCODONE 5 mg Tab: 5 mg = 1 tab(s), Tab, Oral, q4hr PRN Pain 1-3 for 5 day(s), Stop date 09/21/24 12:50:00 EDT, Routine, Start date 09/16/24 12:51:00 EDT, 09/16/24 12:51:00 EDT promethazine additive 12.5 mg + Sodium Chloride 0.9% IV Radha 50 mL (INT) 50 mL: Injection, IV Piggyback, Once PRN Nausea/Vomiting, Routine, Start date 09/16/24 10:32:00 EDT, 151.5 mL/hr, Infuse over 20 minute(s) vancomycin additive + Generic Diluent 200 mL: Reason for Vancomycin: Beta-lactam allergy (PCN or cephalospori, 1 gm = 200 mL, Soln-IV, IV Piggyback, Once, Stop date 09/16/24 22:00:00 EDT, Routine, Start date 09/16/24 22:00:00 EDT, Infuse over 60 minute(s), Administer 12 hours after pre-op dose x... Prescriptions Prescribed Lyrica 200 mg Cap: 200 mg = 1 cap(s), Oral, TID, # 90 cap(s), Refills(s) 1, Pharmacy: [facility], 155.5, cm, 09/01/24 10:15:00 EDT, Height/Length Dosing, 59, kg, 09/01/24 10:15:00 EDT, Weight Dosing Percocet 5 mg-325 mg oral tablet: 1 tab(s), Oral, TID Pain 4-7 for 7 day(s), 21 tab(s), Refill(s) 0, [facility], 155.5, cm, 09/01/24 10:15:00 EDT, Height/Length Dosing, 59, kg, 09/01/24 10:15:00 EDT, Weight Dosing amitriptyline 25 mg Tab: 50 mg = 2 tab(s), Oral, Once a day (at bedtime), X 30 day(s), # 60 tab(s),Refills(s) 1, Pharmacy: [facility], 155.5, cm, 09/01/24 10:15:00 EDT, Height/LengthDosing, 59, kg, 09/01/24 10:15:00 EDT, Weight Dosing cyclobenzaprine 10 mg Tab: 10 mg = 1 tab(s), Oral, TID, X 21 day(s), # 63 tab(s), Refills(s) 0, Pharmacy: [facility], 155.5, cm, 09/01/24 10:15:00 EDT, Height/Length Dosing, 59, kg, 09/01/24 10:15:00 EDT, Weight Dosing Documented Medications Documented Tylenol: 500 mg, Daily, PRN as needed for pain, Refills(s) 0, Home Medications (5) Active amitriptyline 25 mg Tab 50 mg = 2 tab(s), Oral, Once a day (at bedtime) cyclobenza (more content not included)...[facility]:Result Comment: Electronically Signed By: Rafy Go DO\.br\Date and Time Signed: 09/16/24 13:15 [id number] NoteProgress Note-Physician Patient: DARRICK VILLAFUERTE Age: 34 years Sex: Female : 1990 Associated Diagnoses: None Author: Rafy Go DO Preoperative Information Anesthesia history: Patient history: None. Family history+: None. Anesthesia results Informed consent: Signed by patient. Including risks, benefits, and alternatives related to the: Anesthetic plan, Postoperative pain management plan. Re-evaluation prior to induction: Rafy Go DO. Health Status Allergies: Allergic Reactions (Selected) Severity Not Documented Penicillins- Hives., Allergies (1) Active Severity Reaction penicillins Hives Current medications: (Selected) Inpatient Medications Ordered HYDROmorphone 1 mg/mL injectable solution: 0.4 mg = 0.4 mL, Injection, IV Push, q4min PRN Pain for 5 dose(s), Stop date Limited # of times, Routine, Start date 09/16/24 10:32:00 EDT, 09/16/24 10:32:00 EDT Lactated Ringers IV Radha 1000 mL 1,000 mL: 1,000 mL, IV, 100 mL/hr, Routine, Start date 09/16/24 10:32:00 EDT, 10 hour(s), Total volume (mL): 1,000, 59 kg, 1.6, m2 Lactated Ringers IV Radha 1000 mL 1,000 mL: 1,000 mL, IV, 150 mL/hr, Routine, Start date 09/16/24 9:30:00 EDT, 6.7 hour(s), Total volume (mL): 1,000, 59 kg, 1.6, m2 Lyrica 100 mg Cap: 200 mg = 2 cap(s), Cap, Oral, TID, Routine, Start date 09/16/24 14:00:00 EDT Zofran 4 mg/2 mL Injection: 4 mg = 2 mL, Injection, IV Push, Once PRN Nausea/Vomiting, Routine, Start date 09/16/24 10:32:00 EDT, 09/16/24 10:32:00 EDT amitriptyline 25 mg Tab: 50 mg = 2 tab(s), Tab, Oral, Once a day (at bedtime), Routine, Start date 09/16/24 21:00:00 EDT promethazine additive 12.5 mg + Sodium Chloride 0.9% IV Radha 50 mL (INT) 50 mL: IV Piggyback, Once PRN Nausea/Vomiting, Routine, Start date 09/16/24 10:32:00 EDT, 151.5 mL/hr, Infuse over 20 minute(s), 09/16/24 10:32:00 EDT Prescriptions Prescribed Lyrica 200 mg Cap: 200 mg = 1 cap(s), Oral, TID, # 90 cap(s), Refills(s) 1, Pharmacy: [facility], 155.5, cm, 09/01/24 10:15:00 EDT, Height/Length Dosing, 59, kg, 09/01/24 10:15:00 EDT, Weight Dosing Percocet 5 mg-325 mg oral tablet: 1 tab(s), Oral, TID Pain 4-7 for 7 day(s), 21 tab(s), Refill(s) 0, [facility], 155.5, cm, 09/01/24 10:15:00 EDT, Height/Length Dosing, 59, kg, 09/01/24 10:15:00 EDT, Weight Dosing amitriptyline 25 mg Tab: 50 mg = 2 tab(s), Oral, Once a day (at bedtime), X 30 day(s), # 60 tab(s),Refills(s) 1, Pharmacy: [facility], 155.5, cm, 09/01/24 10:15:00 EDT, Height/LengthDosing, 59, kg, 09/01/24 10:15:00 EDT, Weight Dosing cyclobenzaprine 10 mg Tab: 10 mg = 1 tab(s), Oral, TID, X 21 day(s), # 63 tab(s), Refills(s) 0, Pharmacy: [facility], 155.5, cm, 09/01/24 10:15:00 EDT, Height/Length Dosing, 59, kg, 09/01/24 10:15:00 EDT, Weight Dosing Documented Medications Documented Tylenol: 500 mg, Daily, PRN as needed for pain, Refills(s) 0, Home Medications (5) Active amitriptyline 25 mg Tab 50 mg = 2 tab(s), Oral, Once a day (at bedtime) cyclobenzaprine 10 mg Tab 10 mg = 1 tab(s), Oral, TID Lyrica 200 mg Cap 200 mg = 1 cap(s), Oral, TID Percocet 5 mg-325 mg oral tablet 1 tab(s), PRN, Oral, TID Tylenol 500 mg, PRN, Daily , Medications (7) Active Scheduled: (2) amitriptyline 25 mg Tab [F] 50 mg 2 tab(s), Oral, Once a day (at bedtime) pregabalin 100 mg Cap [F] 200 mg 2 cap(s), Oral, TID Continuous: (2) Lactated Ringers 1,000 mL 1,000 mL, IV, 150 mL/hr Lactated Ringers 1,000 mL 1,000 mL, IV, 100 mL/hr PRN: (3) HYDROmorphone 1 mg/mL SOLN [F] 0.4 mg 0.4 mL, IV Push, q4min ondansetron 2 mg/mL Inj [F] 4 mg 2 mL, IV Push, Once promethazine 12.5 mg + Sodium Chloride 0.9% 50 mL 12.5 mg 0.5 mL, IV Piggyback, Once Problem list: All Problems Abnormal placenta affecting management of mother / SNOMED CT 91600787 / Confirmed Asthma / SNOMED CT 4140929075 / Confirmed Cervical dysfunction / SNOMED CT 608500084 / Confirmed Shoulder pain / SNOMED CT 43203498 / Confirmed, Active Problems (4) Abnormal placenta affecting management of mother Asthma Cervical dysfunction Shoulder pain Histories Past Medical History: No active or resolved past medical history items have been selected or recorded. Family History: Entire family history is negative. Procedure history: Laparoscopy ([id number]) in 2007 at 18 Years. Comments: 07/09/2024 7:04 EDT - Nikole Lucas LPN To check for Endometriosis Social History Social & Psychosocial Habits Alcohol 09/01/2024 Risk Assessment: Denies Alcohol Use Substance Abuse 09/01/2024 Risk Assessment: Denies Substance Abuse Tobacco 09/01/2024 Risk Assessment: Denies Tobacco Use 09/01/2024 Tobacco Use: Never (less than 100 in l Smokeless tobacco use: Never Concerns about tobacco use in household: No . Physical Examination Vital Signs 09/16/2024 9:46 EDT Heart Rate Monitored 87 bpm Systolic Blood Pressure 10 (more content not included)...[facility] CenterComment on above:Result Comment: Electronically Signed By: Rafy Go DO\.br\Date and Time Signed: 09/16/24 10:33 [id number] Evaluation + Plan noteExtracted from: Title:Pain Managment Follow up Author:Natalya Finley Date:09/01/24 Impression and Plan Patient is a 34-year-old female with a past medical history significant for cervical stenosis, cervical neuritis, degenerative disease and cervical disc bulge. She is having surgery later this month. She is told to maybe come off of some of the medications after the surgery but at this time, she has left arm pain as well as numbness, tingling and weakness that is unbearable. We discussed different options. At this time we are going to have her continue on the Lyrica 200 mg 3 times a day and she is going to increase the amitriptyline to 50 mg at bedtime. Potential side effects were discussed. OARRS was reviewed. Prescription sent to the pharmacy. She is going to follow-up with our services in early October to discuss trying to come off some the medications as she will be almost 6 weeks postop at that time. She will call us in the interim should she require anything from our services. FELISHA's are: 50%. Future Appointments Appointment Date:09/16/2024 11:30:00 AM Scheduled Provider: Location:[facility] Appointment Type:Surgery FT Appointment Date:10/29/2024 10:30:00 AM Scheduled Provider:Natalya Prado PA-C Location:.[facility] Appointment Type:Pain Management - Follow Up (FT) [facility] 10-09-2024 NoteConsultation Note Patient: DARRICK VILLAFUERTE Age: 34 years Sex: Female : 1990 Associated Diagnoses: None Author: Natalya Prado PA-C Subjective Chief complaint 09/01/2024 10:06 EDT Left shoulder pain . The patient is a 34-year-old female presenting today for follow-up after undergoing physical therapy. Reported, did not help. She is using Lyrica 200 mg 3 times a day. This tolerates well. Unfortunate, she did not notice much by the way of relief. She did not tolerate gabapentin. She would in fact like to get rid of these today. She is using amitriptyline 25 mg at bedtime with some relief but again not enough. She continues to have the left arm pain that she rates an 8?09/02. She did share withme that she is having surgery on September [address] Logan. The patient reports that the pain worsens with any movement of the arm or neck and is particularly severe when lying down. She notices left arm weakness. 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 She is eager to pursue the surgery. Health Status Allergies: Allergic Reactions (Selected) Severity Not Documented Penicillins- Hives., Allergies (1) Active Severity Reaction penicillins Hives Current medications: (Selected) Prescriptions Prescribed Lyrica 200 mg Cap: 200 mg = 1 cap(s), Oral, TID, # 90 cap(s), Refills(s) 1, Pharmacy: [facility], 155.5, cm, 09/01/24 10:15:00 EDT, Height/Length Dosing, 59, kg, 09/01/24 10:15:00 EDT, Weight Dosing amitriptyline 25 mg Tab: 50 mg = 2 tab(s), Oral, Once a day (at bedtime), X 30 day(s), # 60 tab(s),Refills(s) 1, Pharmacy: [facility], 155.5, cm, 09/01/24 10:15:00 EDT, Height/LengthDosing, 59, kg, 09/01/24 10:15:00 EDT, Weight Dosing pregabalin 200 mg Cap: 200 mg = 1 cap(s), Oral, BID, DC GPN, # 60 cap(s), Refills(s) 0, Pharmacy: [facility], 152.4, cm, 07/29/24 8:42:00 EDT, Height/Length Dosing, 59.6, kg, 248:42:00 EDT, Weight Dosing Documented Medications Documented Tylenol: 500 mg, Daily, PRN as needed for pain, Refills(s) 0 Problem list: All Problems Asthma / SNOMED CT 4358507422 / Confirmed Abnormal placenta affecting management of mother / SNOMED CT 34105193 / Confirmed Cervical dysfunction / SNOMED CT 730399899 / Confirmed Shoulder pain / SNOMED CT 25871692 / Confirmed Objective Vital Signs 09/01/2024 10:06 EDT Peripheral Pulse Rate 98 bpm Respiratory Rate 20 br/min Systolic Blood Pressure 110 mmHg Diastolic Blood Pressure 74 mmHg Mean Arterial Pressure, Cuff 86 mmHg General: Alert and oriented, No acute distress. Eye: Normal conjunctiva. HENT: Normocephalic, Normal hearing. Cardiovascular: No edema. Musculoskeletal Normal range of motion. Normal strength. 5/5 upper extremity strength other than left deltoid 4/5 Negative Wilda's. Integumentary: Warm, Dry, [place]. Neurologic: Alert, Oriented. Psychiatric: Cooperative, Appropriate mood & affect. 14 point review of systems was negative unless otherwise noted. Results Review * Final Report * Reason For Exam [...] bulge. Endplate osteophytes. Small disc protrusions within the bilateral foraminal zones. Mild bilateral foraminal narrowing without significant canal narrowing. C6-C7: Moderate to large disc protrusion within the left foraminal zone with moderate left foraminal narrowing and abutment/effacement of the exiting left C7 nerve root. No significant canal or right foraminal narrowing.. C7-T1: No significant canal or foraminal narrowing. Upper thoracic spine: Visualized upper (more content not included)...[facility] CenterComment on above:Result Comment: Electronically Signed By: Johan TSANG, Natalya\.joe\Date and Time Signed: 09/01/24 10:25 [id number] History of Present illness Narrative* Gerda García LPN - 08/16/2024 9:00 AM EDT Reason for Appointment: Patient ID: Darrick Villafuerte is a 34 y.o. female who presents for Abnormal Pap Smear Patient presents today for Repeat Pap. MEDICATIONS Current Outpatient Medications Medication Instructions pregabalin (LYRICA) 200 mg, Oral, Daily ALLERGIES Allergies Allergen Reactions Penicillins Hives, Rash and Wheezing Other Reaction(s): Other: See Comments Possible trouble breathing. Happened when pt was 3 years old A YOUNG CHILD PROBLEMS Active Ambulatory Problems Diagnosis Date Noted Acute allergic rhinitis due to pollen 05/05/2023 Abnormal glandular Papanicolaou smear of cervix 02/09/2024 Resolved Ambulatory Problems Diagnosis Date Noted No Resolved Ambulatory Problems Past Medical History: Diagnosis Date Asthma ([facility]) Parotitis 02/24/2017 HISTORY PAST MEDICAL HISTORY SOCIAL HISTORY Past Medical History: Diagnosis Date Asthma ([facility]) Parotitis 02/24/2017 Social History Tobacco Use Smoking status: Never Smokeless tobacco: Never Substance Use Topics Alcohol use: Never Comment: Caffeine intake: 1 cup per day of coffee Drug use: Not on file FAMILY HISTORY Family History Problem Relation Name Age of Onset No Known Problems Mother No Known Problems Father Cancer Maternal Grandmother No Known Problems Maternal Grandfather No Known Problems Paternal Grandmother No Known Problems Paternal Grandfather No Known Problems Sibling No Known Problems Mother's Sister No Known Problems Child No Known Problems Father's Brother No Known Problems Father's Sister No Known Problems Mother's Brother SURGICAL HISTORY Past Surgical History: Procedure Laterality Date OTHER SURGICAL HISTORY 2009 Laparoscopy REVIEW OF SYSTEMS Review of Systems: Review of Systems All other systems reviewed and are negative. OBJECTIVE Objective: Physical Exam Constitutional: Appearance: Normal appearance. She is well-developed. Genitourinary: Vulva normal. Cardiovascular: Rate and Rhythm: Normal rate and regular rhythm. Pulmonary: Effort: Pulmonary effort is normal. Breath sounds: Normal breath sounds. Abdominal: General: Bowel sounds are normal. There is no distension. Palpations: Abdomen is soft. Tenderness: There is no abdominal tenderness. There is no guarding or rebound. Musculoskeletal: General: No swelling. Normal range of motion. Right lower leg: No edema. Left lower leg: No edema. Neurological: Mental Status: She is alert and oriented to person, place, and time. Skin: General: Skin is warm and dry. Psychiatric: Mood and Affect: Mood normal. Behavior: Behavior normal. Vitals and nursing note reviewed. Exam conducted with a rigging man present. Vitals: Estimated body mass index is 25.55 kg/m as calculated from the following: Height as of 07/24/22: 5'. Weight as of this encounter: 130 lb 12.8 oz. BP: 110/70 No LMP recorded. Patient has had an implant. ASSESSMENT & PLAN ICD-10-CM 1. LGSIL on Pap smear of cervix R87.612 Pap Smear HPV DNA probe, amplified Repeat Pap: Patient presents today for a repeat pap. Previous pap results were reviewed and noted to be LGSIL and + HPV. Question regarding previous results were discussed. Repeat Pap was obtained without difficulty. Follow Up: Patient is to return to the office in 6 months for an annual exam unless positive then will readdress LEEP procedure. Documented by Gerda García LPN on behalf of: Willem William DO documented in this encounterCameron Regional Medical [id number] NotePT - Progress Notes Dr. Logan, Patient has [...] reduce pain at this time. Falguni Suggs, [facility]09-11-2024 NotePT - Progress Notes Dr. Bell, Patient has [...] reduce pain at this time. Falguni Suggs, [facility]08-28-2024 Evaluation + Plan note Extracted from: Title:Pain Managment H&P new patient Author:Natalya [...] Appointments Appointment Date:07/23/2024 03:30:00 PM Scheduled Provider: [facility] [place] [facility] Type:PT Eval () Appointment Date:07/29/2024 08:40:00 AM Scheduled Provider:Madhav Fuentes DO Location:[facility] Appointment Type:FM Open Appointment Date:09/01/2024 12:30:00 PM Scheduled Provider:Natalya Prado PA-C Location:.[facility] Appointment Type:Pain Management - Follow Up (FT) [facility] 08-28-2024 NoteConsultation Note Patient: DARRICK VILLAFUERTE Age: 34 years Sex: Female : 1990 Associated Diagnoses: None Author: Natalya Prado PA-C Basic Information Accompanied by: No one. Source of history: Self. Referral source: Ender Logan MD History limitation: None. 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 Family History: Entire family history is negative. Procedure history: Laparoscope (SNOMED CT 934467724) in 2007 at 18 Years. Comments: 07/09/2024 7:04 JOSET - Nikole Lucas LPN To check for Endometriosis Social History [...] Appropriate mood & affect. Integumentary: Warm, Dry, [place]. Review / Management Results review: No qualifying [...] numbness and tin (more content not included)... [facility] CenterComment on above:Result Comment: Electronically Signed By: Johan TSANG, Natalya\.br\Date and Time Signed: 07/21/24 13:13 EDT 07-09-2024 Hospital Discharge instructions Follow Up Care 07/09/2024 07:50:06 With:Madhav Fuentes DO, FAM Address: [address] [place] [address]- When:4 weeks Comments:4 WEEKS FOLLOWUP [facility] 08-13-2024 Hospital Discharge instructions Patient Education 07/06/2024 21:32:51 Cervical Radiculopathy, Qidm-hv-Thxb Cervical Radiculopathy Cervical radiculopathy means that a [...] any, tell your doctor. Managing pain Take gylo-tsa-slrrbrb and prescription medicines only as told by [...] provider. Document Revised: 05/16/2022 Document Reviewed: 05/16/2022 [email or web address] Patient Education 2022 [employer]. Follow Up Care 07/06/2024 20:29:46 With:Continue following up with your back surgeon as previously scheduled for the MRI. Use the naproxen as needed and the steroid as prescribed. Return to the ED with any worsening symptoms. Address:Unknown When:07/09/2024 21:31:40 With:Jeanne Terrence Address: [address] [place] [address], [address] [place] [address]- Business (1) When:Within 3 Day(s) [facility] 08-13-2024 NoteED Patient Education Note [...] tell your doctor. Managing pain ? 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 08-13-2024 Hospital Discharge instructions Follow Up Care 07/06/2024 09:59:04 With:Madhav Fuentes DO, FAM Address: [address] [address]- When:4 weeks Comments:4 WEEKS FOLLOWUP [facility] [place] 07-11-2024 Hospital Discharge instructions Patient Education 06/03/2024 [...] your health care provider. Managing pain Take nlka-wng-amidqof and prescription medicines only as told by [...] provider. Document Revised: 05/16/2022 Document Reviewed: 05/16/2022 [email or web address] Patient Education 2022 [email or web address] Follow Up Care 06/03/2024 13:10:01 With:Ender Logan Address: [address] [address] [facility] [address] [facility], [address] [place] [address]- [phone] Business (1) When:06/06/2024 15:18:17 With:Jeanne Ocampo Address: [address] [place] [address], [address] [place] [phone]- Business (1) When:Within 3 Day([address]) [facility]07-11-2024 NoteED Patient Education Note Orthopedics [...] health care provider. Managing pain ? Take djbm-oeq-mqbetxz and prescription medicines only as told by [...] visits. This is im (more content not included)...[facility]07-09-20[facility] Hospital Discharge instructions Patient Education 06/01/2024 10:18:00 [...] by mouth or applied to theskin. Take vqof-obv-aefgcup and prescription medicines only as told by [...] provider. Document Revised: 03/15/2021 Document Reviewed: 02/21/2021 [email or web address] Patient Education 2022 [email or web address] 06/01/2024 10:17:57 Heat Therapy, Tjbu-mh-Ozhw Heat Therapy Heat therapy can help ease [...] provider. Document Revised: 09/12/2021 Document Reviewed: 09/12/2021 [email or web address] Patient Education 2022 [employer]. [facility] 07-09-2024 NotePatient Education Orthopedics [...] mouth or applied to the skin. Take vqwz-ban-qdbvepl and prescription medicines only as told by [...] Reviewed: 02/21/2021 Elsevier Patient Education ? 2022 [email or web address] Physical Medicine and Rehabilitation Heat Therapy [...] include: ? Moist heat (more content not included)...[facility]10-19-2021 Evaluation + Plan note Future Scheduled Tests Laboratory* Rapid COVID Antigen ([facility]) 09/11/21 [facility] Future Appointments Appointment Date:06/11/2024 02:40:00 PM Scheduled Provider:MODESTO SALTER Location:[facility] Appointment Type: New Patient [facility] Adult [facility] note Future Appointments Appointment Date:07/21/2024 01:00:00 PM Scheduled Provider:Natalya Prado PA-C [facility] [place] Appointment Type:Pain Management - New (FT) Appointment Date:07/29/2024 08:40:00 AM Scheduled Provider:Madhav Fuentes DO Location:[facility] Appointment Type: Open [facility] [place] Evaluation + Plan note Future Appointments Appointment Date:08/05/2024 04:15:00 PM Scheduled Provider: [facility] Appoint[facility] Type:PT 45 (FT) Appointment Date:08/06/2024 01:45:00 PM Scheduled Provider: [facility] App[facility] Type:PT 45 (FT) Appointment Date:08/10/2024 05:00:00 PM Scheduled Provider: Location:[facility] [place] Appointment Type:PT 45 (FT) Appointment Date:08/13/2024 04:00:00 PM Scheduled Provider: Location:[facility] [place] Appointment Type:PT 45 (FT) Appointment Date:08/18/2024 04:00:00 PM Scheduled Provider: Location:[facility] [place] Appointment Type:PT Re-Eval 30 (FT) Appointment Date:09/01/2024 12:30:00 PM Scheduled Provider:Natalya Prado PA-C Location:[facility] [place] Appointment Type:Pain Management - Follow Up (FT) [facility] [place] Evaluation + Plan note Future Appointments Appointment Date:09/01/2024 12:30:00 PM Scheduled Provider:Natalya Prado PA-C Location:[facility] [place] Appointment Type:Pain Management - Follow Up (FT) Appointment Date:09/16/2024 11:30:00 AM Scheduled Provider: Location:[facility] Appointment Type:Surgery FT [facility] Evaluation + Plan note Future Appointments Appointment Date:09/01/2024 12:30:00 PM Scheduled Provider:Natalya Prado PA-C Location:[facility] [place] Appointment Type:Pain Management - Follow Up (FT) [facility] evaluation noteNo assessment information available [facility] Work Phone: [email or web address] note* Diagnosis LGSIL on Pap smear of cervix documented in this encounter [facility] HealthcareEvaluation note* Diagnosis LGSIL on Pap smear of cervix documented in this encounter [facility] HealthcareEvaluation note* Diagnosis Pre-op evaluation LGSIL on Pap smear of cervix Cervical high risk human papillomavirus (HPV) DNA test positive documented in this encounter [facility] HealthcareHospital course Narrative No data available for this section [facility] No data available for this section [facility] No data available for this section [facility] Summary Purpose Family History No Family History Records FoundNo Family History Records Found No data available for this section No data available for this section No data available for this section No data available for this section No data available for this section No data available for this section No data available for this section No Family History Records FoundNo Family History Records FoundNo Family History Records FoundNo Family History Records FoundNo Family History Records Found No data available for this section No data available for this section No Family History Records FoundNo Family History Records FoundNo Family History Records FoundNo Family History Records FoundNo Family History Records FoundNo Family History Records Found No data available for this section No Family History Records FoundNo Family History [...] and content) DATE CREATED AUTHOR [facility]/07/2021 [facility] DATE CREATED AUTHOR AUTHOR'S ORGANIZ ATION 02/17/[address] [facility] DATE CREATED AUTHOR AUTHOR'S ORGANIZ ATION 08/27/2024 [facility] DATE CREATED AUTHOR AUTHOR'S ORGANIZ ATION 09/17/2024 [facility] DATE CREATED AUTHOR AUTHOR'S ORGANIZ ATION 09/18/2024 [facility] DATE CREATED AUTHOR AUTHOR'S ORGANIZ ATION 09/20/2024 [facility] DATE CREATED AUTHOR AUTHOR'S ORGANIZ ATION 09/26/2024 [facility] DATE CREATED AUTHOR AUTHOR'S ORGANIZ ATION 11/02/2024 [facility] DATE CREATED AUTHOR AUTHOR'S ORGANIZ ATION 01/14/2025 [facility] Care Team (unrecognized sect ion and content) Team Status: Inactive Member Role Status Dates Willem William Attending Provider Active Start: [facility] 2023 End: February 09, 2024 Heel Seat Pounder Relationship Specialty Start Date End Date Unallocated, [place] [address] PCP - General 05/05/23 Heel Seat Pounder Relationship Specialty Start Date End Date Unallocated, MD [address] [place] [address] PCP - General 05/05/23 Heel Seat Pounder Relationship Specialty Start Date End Date Unallocated, Sonia Wilkinson MD [address] [place] [address] PCP - General 05/05/23 Heel Seat Pounder Relationship Specialty Start Date End Date Unallocated, Sonia Wilkinson MD [address] [place] [address] PCP - General 05/05/23 Heel Seat Pounder Relationship Specialty Start Date End Date Unallocated, Sonia Wilkinson MD [address] [place] [address] PCP - General 05/05/23 Heel Seat Pounder Relationship Specialty Start Date End Date Unallocated, Sonia Wilkinson MD [address] [place] [address] PCP - General 05/05/23 Goals (unrecognized section and content) Goals may be documented in a n alternate section Reason for Visit (unrecogniz ed section and content) Reason Comments Abnormal Pap Smear Reason Comments Pre-op Visit FOR RECORDS PERTAINING TO PATIENTS WHO ARE [...] BE BASED ON THE PRIMARY CLINICAL RECORDS. [facility] [employer] [facility]. provides no warranty or guarantee of the accuracy or completeness of information in this document.
[2025-02-04 06:00] VITALS: BP 104/61; PULSE 68; TEMP 36.4; O2SAT 98; BMI 25.2; BMI 27.1
[2025-02-04] MEDS: LACTATED RINGER'S SOLUTION 1,000 ML 50 ML IV (06:21)
[2025-02-04 06:32] LABS: HCG Quantitative <1 mIU/mL
[2025-02-04] MEDS: FERRIC SUBSULFATE 8 ML SOLUTION TOPICAL (07:43)
[2025-02-04] MEDS: IODINE/POTASSIUM IODIDE 8 ML SOLUTION TOPICAL (07:44)
[2025-02-04 07:50] VITALS: BP 88/53; PULSE 77; TEMP 36.1; O2SAT 97
[2025-02-04 08:05] VITALS: BP 91/56; PULSE 66; O2SAT 98
[2025-02-04 08:20] VITALS: BP 103/71; PULSE 54; O2SAT 98
[2025-02-04 08:35] VITALS: BP 90/64; PULSE 54; O2SAT 97
--- NOTE | 2025-02-04 08:41 | PM.ONB ---
Brief Operative Note Date of procedure: 02/04/25 Pre-op diagnosis general: cervical dysplasia Post-op diagnosis: same as pre-op Procedure: NAME OF PROCEDURE: [leep ] PROCEDURE: Patient was taken back to the Operating Room where she was given general anesthesia without difficulty. She was then placed in the dorsal lithotomy position. She was then prepped and draped in the normal sterile fashion. A weighted speculum was placed into the patient's vagina. The anterior lip of the cervix was identified and grasped with a single-tooth tenaculum. The patient's cervix was then copiously irrigated using vinegar.? Then, a Lugol Solution was also placed onto the patient's cervix which demonstrated increased uptake of the Lugol solution at the [?4 ] o?clock and [?8 ] o?clock positions.? At that time, the LEEP portion of the procedure was performed, including both the [?4] o?clock and [?8 ] o?clock positions. The ectocervix was sent out to Pathology. The patient's cervix was then coagulated using suction cautery. Excellent hemostasis was assured.? Monsel Solution was then placed onto the patient's cervix to help maintain adequate hemostasis. All instruments were removed from the patient's vagina. The anterior lip of the cervix demonstrated excellent hemostasis.? The patient tolerated the procedure well. Sponge, lap, and needle counts were correct x 2. The patient was taken to Recovery Room in stable condition. Anesthesia: MAC Surgeon: Willem William Estimated blood loss (mL): 5 Pathology: other (ectocervical tissue) Condition: stable Disposition: PACU Urinary Catheter Management Urinary Catheter Management Urethral: Cath placed during this visit: no
== END 2025-02-04 08:46 | disposition home or self-care (01) ==
PROVIDERS: Visit Provider Obstetrics & Gynecology
PROC: (CPT 940; principal; 2025-02-04 07:00)
DX: R87.612 Low grade squamous intraepithelial lesion on cytologic smear of cervix (LGSIL) (principal); R87.810 Cervical high risk human papillomavirus (HPV) DNA test positive
CPT/HCPCS: 57522; 36415; 84702; 88307; J1100; J1885; J2250; J2405; J2704; J3010

== ENCOUNTER 2025-02-10 13:53 | Emergency (ER) | payer BC, SELFPAY ==
[2025-02-10 13:58] VITALS: BP 110/74; PULSE 88; TEMP 36.7; O2SAT 97; BMI 25.4
[2025-02-10 14:44] LABS: Basophils Percent Auto 0.5 % (0.2-2.0); Eosinophils Absolute Auto 0.1 10^3/uL (0.0-0.7); Eosinophils Percent Auto 1.3 % (0.9-7.0); Hematocrit 38.9 % (36.0-48.0); Hemoglobin 12.9 g/dL (12.0-16.0); Immature Granulocytes Abs Auto 0.03 10^3/uL (0.00-0.03); Immature Granulocytes Pct Auto 0.3 % (0.0-0.5); Lymphocytes Absolute Auto 1.6 10^3/uL (1.2-3.8); Lymphocytes Percent Auto 18.8 % (20.5-60.0); Mean Corpuscular HGB Conc 33.2 g/dL (29.9-35.2); Mean Corpuscular Hemoglobin 27.9 pg (26.7-34.0); Mean Platelet Volume 10.4 fL (9.5-13.5); Monocytes Absolute Auto 0.8 10^3/uL (0.3-0.8); Monocytes Percent Auto 9.4 % (1.7-12.0); Neutrophils Percent Auto 69.7 % (43.0-75.0); Platelet Count 316 10^3/uL (150-450); Red Blood Count 4.63 10^6/uL (4.20-5.40); Red Cell Distribution Width 14.7 % (11.0-15.0); White Blood Count 8.6 10^3/uL (4.0-11.0)
[2025-02-10 14:54] LABS: HCG Qualitative NEGATIVE (NEGATIVE); Internal Control Within Normal Limits
[2025-02-10 15:03] LABS: Alanine Aminotransferase 31 U/L (14-59); Albumin Level 3.6 g/dL (3.4-5.0); Alkaline Phosphatase 78 U/L (46-116); Anion Gap 12.2; Aspartate Amino Transferase 18 U/L (15-37); BUN Creatinine Ratio 25.6; Bilirubin Total 0.7 mg/dL (0.2-1.0); Calcium 8.9 mg/dL (8.5-10.1); Carbon Dioxide 25.6 mmol/L (21.0-32.0); Chloride 104 mmol/L (98-107); Estimated GFR (African America >60 (>=60 mL/min/1.73m^2); Estimated GFR (Non-African Ame >60 (>=60 mL/min/1.73m^2); Globulin 3.6 g/dL; Glucose 106 mg/dL (74-106); Potassium 3.8 mmol/L (3.5-5.1); Sodium 138 mmol/L (136-145); Total Protein 7.2 g/dL (6.4-8.2)
--- NOTE | 2025-02-10 15:22 | ED_ITS ---
HPI - General Chief complaint: Vaginal Bleeding Stated complaint: POST OP COMPLICATIONS Time Seen by Provider: 02/10/25 14:05 Source: patient Mode of arrival: walk-in Limitations: no limitations History of Present Illness HPI Narrative: The patient is coming to the ER with a complaint of vaginal bleeding that started 3 days ago, she did have a LEEP surgery almost 6 days ago and initially she did not have any bleeding, patient mentioned that she have a Senia and had not have any menstrual period recently, bleeding associated with mild cramping, the patient is having almost 1 pad change every 2 hours, and it is mostly blood clot, the patient denies any dizziness any shortness of breath Related Data Allergies Allergy/AdvReac Type Severity Reaction Status Date / Time Penicillins Allergy Mild Rash Verified 02/10/25 13:58 Review of Systems ROS Status of ROS 10 or more systems reviewed and unremark able except as noted in history and below [facility] Medical History (Updated 02/10/25 @ 15:22 by Valerie Cabrera MD) Neck pain ?M54.2 - Cervicalgia (ICD-10) Seasonal allergies ?J30.2 - Other seasonal allergic rhinitis (ICD-10) Delayed recovery from anesthesia Surgical History (Updated 01/27/25 @ 10:30 by Nelly Dave) History of neck surgery ?Z98.890 - Other specified postprocedural states (ICD-10) History of laparoscopy ?Z98.890 - Other specified postprocedural states (ICD-10) Family History (Updated 01/27/25 @ 10:26 by Nelly Dave) Other Family history of Alzheimer's disease Family history of Parkinson disease Family history of coronary artery disease Family history of heart disease Family history of hypertension Family history of kidney cancer Family history of myocardial infarction Social History (Updated 01/27/25 @ 10:24 by Nelly Dave) Within the past year, how often did you have a drink containing alcohol: never Score interpretation: A score less than 3 is consistent with normal alcohol consumption. 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 General: Well-appearing and in no apparent distress. Skin: Warm, dry, no pallor noted. No rash. Head: Normocephalic, atraumatic. Neck: Supple, non-tender. Cardiovascular: Regular Rate and Rhythm without murmur, gallop or rub. Respiratory: No accessory muscle use or respiratory distress. GI: Abdomen is soft, non-distended. Normal bowel sounds. No masses appreciated. No tenderness to palpation. No rebound, guarding, or rigidity noted. Pelvic exam: The patient cervix does not show any active bleeding there is bleeding through the cervix and it is mostly dark blood clot Constitutional Vital Signs, click to edit/add: Last Vital Signs Temp 98.1 F 02/10/25 13:58 Pulse 88 02/10/25 13:58 Resp 16 02/10/25 13:58 BP 110/74 02/10/25 13:58 Pulse Ox 97 02/10/25 13:58 O2 Del Method Room Air 02/10/25 13:58 Course Vital Signs Vital signs: Vital Signs Temperature 98.1 F 02/10/25 13:58 Pulse Rate 88 02/10/25 13:58 Respiratory Rate 16 02/10/25 13:58 Blood Pressure 110/74 02/10/25 13:58 Pulse Oximetry 97 02/10/25 13:58 Oxygen Delivery Method Room Air 02/10/25 13:58 Temperature 98.1 F 02/10/25 13:58 Pulse Rate 88 02/10/25 13:58 Respiratory Rate 16 02/10/25 13:58 Blood Pressure 110/74 02/10/25 13:58 Pulse Oximetry 97 02/10/25 13:58 Oxygen Delivery Method Room Air 02/10/25 13:58 MDM - OB/Uterine Contractions MDM Narrative Medical decision making narrative: The patient CBC and chemistry showed no acute pathology and her hemoglobin is 12 test is negative I did discuss the case with PHARMACEUTICAL LABORATORY TECHNICIAN service and he mentioned that this could be the menstruation that is induced by anesthesia as it started a week after the surgery Patient will monitor her symptoms she is to come back to the ER in case of any shortness of breath or dizziness or any increase in bleeding Patient will otherwise follow-up with Dr. William on Wednesday 02/14 The patient is to follow up with primary care physician in next 2-3 days or to return to the emergency department should any of the signs or symptoms worsen or new symptoms develop. The patient agrees with the following Diagnosis and Treatment plan and the patient will be discharged home. Lab Data Labs: Lab Results 02/10/25 Range/Units 14:20 WBC 8.6 (4.0-11.0) 10^3/uL RBC 4.63 (4.20-5.40) 10^6/uL Hgb 12.9 (12.0-16.0) g/dL Hct 38.9 (36.0-48.0) % MCV 84.0 (81.0-99.0) fL MCH 27.9 (26.7-34.0) pg MCHC 33.2 (29.9-35.2) g/dL RDW 14.7 (11.0-15.0) % Plt Count 316 (150-450) 10^3/uL MPV 10.4 (9.5-13.5) fL Neut % (Auto) 69.7 (43.0-75.0) % Lymph % (Auto) 18.8 L (20.5-60.0) % [place] % (Auto) 9.4 (1.7-12.0) % Eos % (Auto) 1.3 (0.9-7.0) % Baso % (Auto) 0.5 (0.2-2.0) % Neut # (Auto) 6.0 (1.4-6.5) 10^3/uL Lymph # (Auto) 1.6 (1.2-3.8) 10^3/uL [place] # (Auto) 0.8 (0.3-0.8) 10^3/uL Eos # (Auto) 0.1 (0.0-0.7) 10^3/uL Baso # (Auto) 0.0 (0.0-0.1) 10^3/uL Abs Immat Gran (auto) 0.03 (0.00-0.03) 10^3/uL Imm/Tot Granulo (auto) 0.3 (0.0-0.5) % Sodium 138 (136-145) mmol/L Potassium 3.8 (3.5-5.1) mmol/L Chloride 104 (98-107) mmol/L Carbon Dioxide 25.6 (21.0-32.0) mmol/L Anion Gap 12.2 BUN 20.0 H (7.0-18.0) mg/dL Creatinine 0.78 (0.55-1.02) mg/dL Est GFR ( Amer) >60 (>=60 mL/min/1.73m^2) Est GFR (Non-Af Amer) >60 (>=60 mL/min/1.73m^2) BUN/Creatinine Ratio 25.6 Glucose 106 (74-106) mg/dL Calcium 8.9 (8.5-10.1) mg/dL Total Bilirubin 0.7 (0.2-1.0) mg/dL AST 18 (15-37) U/L ALT 31 (14-59) U/L Alkaline Phosphatase 78 (46-116) U/L Total Protein 7.2 (6.4-8.2) g/dL Albumin 3.6 (3.4-5.0) g/dL Globulin 3.6 g/dL Albumin/Globulin Ratio 1.0 Serum HCG, Qual Negative (NEGATIVE) Discharge Plan Discharge Chief Complaint: Vaginal Bleeding Clinical Impression: Vaginal bleeding Patient Disposition: Home, Self-Care Time of Disposition Decision: 15:21 Condition: Good Print Language: [place] Instructions: Abnormal (Dysfunctional) Uterine Bleeding (ED), Menorrhagia (ED) Referrals: Willem William DO [Physician] - 02/14/25 (please call to make sure appointment for Friday ) Madhav Fuentes DO [Primary Care Provider] - 1 week Discharge Date/Time: 02/10/25 15:33
== END 2025-02-10 15:33 | disposition home or self-care (01) ==
PROVIDERS: Emergency Provider Emergency Medicine; PCP Family Medicine
DX: N93.9 Abnormal uterine and vaginal bleeding, unspecified (principal); Z98.890 Other specified postprocedural states
CPT/HCPCS: 36415; 80053; 84703; 85025; 86850; 86900; 86901; 99285

== ENCOUNTER 2025-06-07 15:11 | Outpatient (REF) | payer BC, SELFPAY ==
[2025-06-13 16:09] LABS: Pap IG (Image Guided) Note (.)
== END 2025-06-07 15:12 | disposition home or self-care (01) ==
LOC: LAB 15:11
PROVIDERS: PCP Family Medicine; Visit Provider Obstetrics & Gynecology
DX: Z01.42 Encounter for cervical smear to confirm findings of recent normal smear following initial abnormal smear (principal); R87.612 Low grade squamous intraepithelial lesion on cytologic smear of cervix (LGSIL)
CPT/HCPCS: 88175

== ENCOUNTER 2025-10-10 20:17 | Outpatient (REF) | payer BC, SELFPAY ==
--- OUTSIDE RECORDS SUMMARY | 2025-10-10 20:20 | XMS_ITS | CCD ---
Author Organization [facility] Care Team Providers Care Putty Patcher Name Role Phone PAOLA, DR MENDIETA Attending Unavailable KARASIK, DR MENDIETA Consulting Unavailable KARASIK, DR MENDIETA Admitting Unavailable REQUEST, DR NONE LISTED Primary Care Unavaila Jeanne Blount Primary Care Physician [phone] Willem William Attending Provider [phone] Madhav Fuentes Primary Care Physician [phone] Unallocated , Noms Provider Primary Care Provi jonathan Ender Logan Referring Unavailable Christofferson, EXTENSION AGENT Natalya L Consulting Willow vailable Ender Logan Admitting Unavailable Ender Logan B Attending Unavailable Christofferson, Natalya L Consulting Unavail able Christofferson, Natalya L Consulting Unavail able Christofferson, Natalya L Consulting Unavail able Christofferson, Natalya L Consulting Unavail able Christofferson, Natalya L Consulting Unavail able Christofferson, Natalya L Consulting Unavail able Christofferson, Natalya L Consulting Unavail able Christofferson, Natalya L Consulting Unavail able Christofferson, Natalya L Consulting Unavail able Doreen, Ender B Referring Unavailable Rhmercyw, Ender B Attending Unavailable RhEnder bowden B Admitting Unavailable Christofferson, Natalya L Consulting Unavail able Christofferson, Natalya L Consulting Unavail able Christofferson, Natalya L Consulting Unavail able Christofferson, Natalya L Consulting Unavail able Christofferson, Natalya L Consulting Unavail able Christofferson, Natalya L Consulting Unavail able Christofferson, Natalya L Consulting Unavail able Christofferson, Natalya L Consulting Unavail able Prado, Natalya Attending Unavailable Prado, Natalya Referring Unavailable Ender Logan Attending Unavailable Ender Logan B Referring Unavailable Doreen, Ender B Admitting Unavailable Cuco Uribe Attending Unavailable CIERSEZWSKI, HARSHA R Attending Unavailabl e Madhav Fuentes Attending Unavailable Madhav Fuentes Attending Unavailable Ender Logan Attending Unavailable Ender Logan Referring Unavailable Doreen, Ender Sood Admitting Unavailable Jorge Sue Attending Unavailable Den Mcqueen Attending Unavailable Ender Logan Attending Unavailable Doreen, Ender Sood Referring Unavailable Doreen, Ender Sood Admitting Unavailable Prado, Natalya Attending Unavailable Rhkal, Ender Sood Referring Unavailable Unallocated Alexander LUKEs Provider Primary Care Provi jonathan Nataliia DO, Willem Attending Provider Nataliia, Willem Attending Unavailable Nataliia, Willem Admitting Unavailable NATALIIA, WILLEM Attending Unavailable NATALIIA, WILLEM Attending Unavailable NATALIIA, WILLEM Attending Unavailable NATALIIA, WILLEM Attending Unavailable RhEnder bowden Attending Unavailable Ender Logan Admitting Unavailable Doreen, Ender Sood Referring Unavailable Praod, Natalya Attending Unavailable Johan, Natalya Admitting Unavailable Jeanne Ocampo L Referring Unavailable LinkMadhav Referring Unavailable Prado, Natalya Admitting Unavailable Johan, Natalya Attending Unavailable Lexii Syed Attending Unavailable Madhav Fuentes Attending Unavailable Lexii Syed Admitting Unavailable Lexii Syed Attending Unavailable Allergies Allergy ClassificationReported Allergen(s)Allergy TypeDate of OnsetReaction(s) FacilityPenicillins (antibiotic) (2 sources)Penicillin; Translations: [penicillins]Drug AllergyThe [facility] (20 sources)Penicillins; Translations: [penicillins]Drug tlmakew00-39-9982Uoxnt, Rash, WheezingAshtabula General Hospital Medications Current Medications MedicationDrug Class(es)DatesSig (Normalized)Sig (Original)Tylenol (7 sources)Start: 18-58-3657Fvruobb 500 mg, Daily, PRN as needed for pain, Refills(s) 0 Start Date: 07/21/24 Status: Orderedacetaminophen 325 mg / oxyCODONE hydrochloride 5 mg oral tablet (1 source)Opioid AgonistStart: 09-16-2024 End: 41-55-2887Nikpghby 5 mg-325 mg oral tablet 1 tab(s), Oral, TID Pain 4-7 for 7 day(s), 21 tab(s), Refill(s) 0,[facility], 155.5, cm, 09/01/24 10:15:00 EDT, Height/Length Dosing, 59, kg, 09/01/24 10:15:00 EDT, Weight Dosing Start Date: 09/16/24 Stop Date: 09/23/24 Status: Ordered amitriptyline hydrochloride 25 mg oral tablet (7 sources)Tricyclic AntidepressantStart: 09-01-2024 End: 38-01-3205uidd 2 tablets by mouth once daily at bedtimeamitriptyline (Elavil) 25 MG tablet TAKE 2 TABLETS BY MOUTH EVERY DAY AT BEDTIME 09/13/2024 Activecyclobenzaprine hydrochloride 10 mg oral tablet (1 source)Muscle RelaxantStart: 09-16-2024 End: 01-67-5696kxws 1 tablet by mouth three times dailycyclobenzaprine 10 mg Tab 10 mg = 1 tab(s), Oral, TID, X 21 day(s), # 63 tab(s), Refills(s) 0, Pharmacy: [facility], 155.5, cm, 09/01/24 10:15:00 EDT, Height/Length Dosing, 59, kg, 09/01/24 10:15:00 EDT, Weight Dosing Start Date: 09/16/24 Stop Date: 10/07/24 Status: [id number] 0.3 ml EPINEPHrine 1 mg/ml auto-injector (4 sources)alpha-Adrenergic Agonist, beta-Adrenergic Agonist, Catecholamine Start: 24-94-9726TJDINAKyiaf (EpiPen 2-Armando) 0.3 MG/0.3ML injection syringe as directed Injection outside of thigh prn for 1 year 09/02/2022 Activegabapentin 300 mg oral capsule (8 sources)Anti-epileptic AgentStart: 07-21-2024 End: 50-90-7824jnst 2 capsules by mouth in the morning, then take 2 capsules by mouth in the evening, then take 2 capsules by mouth at bedtimegabapentin (Neurontin) 300 MG capsule Take 600 mg by mouth in the morning and 600 mg in the eveningand 600 mg before bedtime. 07/21/2024 ActiveStart: 06-03-2024 End: 93-79-7494zlrv 1 capsule by mouth twice dailygabapentin 100 mg Cap 100 mg = 1 cap(s), Oral, BID, X 10 day(s), # 20 cap(s), Refills(s) 0, Pharmacy: [facility], 152, cm, 06/03/24 13:25:00 EDT, Height/Length Dosing, 61.5, kg, 06/03/24 13:25:00 EDT, Weight Dosing Start Date: 06/03/24 Stop Date: 06/13/24 Status: OrderedIbuprofen (3 sources)Nonsteroidal Anti-inflammatory DrugStart: 73-37-3481lvkwciesk 200 mg, Daily, PRN as needed for pain, Refills(s) 0 Start Date: 07/21/24 Status: Ordered Mirena (13 sources)Progestin, Progestin-containing Intrauterine DeviceStart: 07-22-2025 Mirena IntraUteral, Once, Refills(s) 0 Start Date: 07/22/25 Status: Ordered Repeat number: 1Start: 03-15-2024 End: 56-32-3895Ldxauhpmstaemn intrauterine device 52 mgMagnesium (3 sources)Start: 27-71-2585Drnrkqzui Magnesium, Oral, Daily Start Date: 07/21/24 Status: Orderedmethocarbamol 500 mg oral tablet (2 sources)Muscle RelaxantStart: 06-01-2024 End: 74-18-1964gpan 2 tablets by mouth four times dailymethocarbamol 500 mg Tab 1,000 mg = 2 tab(s), Oral, QID, X 7 day(s), # 56 tab(s), Refills(s) 0, Pharmacy: [facility], 152, cm, 06/01/24 9:55:00 EDT, Height/Length Dosing, 59, kg, 06/01/24 9:55:00 EDT, Weight Dosing Start Date: 06/01/24 Stop Date: 06/08/24 Status: Orderednaproxen 500 mg oral tablet (7 sources)Nonsteroidal Anti-inflammatory DrugStart: 81-68-5735uqap 1 tablet by mouth twice daily as needed for painnaproxen 500 mg Tab 500 mg = 1 tab(s), Oral, BID, PRN Pain, # 30 tab(s), Refills(s) 0, Pharmacy: [facility], 152.4, cm, 07/06/24 20:34:00 EDT, Height/Length Dosing, 58.3, kg, 07/06/24 20:34:00 EDT, Weight Dosing Start Date: 07/06/24 Status: OrderedStart: 06-03-2024 End: 48-12-6674ngut 1 tablet by mouth twice dailynaproxen 500 mg Tab 500 mg = 1 tab(s), Oral, BID, X 10 day(s), # 20 tab(s), Refills(s) 0, Pharmacy:[facility], 152, cm, 06/03/24 13:25:00 EDT, Height/Length Dosing, 61.5, kg, 06/03/24 13:25:00 EDT, Weight Dosing Start Date: 06/03/24 Stop Date: 06/13/24 Status: Orderedomeprazole 40 mg delayed release oral capsule (1 source)Proton Pump InhibitorStart: 88-00-0001vzhd 1 capsule by mouth once dailyomeprazole 40 mg Cap-DR 40 mg = 1 cap(s), Oral, Daily, # 30 cap(s), Refills(s) 0, Pharmacy: [facility], 153, cm, 07/29/25 7:31:00 EDT, Height/Length Dosing, 59.2, kg, 07/29/25 7:31:00EDT, Weight Dosing Start Date: 07/29/25 Status: Ordered Quantity: 30.0 Unit: cap(s) Repeat number: 1 predniSONE 50 mg oral tablet (5 sources)Start: 07-06-2024 End: 43-75-7715qrlp 1 tablet by mouth once dailypredniSONE 50 mg Tab 50 mg = 1 tab(s), Oral, Daily, X 7 day(s), # 7 tab(s), Refills(s) 0, Pharmacy:[facility], 152.4, cm, 07/06/24 20:34:00 EDT, Height/Length Dosing, 58.3, kg, 07/06/24 20:34:00 EDT, Weight Dosing Start Date: 07/06/24 Stop Date: 07/13/24 Status: OrderedStart: 06-03-2024 End: 73-18-1353npur 3 tablets by mouth once dailypredniSONE 20 mg Tab 60 mg = 3 tab(s), Oral, Daily, X 5 day(s), # 15 tab(s), Refills(s) 0, Pharmacy: [facility], 152, cm, 06/03/24 13:25:00 EDT, Height/Length Dosing, 61.5, kg, 06/03/24 13:25:00 EDT, Weight Dosing Start Date: 06/03/24 Stop Date: 06/08/24 Status: OrderedStart: 06-01-2024 End: 87-87-7436yunr 2 tablets by mouth once dailypredniSONE 20 mg Tab 40 mg = 2 tab(s), Oral, Daily, X 7 day(s), # 14 tab(s), Refills(s) 0, Pharmacy: [facility], 152, cm, 06/01/24 9:55:00 EDT, Height/Length Dosing, 59, kg, 06/01/24 9:55:00 EDT, Weight Dosing Start Date: 06/01/24 Stop Date: 06/08/24 Status: Orderedpregabalin 200 mg oral capsule (12 sources)Start: 62-04-7141ppbp 1 capsule by mouth three times dailyLyrica 200 mg Cap 200 mg = 1 cap(s), Oral, TID, # 90 cap(s), Refills(s) 1, Pharmacy: [facility], 155.5, cm, 09/01/24 10:15:00 EDT, Height/Length Dosing, 59, kg, 09/01/24 10:15:00 EDT,Weight Dosing Start Date: 09/01/24 Status: OrderedStart: 66-88-0432snnd 1 capsule by mouth three times dailyLyrica 200 mg Cap 200 mg = 1 cap(s), Oral, TID, # 90 cap(s), Refills(s) 0, Pharmacy: [facility], 152.4, cm, 07/29/24 8:42:00 EDT, Height/Length Dosing, 59.6, kg, 07/29/24 8:42:00 EDT,Weight Dosing Start Date: 08/18/24 Status: OrderedStart: 08-06-2024 End: 97-06-4865mbru 1 capsule by mouth once dailypregabalin (Lyrica) 200 MG capsule Take 200 mg by mouth Daily 08/06/2024 12/27/2024 DiscontinuedStart: 80-66-7742bjnc 1 capsule by mouth twice dailypregabalin 200 mg Cap 200 mg = 1 cap(s), Oral, BID, DC GPN, # 60 cap(s), Refills(s) 0, Pharmacy: [facility], 152.4, cm, 07/29/24 8:42:00 EDT, Height/Length Dosing, 59.6, kg, 07/29/24 8:42:00 EDT, Weight Dosing Start Date: 08/06/24 Status: Ordered Completed/Discontinued Medications MedicationDrug Class(es)DatesSig (Normalized)Sig (Original) Vit-Fe Rxb-GL-Haroe (PNV Plus Multivit+DHA) 27-1 & 312 MG misc (2 sources) End: 51-22-0432dmui 1 tablet by mouth in the morningPrenatal Vit-Fe Qlp-UQ-Tlcqt (PNV Plus Multivit+DHA) 27-1 & 312 MG misc Take 1 tablet by mouth in the morning. 08/16/2024 Discontinuedtake 1 tablet by mouth in the morning Vit-Fe Blb-BE-Nmrya (PNV Plus Multivit+DHA) 27-1 & 312 MG misc Take 1 tablet by mouth in the morning. Active Problems Active Problems Problem ClassificationProblemDateDocumented DateEpisodic/ChronicAbdominal pain (2 sources)Abdominal pain; Translations: [Unspecified abdominal pain]Onset: 30-32-7780RjyoesrlYattbf (15 sources)Cgoaci60-09-8406GcymboaBndgbt of cervix (5 sources)Low grade squamous intraepithelial lesion on cervical Papanicolaou smear; Translations: [Low grade squamous intraepithelial lesion on cytologic smear of cervix (LGSIL)]77-68-6089OjquilhcAceixgesfahkt and screening for infectious disease (1 source)Encounter for screening for human papillomavirus (HPV); Translations: [ENC SCREENING HUMAN PAPILLOMAVIRUS]Onset: 22-27-0179QpqxfmvjGhhvn aftercare (1 source)Long-term current use of drug therapy; Translations: [Other intermodal dispatcher (current) drug therapy]Onset: 11-53-0940YyvyuuhsAzzda gastrointestinal disorders (1 source)Constipation, unspecified; Translations: [Constipation, unspecified] Onset: 84-85-1725BqjxvdprLsfst nervous system disorders (1 source)Chronic pain; Translations: [Other chronic pain]Onset: 07-06-2024 ChronicOther non-traumatic joint disorders (3 sources)Pain of left shoulder joint; Translations: [Pain in left shoulder] Onset: 12-69-4986TufvqsvuKnksd non-traumatic joint disorders (2 sources)Shoulder joint pain; Translations: [Pain in unspecified shoulder] Onset: 87-41-0822QumuqbbpQwngk non-traumatic joint disorders (11 sources)Shoulder ynig84-22-4279AxchzrcbKtrvq nutritional; endocrine; and metabolic disorders (3 sources)Overweight in adulthood with body mass index of 25 or more but less than 30; Translations: [Body mass index (BMI) 25.0-25.9, adult]Onset: 07-09-2024 EpisodicOther upper respiratory disease (11 sources)Allergic rhinitis due to pollen; Translations: [Allergic rhinitis due to pollen]Onset: 316482-73-3195CpdbygvWnloutej codes; unclassified (3 sources)Patient encounter status; Translations: [Other specified health status]Onset: 70-45-3599IwclaxeqEaxozbsa codes; unclassified (1 source)History of loop electrosurgical excision procedure; Translations: [Other specified postprocedural states]18-83-7274XteoxvybVmzjmfjm transmitted infections (not HIV or hepatitis) (1 source)Human papillomavirus deoxyribonucleic acid test positive, high risk on cervical specimen; Translations: [Cervical high risk human papillomavirus (HPV) DNA test positive]45-75-6025JuxaxpxxKqbzdphybbf; intervertebral disc disorders; other back problems (1 source)Degeneration of cervical intervertebral disc; Translations: [Other cervical disc degeneration, unspecified cervical region]Onset: 02-63-0540Zlaafsl Spondylosis; intervertebral disc disorders; other back problems (16 sources)Neck pain; Translations: [Cervicalgia]Onset: 86-73-5256Qitstvsa Past or Other Problems Problem ClassificationProblemDateDocumented DateEpisodic/ChronicOther complications of (14 sources)Abnormal placenta affecting management of motherOnset: 09-04-2018 82-29-1329ZjoytwisWsfjj screening for suspected conditions (not mental disorders or infectious disease) (15 sources)Encounter for screening for malignant neoplasm of cervix; Translations: [Abnormal cervical Papanicolaou smear]Onset: 17-27-7953Lvehjyqm Viral infection (1 source)Disease caused by 2019-nCoV; Translations: [COVID-19] Results Test NameValueInterpretationReference RangeFacilityAmbulatory Visit Summaryon 70-43-6211Fqczsapbpt Visit SummaryAmbulatory Visit Summary DARRICK VILLAFUERTE :1990 Visit Date:07/29/2025 Ambulatory Visit Instructions Your Diagnosis Abdominal pain BMI 25.0-25.9,adult Non-smoker Your Care Team Attending Physician - Madhav Fuentes DO Primary Care Physician - Madhav Fuentes DO This Is Your Medications List levonorgestrel (Mirena) omeprazole (omeprazole 40 mg Cap-DR) Procedures Performed History of cervical spine surgery (09/16/2024), Laparoscope (2007). Discharge Vitals Heart Rate (Peripheral) 75 Respiratory Rate 18 Blood Pressure 102/70 Height 153 cm Height 60 in Weight 59.2 kg Weight 130.514 lb BMI 25.29 What to do next You Need to Schedule the Following Appointments Follow Up with Madhav Fuentes DO, [facility] When: Comments: If needed Where: [address] [place] [address]- Medications What How Much When Instructions New omeprazole (omeprazole 40 mg Cap-DR) 1 Capsules By Mouth Every day Pickup at [facility] Unchanged levonorgestrel (Mirena) Intrauteral Once Pharmacy Information [facility]: [address] [place], [place] [id number] [phone] Allergies penicillins (Hives) Problems Ongoing - Any [...] you for choosing us for your care. Patient Portal You may access all of your results and other medical record information on our secure patient portal. If you are not signed up for this yet, please contact [employer] Management at [phone] to get signed up today. Language Information Language assistance services are available as needed. [facility] Medicine Office/Clinic Noteon [id number] Medicine Office/Clinic NoteFarren [facility] Office/Clinic Note Chief Complaint CC Follow Up HPI Staff Patient here for Convenient Care Follow Up CC [place]up: [place] [facility] [place]: [place]22 Symptoms the patient presented with: lower stomach pain - Imaging completed. Advised to use OTC Omeprazole 20mg and f/u with PCP. Patient is taking Omeprazole as directed and declines any improvement. Current concerns: Patient's concerned with continued abdominal discomforting. Patient continues to have bloating and change in bowel habits. - 10/29/24 [facility] [place]. Discontinued Amitriptyline. Patient advised how to wean off of Lyrica. F/u in 3-4 weeks. - 09/16/24 [facility] C6-7 anterior cervical discectomy arthrodesis autograft allograft microdissection fluoroscopy spinal monitoring preoperative stereotactic planning insertion interbody cage plate screws completed. Discharged 09/18. - 09/01/24 [facility] [place]. Lyrica continued, Amitriptyline increased to 50mg HS. F/u in 6 weeks. Pap: per patient 06/07/25, Dr. William History of Present Illness Patient presents today for convenient care followup. - Seen 07/22/2025, patient presented with stomach pain for the last week - Alternating constipation and diarrhea prior to visit - KUB was normal, no constipation - omeprazole 20mg recommended for patient Today, patient states that she is doing mildly better. She admits she is taking the omeprazole at this time. She does admit, however, she is having random time she takes the medication. She describesthe pain as fixated in the epigastric area. Review of Systems PHQ Score Initial Depression Screen Score: 0 SCORE ROS - Provider Constitutional: no fever, no chills Skin: no rash, no lesions ENMT: no ear pain, no sore throat, no congestion, no hoarseness. Respiratory: no shortness of breath, no cough, no wheezing. Cardiovascular: no chest pain, no palpitations, no edema. Gastrointestinal: no nausea, no vomiting, yes diarrhea, yes constipation, yes abdominal pain Musculoskeletal: no back pain, no trauma. Neurologic: no headache, no dizziness, no numbness, no weakness. Psychiatric: no sleeping problems, no irritability, no mood swings/depression. Physical Exam Vitals & Measurements HR: 75(Peripheral) RR: 18 BP: 102/70 SpO2: 100% HT: 60 in HT: 153 cm WT: 130.514 lb WT: 59.2 kg BMI: 25.29 General: Well developed, well nourished, in no acute distress Head: Normocephalic/atraumatic Eyes: Pupils equal, round, and reactive to light. Sclerae normal, and extraocular movements intact Lungs: Normal respiratory effort and clear to auscultation Cardio: Regular rate and rhythm, normal S1 and S2, no murmur, no rub Musculoskeletal: No deformity or scoliosis noted. Normal range of motion. Joints normal. No erythema, edema, effusion, or ecchymosis Extremity: not assessed Neurologic: Grossly normal Skin: No rash, petechiae, suspicious lesions Mental Status: Alert and oriented x3. Normal mood and affect Assessment/Plan 1. Abdominal pain (R10.9: Unspecified abdominal pain) Will cover with 40mg omeprazole for increase in coverage, recheck if not improved. 2. BMI 25.0-25.9,adult (Z68.25: Body mass index [BMI] 25.0-25.9, adult) The standard range for ages 18 and older is >=18.5 and < 25 kg/m2. Your BMI today was above this range, this falls in the overweight to obese category and there are medical benefits to weight loss. We can offer counselling, referral, and/or medical support in addressing this problem. Your BMIand weight management will be followed at subsequent visits. 3. Non-smoker (Z78.9: Other specified health status) Stable. Orders: omeprazole, 40 mg = 1 cap(s), Oral, Daily, # 30 cap(s), Refills(s) 0, Pharmacy: [facility], 153, cm, 07/29/25 7:31:00 EDT, Height/Length Dosing, 59.2, kg, 07/29/25 7:31:00 EDT, WeightDosing Follow-up With When Contact Information Madhav Fuentes DO, [facility] [address] [place] [address]- Additional Instructions: If needed Problem List/Past Medical History Ongoing Abnormal placenta affecting management of mother Cervical dysfunction Shoulder pain Historical No qualifying data Procedure/Surgical History History of cervical spine surgery (09/16/2024), Laparoscope (2007). Medications Mirena, IntraUteral, Once omeprazole 40 mg Cap-DR, 40 mg= 1 cap(s), Oral, Daily Allergies penicillins (Hives) Social History Alcohol - Denies Alcohol Use, 04/25/2019 Never., 07/29/2025 Substance Abuse - Denies Substance Abuse, 07/09/2024 Never., 07/29/2025 Tobacco - Denies Tobacco Use, 09/11/2021 Never (less than 100 in lifetime) Tobacco Use:. Never Smokeless Tobacco Use:. Household tobacco concerns: No., 07/29/2025 Family History Family history is negative Immunizations Vaccine Date Status Comments influenza virus vaccine, inactivated - Not Given Postpone due to refusalMedina HospitalComment on above:Result Comment: Electronically Signed By: Madhav Fuentes DO\.br\Date and Time Signed: 07/29/25 07:50 EDTProvider Letteron [id number] LetterProvider Letter July 29, 2025 DARRICK VILLAFUERTE [address] [place] [address] : 1990 To Whom It May Concern, Please excuse above patient from work. Date of Illness: From: 07/29/25 May Return to Work On: 07/29/25 Restrictions: none Comments: none Sincerely, [facility] [place] [address] [place] [address] LeyqvoCvlbyhOhioHealth Marion General HospitalAmbulatory Visit Summaryon 72-23-3216Ciywwoeact Visit SummaryAmbulatory Visit Summary DARRICK VILLAFUERTE :1990 Visit Date:07/22/2025 Ambulatory Visit Instructions Your Diagnosis Abdominal pain Constipation in female Your Care Team Attending Physician - Kunal LÓPEZ, Jada Primary Care Physician - Madhav Fuentes DO This Is Your Medications List Contact prescribing physician if questions or concerns levonorgestrel (Mirena) Procedures Performed History of cervical spine surgery (09/16/2024), Laparoscope (2007). Discharge Vitals Temperature (Temporal Artery) 37 ???C Heart Rate (Peripheral) 94 Respiratory Rate 18 Blood Pressure 100/68 Height 153 cm Height 60 in Weight 60.8 kg Weight 134.041 lb BMI 25.97 What to do next Scheduled Follow-Up Appointments Friday 7:20 AM EDT With: Madhav Fuentes DO Where: [facility] [address] [place] [address]- You Need to Schedule the Following Appointments Follow Up with Madhav Fuentes DO, [facility] When: Where: [address] [place] [id number]- Medications What How Much When Instructions Unchanged levonorgestrel (Mirena) Once Contact prescribing physician if questions or concerns Allergies penicillins (Hives) Problems Ongoing - Any [...] you for choosing us for your care. Patient Portal You may access all of your results and other medical record information on our secure patient portal. If you are not signed up for this yet, please contact [employer] Information Management at [phone] to get signed up today. Language Information Language assistance services are available as needed. [facility] Medicine Office/Clinic Noteon [id number] Medicine Office/Clinic NoteFagardner state hospital Medicine Office/Clinic Note Chief Complaint lower stomach pains HPI Staff 35 year old female presents with lower stomach pain. Pt. states that stomach pain started about a week again almost went away ans then this morning came back. Pt. denies fever. Pt. states her bowel movements or irregular. Onset 6 days History of Present Illness I have reviewed and verified the staff HPI to be accurate for this encounter. Portions of this record have been created with voice recognition software. Occasional wrong-word or???mxvay-a-mxey??? substitutions may have occurred due to the inherent limitations of voice recognition software. 35-year-old female presents with complaints of abdominal pain off and on in the past week. Patient said it was pretty bad on Friday but then improved for couple days and now is back to where it was on Friday. Patient has been having some trouble with constipation but then other times has loose stool. Patient is not on any medications that would cause constipation. Review of Systems ROS negative unless otherwise stated in HPI. Physical Exam Vitals & Measurements T: 37 ???C(Temporal Artery) HR: 94(Peripheral) RR: 18 BP: 100/68 SpO2: 98% HT: 153 cm HT: 60 in WT: 60.8 kg WT: 134.041 lb BMI: 25.97 General: Well developed, well nourished, in no acute distresspatient holding epigastric area of abdomen when provider enters room Eyes: not assessed Ears: not assessed Nose: not addressed Mouth: not assessed Neck: not assessed Lungs: Normal respiratory effort and clear to auscultation Cardio: regular rate and rhythm, no murmur Abdomen: soft, nondistended, BS hypoactive x4. Mild epigastric tenderness. No guarding or grimacingNo rebound tenderness, neg heel jar Musculoskeletal: not assessed Extremity: not assessed Neurologic: not assessed Skin: No rashes, ulcerations, or suspicious lesions Mental Status: Alert and oriented x3. Normal mood and affect Assessment/Plan KUB does not appear to have excessive stool, IUD in place centrally. Appears to have some epigastric tenderness possibly from GERD or IBS. Instructed to try omeprazole 20 mg daily OTC for next few days to see if she has any relief. Has follow-up appointment with Dr. Fuentes on 07/29/2025. No concern foracute abdomen today but if pain is severe will need to report to ER. 1. Abdominal pain (R10.9: Unspecified abdominal pain) Has IUD-centrally intact. If abdominal pain continues with use of omeprazole should report to ER. Ordered: XR Abdomen 1 View 2. Constipation in female (K59.00: Constipation, unspecified) KUB negative for constipation. Ordered: XR Abdomen 1 View Follow-up With When Contact Information Link Madhav GARVIN, ALEIDA [address] [place] [address]- Additional Instructions: Patient Education Gastroesophageal Reflux Disease, Adult, Wltj-cc-Zdff Irritable Bowel Syndrome, Adult Abdominal Pain, Adult, Atej-so-Wulj Problem List/Past Medical History Ongoing Abnormal placenta affecting management of mother Cervical dysfunction Shoulder pain Historical No qualifying data Procedure/Surgical History History of cervical spine surgery (09/16/2024), Laparoscope (2007). Medications Mirena, IntraUteral, Once Allergies penicillins (Hives) Social History Alcohol - Denies Alcohol Use, 04/25/2019 Substance Abuse - Denies Substance Abuse, 07/09/2024 Tobacco - Denies Tobacco Use, 09/11/2021 Never (less than 100 in lifetime) Tobacco Use:. Never Smokeless Tobacco Use:. Household tobacco concerns: No., 07/29/2024 Family History Family history is negative Immunizations Vaccine Date Status Comments influenza virus vaccine, inactivated - Not Given Postpone due to refusal Diagnostic Results 07/22/2025 12:25 EDT XR Abdomen 1 View) IMPRESSION: NO ACUTE OR SIGNIFICANT INTRA-ABDOMINAL PROCESS IDENTIFIED, BY PLAIN RADIOGRAPHY. EXAM: XR Abdomen 1 View DATE: 07/22/2025 12:16 PM CLINICAL HISTORY: Constipation. COMPARISON: None available. TECHNIQUE: An erect radiograph of the abdomen and pelvis was obtained. FINDINGS: There is a nonobstructive bowel gas pattern, with mild gas noted in the colon. There is no evidence of significant constipation, pneumoperitoneum, or other findings of concern identified. An IUD is noted within the central pelvis. [1] Time spent on exam, ordering imaging, review of imaging and plan of care was 35 min.Chillicothe HospitalComment on above:Result Comment: Electronically Signed By: Jada Garcias\.joe\Date and Time Signed: 07/22/25 18:31 EDTPatient Letter FTMCon [id number] Letter FTPatient Letter FT [address] [facility], [place] [address] [id number] July 22, 2025 DARRICK VILLAFUERTE [address] [place] [address] : 1990 Please excuse DARRICK VILLAFUERTE from work . Date and/or Time of Absence: From: 07/22/2025 To: 07/22/2025 May return to work on: 07/23/2025 if symptoms are improved. Restrictions: None Comments: Please excuse due to an acute illness. Provider Signature: RENE Godlen Nurse Practitioner [address] [place] [address] [place] [address] [facility]othe HospitalXR Abdomen 1 Viewon [id number] Abdomen 1 ViewExam Date/Time: 07/22/2025 12:25 EDT Reason for Exam: Constipation Report IMPRESSION: NO ACUTE OR SIGNIFICANT INTRA-ABDOMINAL PROCESS IDENTIFIED, BY PLAIN RADIOGRAPHY. EXAM: XR Abdomen 1 View DATE: 07/22/2025 12:16 PM CLINICAL HISTORY: Constipation. COMPARISON: None available. TECHNIQUE: An erect radiograph of the abdomen and pelvis was obtained. FINDINGS: There is a nonobstructive bowel gas pattern, with mild gas noted in the colon. There is no evidence of significant constipation, pneumoperitoneum, or other findings of concern identified. An IUD is noted within the central pelvis. Ordering Provider: Lexii Syed FINAL REPORT Dictated: 07/22/2025 12:51 pm Ayaan Dong MD Signed (Electronic Signature): 07/22/2025 12:51 pm Signed by: Ayaan Dong MD Transcribed by: OLY Technologist: [facility] HospitalPAP IG, APT HPV RFX 16/18,45on [id number] APTIMANegativeNegativeNOMS HealthcareComment on above:This nucleic acid amplification test detects fourteen high- risk HPV types (16,18,31,33,35,39,45,51,52,56,58,59,66,68) without differentiation. Performed at: [address] [id number] Manager Medical Writing: Michaela Thomas MD, Phone: [phone] Performed at: =[facility] [place] [address] [place] [place], [place] [id number] Manager Medical Writing: Michaela Thomas MD, Phone: [phone] PAP IG (IMAGE GUIDED)Note.NOMS HealthcareComment on above:TESTS RESULT FLAG UNITS REF RANGE LAB Clinician Provided Cytology Information Source.............Cervix;Endocervix No. of containers..01 ThinPrep Vial DIAGNOSIS: 01 NEGATIVE FOR INTRAEPITHELIAL LESION OR MALIGNANCY. THIS SPECIMEN WAS RESCREENED PART OF OUR ENROLLMENT ELIGIBILITY REPRESENTATIVE PROGRAM. Specimen adequacy: 01 Satisfactory for evaluation. Endocervical and/or squamous metaplastic cells (endocervical component) are present. Performed by: Grady Powers, Reverser (ASCP) QC reviewed by: Grady Ramirez, Reverser (ASCP) . 01 Note: Note 01 The Pap smear is a screening test designed to aid in the detection of premalignant and malignant conditions of the uterine cervix. It is not a diagnostic procedure and should not be used as the sole means of detecting cervical cancer. Both false-positive and false-negative reports do occur. Test Methodology: Note 01 The Thin Prep(R) Pumper Gauger Apprentice was unable to read this specimen. Therefore a manual review was performed. HPV Genotype Reflex Note 01 Criteria not met, HPV Genotype not performed. FLAG LEGEND: L-Low Normal,H-High Normal,LL-Alert Low,HH-Alert High <-Panic Low,>-Panic High,A-Abnormal,AA-Critical Abnormal Performed at: [facility] [address] [facility] [place] [address] Michaela Thomas MD, BRUSH-SPATULA CERVIX ENDOCERVIX CLINISYNCNOMS [facility] 02-04-2025 Specimen: [id number] Received: 02/04/25 Status: WILVERMegan Villalta Num: [id number] Spec Type: Surgical Subm Dr: Willem William Tissues: A Cervical Biopsy/Leep Biopsy (ECTOCERVCIAL TISSUE) Procedures: Gabe/Daniela Moran Age/ Patient Sex Location Account Attending Physician Darrick Villafuerte 34/F [facility] [id number] Willem William SPEC NUM: [id number] RECD: 02/04/25 STATUS: SHAISTA VILLALTA NUM: [id number] HILDA: 02/04/[address] [facility] [address]: Willem William ENTERED: 02/04/[address] 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 -Transformation zone is focally represented with occasional mild chronic inflammation -Mild squamous atypia is focally present at the endocervical margin in 1 minute focus -No evidence of high-grade dysplasia in the examinations Clinical Information Low-grade squamous intraepithelial lesion, 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 The mucosal surfaces are soto-pink, smooth and glistening. Each specimen is inked orange along the lesser curvature, and black along the greater curvature. Serial sections reveal soto-pink, glistening and uniform cut surfaces. The specimen is entirely submitted. Cassettes: Specimen: [id number] Received: 02/04/25 Status: SHAISTA Villalta Num: [id number] Spec Type: Surgical Subm Dr: Willem William Tissues: A Cervical Biopsy/Leep Biopsy (ECTOCERVCIAL TISSUE) Procedures: , Gross/Micro L4 Patient: Darrick Villafuerte [id number] (Continued) Specimen: [id number] Received: 02/04/25 (Continued) Gross Description (Continued) Signed (signature on file) Ramila Coe MD 02/07/25 1459 Specimen: [id number] Received: 02/04/25 Status: SHAISTA Brandtq Num: [id number] Spec Type: Surgical Subm Dr: Willem William Tissues: A Cervical Biopsy/Leep Biopsy (ECTOCERVCIAL TISSUE) Procedures: Gross/Micro L4 Patient: Darrick Villafuerte [id number] (Continued) Specimen: [id number] Received: 02/04/25-1401 (Continued) Gross Description (Continued) A1?A3 Serially sectioned, 3 cm in greatest dimension crescent 1 A4?A5 Serially sectioned, 2.2 cm crescent wedge A6?A7 Serially sectioned, 2.5 cm crescent wedge A 8?A9 Serially sectioned, 2.2 cm crescent wedge A10 Serially sectioned, 1.1 cm crescent wedge A11 Mucoid material (11, ns, MK64-595 A)Anh Microscopic Description Microscopic examination is performed CPT Codes 48810 Specimen: [id number] Received: 02/04/25-140 Status: SHAISTA Villalta Num: [id number] Spec Type: Surgical Subm Dr: Willem William Tissues: A Cervical Biopsy/Leep Biopsy (ECTOCERVCIAL TISSUE) Procedures: , Gross/Micro L4 Patient: Darrick Villafuerte [id number] (Continued) Signed (signature on file) Ramila Coe MD 02/07/[address] [place] [address] Physician GroupXR Spine Single View Specify Levelon [id number] Spine Single View Specify LevelExam Date/Time: 09/16/2024 12:40 EDT Reason for Exam: Disc problems Report IMPRESSION: Intraoperative imaging. EXAMINATION/TECHNIQUE: XR Spine Single View Specify Level HISTORY: ACDF C6-C7. COMPARISON: CT 09/17/2024. MRI 07/13/2024. RESULT: Fluoroscopy provided for surgical procedure. Air Kerma (Ka,r): 2.95 mGy. No diagnostic images. Please refer to performing provider note for further details. ACDF C6-C7. No other significant abnormality. Ordering Provider: Ender Logan FINAL REPORT Dictated: 09/22/2024 10:51 am Raul LUKE, Mookie Martinez Signed (Electronic Signature): 09/22/2024 10:51 am Signed by: Mookie Carter MD Transcribed by: OLY Technologist: APURVA Technical Comments Radiation Dose: Kar in mGy = 2.95 DAP = naNormalFisher [facility] CenterMain OR Intraoperative Recordon [id number] OR Intraoperative RecordMain OR Intraoperative Record IntraOp Document Type FT Summary Primary Physician: Ender Logan MD Finalized Date/Time: 09/20/24 08:44:42 Pt. Name: DARRICK VILLAFUERTE Tacho Samaniego/Sex: 1990 Female Med Rec #: [id number] Physician: Ender Logan MD Financial #: [id number] Pt. Type: O Room/Bed: N31501 Admit/Disch: 09/16/24 09:22:53 - 09/17/24 16:45:00 Institution: Case Times FT Entry 1 Patient Times In Room 09/16/24 10:42:00 Out Room 09/16/24 12:53:00 Procedure Times Start 09/16/24 11:15:00 Stop 09/16/24 12:39:00 Anesthesia Times Start 09/16/24 10:42:00 Stop 09/16/24 12:53:00 Last Modified By: Yasmine An RN 09/16/24 12:53:06 General Comments: 09/20/24 Chart opened to review and send charges LRoth CSFA Case Attendance FT Entry 1 Entry 2 Entry 3 Case Attendee Kayleigh LOCKHART, HEAD OF ENGLISH, Ender Briceno MD Percealla SALES SERVICE ASSISTANT, Agustín Ridley Role Performed HEAD OF ENGLISH Surgeon - Primary SALES SERVICE ASSISTANT/SA Time In 09/16/24 10:42:00 09/16/24 10:42:00 09/16/24 10:42:00 Time Out 09/16/24 12:53:00 09/16/24 12:53:00 09/16/24 12:53:00 Procedure CERVICAL ANTERIOR CERVICAL ANTERIOR CERVICAL ANTERIOR DISCECTOMY W/ FUSION,(.) DISCECTOMY W/ FUSION,(.) DISCECTOMY W/ FUSION,(.) Comments DR GO SUPERVISING OUT OF ROOM [id number] Last Modified By: Yasmine An RN, RN, Yasmine Hill RN 09/16/24 12:53:07 09/16/24 12:53:07 09/16/24 12:53:07 Entry 4 Entry 5 Entry 6 Case Attendee Aniyah Lacey RN, Grecia Amor LPN Role Performed LEGAL ADVISER Memorandum Statement Clerk - Primary Scrub - Primary Time In 09/16/24 10:42:00 09/16/24 10:42:00 09/16/24 10:42:00 Time Out 09/16/24 12:53:00 09/16/24 12:53:00 09/16/24 12:53:00 Procedure CERVICAL ANTERIOR CERVICAL ANTERIOR CERVICAL ANTERIOR DISCECTOMY W/ FUSION,(.) DISCECTOMY W/ FUSION,(.) DISCECTOMY W/ FUSION,(.) Comments OUT OF ROOM [id number] OUT FOR LUNCH FROM OUT OF ROOM [id number] [id number] Last Modified By: Juve GUILLEN, Yasmine An RN, Yasmine An RN, Yasmine Kamara 09/16/24 12:53:07 09/16/24 12:53:07 09/16/24 12:53:07 Entry 7 Entry 8 Entry 9 Case Attendee Coby Schultz, Peggy Alvares Role Performed Memorandum Statement Clerk - Relief Scrub - Relief Drip Box Tender Time In 09/16/24 11:03:00 09/16/24 11:45:00 09/16/24 10:42:00 Time Out 09/16/24 11:39:00 09/16/24 12:25:00 09/16/24 12:33:00 Procedure CERVICAL ANTERIOR CERVICAL ANTERIOR CERVICAL ANTERIOR DISCECTOMY W/ FUSION,(.) DISCECTOMY W/ FUSION,(.) DISCECTOMY W/ FUSION,(.) Comments LUNCH RELIEF Last Modified By: Juve GUILLEN, Yasmine An RN, Yasmine An RN, Yasmnie Kamara 09/16/24 12:53:07 09/16/24 12:53:07 09/16/24 12:53:07 General Comments: TESHA GOMEZ, JEAN REP, AND ISABEL KERR, JOYA REP, ALSO IN ATTENDANCE. Epifanio CONTRERAS Perioperative [...] Jeronimo Participants N., Doreen LUKE, Ender Sood, Agustín Darby CST, Al[place], Amber M, Coby Schultz, Bluntjohanne CAGEN, Grecia Fuentes, Peggy Pan Time Out Complete [...] initiates traffic control Entry (more content not included)...[facility] Hospitalurgical Pathology Reporton [id number] Pathology Report[address] [place] [address]- Surgical Pathology Report Collected Date/Time: 09/16/2024 12:06 EDT Pathologist: Saravanan LUKE PhD, Skylar Flores Received Date/Time: 09/16/2024 14:14 EDT Doreen LUKE, Ender Logan MD, Ender Cullen Surgical Pathology Report - 09/20/2024 15:58 EDT [...] disc cervical spine are multiple fragments of soto/pink firm rubbery granular tissue measuring in aggregate 2.5 x 1.8 x 0.5 cm. Specimen is entirely submitted in one cassette. (DC) DC:[facility] Microscopic Description Microscopic examination performed unless gross only specified.NormalOhio State Health SystemComment on above:Performed By: #### [id number] #### Jose [facility] [address] [place], [place] [address]Finzqvd Calciumon 00-67-8531Objvffm.ionized ISE [Mass/Vol]4.9 mg/dLInvalid Interpretation Code4.5-5.6Fisher [facility] Medical CenterComment on above:Result Comment: Performed at: [facility] [id number] PhD Kristal Pisanoformed By: #### [id number] #### Jose [facility] [address] [place], [place] [address]YBPay 57-03-5727Zsvxq gap [Moles/Vol]8 mmol/LNormal6-16Ohio State Health SystemComment on above:Performed By: #### [id number] #### Jose M [facility] [address] [place], [place] [address]Dciuwgh [Mass/Vol]8.6 mg/dLLow8.9-11.1FLicking Memorial HospitalComment on above:Performed By: #### [id number] #### [facility] [address] [place], [place] [address]Xdyqvayf [Moles/Vol]107 mmol/QKrkcwg722-139LnskzvOhio State Health SystemComment on above:Performed By: #### [id number] #### [facility] [address] [place], [place] [address]FM2 [Moles/Vol]27 mmol/KRgxpak21-62UskkbmOhio State Health System Comment on above:Performed By: #### [id number] #### [facility] [address] [place], [place] [address]Iyxuzrbrwx [Mass/Vol]0.6 mg/dLNormal0.5-1.3FLicking Memorial HospitalComment on above:Performed By: #### [id number] #### [facility] [address] [place], [place] [address]Glbschh [Mass/Vol]104 mg/xOZzgoql04-772DolferOhio State Health SystemComment on above:Performed By: #### [id number] #### [facility] [address] [place], [place] [address]Hbnlceerv [Moles/Vol]3.8 mmol/LNormal3.5-5.3FLicking Memorial HospitalComment on above:Performed By: #### [id number] #### [facility] [address] [place], [place] [address]Hutkgf [Moles/Vol]138 mmol/DNixgid419-757FzhkeoOhio State Health SystemComment on above:Performed By: #### [id number] #### [facility] [address] [place], [place] [address]Lraa nitrogen [Mass/Vol]9 mg/dLNormal5-21Ohio State Health SystemComment on above:Performed By: #### [id number] #### [facility] [address] [place], [place] [address]Yquu nitrogen/Creatinine [Mass ratio]15 No WaymnVflxaa20-67 [facility] State Health SystemComment on above:Performed By: #### [id number] #### [facility] [address] [place] [address]OK w/Indiceson 36-29-9732Rofopoxcdee distribution width (RBC) [Ratio]15.0 %High10.9-14.2FLicking Memorial HospitalComment on above:Performed By: #### [id number] #### [facility] [address] [place] [address]Iprkapkklw (Bld) [Volume fraction]35.8 %Twgrui51.0-46.0Ohio State Health SystemComment on above:Performed By: #### [id number] #### [facility] [address] [place] [address]Oavxqsqkuo (Bld) [Mass/Vol]12.2 g/qGOldviv04.0-16.0Ohio State Health SystemComment on above:Performed By: #### [id number] #### [facility] [address] [place] [address]ANC (RBC) [Entitic mass]29.5 hvYbwoxm87.0-34.0Ohio State Health SystemComment on above:Performed By: #### [id number] #### [facility] [address] [place] [address]YAGA (RBC) [Mass/Vol]33.9 g/cMDpwtkx74.4-36.0[facility] State Health SystemComment on above:Performed By: #### [id number] #### [facility] [address] [place] [address]YIT (RBC) [Entitic vol]86.8 fFOizxhx88.0-100.0[facility] State Health SystemComment on above:Performed By: #### [id number] #### [facility] [address] [place] [address]Ostnxpnw mean volume (Bld) [Entitic vol]8.3 fLNormal6.4-10.8 [facility] State Health SystemComment on above:Performed By: #### [id number] #### [facility] [address] [place], [place] [address]Grhiweevb (Bld) [#/Vol]305.0 E9/AZvgquc240.0-500.0Ohio State Health SystemComment on above:Performed By: #### [id number] #### [facility] [address] [place], [place] [address]UJE (Bld) [#/Vol]4.1 E12/LLow4.3-5.9[facility] Comment on above:Performed By: #### [id number] #### [facility] [address] [place], [place] [address]SZT corrected for nucl RBC Auto (Bld) [#/Vol]9.5 E9/LNormal 4.0-11.0Ohio State Health SystemComment on above:Performed By: #### [id number] #### [facility] [address] [place], [place] [address]VJRHWQQDSZrssalt By: SYSTEM SYSTEM on 69-66-8339Tpeqo gap [Moles/Vol]8 mmol/LNormal6 - 16 mEq/LRemisol ChemCalcium [Mass/Vol]8.6 mg/dLLow 8.9 - 11.1 mg/dLRemisol ChemChloride [Moles/Vol]107 mmol/NQfkjrl616 - 111 mmol/L Remisol ChemCO2 [Moles/Vol]27 mmol/WKztkwe47 - 31 mmol/LRemisol ChemCreatinine [Mass/Vol]0.6 mg/dLNormal0.5 - 1.3 mg/dLRemisol UtjxzTKY893 mL/min/1.73 y1Gwdlxi >=59mL/min/1.73 e9Xixkqek ChemGlucose [Mass/Vol]104 mg/sXYtsjjk67 - 199 mg/dL Remisol ChemMagnesium [Mass/Vol]1.8 mg/dLNormal1.3 - 2.4 mg/dLRemisol Chem Phosphate [Mass/Vol]3.8 mg/dLNormal1.9 - 4.6 mg/dLRemisol ChemPotassium [Moles/Vol]3.8 mmol/LNormal3.5 - 5.3 mmol/LRemisol ChemSodium [Moles/Vol]138 mmol/JWlkobb888 - 145 mmol/LRemisol ChemUrea nitrogen [Mass/Vol]9 mg/dLNormal5 - 21 mg/dLRemisol ChemUrea nitrogen/Creatinine [Mass ratio]15 mg/iaDlvqfj57 - 20 Remisol ChemCT Spine Cervical w/o Contraston 03-95-8358WL Spine Cervical w/o ContrastExam Date/Time: 09/17/2024 08:06 EDT Reason for Exam: [...] Ayaan Dong MD Transcribed by: OLY Technologist: [facility] CenterDischarge Note-Nursingon 43-13-4354Wntnxbbht Note-NursingDischarge Note-Nursing DARRICK VILLAFUERTE :1990 Visit Date:09/16/2024 Inpatient [...] This Is Your Medications List acetaminophen (Tylenol) acetaminophen-oxycodone (Percocet 5 mg-325 mg oral tablet) amitriptyline [...] AM EST With: Natalya Prado PA-C [facility] New Follow Up Appointments after Discharge Follow Up with Ender Logan When: Comments: f/u3wks ok shower and remove dressing ugcfh31sag no lift>5lbs keep incis dry clean, wear cervical brace 24/7 6wks Where: [address] [facility], [address] [place] [phone] [email or web address] (1) Medications What How Much When Why Instructions Next Dose Unchanged acetaminophen (Tylenol) 500 Milligram Every day as needed for as needed for pain Take every day as needed for pain Unchanged acetaminophen-oxycodone (Percocet 5 mg-325 mg oral tablet) 1 Tablets By Mouth 3 times a day as needed for Pain 4-7 Cervical stenosis of spine Duration: 7 Days Pickup at [facility] Take as needed 3 times a day as needed for severe pain. Unchanged amitriptyline (amitriptyline 25 mg Tab) 2 Tablets By Mouth Once a day (at bedtime) Duration: 30 Days 9pm Unchanged cyclobenzaprine (cyclobenzaprine 10 mg Tab) 1 Tablets By Mouth 3 times a day Duration: 21Days Pickup at [facility] 9pm Unchanged pregabalin (Lyrica 200 mg Cap) 1 Capsules By Mouth 3 times a day 9pm Pharmacy Information [facility]: [address] [place], [place] [id number] [phone] Test Results CBC BMP WBC: 9.5 E9/L [...] OSTEOCEL PRO ALLOGRAFT CELLULAR BONE MATRIX 09/16/2024 COALITION AGXRP PLATE 09/16/2024 HEDRON IC SPACER 09/16/2024 [...] including vitamins, herbs, eye drops, creams, and ckkj-yfl-ytphchi medicines. ??? Any problems you or family members have had with anesthetic medicines. ??? Any blood disorders you have. ??? Any surgeries you have (more content not included)...Chillicothe HospitalHEMATOLOGYOrdered By: SYSTEM SYSTEM on 91-99-0658Ndrcadzwreg distribution width (RBC) [Ratio]15.0 %High10.9 - 14.2 %Remisol HemeHematocrit (Bld) [Volume fraction]35.8 %Fpewix26.0 - 46.0 %Remisol HemeHemoglobin (Bld) [Mass/Vol]12.2 g/jZMnmssg81.0 - 16.0 gm/dLRemisol HemeMCH (RBC) [Entitic mass]29.5 dfTtyyoa91.0 - 34.0 pgRemisol HemeMCHC (RBC) [Mass/Vol]33.9 g/wIFbyynn30.4 - 36.0 gm/dL Remisol HemeMCV (RBC) [Entitic vol]86.8 sDWcioxc67.0 - 100.0 fLRemisol Heme Platelet mean volume (Bld) [Entitic vol]8.3 fLNormal6.4 - 10.8 fLRemisol Heme Platelets (Bld) [#/Vol]305.0 E9/MAwknlh241.0 - 500.0 E9/LRemisol HemeRBC (Bld) [#/Vol]4.1 E12/LLow4.3 - 5.9 E12/LRemisol HemeWBC corrected for nucl RBC Auto (Bld) [#/Vol]9.5 E9/LNormal4.0 - 11.0 E9/LRemisol HemeInterdisciplinary Note - Case Manageron 63-52-8940Owknzqrtpgnwpttsm Note - Case ManagerInterdisciplinary Note - Agency Operator CRM to room 315 Patient is awake, alert and oriented. Patient is from home with her fiancee, children and her Mom. She [place] have a ride at [place]. Patient verified PCP, DME and insurance. Patient is an ambulatory surgery for Stenosis Sx. She is assigned to Dr Logan and hospitalist Holly DOMÍNGUEZ, see notes. Patient has no DC needs for DME, HH or Paramed. PT has cleared for no needs. She will DC once Dr Logan clears. Patient was provided CRM contact, white board updated. CRM followingChillicothe HospitalComment on above:Result Comment: Electronically Signed By: Aniyah Castro\.br\Date and Time Signed: 09/17/24 11:38 EDTInterdisciplinary Note - OTon 47-57-9796Dtoiifuenekeeyphq Note - OTInterdisciplinary Note - OT Ot ampac six clicks score 23/24 = no further OT inpatient needs. Patient is Ind w/ basic adls/transfers and is aware of all post op precautions w/ good carryover during functional tasks. DC inpatientOT services.NormalOhio State Health SystemMagnesiumon 13-74-4094Eksmcujfo [Mass/Vol]1.8 mg/dLNormal1.3-2.4 [facility] Health SystemComment on above:Performed By: #### [id number] #### [facility] [address] [place], [place] [address]Sdpczardjisl 85-22-3684Knhjbyiyr [Mass/Vol]3.8 mg/dLNormal 1.9-4.6FLicking Memorial HospitalComment on above:Performed By: #### [id number] #### [place] [facility] [facility] [address] [place], [place] [address]zOOGyy 51-89-4245iDFO174 mL/min/1.73 q3Rkqqzl>=59Ohio State Health SystemComment on above:Performed By: #### [id number] #### [facility] [address] [place], [place] [address]IZC/Rhon 35-24-1904PON/RhPositiveInvalid Interpretation Code [facility] Health SystemComment on above:Performed By: #### [id number] #### [facility] [address] [place] [address] 714[address]DRF/Rh History Checkon 69-20-2197MNP/Rh History CheckVerified Hx Blood TypeNormalOhio State Health SystemComment on above:Performed By: #### [id number] #### [facility] [address] [place] [address] 59616JYOUyi 76-49-9606FOOA Gel InterpNegativeNormalOhio State Health SystemComment on above:Performed By: #### [id number] #### [facility] [address] [place] [address] [id number] BANKOrdered By: Xiomy De La Cruz on 27-01-0293ZXF/Rh InterpPositiveInvalid Interpretation [facility] BB SubsectionABSC Gel Interp Negative (09/16/24 10:04 AM)Normal[facility] BB SubsectionBlood Bank ID#on [id number]# [id number] Interpretation [facility] HospitalComment on above: Performed By: #### [id number] #### [facility] [address] [place] [address] 02600Pbjbgkitf Patient Summaryon [id number] Patient Summary Inpatient Patient Summary [address] [address] [facility] Clinical Discharge Instructions PERSON INFORMATION Name: DARRICK VILLAFUERTE PHYSICIANS Admitting Physician: Ender Logan MD Attending Physician: Ender Logan MD PCP: Madhav Fuentes DO Discharge Diagnosis: Comment: PATIENT EDUCATION INFORMATION Instructions: Medication Leaflets: Follow up: With: Address: When: Ender Logan [address] [facility], [address] [place] [id number] [phone] Business (1) Comments: f/u3wks ok shower and remove dressing zxyzk15jfa no lift>5lbs keep incis dry clean, wear cervical brace 16/06 6wks Type Location Start Finish State Pain Management - Follow Up (FT) FT.Pain Mgmt Cierra 10/29/2024 10:30 AM 10/29/2024 10:45 AM Confirmed MEDICATION LIST New Medications [facility], [address] [place], [place] [id number], [phone] acetaminophen-oxycodone (Percocet 5 mg-325 mg oral tablet) [...] (at bedtime) for 30 Days. Refills: 1. Comment:[facility] Intraoperative Recordon 11-10-3296Jghp OR Intraoperative RecordMain OR Intraoperative Record IntraOp Document Type FT Summary Primary Physician: Ender Logan MD Finalized Date/Time: 09/16/24 12:53:16 Pt. Name: DARRICK VILLAFUERTE/Sex: 1990 Female Med Rec #: [id number] Physician: Ender Logan MD Financial #: [id number] Pt. Type: A Room/Bed: [facility]03/24 Admit/Disch: 09/16/24 09:22:53 - Institution: Case Times FT Entry 1 Patient Times In Room 09/16/24 10:42:00 Out Room 09/16/24 12:53:00 Procedure Times Start 09/16/24 11:15:00 Stop 09/16/24 12:39:00 Anesthesia Times Start 09/16/24 10:42:00 Stop 09/16/24 12:53:00 Last Modified By: Yasmine An RN 09/16/24 12:53:06 Case Attendance FT Entry 1 Entry 2 Entry 3 Case Attendee Kayleigh LOCKHART, HEAD OF ENGLISH, Queen Doreen LUKE, Ender Darby SALES SERVICE ASSISTANT, Agustín Ridley Role Performed HEAD OF ENGLISH Surgeon - Primary SALES SERVICE ASSISTANT/SA Time In 09/16/24 10:42:00 09/16/24 10:42:00 09/16/24 10:42:00 Time Out 09/16/24 12:53:00 09/16/24 12:53:00 09/16/24 12:53:00 Procedure CERVICAL ANTERIOR CERVICAL ANTERIOR CERVICAL ANTERIOR DISCECTOMY W/ FUSION,(.) DISCECTOMY W/ FUSION,(.) DISCECTOMY W/ FUSION,(.) Comments DR GO SUPERVISING OUT OF ROOM [id number] Last Modified By: Juve GUILLEN, Yasmine An RN, Yasmine Hill RN 09/16/24 12:53:07 09/16/24 12:53:07 09/16/24 12:53:07 Entry 4 Entry 5 Entry 6 Case Attendee Anyiah Lacey RN, Yasmine Jonas RISK DEVELOPER, Grecia Fuentes Role Performed LEGAL ADVISER Memorandum Statement Clerk - Primary Scrub - Primary Time In 09/16/24 10:42:00 09/16/24 10:42:00 09/16/24 10:42:00 Time Out 09/16/24 12:53:00 09/16/24 12:53:00 09/16/24 12:53:00 Procedure CERVICAL ANTERIOR CERVICAL ANTERIOR CERVICAL ANTERIOR DISCECTOMY W/ FUSION,(.) DISCECTOMY W/ FUSION,(.) DISCECTOMY W/ FUSION,(.) Comments OUT OF ROOM 2800-1624 OUT FOR LUNCH FROM OUT OF ROOM [id number] Last Modified By: Juve GUILLEN, Yasmine An RN, Yasmine An RN, Yasmine Kamara 09/16/24 12:53:07 09/16/24 12:53:07 09/16/24 12:53:07 Entry 7 Entry 8 Entry 9 Case Attendee Coby Schultz, Peggy Alvares Role Performed Memorandum Statement Clerk - Relief Scrub - Relief Drip Box Tender Time In 09/16/24 11:03:00 09/16/24 11:45:00 09/16/24 10:42:00 Time Out 09/16/24 11:39:00 09/16/24 12:25:00 09/16/24 12:33:00 Procedure CERVICAL ANTERIOR CERVICAL ANTERIOR CERVICAL ANTERIOR DISCECTOMY W/ FUSION,(.) DISCECTOMY W/ FUSION,(.) DISCECTOMY W/ FUSION,(.) Comments LUNCH RELIEF Last Modified By: Juve GUILLEN, Yasmine An RN, Yasmine An RN, Yasmine Kamara 09/16/24 12:53:07 09/16/24 12:53:07 09/16/24 12:53:07 General Comments: TESHA GOMEZ, JEAN REP, AND ISABEL KERR, JOYA REP, ALSO IN ATTENDANCE. Epifanio CONTRERAS Perioperative [...] X-ray Applicable) PreOp Antibiotic Yes Time Out Mitti DNP, HEAD OF ENGLISH, Powers Given Participants N., Doreen LUKE, Ender Sood, Wilner ALAN, Abhijit Dee Amber M, Coby Schultz Kipp LPN, Viviane Ding Chelsea R Time Out Complete [...] Clean Specialty Neurology ASA (more content not included)...[facility] PACU I Recordon [id number] OR PACU I RecordMain OR PACU I Record PACU Phase I Document Type FT Summary Primary Physician: Ender Logan MD Finalized Date/Time: 09/16/24 13:49:57 Pt. Name: DARRICK VILLAFUERTE/Sex: 1990 Female Med Rec #: [id number] Physician: Ender Logan MD Financial #: [id number] Pt. Type: A Room/Bed: [place] [address] Admit/Disch: 09/16/24 09:22:53 - Institution: Case Times [...] individualized perioperative plan of care The patient's rightto privacy is maintained The patient's value system, [...] with or improved from baseline levels established preoperativelyThe patient's cardiovascular status is consistent with or improved from baseline levels established preoperatively The patient's cardiovascular status is consistent with or improved from baseline levels established preoperatively The patient demonstrates and/or reports adequate pain control throughout the perioperative period The patient received appropriate medication(s), safely administered during the perioperativeperiod Acuity Level PACU I FT Entry 1 Start Time 09/16/24 12:55:00 Stop Time 09/16/24 13:25:00 Acuity Level Acuity Level I Last Modified By: Rocío Caba RN 09/16/24 13:49:53 Finalized By: Rocío Caba RN Document Signatures Signed By: Rocío Caba RN 09/16/24 13:49NoOhioHealth [facility] HospitalMain OR PACU II Recordon [id number] OR PACU II RecordMain OR PACU II Record PACU Phase II Document Type FT Summary Primary Physician: Ender Logan MD Finalized Date/Time: 09/16/24 15:41:40 Pt. Name: DARRICK VILLAFUERTE/Sex: 1990 Female Med Rec #: [id number] Physician: Ender Logan MD Financial #: [id number] Pt. Type: A Room/Bed: 15 Admit/Disch: 09/16/24 09:22:53 - Institution: Case Times [...] and monitors body temperature Evaluates postoperative respiratory statusEvaluates postoperative cardiac status Evaluates postoperative neurological status [...] individualized perioperative plan of care The patient's rightto privacy is maintained The patient's value system, [...] with or improved from baseline levels established preoperativelyThe patient's cardiovascular status is consistent with or improved from baseline levels established preoperatively The patient's neurological status is consistent with or improved from baseline levels established preoperatively The patient demonstrates and/or reports adequate pain control throughout the perioperative period The patient received appropriate medication(s), safely administered during the perioperativeperiod Finalized By: Peggy Sheikh RN Document Signatures Signed By: Peggy Sheikh RN 09/16/24 15:41NoOhioHealth [facility] HospitalMain OR Preoperative Recordon [id number] OR Preoperative RecordMain OR Preoperative Record PreOp Document Type FT Summary Primary Physician: Ender Logan MD Finalized Date/Time: 09/16/24 11:50:36 Pt. Name: DARRICK VILLAFUERTE /Sex: 1990 Female Med Rec #: [id number] Physician: Ender Logan MD Financial #: [id number] Pt. Type: A Room/Bed: [facility] Admit/Disch: 09/16/24 09:22:53 - Institution: Case [...] Signatures Signed By: Yasmine An RN 09/16/24 11:50NoOhioHealth Marion General HospitalOperative Report on 87-07-9791Luciwzwxo ReportOperative Report Patient: DARRICK VILLAFUERTE Age: 34 years [...] be to prevent you from becoming any worseand losing even more neurological function, such as weakness, numbness or worse pain. Alternatives to be exhausted prior to surgery may include: medication, therapy, interventional pain management, chiropractic, acupuncture, massage therapy. Operative procedure: Patient was brought to the operating room at [facility]. Timeout procedure performed. Patient was intubated by anesthesia service, monitoring lines were placed, preoperative antibioticswere given. Patient was placed in a supine [...] with removal anterior longitudinal ligament complete discectomy includingposterior longitudinal ligament at C6-7. Application of intervertebral [...] may have unintended errors . Anesthesia type: General.[facility] HospitalComment on above: Result Comment: Electronically Signed By: Ender Logan MD\.br\Date and Time Signed: 09/16/24 12:48 EDTOutpatient Surgery Discharge Instructionon 09-16-2024 Outpatient Surgery Discharge InstructionOutpatient Surgery Discharge Instruction [place] [address] Patient Discharge Instructions PERSON INFORMATION Name: DARRICK VILLAFUERTE Date of : 1990 Current Date: 09/16/2024 10:11:12 PHYSICIANS Admitting Physician: Ender Logan MD Discharge Diagnosis: DARRICK VILLAFUERTE has been given the following list of follow-up instructions, prescriptions, and patient education materials: IF UNABLE TO CONTACT YOUR PHYSICIAN AND YOU FEEL IT IS AN EMERGENCY, GO TO THE NEAREST EMERGENCY ROOM OR CALL 911 I, DARRICK VILLAFUERTE, have received the attached patient education materials/instructions and have verbalized understanding: May we do a follow up call? Yes No I was present when discharge instructions were given Patient Signature Date Clinican/Nurse Signature Date Follow up: With: Address: When: Ender Logan [address] [facility], [address] [place] [phone] Business (1) Comments: f/u3wks ok shower and remove dressing cvxum43ckw no lift>5lbs keep incis dry clean, wear cervical brace 24/ 6wks Type Location Start Finish State Pain Management - Follow Up (FT) FT.Pain Mgmt Cierra 10/29/2024 10:30 AM 10/29/2024 10:45 AM Confirmed Pharmacy Information: You may receive a survey from [facility] asking you to rate your care experience. Your feedback is important and will help us understand what we do well and how we can improve the quality of care we provide to you, your loved ones and our community. It???s an honor to serve you. Thank you for choosing [facility] HERE ARE THE MEDICATION CHANGES THAT OCCURRED DURING YOUR HOSPITAL STAY New Medications [facility] [address], [address] [place] [id number], [phone] acetaminophen-oxycodone (Percocet 5 mg-325 mg oral tablet) [...] Refills: 1. PATIENT EDUCATION INFORMATION Instructions: Medication Leaflets:[facility] HospitalPatient Education - Texton 68-37-9300Elgrgfe Education - TextPatient Education - [facility] Medical CenterEROLOGYOrdered By: Ximoy De La Cruz on 58-03-1775IRU.beta subunit (U) [Moles/Vol]NegativeMission Hospital Man SeroU BetaHcg Qualon 32-00-1810TTZ.beta subunit (U) [Moles/Vol]NegativeChillicothe HospitalComment on above:Performed By: #### [id number] #### Jose M [facility] [address] [place], [place] [address]ML Chest 2 Viewson 52-41-5093LV Chest 2 ViewsExam Date/Time: 08/25/2024 10:16 EDT Reason for Exam: [...] Ka,r in mGy = . DAP = .[facility] HospitalBMPon 23-51-4668Rwewp gap [Moles/Vol]9 mmol/LNormal6-16Ohio State Health SystemComment on above:Performed By: #### [id number] #### Jose M [facility] [address] [place], [place] [address]Pnbwhka [Mass/Vol]9.3 mg/dLNormal8.9-11.1FLicking Memorial HospitalComment on above:Performed By: #### [id number] #### [facility] [address] [place], [place] [address]Mzvruzim [Moles/Vol]105 mmol/WLcqxli937-085GczftkOhio State Health SystemComment on above:Performed By: #### [id number] #### [facility] [address] [place], [place] [address]HW0 [Moles/Vol]28 mmol/WZhbvky49-36CzijbnOhio State Health System Comment on above:Performed By: #### [id number] #### [facility] [address] [place], [place] [address]Aagzmfsmit [Mass/Vol]0.6 mg/dLNormal0.5-1.3FLicking Memorial HospitalComment on above:Performed By: #### [id number] #### [facility] [address] [place], [place] [address]Phpwppl [Mass/Vol]80 mg/fFDthiyd82-020QsrmyfOhio State Health SystemComment on above:Performed By: #### [id number] #### [facility] [address] [place], [place] [address]Drpawfjzi [Moles/Vol]4.2 mmol/LNormal3.5-5.3FLicking Memorial HospitalComment on above:Performed By: #### [id number] #### [facility] [address] [place], [place] [address]Tbfkyf [Moles/Vol]138 mmol/XDglgtt338-345YekxzvOhio State Health SystemComment on above:Performed By: #### [id number] #### [facility] [address] [place], [place] [address]Ohsf nitrogen [Mass/Vol]11 mg/dLNormal5-21Ohio State Health SystemComment on above:Performed By: #### [id number] #### [facility] [address] [place], [place] [address]Ucvo nitrogen/Creatinine [Mass ratio]18 No ZfafmKbrqqe24-28 [facility] State Health SystemComment on above:Performed By: #### [id number] #### [facility] [address] [place] [address]BRT w/ Auto Diffon 65-88-8165Uggauovbb/100 WBC (Bld)0.5 %Normal 0.0-2.0Ohio State Health SystemComment on above:Performed By: #### [id number] #### [facility] [address] [place] [address]Yfgrhelcn/Leukocytes Auto (Bld) [Pure # fraction]0.0 E9/LNormal 0.0-0.2FLicking Memorial HospitalComment on above:Performed By: #### [id number] #### [facility] [address] [place] [address]Ezhvcjskmhu (Bld) [#/Vol]0.1 E9/LNormal0.0-0.5FLicking Memorial HospitalComment on above:Performed By: #### [id number] #### [facility] [address] [place] [address]Uizhvjmriai/100 WBC (Bld)2.5 %Normal0.0-8.0Ohio State Health SystemComment on above:Performed By: #### [id number] #### [facility] [address] [place] [address]Vyrcnppxusb distribution width (RBC) [Ratio]16.1 %High10.9-14.2 [facility] State Health SystemComment on above:Performed By: #### [id number] #### [facility] [address] [place] [address]Cvfgbfjwty (Bld) [Volume fraction]38.9 %Zlskyg23.0-46.0Ohio State Health SystemComment on above:Performed By: #### [id number] #### [facility] [address] [place] [address]Pvjbddulfu (Bld) [Mass/Vol]12.9 g/kUJqukmo89.0-16.0[facility] State Health SystemComment on above:Performed By: #### [id number] #### [facility] [address] [place] [address]Lqytcbrcjix (Bld) [#/Vol]1.3 E9/LNormal1.0-4.0Ohio State Health SystemComment on above:Performed By: #### [id number] #### [facility] [address] [place] [address]Qyivzwpvhbz/100 WBC (Bld)25.4 %Lncsko67.0-50.0[facility] State Health SystemComment on above:Performed By: #### [id number] #### [facility] [address] [place] [address]FPB (RBC) [Entitic mass]28.7 njGagnze12.0-34.0[facility] State Health SystemComment on above:Performed By: #### [id number] #### [facility] [address] [place] [address]FBSF (RBC) [Mass/Vol]33.1 g/uOBxmmzf40.4-36.0[facility] State Health SystemComment on above:Performed By: #### [id number] #### [facility] [address] [place] [address]EPX (RBC) [Entitic vol]86.8 xMRgsmba85.0-100.0[facility] State Health SystemComment on above:Performed By: #### [id number] #### [facility] [address] [place] [address]26[address]Gyvqvtcze (Bld) [#/Vol]0.5 E9/LNormal0.2-1.0[facility] State Health SystemComment on above:Performed By: #### [id number] #### [facility] [address] [place] [address]Finwbkmpvll (Bld) [#/Vol]3.2 E9/LNormal2.0-7.5FLicking Memorial HospitalComment on above:Performed By: #### [id number] #### [facility] [address] [place], [place] [address]Gujlhycfldq/100 WBC (Bld)61.0 %Omhevq01.0-75.0[facility] State Health SystemComment on above:Performed By: #### [id number] #### [facility] [address] [place], [place] [address]Tcswjsjm mean volume (Bld) [Entitic vol]8.4 fLNormal6.4-10.8 [facility] Health SystemComment on above:Performed By: #### [id number] #### [facility] [address] [place], [place] [address]Wasbjnksh (Bld) [#/Vol]274.0 E9/FTwrrud346.0-500.0[facility] State Health SystemComment on above:Performed By: #### [id number] #### [facility] [address] [place] [address]WCP (Bld) [#/Vol]4.5 E12/LNormal4.3-5.9[facility] State Health SystemComment on above:Performed By: #### [id number] #### [facility] [address] [place] [address]CAC corrected for nucl RBC Auto (Bld) [#/Vol]5.2 E9/LNormal 4.0-11.0[facility] State Health SystemComment on above:Performed By: #### [id number] #### [facility] [address] [place] [address] 223[address]PSGXHRPFKZgobebv By: SYSTEM SYSTEM on 85-13-1548Cmxqs gap [Moles/Vol]9 mmol/LNormal6 - 16 mEq/LRemisol ChemCalcium [Mass/Vol]9.3 mg/dL Normal8.9 - 11.1 mg/dLRemisol ChemChloride [Moles/Vol]105 mmol/NJbqkiq697 - 111 mmol/LRemisol ChemCO2 [Moles/Vol]28 mmol/AObyzcj16 - 31 mmol/LRemisol Chem Creatinine [Mass/Vol]0.6 mg/dLNormal0.5 - 1.3 mg/dLRemisol AnddtJHU162 mL/min/1.73 y9Xiliuy>=59mL/min/1.73 t5Suswzla ChemGlucose [Mass/Vol]80 mg/dL Quspni99 - 199 mg/dLRemisol ChemPotassium [Moles/Vol]4.2 mmol/LNormal3.5 - 5.3 mmol/LRemisol ChemSodium [Moles/Vol]138 mmol/DXlrkfi757 - 145 mmol/LRemisol Chem Urea nitrogen [Mass/Vol]11 mg/dLNormal5 - 21 mg/dLRemisol ChemUrea nitrogen/Creatinine [Mass ratio]18 mg/yvZowovh29 - 20Remisol ChemCOAGULATION Ordered By: Chuyita Lino on 34-49-8552pDOE Coag (PPP) [Time]33.7 kBbvkuc68.1 - 36.5 second(s)[facility] Auto CoagComment on above:Interpretive Data: Parameter 15 days - 4 weeks 1 - [...] the same coagulation reagent and instrumentation as [facility]. Currently there are no coagulation studies available worldwide for children to 14 days, andno normal ranges. Heparin therapeutic range (represented by Anti-Factor Xa activity of 0.2 - 0.4 U/mL) corresponds to PTT of 56.6 - 109.0 sec.INR Coag (PPP) [Relative time]1.00 {INR}Invalid Interpretation CodeCORNERSTONE SPECIALTY [facility] [place] Auto CoagComment on above:Interpretive Data: INR results are specifically intended to assess patients stabilized on long-term Anticoagulation therapy suggested INR s Less Intensive Anticoagulation 2.0 3.0 Conventional Range 3.0 4.5PT Coag (PPP) [Time]11.2 sNormal9.4 - 12.5 second(s) [facility] Auto CoagComment on above:Interpretive Data: 15 days - 4 weeks 1 - [...] the same coagulation reagent and instrumentation as [facility]. Currently there are no coagulation studies available worldwide for children to 14 days, andno normal ranges.COAGULATIONOrdered By: Kay Pang on 36-66-2683Opjbemrn function (closure time) collagen+EPINEPHrine induced (Bld) [Time]106 sNqoicf40 - 138 second(s)[facility] Man SeroComment on above:Interpretive Data: Normal ASA vWD Glanzmann s Thrombasthenia ------- ------ ------- COL/EPI Normal Abnormal Abnormal Abnormal Col/ADP Normal Normal Abnormal AbnormalHEMATOLOGYOrdered By: SYSTEM SYSTEM on 84-46-7515Pjedwxaxj/100 WBC (Bld)0.5 %Normal0.0 - 2.0 %Remisol Heme Basophils/Leukocytes Auto (Bld) [Pure # fraction]0.0 E9/LNormal0.0 - 0.2 E9/L Remisol HemeEosinophils (Bld) [#/Vol]0.1 E9/LNormal0.0 - 0.5 E9/LRemisol Heme Eosinophils/100 WBC (Bld)2.5 %Normal0.0 - 8.0 %Remisol HemeErythrocyte distribution width (RBC) [Ratio]16.1 %High10.9 - 14.2 %Remisol HemeHematocrit (Bld) [Volume fraction]38.9 %Wosdkq10.0 - 46.0 %Remisol HemeHemoglobin (Bld) [Mass/Vol]12.9 g/kUOzpsdq31.0 - 16.0 gm/dLRemisol HemeLymphocytes (Bld) [#/Vol] 1.3 E9/LNormal1.0 - 4.0 E9/LRemisol HemeLymphocytes/100 WBC (Bld)25.4 %Normal 14.0 - 50.0 %Remisol HemeMCH (RBC) [Entitic mass]28.7 zjQgxcyt37.0 - 34.0 pg Remisol HemeMCHC (RBC) [Mass/Vol]33.1 g/kNAeqhkl84.4 - 36.0 gm/dLRemisol HemeMCV (RBC) [Entitic vol]86.8 wYBlpoou64.0 - 100.0 fLRemisol HemeMonocytes (Bld) [#/Vol]0.5 E9/LNormal0.2 - 1.0 E9/LRemisol HemeMonocytes/100 WBC (Bld)10.6 % Normal4.0 - 14.0 %Remisol HemeNeutrophils (Bld) [#/Vol]3.2 E9/LNormal2.0 - 7.5 E9/LRemisol HemeNeutrophils/100 WBC (Bld)61.0 %Rafqia23.0 - 75.0 %Remisol Heme Platelet mean volume (Bld) [Entitic vol]8.4 fLNormal6.4 - 10.8 fLRemisol Heme Platelets (Bld) [#/Vol]274.0 E9/FCsnycv766.0 - 500.0 E9/LRemisol HemeRBC (Bld) [#/Vol]4.5 E12/LNormal4.3 - 5.9 E12/LRemisol HemeWBC corrected for nucl RBC Auto (Bld) [#/Vol]5.2 E9/LNormal4.0 - 11.0 E9/LRemisol HemePT & PTTon 07-51-2306zCEA Coag (PPP) [Time]33.7 second(s)Ymtmyq37.1-36.5FLicking [facility] Hospital Comment on above:Result Comment: Parameter 15 days - 4 weeks 1 - 5 months 6 - 11 months 1 - 5 years 6 - 10 years 11 - 17 years PTT Mean: 35.4 (27.6-45.6) Mean: 33.5 (24.8-40.7) Mean: 32.4 (25.1-40.7) Mean: 31.6 (24.0-39.2) Mean: 31.6 (26.9-38.7) Mean: 31.0 (24.6-38.4) Pediatric Reference ranges were obtained from a study by randi Cardona prepared from 1437 samples obtained at 7 different centers using the same coagulation reagent and instrumentation as [facility]. Currently there are no coagulation studies available worldwide for children to 14 days, andno normal ranges. Heparin therapeutic range (represented by Anti-Factor Xa activity of 0.2 - 0.4 U/mL) corresponds to PTT of 56.6 - 109.0 sec.Performed By: #### [id number] #### Jose M [facility] [address] [place], [place] [address]NNZ Coag (PPP) [Relative time]1.00 {INR}Invalid Interpretation CodeOhio State Health SystemComment on above:Result Comment: INR results are specifically intended to assess patients stabilized on long-term Anticoagulation therapy suggested INR?s ?Less Intensive Anticoagulation? 2.0 ? 3.0 Conventional Range 3.0 ? 4.5Performed By: #### [id number] #### Jose M [facility] [address] [place], [place] [address]DK Coag (PPP) [Time]11.2 second(s)Normal9.4-12.5Fisher [facility] Medical CenterComment on above:Result Comment: 15 days - 4 weeks 1 - [...] obtained from a study by Juan Carlos Columbus, et al. prepared from 1437 samples obtained at 7 different centers using the same coagulation reagent and instrumentation as [facility]. Currently there are no coagulation studies available worldwide for children to 14 days, andno normal ranges.Performed By: #### [id number] #### [facility] [address] [place], [place] [address]Wzx Function Assayon 91-55-6506Wmndkmgv function (closure time) collagen+EPINEPHrine induced (Bld) [Time]106 second(s)Aqseyf52-524SsjccwOhio State Health SystemComment on above:Result Comment: Normal ASA vWD Glanzmann?s Thrombasthenia ------- ------ ------- COL/EPI Normal Abnormal Abnormal Abnormal Col/ADP Normal Normal Abnormal AbnormalPerformed By: #### [id number] #### [facility] [address] [place], [place] [address]GI with Cult Rflxon 23-41-9721Jcwvlxpoq Ql (U)NegativeNormal NegativeOhio State Health SystemComment on above:Performed By: #### [id number] #### [facility] [address] [place], [place] [address]Nqazpwb (U)ClearNormalClearOhio State Health SystemComment on above:Performed By: #### [id number] #### [facility] [address] [place], [place] [address]Cvtot (U)ColorlessAbnormalYellowOhio State Health System Comment on above:Result Comment: Microscopic readings are only performed on those samples that meet specific criteria set forth by [facility].Performed By: #### [id number] #### [facility] [address] [place], [place] [address]Kmwexex Ql (U)NegativeNormalNegativeOhio State Health System Comment on above:Performed By: #### [id number] #### [facility] [address] [place], [place] [address]Fmagmqrrth Auto test strip (U) [Mass/Vol]NegativeNormalNegative [facility] Health SystemComment on above:Performed By: #### [id number] #### [facility] [address] [place] [address]Rjczvuo Auto test strip Ql (U)NegativeNormalNegativeOhio State Health SystemComment on above:Performed By: #### [id number] #### [facility] [address] [place] [address]Mkdivqfxq esterase Auto test strip Ql (U)NegativeNormalNegative [facility] Health SystemComment on above:Performed By: #### [id number] #### [facility] [address] [place] [address]Veskbgk Auto test strip Ql (U)[facility]Care Hospitals of North CarolinaNegThe Surgical Hospital at SouthwoodsComment on above:Performed By: #### [id number] #### [facility] [address] [place] [address] 66257tK (U)6.5 [pH]Invalid Interpretation Code5.0-9.0Ohio State Health SystemComment on above:Performed By: #### [id number] #### [facility] [address] [place] [address]Dowpzgc Ql (U)[facility] Comment on above:Performed By: #### [id number] #### [facility] [address] [place] [address]Psfkdwwp gravity (U) [Rel density]1.005Invalid Interpretation Code1.005-1.030[facility] State Health SystemComment on above:Performed By: #### [id number] #### [facility] [address] [place] [address]Saozxadjlyvv (U) [Mass/Vol]NegativeNormalNegThe Surgical Hospital at SouthwoodsComment on above:Performed By: #### [id number] #### [facility] [address] [place] [address]Ppws of Urine collection methodClean [facility] Medical CenterComment on above:Performed By: #### [id number] #### [facility] [address] [place], [place] [address]XLCTWQSMLHUprikrp By: SYSTEM SYSTEM on 61-46-7308Csznhntai Ql (U)NegativeNormalNegativemg/dLFT UA Auto SSClarity (U)Clear (08/25/24 10:01 AM)NormalClearFTM UA Auto SSColor (U)Colorless 1 *ABN* (08/25/24 10:01 AM)Invalid Interpretation CodeYellowCORNERSTONE SPECIALTY H[facility] UA Auto SSComment on above:Interpretive Data: Microscopic readings are only performed on those samples that meet specific criteria set forth by [facility].Glucose Ql (U)NegativeNormalNegativemg/dLFT UA Auto SSHemoglobin Auto test strip (U) [Mass/Vol]NegativeNormalNegativemg/dLCORNERSTONE SPECIALTY HOS[facility] UA Auto SSKetones Auto test strip Ql (U)NegativeNormalNegativemg/dLCORNERSTONE SPECIALTY [facility] UA Auto SSLeukocyte esterase Auto test strip Ql (U)NegativeNormalNegativeLeu/uLFT UA Auto SS Nitrite Auto test strip Ql (U)NegativeNormalNegativemg/dLFT UA Auto SSpH (U) 6.5 *NA* (08/25/24 10:01 AM)Invalid Interpretation Code5.0 - 9.0FT UA Auto SSProtein Ql (U)NegativeNormalNegativemg/dLFT UA Auto SSSpecific gravity (U) [Rel density] 1.005 *NA* (08/25/24 10:01 AM)Invalid Interpretation Code1.005 - 1.030[facility]A Auto SS Urobilinogen (U) [Mass/Vol]NegativeNormalNegativemg/dLCORNERSTONE SPECIALTY [facility]OSP[facility] UA Auto SSURINALYSIS Ordered By: Isatu Barillas on 09-75-9303RY Spec DescClean Catch (08/25/24 10:01 AM)NormalCORNERSTONE SPECIALTY [facility]OS[facility] UA Auto SSeGFRon 92-14-6691uTYG652 mL/min/1.73 m2 Normal>=59Ohio State Health SystemComment on above:Performed By: #### [id number] #### [facility] [address] [address]XKM,APTIMA HPV,AGE GDLNon 49-03-7960VKR GDLN ACOG TESTINGNoteLynnette NOMS HealthcareComment on above:TESTS RESULT FLAG UNITS REF RANGE LAB Clinician Provided Cytology Information Source.............Cervix;Endocervix No. of containers..01 ThinPrep Vial Age Algo ACOG Araseli... FLAG LEGEND: L-Low Normal,H-High Normal,LL-Alert Low,HH-Alert High <-Panic Low,>-Panic High,A-Abnormal,AA-Critical Abnormal Performed at: 01 =[address] [place] [address] Michaela Thomas MD, HPV APTIMAPositiveAbnormalNegativeNOMS HealthcareComment on above:This nucleic acid amplification test detects fourteen high- risk HPV types (16,18,31,33,35,39,45,51,52,56,58,59,66,68) without differentiation. Performed at: =[address] [id number] Manager Medical Writing: Michaela Thomas MD, Phone: [phone] Performed at: [address] [id number] Manager Medical Writing: Michaela Thomas MD, Phone: [phone] IGP, APTIMA HPV, RFX 16/18,45NoteAbnormal.NOMS HealthcareComment on above:TESTS RESULT FLAG UNITS REF RANGE LAB DIAGNOSIS: [A] 02 EPITHELIAL CELL ABNORMALITY. LOW GRADE SQUAMOUS INTRAEPITHELIAL LESION (LSIL). Specimen adequacy: 02 Satisfactory for evaluation. Endocervical and/or squamous metaplastic cells (endocervical component) are present. Performed by: Canelo Olson, [place] (ASCP) Electronically si... 02 Stephanie Bautista MD, [...] Low,>-Panic High,A-Abnormal,AA-Critical Abnormal Performed at: [address] [address] Michaela Thomas MD, Interpretation and review of laboratory resultsAbnormalNOMS Healthcare BRUSH-SPATULA CERVIX ENDOCERVIX [facility] HospitalCT Spine Cervical w/o Contraston [id number] Spine Cervical w/o ContrastExam Date/Time: 08/10/2024 17:30 EDT Reason for Exam: [...] Ayaan Dong MD Transcribed by: OLY Technologist: [facility]ike Medical CenterAmbulatory Visit Summaryon 16-10-5835Vmfloxdypx Visit SummaryAmbulatory Visit Summary DARRICK VILLAFUERTE :1990 Visit Date:07/29/2024 Ambulatory Visit Instructions Your [...] you for choosing us for your care. [facility] Medicine Office/Clinic Noteon [id number] Medicine Office/Clinic NoteFagardner state hospital Medicine Office/Clinic Note Chief Complaint 2 week [...] review her MRI. She sees her surgeon on08/03/2024. Denies any new symptoms today. Review of [...] well nourished, in no acute distress Head: Normocephalic/atraumatic Eyes: Pupils equal, round, and reactive to [...] medical support in addressing this problem. Your BMIand weight management will be followed at subsequent visits. 5. Non-smoker (Z78.9: Other specified health status) Stable. Follow-up With When Contact Information Link Madhav GARVIN FAM Within 4 weeks [address] [id number]- Additional Instructions: 4 WEEKS FOLLOWUP Problem List/Past [...] inactivated - Not Given Postpone due to refusalNovesna [facility] State Health SystemComment on above:Result Comment: Electronically Signed By: Madhav Fuentes DO\Date and Time Signed: 07/29/24 09:08 EDTProvider Letteron [id number] LetterProvider Letter July 29, 2024 DARRICK VILLAFUERTE [address] [place] [address] : 1990 To Whom It May Concern, Please excuse above patient from work. Date of Illness: From: 07/29/24 May Return to Work On: Same day Restrictions: none Comments: none Sincerely, [facility] [place] [address] [place] [address] MeewhyMpchxuOhioHealth Marion General HospitalMRI Spine Cervical w/o Contraston [id number] Spine Cervical w/o ContrastExam Date/Time: 07/13/2024 18:56 EDT Reason for Exam: [...] Transcribed by: OLY Technologist: COLTON Technical Comments [facility] HospitalAmbulatory Visit Summaryon 07-09-2024 Ambulatory Visit SummaryAmbulatory Visit Summary DARRICK VILLAFUERTE :1990 Visit Date:07/09/2024 [...] you for choosing us for your care. [facility] Medicine Office/Clinic Noteon [id number] Medicine Office/Clinic NoteFarren Memorial Hospital Medicine Office/Clinic Note Chief Complaint Establish Care HPI Staff Patient here to establish care Establish Care: History: Any previous diagnosis: no History of seeing any specialist: Neurology (Dr. Logan) When was your last doctors visit: quite a while ago Last provider: Jeanne Ocampo Any recent labs: no Health Maintenance UTD: Pelvic/Pap: Per pt 01/2024, Dr. William ([place]) Acute: Current issues/complaints: Patient was recently seen at [facility] 07/06/24. Left shoulder/arm pain. Given Ketorolac and Prednisone in ER. Prescribed Naproxen and Prednisone. Advised to f/u with PCP. - Per pt pain in left shoulder/arm started 05/2024. Denies any trauma to area. ER referred to Neurology after x-rays were clear. Patient has tried ice, heat, Biofreeze, aspirin, Tylenol, Motrin, Aleveand Gabapentin. Has seen Chiropractor. Patient notes she did have some relief when taking Prednisone, but about 5 days after completing pain came back more intense. History of Present Illness Care History Patient known to me from prior practice at [facility]. Previously seen Jeanne Ocampo CNP. Patient currently sees neurosurgery for cervical radiculopathy. She is pending an MRI approval for imaging of her neck for findings. She denies any new falls or injuries. She was recently (07/06/2024)for this and received Toradol and prednisone. She has been following with Dr. Logan, and is scheduling to get an MRI done. She states that she has had no new findings, but her pain is severe, 10/10, and radiates from shoulder to arm. pins and needles sensation is confined to left forearm and digits1-3. She states that she has some pins and needles that will radiate to her anterior chest intermittently as well as by her shoulderblade intermittently. She has tried gabapentin without benefit, NSAID's are only very mildly beneficial, and she has had only had improvement with steroid bursts temporarily. Social Patient is a 34-year-old female Patient is currently , she has 3 children. 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 Patient has no smoking history. Patient has no use of marijuana. Patient has never abused drugs or prescriptions. Patient has social alcohol use without abuse. Patient has from records found to have the following information relevant to their care: - [facility] Review of Systems PHQ Score Initial Depression [...] well nourished, in no acute distress Head: Normocephalic/atraumatic Eyes: Pupils equal, round, and reactive to [...] well, and was satisfi (more content not included)...[facility]icothe HospitalComment on above:Result Comment: Electronically Signed By: Madhav Fuentes DO\.br\Date and Time Signed: 07/09/24 07:52 EDTProvider Letteron 07-09-2024 Provider LetterProvider Letter July 09, 2024 DARRICK VILLAFUERTE [address] [place] [address] : 1990 To Whom It May Concern, Please excuse above patient from work. Date of Illness: From: 07/09/24 May Return to Work On: 07/13/24 Restrictions: none Comments: none Sincerely, [facility] [place] [address] [place] [address] PpmhnsLdbskqCleveland Clinic [facility] Hospital CenterED Note-Physicianon [id number] Note-PhysicianED Note-Physician Basic Information Time Seen: Eri Bobo PA-C 07/06/2024 21:03 Chief Complaint L [...] is currently awaiting insurance approval to receive anMRI. Patient notes she did not receive medication from her back surgeon. She notes she was in the ED approximately 1 month ago in which she was given pain medication and a steroid and noted improvement in symptoms. Patient denies any known injury or trauma to her shoulder. She notes the pain she isfeeling now has been constant since developing it [...] first dose prior to discharge. Patient has anappointment with her family physician in 3 days regarding the shoulder pain. She was advised to return to the ED with any worsening symptoms. Patient is agreeable with the plan and all questions wereanswered. Assessment/Plan Cervical radiculopathy, chronic (M54.12: Radiculopathy, cervical [...] Additional Instructions: Jeanne Ocampo In [address] [place] [address], [address] [place] [address]- Business (1) Additional Instructions: Patient Education Cervical Radiculopathy, Ziio-fq-Zlqf Attestation Patient seen and evaluated by the physician assistant news director. Attending physician was present in the emergency department and supervised care. This visit was performed by both the physician and an APC. I performed all aspects of the MDM as documented. This report was transcribed using voice recognition software. Every effort was made to ensure accuracy, however, inadvertently computerized passenger car cleaning supervisor mistakes may be present. Appropriate (more content not included)...[facility] Comment on above:Result Comment: Electronically Signed By: Eri Bobo PA-C\.br\Date and Time Signed: 07/06/2423:48 EDT\.br\Electronically Co-Signed By: Jorge Sue DO\.br\Date and Time Co-Signed: 07/07/24 01:08 EDTED Clinical Summaryon [id number] Clinical SummaryED Clinical Summary [place] [id number] ED Clinical Summary Person Information Name: DARRICK VILLAFUERTE Radha/[facility] Age: 34 Years : 1990 Sex: Female Language: Ukrainian PCP: Jeanne Ocampo CNP Marital Status: Single Phone: [phone] Visit Id: Visit Reason: Arm pain-swelling; LT [...] 07/06/2024 21:42:33 07/06/2024 21:42:33 07/06/2024 21:42:33 ADDRESS: [address] [place] [address] [place] [phone] PHYS DOC NOTES: MEDICAL INFORMATION: Prescriptions Given: New Medications [facility], [address] [place], [place] [id number], [phone] naproxen (naproxen 500 mg Tab) 1 Tablets By Mouth 2 times a day as needed Pain. Refills: 0. predniSONE (predniSONE 50 mg Tab) 1 Tablets By Mouth every day for 7 Days. Refills: 0. PATIENT EDUCATION INFORMATION: Instructions: Cervical Radiculopathy, Ykym-dl-Hrkw Follow up: With: Address: When: Continue following up with your back surgeon as previously scheduled for the MRI. Use the naproxen as needed and the steroid as prescribed. Return to the ED with any worsening symptoms. In 3 days 07/09/2024 With: Address: When: Jeanne Ocampo [address] [place] [address], [facility], [address] [place] [address] Business (1) In 3 days DIAGNOSIS: Cervical radiculopathy, chronic; Chronic left shoulder pain; Other chronic pain [facility] Patient Summaryon [id number] Patient SummaryED Patient Summary [address] [address] Patient Discharge Instructions Person Information Name: DARRICK VILLAFUERTE Age: 34 Years Arrival Date: 07/06/2024 20:27:28 Discharge Diagnosis: Cervical radiculopathy, chronic; Chronic left shoulder pain; Other chronic pain Primary Care Physician: Jeanne Ocampo CNP Provider Information Primary Provider: Jorge Sue DO Advanced Bill Distributor:Eri Bobo PA-C The exam and treatment you received in the Emergency Department were for an urgent problem and are not intended as complete care. It is important that you follow up with a doctor, nurse practitioner,or physician?s assistant news director for ongoing care. If your symptoms become [...] days 07/09/2024 With: Address: When: Jeanne Ocampo [address] [place] [address], [facility], [address] [place] [address] Business (1) In 3 days In the event that this physician does not participate in your insurance network, please consult with your insurance company to find a nearby participating provider. Patient Education Materials: Cervical Radiculopathy, Kplz-op-Xojn A MESSAGE TO ALL PATIENTS REGARDING OPIOIDS PRESCRIPTION OPIOIDS: WHAT YOU NEED TO KNOW Prescription opioids can be used to help relieve ocamdqit-gx-rltqfv pain and are often prescribed following a [...] and have fewer risks and side effects. Optionsmay include: ? Pain relievers such as acetaminophen, [...] unused prescription opioids: Find your community drug take- back program or yourpharmacy mail-back program, or flush them down the toilet, following guidance from the Food a (morecontent not included)...ViktoriaAjayjigna Correia Medical CenterED Note-Physicianon [id number] Note-PhysicianED Note-Physician Basic Information Time Seen: Wade Perez [...] prednisone 40 mg daily as well as met hocarbamol without relief. She states that the numbness and tingling is somewhat new and the pain was mostly within the left shoulder the first 2 days. She denies any saddle anesthesia, loss of bowelor bladder control or difficulty using her hands. Review of Systems No other aggravating or relieving factors no other associated symptoms no other prior treatments orcomplaints. Family: Reviewed and noncontributory Social: lives at [...] cervical spine demonstrate mild disc height loss C3- C4 and C5-C6. I spoke with the patient that most of her pain seems to be coming from the cervical spine given her radicular-like symptoms. Gave her a dose of Toradol here in the ED. Will increase her dose to the optimal 60 mg of prednisone as an outpatient for the next 5 days. I will alsoadd naproxen 500 mg p.o. twice daily and gabapentin 100 mg p.o. twice daily. We gave her Dr. Doreen pardo follow-up with as an outpatient as she may need a cervical epidural and physical therapy. Return to ED precautions were reviewed with the patient at length. Assessment/Plan Cervical radiculopathy (M54.12: Radiculopathy, cervical region) Cervicalgia (M54.2: Cervicalgia) Left shoulder pain (M25.512: Pain in left shoulder) Orders: gabapentin, 100 mg = 1 cap(s), Oral, BID, X 10 day(s), # 20 cap(s), Refills(s) 0, Pharmacy: [facility], 152, cm, 06/03/24 13:25:00 EDT, Height/Length Dosing, 61.5, kg, 06/03/24 13:25:00 EDT, Weight Dosing ketorolac, 30 mg = 1 mL, Injection, IntraMuscular, Once, Stop date 06/03/24 14:13:00 EDT, STAT, Start date 06/03/24 14:13:00 EDT, 06/03/24 14:13:00 EDT naproxen, 500 mg = 1 tab(s), Oral, BID, X 10 day(s), # 20 tab(s), Refills(s) 0, Pharmacy: [facility], 152, cm, 06/03/24 13:25:00 EDT, Height/Length Dosing, 61.5, kg, 06/03/24 13:25:00EDT, Weight Dosing predniSONE, 60 mg = 3 tab(s), Oral, Daily, X 5 day(s), # 15 tab(s), Refills(s) 0, Pharmacy: [facility], 152, cm, 06/03/24 13:25:00 EDT, Height/Length [...] Ender Logan In 3 days 06/06/2024 EDT [address] [facility], [address] [place] [phone] Business (1) Additional Instructions: Jeanne Ocampo In 3 days [address] [facility], [address] [place] [address]- Business (1) Additional Instructions: Patient Education Cervical Radiculopathy Attestation Patient seen and evaluated by the physician assistant news director. A (more content not included)...[facility]icothe HospitalComment on above:Result Comment: Electronically Signed By: Wade Perez PA-C\.br\Date and Time Signed: 06/03/2415:30 EDT\.br\Electronically Co-Signed By: Wade Perez PA-C.br\Date and Time Co-Signed: 06/03/24 15:31 EDT\.br\Electronically Co-Signed By: Den Mcqueen M.D.\.br\Date and Time Co-Signed: 06/04/24 23:25 EDTED Clinical Summaryon [id number] Clinical SummaryED Clinical Summary [address] [address] ED Clinical Summary Person Information Name: DARRICK VILLAFUERTE/[place] Age: 34 Years : 1990 Sex: Female Language: Ukrainian PCP: Jeanne Ocampo CNP Marital Status: Single Phone: [phone] Visit Id: Visit Reason: Arm pain-swelling; LEFT [...] 06/03/2024 15:28:27 06/03/2024 15:28:27 06/03/2024 15:28:27 ADDRESS: [address] [place] [phone] PHYS DOC NOTES: MEDICAL INFORMATION: Prescriptions Given: New Medications [facility], [address] [place], [place] [id number], [phone] gabapentin (gabapentin 100 mg Cap) 1 Capsules By Mouth 2 times a day for 10 Days. Refills: 0. naproxen (naproxen 500 mg Tab) 1 Tablets By Mouth 2 times a day for 10 Days. Refills: 0. Medications to Continue Taking That Have Changed [facility], [address] [place], [place] [id number], [phone] START: predniSONE (predniSONE 20 mg Tab) 3 [...] Follow up: With: Address: When: Ender Logan [address] [facility], [address] [place] [phone] Business (1) In 3 days 06/06/2024 With: Address: When: Jeanne Ocampo [address] [facility], [address] [place] [address] Business (1) In 3 days DIAGNOSIS: Cervical radiculopathy; Cervicalgia; Left shoulder painNormalSelect Medical [facility] Patient Summaryon [id number] Patient SummaryED Patient Summary [address] [address] Patient Discharge Instructions Person Information Name: DARRICK VILLAFUERTE Age: 34 Years Arrival Date: 06/03/2024 13:08:42 Discharge Diagnosis: Cervical radiculopathy; Cervicalgia; Left shoulder pain Primary Care Physician: Jeanne Ocampo CNP Provider Information Primary Provider: Den Mcqueen M.D. Advanced Bill Distributor:Wade Perez PA-C The exam and treatment you received in the Emergency Department were for an urgent problem and are not intended as complete care. It is important that you follow up with a doctor, nurse practitioner,or physician?s assistant news director for ongoing care. If your symptoms become worse or you do not improve as expected and you are unable to reach your usual health care provider, you should return to the Emergency Department. We are available 24 hours a day. DARRICK VILLAFUERTE has been given the following list of patient education materials, prescriptions and follow-up instructions: Follow-up Instructions: With: Address: When: Ender Socrateskal [address] [facility], [address] [place] [phone] [email or web address] (1) In 3 days 06/06/2024 With: Address: When: Jeanne Ocampo [address] [facility], [address] [place] [address] Business (1) In 3 days In the event that this physician does not participate in your insurance network, please consult with your insurance company to find a nearby participating provider. Patient Education Materials: Cervical Radiculopathy A MESSAGE TO ALL PATIENTS REGARDING OPIOIDS PRESCRIPTION OPIOIDS: WHAT YOU NEED TO KNOW Prescription opioids can be used to help relieve itbpacki-rg-lulvcz pain and are often prescribed following a [...] and have fewer risks and side effects. Optionsmay include: ? Pain relievers such as acetaminophen, [...] unused prescription opioids: Find your community drug take- back program or yourmerged with swedish hospitalrmacy mail-back program, or flush them down the toilet, following guidance from the Food and Drug Administration (www.fda.gov/Drugs/ResourcesForYou). ? Visit www.cdc.gov/drugoverdose to learn about the risks of opioid (more content not included)...[facility]icothe HospitalXR Shoulder Complete Lefton [id number] Shoulder Complete LeftExam Date/Time: 06/03/2024 15:04 EDT Reason for Exam: [...] Ka,r in mGy = . DAP = .[facility] HospitalXR Spine Cervical 2 or 3 Viewson [id number] Spine Cervical 2 or 3 ViewsExam Date/Time: 06/03/2024 15:05 EDT Reason for Exam: [...] Trey Way M.D. Transcribed by: OLY Technologist: CML Technical Comments Radiation Dose: epifanio Benavides in mGy = . DAP = .[facility] HospitalAmbulatory Visit Summaryon 06-01-2024 Ambulatory Visit SummaryAmbulatory Visit Summary DARRICK VILLAFUERTE :1990 Visit Date:06/01/2024 [...] shoulder pain Duration: 7 Days Pickup at [facility] New predniSONE (predniSONE 20 mg Tab) 2 Tablets By Mouth Every day Left shoulder pain Duration: 7 Days Pickup at [facility] Pharmacy Information [facility]: [address] [place], [place] [id number] [phone] Allergies penicillins Problems Ongoing - Any problem that you are currently receiving treatment for. Abnormal placenta affecting management of mother Patient Survey You may receive a survey via text or e-mail asking about your office visit. Please share your experience with us by completing your survey. We appreciate your feedback and thank you for choosing us for your care. [facility] Office/Clinic Noteon [id number] Medicine Office/Clinic NoteFagardner state hospital Medicine Office/Clinic Note Chief Complaint left shoulder pain HPI Staff 34 year old female presents with posterior left side shoulder pain. pain radiates down entire left arm to hand with some numbness and tingling pain has been off and on for 1 month, has been getting worse denies injury History of Present Illness Reviewed and agree with above documented HPI by medical detail representative. Patient is a 34-year-old female who presents [...] strength in her hands. She denies any ktay-ytg-qgtvjer medications for symptom relief. She states she [...] decreased strength in lower extremity. She is advisedthat this occurs she should report to ER. [...] day(s), # 56 tab(s), Refills(s) 0, Pharmacy: [facility], 152, cm, 06/01/24 9:55:00 EDT, Height/Length Dosing, 59, kg, 06/01/24 9:55:00 EDT, Weight Dosing predniSONE, 40 mg = 2 tab(s), Oral, Daily, X 7 day(s), # 14 tab(s), Refills(s) 0, Pharmacy: [facility], 152, cm, 06/01/24 9:55:00 EDT, Height/Length Dosing, 59, kg, 06/01/24 9:55:00 EDT, Weight Dosing Portions of this record may have been created with voice recognition artificial intelligence software, specifically [employer], [employer] and or [employer]. Occasional wrong-word or `twqym-m-aiva? substitutions may have occurred due to the inherent limitations of voice recognition and artificial intelligence software. Follow-up No qualifying data available Patient Education Musculoskeletal Pain Heat Therapy, Yoes-lk-Iuar Problem List/Past Medical History Ongoing Abnormal placenta [...] Use:., 04/20/2021 Family History Family history is negativeNormalOhio State Health SystemComment on above: Result Comment: Electronically Signed By: Jojo ESPANA, Cuco Smith\.joe\Date and Time Signed: 06/01/24 10:18 EDTPAP ACOG PANEL 2: 30 to 65on 04-03-2021.. [facility] HospitalComment on above:Result Comment: Performed at: WB Performed By: #### [id number] #### [facility] [address] [place] [address] Michelle KarenAge Gdln ACOG Htultpe90-36UkiqmuMieCleveland Clinic Hillcrest HospitalComment on above:Performed By: #### [id number] #### [facility] [address] [place] [address] Michelle KarenDIAGNOSIS:CommentMercy Health St. Rita's Medical Center on above:Result Comment: NEGATIVE FOR INTRAEPITHELIAL LESION OR MALIGNANCY. Performed at: WBPerformed By: #### [id number] #### [facility] [address] [place] [address] Michelle KarenHPV AptimaNegativeNormalNegativeThe St. [facility] on above:Result Comment: This nucleic acid amplification test detects fourteen high-risk HPV types (16,18,31,33,35,39,45,51,52,56,58,59,66,68) without differentiation. Performed at: =GPerformed By: #### [id number] #### [facility] [address] [place] [address] Michelle KarenMethodology:CommentMercy Health St. Rita's Medical Center on above: Result Comment: This liquid based ThinPrep(R) pap test was screened with the use of an image guided system. Performed at: WBPerformed By: #### [id number] #### [facility] [address] [place] [address] Michelle KarenNote:CommentMercy Health St. Rita's Medical Center on above:Result Comment: The Pap smear is a screening test designed to aid in the detection of premalignant and malignant conditions of the uterine cervix. It is not a diagnostic procedure and should not be used as the sole means of detecting cervical cancer. Both false-positive and false-negative reports do occur. . Performed at: WBPerformed By: #### [id number] #### [facility] [address] [place] [address] Michelle KarenPerformed by:CommentMercy Health St. Rita's Medical Center on above: Result Comment: Beatriz Ayon Kitchenhand (ASCP) Performed at: WBPerformed By: #### [id number] #### [facility] [address], [place] [address] Michelle Briceñopecimen adequacy:CommentNormKettering Health Washington TownshipComment on above:Result Comment: Satisfactory for evaluation. Endocervical and/or squamous metaplastic cells (endocervical component) are present. Performed at: WBPerformed By: #### [id number] #### [facility] [address], [place] [address] Michelle Castro Vital Signs Date TimeVital SignValuePerforming UnzzupdhqTtoszjnq02-89-0750 09:00-0400Body mass index (BMI) [Ratio]25.58 kg/a1Grtxw Nataliia DO Work Phone: [phone] [place], [place] [address]Bnnvifyfvi32-25-1003 09:00-0400Body nagmgn38.42 kgCorey Nataliia DO Work Phone: [phone] [place], [place] [address]Njdiqefqur22-01-1422 09:00-0400Diastolic blood frjrcexm14 mm[Hg]Willem Nataliia DO Work Phone: [phone] [place], [place] [address]Sxcyrgqsta10-65-9317 09:00-0400Systolic blood qhtvhhyk898 mm[Hg]Willem Nataliia DO Work Phone: [phone] [place], [place] [address]Jihuoigeuq36-70-0203 14:10-0500Body mass index (BMI) [Ratio]25 kg/a8Nosrl Nataliia DO Work Phone: [phone]-[facility] CenterMlzjbscjon86-19-3954 14:10-0500Body dxatjy23.06 kgCorey Nataliia DO Work Phone: [phone]-[facility] CenterBhvlkofxin30-00-0968 14:10-0500Diastolic blood ppmsfyoq40 mm[Hg]Willem Nataliia DO Work Phone: [phone] [place], [place] [address]Grgoasxbtd07-17-4995 14:10-0500Systolic blood pwpioltd570 mm[Hg]Willem Nataliia DO Work Phone: [phone] [place], [place] [address]Railmjtqhb94-77-1803 14:02-0500Body mass index (BMI) [Ratio]25.55 kg/c3Ayzqv Nataliia DO Work Phone: [facility] CenterUljdelgzwl14-75-2205 14:02-0500Body wugzhd09.33 kgCorey Nataliia DO Work Phone: [facility] CenterQwhkkziwag31-37-7232 14:02-0500Diastolic blood onbasaei95 mm[Hg]Willem Mckinneyo DO Work Phone: [facility] CenterGslxlqrucv32-29-1563 14:02-0500Systolic blood zsrqnxoe967 mm[Hg]Willem Mckinneyo DO Work Phone: [facility] CenterFfzcrdlqbi36-15-8402 10:35-0500Diastolic blood mwubglop77 mm[Hg]Natalya Prado [facility]12-06-2024 10:35-0500Heart rate68 /minAmanda Business Lab [facility]12-06-2024 10:35-0500Mean blood vgjtxucm64 mm[Hg]Natalya Prado [facility]12-06-2024 10:35-0500 Respiratory rate16 /minAmanda Business Lab [facility]12-06-2024 10:35-0500 Systolic blood azjuwoyg515 mm[Hg]Natalya Prado [facility]10-25-2024 15:43-0400Heart xvnb099 /minRichjeanette Doreen [facility]10-25-2024 15:43-5045UaN2% (BldA) [Mass fraction]96 %Ender Da Silvaw [facility]10-25-2024 15:42-0400Body swfkngetyng95.68 [degF]Ender Crowelliew [facility]10-25-2024 15:42-0400 Diastolic blood ynupnnoa20 mm[Hg]Ender Rekhaw [facility]10-25-2024 15:42-0400Mean blood mm[Hg]Ender Rhiew [facility]10-25-2024 15:42-0400 Systolic blood seruqamx39 mm[Hg]Ender Rhiew [facility]10-25-2024 15:06-0400 Hourly RoundingRichard Rhiew [address] [place], [place] [address]18[address]10-25-2024 15:06-0400 Promise to ReturnRichard Rhiew [address] [place], [place] 7183710-25-2024 14:56-0400 Hourly RoundingRichard Rhiew [address] [place], [place] [address]18[address]10-25-2024 14:56-0400 Promise to ReturnRichard Rhiew [address] [place], [place] [address]18[address]10-25-2024 13:56-0400 Hourly RoundingRichard Rhiew [facility]10-25-2024 13:56-0400 Promise to ReturnRichard Rhiew [facility]10-25-2024 11:21-0400Blood Pressure LocationRichard Rhiew [facility]10-25-2024 11:21-0400Body uxehxunbuwc12.06 [degF]Ender Rhiew [facility]10-25-2024 11:21-0400 Diastolic blood nivqorfw65 mm[Hg]Ender Rhiew [facility]10-25-2024 11:21-0400Heart rate93 /minRichard Rhiew [facility]10-25-2024 11:21-0400Mean blood mncjilxq03 mm[Hg]Ender Rhiew [facility]10-25-2024 11:21-0400 Respiratory rate14 /minRichard Rhiew [facility]10-25-2024 11:21-3752KcO5% (BldA) [Mass fraction]98 %Ender Rhiew [facility]10-25-2024 11:21-0400 Systolic blood clnibrvz59 mm[Hg]Ender Rhiew [facility]10-25-2024 07:21-0400Blood Pressure LocationRichard Rhiew [facility]10-25-2024 07:21-0400Body hueraxelsyo96.24 [degF]Ender Crowelliew [facility]10-25-2024 07:21-0400 Diastolic blood ybwdgdlg14 mm[Hg]Ender Rhiew [facility]10-25-2024 07:21-0400Heart rate89 /minRichjeanette Rhiew [facility]10-25-2024 07:21-0400Mean blood revfqmdp51 mm[Hg]Ender Rhiew [facility]10-25-2024 07:21-0400 Respiratory rate16 /minRichard Rhiew [facility]10-25-2024 07:21-3785OxL0% (BldA) [Mass fraction]96 %Ender Rhiew [facility]10-25-2024 07:21-0400 Systolic blood jxjirmwu58 mm[Hg]Ender Rhiew [facility]10-25-2024 04:00-0400Body foqwwsmpulf48.88 [degF]Ender Rhiew [facility]10-25-2024 04:00-0400Mean blood pcbnnygx36 mm[Hg]Ender Crowelliew [facility]10-25-2024 00:59-0400Body zixxaineopj89.42 [degF]Ender Rhiew [facility]10-24-2024 20:08-0400Mean blood tvdqirok34 mm[Hg]Ender Rhiew [facility]10-24-2024 20:07-0400Body paablknouvo95.6 [degF]Ender Crowelliew [facility]10-24-2024 15:35-0400Mean blood qtllqxaa53 mm[Hg]Ender Crowelliew [facility]10-24-2024 15:34-0400Body apfzmgpumpl49.06 [degF]Ender Crowelliew [facility]10-24-2024 14:00-0400Body rexowgfnipz23.7 [degF]Ender Crowelliew [facility]10-24-2024 13:20-0400 Respiratory rate15 /minRichard Rhiew [facility]10-24-2024 13:10-0400 Respiratory rate13 /minRichard Rhiew [facility]10-24-2024 13:05-0400 Respiratory rate12 /minRichard Rhiew [facility]10-09-2024 10:06-0400 Diastolic blood vdlwsopr54 mm[Hg]Natalya Prado [facility]10-09-2024 10:06-0400Heart rate98 /minNatalya Prado [facility]10-09-2024 10:06-0400Mean blood yfcoqrza66 mm[Hg]Natalya Prado [facility]10-09-2024 10:06-0400 Respiratory rate20 /minAmanlore Prado [facility]10-09-2024 10:06-0400 Systolic blood amupyftz453 mm[Hg]Natalya Prado [facility]10-02-2024 09:32-0400Blood Pressure LocationRichjeanette Logan [facility]10-02-2024 09:32-0400 Diastolic blood zprtgveu41 mm[Hg]Ender Da Silvaw [facility]10-02-2024 09:32-0400 Systolic blood qpwgvdan320 mm[Hg]Ender Da Silvaw [facility]10-02-2024 09:31-0400Blood Pressure LocationRichjeanette Logan [facility]10-02-2024 09:31-0400Body pgaltnjcsov10.24 [degF]Ender Crowelliew [facility]10-02-2024 09:31-0400 Diastolic blood hwmrjxyo49 mm[Hg]Ender Crowelliew [facility]10-02-2024 09:31-0400Heart rate73 /minRichard Rhiew [facility]10-02-2024 09:31-0400 Respiratory rate16 /minRichard Rhiew [facility]10-02-2024 09:31-4995LxU4% (BldA) [Mass fraction]98 %Ender Rhiew [facility]10-02-2024 09:31-0400 Systolic blood pqkqewpx993 mm[Hg]Ender Logan [facility]09-23-2024 09:09-0400Body mass index (BMI) [Ratio]25.55 kg/h6Shbar Nataliia DO Work Phone: [facility] CenterZeuiafvgko77-47-2443 09:09-0400Body odnrjw61.33 kgCorey Nataliia DO Work Phone: [facility] CenterEmzumoptwo70-36-4967 09:09-0400Diastolic blood jemhnrsr87 mm[Hg]Willem Nataliia DO Work Phone: [facility] CenterEdzqzimhws57-64-9326 09:09-0400Systolic blood vxwpxiup676 mm[Hg]Willem Nataliia DO Work Phone: [facility] CenterIhgfyzmmpy45-04-6981 08:39-0400Blood Pressure LocationAdam Link [phone]-[facility]oetCity [facility] 07-29-2024 08:39-0400Diastolic blood fgfviavl54 mm[Hg]Madhav Snapdeal 022-0684Kfkquj-QmzysCity Hospital 07-29-2024 08:39-0400Heart rate82 /minAdam Snapdeal 713-0380Nurvau-OlzvfCity Hospital 07-29-2024 08:39-2234KvE0% (BldA) [Mass fraction]98 %Madhav Link [phone]-FrbfvCity Hospital 07-29-2024 08:39-0400Systolic blood mm[Hg]Madhav Link 326-0653Eotoiq-LbpqjCity Hospital 07-21-2024 12:42-0400Diastolic blood akiwimcg73 mm[Hg]Natalya Prado [facility]08-28-2024 12:42-0400Heart rate74 /minAmanda Business Lab [facility]08-28-2024 12:42-0400Mean blood euriotax36 mm[Hg]Natalya Prado [facility]08-28-2024 12:42-0400 Respiratory rate18 /minAmanda Prado [facility]08-28-2024 12:42-0400 Systolic blood zymyumzg757 mm[Hg]Natalya Prado [facility]08-16-2024 07:03-0400Blood Pressure LocationAdam Link [phone]-WtoqiCity Hospital 07-09-2024 07:03-0400Diastolic blood kfqyksbk28 mm[Hg]Madhav Snapdeal 834-2777Ukyjua-KszoyCity Hospital 07-09-2024 07:03-0400Heart rate72 /minAdam Link 709-3106Sabkmq-TmfadCity Hospital 07-09-2024 07:03-0596MyR4% (BldA) [Mass fraction]98 %Madhav Snapdeal 686-7303Azdidv-AbsxhCity Hospital 07-09-2024 07:03-0400Systolic blood upwojfzz732 mm[Hg]Madhav Snapdeal 668-4490Gayjcl-OlgtvCity Hospital 07-06-2024 20:29-0400Body wybsrjrnsmp95.88 [degF]Jorge Linette [facility]08-13-2024 20:29-0400 Diastolic blood usznvvnx25 mm[Hg]Jorge Linette [facility]08-13-2024 20:29-0400Heart rate91 /minNoah Linette [facility]08-13-2024 20:29-0400 Respiratory rate18 /minNoah Linette [facility]08-13-2024 20:29-2626ZlJ3% (BldA) [Mass fraction]99 %Jorge Sue [facility]08-13-2024 20:29-0400 Systolic blood qlopdqdi369 mm[Hg]Jorge Sue [facility]07-11-2024 13:20-0400Body ntzagmogplf00.24 [degF][facility]07-11-2024 13:20-0400Diastolic blood lcuyohii72 mm[Hg][facility]07-11-2024 13:20-0400Heart rate83 /minWVUMedicine [facility]07-11-2024 13:20-0400Respiratory rate18 /minWVUMedicine [facility]07-11-2024 13:20-1751UyG5% (BldA) [Mass fraction]100 %[facility]07-11-2024 13:20-0400Systolic blood pressure 107 mm[Hg][facility]07-09-2024 09:53-0400Blood [facility] 06-01-2024 09:53-0400Body rwyioekulkk87.52 [degF][facility] Swdx28-79-7807 09:53-0400Diastolic blood wcqonqvs48 mm[Hg][facility] Nibn00-49-0900 09:53-0400Heart rate77 /minGu[facility] Uktc04-32-5279 09:53-8925QcT5% (BldA) [Mass fraction]98 %[facility] Snqa15-52-0697 09:53-0400Systolic blood sxcbekkp764 mm[Hg][facility] Encounters Encounter DateEncounter TypeCare ProviderFacilityStart: 07-29-2025 End: 82-45-4850bzibgubeesIxzu C LinkFacility:FM MilanStart: 07-29-2025 End: 31-54-8203Yxkwtvc encounter procedureAdam C Link [phone]-LzemwC[facility] [place] Start: 07-22-2025 End: 85-82-7341oyqowzmwhyUfielito C EligiodnerFacility:FTMCStart: 07-22-2025 End: 85-44-4010Fqdiplq encounter procedurePatricia Omid Del Valledner [phone]-MnuvaRegency Hospital [facility] Start: 06-07-2025 End: 82-86-3627Fphpsr flowsheetCorey Nataliia DO Work Phone: noms [facility] OBStart: 06-07-2025 End: 57-40-7035Ylryzp flowsheetCorey Nataliia DO Work Phone: n[facility] OBStart: 06-07-2025 End: 78-47-2526Lxoowhvwt Result EncounterCorey Nataliia DO Work Phone: noms External Department UnsolicitedStart: 06-07-2025 End: 19-38-8333Iggdokj of abnormal cervical Papanicolaou smearCorey Nataliia DO Work Phone: noms HealthcareStart: 06-07-2025 End: 73-79-1345Azbpma outpatient visit 15 minutesCorey Nataliia DO Work Phone: noms [facility] OBComment on above:Pap smear to confirm normal after abnormal result; LGSIL of cervix of undetermined significance; H/O LEEP; Well woman exam with routine gynecological examStart: 06-07-2025 End: 47-91-6930Rdlonvn encounter procedureCorey Nataliia DO Work Phone: noms HealthcareStart: 06-07-2025 End: 33-00-0982jlscsptvkqPWIHL FAZIONot AvailableStart: 02-04-2025 End: 37-04-3322whbaxcnynrQyptu FazioFirelands [facility]tr Work Phone: Start: 02-04-2025 End: 15-57-0915Ncyqnnxi ReferredCorey Nataliia DO Work Phone: [facility]-LAB Path Spec Joana HospStart: 01-12-2025 End: 71-84-4295Isnhik flowsheetCorey Nataliia DO Work Phone: NOBF BCP OBStart: 01-12-2025 End: 56-46-5674Zaktfv flowsheetCorey Nataliia DO Work Phone: noms BCP OBStart: 01-12-2025 End: 65-63-1276Lptals outpatient visit 15 minutesCorey Nataliia DO Work Phone: noms BCP OBComment on above:Pre-op evaluation; LGSIL on Pap smear of cervix; Cervical high risk human papillomavirus (HPV) DNA test positiveStart: 01-12-2025 End: 46-29-9961Mgsxxdtoknmid examination doneCorey Nataliia DO Work Phone: noms HealthcareStart: 01-12-2025 End: 23-43-4520jvinxwbypxXVHRX FAZIONot AvailableStart: 12-27-2024 End: 29-26-2916Sylqym flowsheetCorey Nataliia DO Work Phone: noms BCP OBStart: 12-27-2024 End: 20-42-3500Xavrwq flowsheetCorey Nataliia DO Work Phone: noms BCP OBStart: 12-27-2024 End: 51-25-1053Wqncmb outpatient visit 15 minutesCorey Nataliia DO Work Phone: noms BCP OBComment on above:LGSIL on Pap smear of cervixStart: 12-27-2024 End: 54-95-5771crtvrcgyjbYRPCC FAZIONot AvailableStart: 10-29-2024 End: 43-43-4249eebtrikvuyKpvw C LinkFacility:FTMCStart: 10-29-2024 End: 95-88-6878Dsisvyz encounter procedureAmanda Business Lab [facility] Start: 09-16-2024 End: 28-35-9269nuistwabyxCshscbw B RhiewFacility:FTMCStart: 09-16-2024 End: 67-50-7842Ivonyuu encounter procedureRichjeanette Sood Rhiew [facility] Start: 09-01-2024 End: 31-32-4379dzmgptgftjWycwpc SpringerFacility:FTMCStart: 09-01-2024 End: 69-99-9862Suebofq encounter procedureMaurida Business Lab [facility] start: 08-25-2024 End: 93-50-4384uicotnajpjHvdzbaa B RhiewFacility:FTMCStart: 08-25-2024 End: 71-43-1057Aqwkuld encounter procedureEnder Sood Rhiew [facility] Start: 08-16-2024 End: 27-53-0363Ckflgr flowsheetCorey Nataliia DO Work Phone: noms BCP OBStart: 08-16-2024 End: 65-41-4882Tdofnkriy Result EncounterCorey Nataliia DO Work Phone: noms External Department UnsolicitedStart: 08-16-2024 End: 35-79-1904Akptgajld Result EncounterCorey Nataliia DO Work Phone: noms External Department UnsolicitedStart: 08-16-2024 End: 96-66-5886Qemurk outpatient visit 15 minutesCorey Nataliia DO Work Phone: noms BCP OBComment on above:LGSIL on Pap smear of cervixStart: 08-16-2024 End: 05-87-0855lttmvjshvkFRDNQ FAZIONot AvailableStart: 08-10-2024 End: 77-15-7210tpfxwcnwzhXdujfjr B RhiewFacility:FTMCStart: 08-10-2024 End: 07-05-3650Uwxaabv encounter procedureRichard B Rhiew [facility] Start: 07-29-2024 End: 87-06-3580loemrdrisvQsqb C LinkFacility: MilanStart: 07-29-2024 End: 48-24-1611Ejbmrfh encounter procedureAdam C Link [phone]-[facility]agCity [facility] Start: 07-23-2024 End: 77-85-7158wvhkkbyphnXqmvyx SpringerFacility:FTMCStart: 07-21-2024 End: 36-01-0675egewhychvvEjtjrb SpringerFacility:FTMCStart: 07-21-2024 End: 24-25-7666Pols ManagementBurke Prado [facility] Start: 07-13-2024 End: 43-92-2683pugrezzsbaErxdths B RhiewFacility:FTMCStart: 07-13-2024 End: 64-06-9714Fsmvrps encounter procedureTjard B Rhiew [facility] Start: 07-09-2024 End: 51-93-6342mvybtstectUcrs C LinkFacility:[facility] CenterStart: 07-09-2024 End: 75-47-4609Mbylrlv encounter procedureAdam C Link [phone]-WyiuqCity Hospital Start: 07-06-2024 End: 14-86-1418Gkruwztzk department patient visitJorge Sue [facility] Start: 03-12-9994usebkimtmtUgtwsp SpringerFacility:[facility] CenterStart: 64-62-9472kkgpvyepmjEWFSSL R CIERSEZWSKIFacility:[facility] CenterStart: 06-03-2024 End: 20-85-9835Fvahoehat department patient visitAstrit Eric PattontreySelect Medical [facility] Start: 06-01-2024 End: 62-89-2374wqhdvmzkjzMptiqxa Luis ClingmanFacility:CC NorwalkStart: 06-01-2024 End: 27-01-5316Gwfjrhv encounter procedureBurton Luis [facility] Start: 02-09-2024 End: 46-85-9913bfowumtgvmWrsca Nataliia Work Phone: [facility] Work Phone: Start: 02-09-2024 End: 68-97-3830Gdtphebb ReferredCorey Nataliia Work Phone: [facility]-LAB Path Spec [place] HospStart: 05-01-2022 End: 52-48-6161Zofdgft encounter procedureRebecgeorge Ocampo [facility] Start: 03-29-2021 End: 36-79-6094muxewpqdoeFQ ANAM GUEVARAFacility:H1 Procedures DateProcedureProcedure DetailPerforming ClinicianStart: 67-80-7767GGS IG, APT HPV RFX 16/18,45Corey Nataliia DO Work Phone: Start: 23-84-9852Jwmvahw of surgical procedure on cervical spineAmanda Prado comment on above:Dr. Logan- 09/16/24Start: 08-16-2024 IGP,APTIMA HPV,AGE GDLNCorey Nataliia DO Work Phone: Start: 58-48-3606Ankdpyhuavp observation [Identifier] in Cervix by Cyto stainCorey Nataliia DO Work Phone: Start: 33-03-4200Qlesyublpvs observation [Identifier] in Cervix by Cyto stainCorey Nataliia DO Work Phone: Start: 34-68-9491Ucmjyakekxz, device (physical object) Madhav Fuentes Comment on above:To check for EndometriosisLaparoscope, device (physical object)Jeanne Ocampo Plan of Treatment DateCare ActivityDetailAuthorStart: 06-53-9158Htjuvlthq for malignant neoplasm of cervixNOMS HealthcareStart: 46-53-4781Zgqyshepm for malignant neoplasm of cervixNOMS HealthcareStart: 10-10-2025 End: 26-14-0149Qfwvngc encounter bqxxcuiwj04/17/2025 3:40 PM EST Procedure Visit [facility] [address] [place] [id number] Willem William DO [address], [place] [address] [facility] OBStart: 00-59-4332Vanmlwvwb vaccination Influenza Vaccine (#1)NOM HealthcareStart: 06-07-2025 End: 84-51-8036Lzkedzf encounter hhksiwagg21/15/2025 8:50 AM EDT Procedure Visit [facility] [address] [place] [id number] Willem William DO [address], [place] [address] [facility] OBComment on above:ArrivedStart: 02-09-2025 End: 43-39-6677Nnckoqg encounter uyfrvcabo73/19/2025 3:40 PM EDT Procedure Visit [facility] [address] [place] [address] Willem William, DO [address] [place] [address] [facility] OBStart: 01-12-2025 End: 51-14-5005Kxvvvyl encounter procedureNOCHAPMAN [facility] OBComment on above:Arrived Start: 12-27-2024 End: 68-05-8712Iqxwkuo encounter ljhnvqpuc50/03/2025 1:50 PM EST Office Visit [facility] [address] [place] [phone] Willem William, DO [address] [place] [address] ArrivedSONORA [facility] OBComment on above:ArrivedStart: 08-16-2024 End: 58-01-6818Umdejdl encounter mygpfstce04/23/2024 9:00 AM EDT Procedure Visit [facility] [address] [place] [id number] Willem William, DO [address] [place] [address] ArrivedSON[facility] OBComment on above:ArrivedStart: [id number] vaccinationInfluenza Vaccine (#1)[facility] HealthcareStart: [id number] for malignant neoplasm of cervixHPV/[facility]NOS[facility] Cervical or vaginal smear or scraping studyPap Smear Pathology and Cytology Routine LGSIL on Pap smear of cervix Ordered: 08/16/2024[facility] Work Phone: comment on above:Ordered: 08/16/2024ytology Cervical or vaginal smear or scraping studyPap Smear Pathology and Cytology Routine Pap smear to confirm normal after abnormal result LGSIL ofcervix of undetermined significance Ordered: 06/07/2025[facility] Work Phone: comment on above:Ordered: 06/07/2025Human papilloma virus DNA [Presence] in Unspecified specimen by Probe with amplificationHPV DNA probe, amplified Microbiology Routine LGSIL on Pap smear of cervix Ordered: 08/16/2024[facility] on above:Ordered: 08/16/2024Human papilloma virus DNA [Presence] in Unspecified specimen by Probe with amplificationHPV DNA probe, amplified Microbiology Routine Pap smear to confirm normal after abnormal result LGSIL of cervix of undetermined significance Ordered: 06/07/2025[facility] HealthcareComment on above:Ordered: 06/07/2025 Immunizations Immunization DateImmunizationNotesCare ProviderFacilityNEGATED: Highlighted row has not occurred!06-47-9744jlfuigedg virus vaccine, unspecified formulationAdam Link [phone]-[facility]pmM[facility] [place] Payers DatePayer CategoryPayerPolicy [id number] Health [id number] Cross Blue Shield BCBS Member Subscriber Plan / Payer (Effective 2021-Present) Name: Darrick Villafuerte Relation to Subscriber: Self Name: Darrick Villafuerte Payer ID:Not on file Type: Not on file Address: [address] [place] [id number] [facility] [id number] 2021-Present [phone] [address] [place] [id number] 840.1.188503.3.57[id number] 2.16.840.1.084988.3.57[id number] 2.16.840.1.447393.3.57[id number] 2.16.840.1.822770.3.57[id number] 2.16840.1.558831.3.57[id number] 2.16840.1.906945.3.57[id number] 2.840.1.190986.3.57[id number] 2.840.1.377494.3.57[id number] 2.840.1.635318.3.57[id number] 2.840.1.673175.3.57[id number] 2.840.1.657795.3.57[id number] 2.840.1.315671.3.57[id number] 2.16840.1.283046.3.57[id number] 2.16840.1.959778.3.57[id number] 2.16840.1.134411.3.57[id number] 2.16840.1.506189.3.57[id number] 2.0.1.023852.3.57[id number] 2.0.1.797218.3.57[id number] 2.0.1.453621.3.57[id number] 2.0.1.254775.3.57[id number] 2..1.236954.3.57[id number] 2..1.850800.3.57[id number] 2..1.344195.3.57[id number] 2..1.730785.3.57[id number] 2..1.894479.3.579.2.727 [id number] [id number] 2..1.896139.3.579.2.531 Social History DateTypeDetailFacilityStart: 09-11-2021 End: 54-09-3705Bnmckyy smoking statusNever smoked tobacco (finding)[facility] HospitalT[facility] smoking statusNeverAshtab[facility] Hospital Start: 03-15-2024 End: 78-09-3288Aik [facility]igned At [facility]: 78-98-6541Jdw Assigned At [facility]art: 14-61-4846Jpcadxs use and exposureSmokeless tobacco non-userNOMS Healthcare Start: 08-16-2024 End: 13-28-4130Neefsuvpa beverage intakeLifetime non-drinker (finding)[facility] HealthcareStart: 03-15-2024 End: 92-03-3199Tqgepkm of Social functionNOMS HealthcareStart: 00-31-9766Wlcxjpc CommentCaffeine intake: 1 cup per day of coffeeNOMS HealthcareStart: 1989 Sex assigned at birthNot on fileLAYTON HOSPITAL HealthcareTobacco smoking status NHIS Unknown if ever smokedToledo Hospital Work Phone: Start: 03-07-2010 End: 29-65-1972WxnWdcyos (finding)[facility] Medical Equipment Procedure CodeEquipment CodeEquipment Original TextEquipment IdentifierDates CERVICAL ANTERIOR DISCECTOMY W/ FUSION, Ender Logan MD 09/16/24 Unknown NeckFDAStart: 12-46-9311MUFFELGZ ANTERIOR DISCECTOMY W/ FUSION, Ender Logan MD 09/16/24 Unknown NeckFDAStart: 94-91-1001OLTACMPR ANTERIOR DISCECTOMY W/ FUSION, Ender Logan MD 09/16/24 Unknown NeckFDAStart: 27-26-2437ZSLKCJZA ANTERIOR DISCECTOMY W/ FUSIONDoreen MD, Richard B 09/16/24 Unknown NeckFDA Start: 70-98-8659FYWPXUXP ANTERIOR DISCECTOMY W/ FUSIONDoreen MD, Richard B 09/16/24 Unknown NeckFDAStart: 25-62-3166CWSNMQRS ANTERIOR DISCECTOMY W/ FUSIONDoreen MD, Richard B 09/16/24 Unknown NeckFDAStart: 26-69-7942ILOTRNCT ANTERIOR DISCECTOMY W/ FUSIONDoreen MD, Richard B 09/16/24 Unknown NeckFDAStart: 55-38-3428VRXFZRQF ANTERIOR DISCECTOMY W/ FUSIONDoreen MD, Richard B 09/16/24 Unknown NeckFDAStart: 14-22-8376RUEJGALW ANTERIOR DISCECTOMY W/ FUSION, Ender Logan MD 09/16/24 Unknown NeckFDAStart: 82-86-7835BTDXLJKS ANTERIOR DISCECTOMY W/ FUSION, Ender Logan MD 09/16/24 Unknown NeckFDAStart: 70-42-0155MLGUGGIV ANTERIOR DISCECTOMY W/ FUSION, Ender Logan MD 09/16/24 Unknown NeckFDAStart: 94-35-0253BIGSOAGH ANTERIOR DISCECTOMY W/ FUSION, Ender Logan MD 09/16/24 Unknown NeckFDAStart: 98-10-9594MBSJWASG ANTERIOR DISCECTOMY W/ FUSION, Ender Logan MD 09/16/24 Unknown NeckFDAStart: 49-66-6526CSBDHOWW ANTERIOR DISCECTOMY W/ FUSION, Ender Logan MD 09/16/24 Unknown NeckFDAStart: 26-24-4282XKLHIJDK ANTERIOR DISCECTOMY W/ FUSION, Ender Logan MD 09/16/24 Unknown NeckFDAStart: 15-22-6868XTYMKUUE ANTERIOR DISCECTOMY W/ FUSION, Ender Logan MD 09/16/24 Unknown NeckFDAStart: 09-16-2024 Functional Status TsxoOgozgzubezAzqbwdZjunprtn67-90-4375Ktjtskdhpo StatusN/[facility]10-09-2024Functional StatusN/[facility]10-02-2024 Functional StatusNo[facility]09-05-2024[facility]al StatusN/[facility]08-28-2024Functional StatusN/A [facility]08-16-2024Functional StatusN/[facility]08-13-2024Functional StatusN/[facility]07-11-2024Functional StatusN/[facility]07-09-2024 Functional StatusN/[facility] Clinical Notes 09-11-2021 to 07-22-2025 Note Date & ZnskGytbSujqevtz30-17-5562 Hospital Discharge instructions Patient Education 07/22/2025 18:27:30 Gastroesophageal Reflux Disease, Adult, Nubj-pn-Onva Gastroesophageal Reflux Disease, Adult Gastroesophageal reflux (BHUMI) happens when acid from the stomach flows up into the tube that connects the mouth and the stomach (esophagus). Normally, food travels down the esophagus and stays in thestomach to be digested. With BHUMI, food and stomach acid sometimes move back up into the esophagus. You may have a disease called gastroesophageal reflux disease (GERD) if the reflux: Happens often. Causes frequent or very bad symptoms. Causes problems such as damage to the esophagus. When this happens, the esophagus becomes sore and swollen. Over time, GERD can make small holes (ulcers) in the lining of the esophagus. What are the causes? This condition is caused by a problem with the muscle between the esophagus and the stomach. When this muscle is weak or not normal, it does not close properly to keep food and acid from coming back up from the stomach. The muscle can be weak because of: Tobacco use. . Having a certain type of hernia (hiatal hernia). Alcohol use. Certain foods and drinks, such as coffee, chocolate, onions, and peppermint. What increases the risk? Being overweight. Having a disease that affects your connective tissue. Taking NSAIDs, such a ibuprofen. What are the signs or symptoms? Heartburn. Difficult or painful swallowing. The feeling of having a lump in the throat. A bitter taste in the mouth. Bad breath. Having a lot of saliva. Having an upset or bloated stomach. Burping. Chest pain. Different conditions can cause chest pain. Make sure you see your doctor if you have chest pain. Shortness of breath or wheezing. A long-term cough or a cough at night. Wearing away of the surface of teeth (tooth enamel). Weight loss. How is this treated? Making changes to your diet. Taking medicine. Having surgery. Treatment will depend on how bad your symptoms are. Follow these instructions at home: Eating and drinking Follow a diet as told by your doctor. You may need to avoid foods and drinks such as: ?Coffee and tea, with or without caffeine. ?Drinks that contain alcohol. ?Energy drinks and sports drinks. ?Bubbly (carbonated) drinks or sodas. ?Chocolate and cocoa. ?Peppermint and mint flavorings. ?Garlic and onions. ?Horseradish. ?Spicy and acidic foods. These include peppers, chili powder, esposito powder, vinegar, hot sauces, and BBQ sauce. ?[place] fruit juices and citrus fruits, such as oranges, salima, and limes. ?Tomato-based foods. These include red sauce, chili, salsa, and pizza with red sauce. ?Fried and fatty foods. These include donuts, brit[place] virgin islander fries, potato chips, and high-fat dressings. ?High-fat meats. These include hot dogs, rib eye steak, sausage, ham, and edmond. ?High-fat dairy items, such as whole milk, butter, and cream cheese. Eat small meals often. Avoid eating large meals. Avoid drinking large amounts of liquid with your meals. Avoid eating meals during the 2 3 hours before bedtime. Avoid lying down right after you eat. Do not exercise right after you eat. Lifestyle Do not smoke or use any products that contain nicotine or tobacco. If you need help quitting, ask your doctor. Try to lower your stress. If you need help doing this, ask your doctor. If you are overweight, lose an amount of weight that is healthy for you. Ask your doctor about a safe weight loss goal. General instructions Pay attention to any changes in your symptoms. Take zfus-soz-njkfcib and prescription medicines only as told by your doctor. Do not take aspirin, ibuprofen, or other NSAIDs unless your doctor says it is okay. Wear loose clothes. Do not wear anything tight around your waist. Raise (elevate) the head of your bed about 6 inches (15 cm). You may need to use a wedge to do this. Avoid bending over if this makes your symptoms worse. Keep all follow-up visits. Contact a doctor if: You have new symptoms. You lose weight and you do not know why. You have trouble swallowing or it hurts to swallow. You have wheezing or a cough that keeps happening. You have a hoarse voice. Your symptoms do not get better with treatment. Get help right away if: You have sudden pain in your arms, neck, jaw, teeth, or back. You suddenly feel sweaty, dizzy, or light-headed. You have chest pain or shortness of breath. You vomit and the vomit is green, yellow, or black, or it looks like blood or coffee grounds. You faint. Your poop (stool) is red, bloody, or black. You cannot swallow, drink, or eat. These symptoms may represent a serious problem that is an emergency. Do not wait to see if the symptoms will go away. Get medical help right away. Call your local emergency services (911 in the [place] Do not drive yourself to the hospital. Summary If a person has gastroesophageal reflux disease (GERD), food and stomach acid move back up into theesophagus and cause symptoms or problems such as damage to the esophagus. Treatment will depend on how bad your symptoms are. Follow a diet as told by your doctor. Take all medicines only as told by your doctor. This information is not intended to replace advice given to you by your health care provider. Make sure you discuss any questions you have with your health care provider. Document Revised: 05/21/2021 Document Reviewed: 05/21/2021 [employer] Patient Education 2023 [employer]. 07/22/2025 18:27:22 Irritable Bowel Syndrome, Adult Irritable Bowel Syndrome, Adult Irritable bowel syndrome (IBS) is a group of symptoms that affects the organs responsible for digestion (gastrointestinal tract, or GI tract). IBS is not one specific disease. To regulate how the GI tract works, the body sends signals back and forth between the intestines and the brain. If you have IBS, there may be a problem with these signals. As a result, the GI tract does not function normally. The intestines may become more sensitive and overreact to certain things.This may be especially true when you eat certain foods or when you are under stress. There are four main types of IBS. These may be determined based on the consistency of your stool (feces): IBS with mostly (predominance of) diarrhea. IBS with predominance of constipation. IBS with mixed bowel habits. This includes both diarrhea and constipation. IBS unclassified. This includes IBS that cannot be categorized into one of the other three main types. It is important to know which type of IBS you have. Certain treatments are more likely to be helpful for certain types of IBS. What are the causes? The exact cause of IBS is not known. What increases the risk? You may have a higher risk for IBS if you: Are female. Are younger than 40 years. Have a family history of IBS. Have a mental health condition, such as depression, anxiety, or post-traumatic stress disorder. Have had a bacterial infection of your GI tract. What are the signs or symptoms? Symptoms of IBS vary from person to person. The main symptom is abdominal pain or discomfort. Othersymptoms usually include one or more of the following: Diarrhea, constipation, or both. Swelling or bloating in the abdomen. Feeling full after eating a small or regular-sized meal. Frequent gas. Mucus in the stool. A feeling of having more stool left after a bowel movement. Symptoms tend to come and go. They may be triggered by stress, mental health conditions, or certainfoods. How is this diagnosed? This condition may be diagnosed based on a physical exam, your medical history, and your symptoms. You may have tests, such as: Blood tests. Stool test. Colonoscopy. This is a procedure in which your GI tract is viewed with a long, thin, flexible tube. How is this treated? There is no cure for IBS, but treatment can help relieve symptoms. Treatment depends on the type ofIBS you have, and may include: Changes to your diet, such as: ?Avoiding foods that cause symptoms. ?Drinking more water. ?Following a low-FODMAP (fermentable oligosaccharides, disaccharides, monosaccharides, and polyols)diet for up to 6 weeks, or as told by your health care provider. FODMAPs are sugars that are hard for some people to digest. ?Eating more fiber. ?Eating small meals at the same times every day. Medicines. These may include: ?Fiber supplements, if you have constipation. ?Medicine to control diarrhea (antidiarrheal medicines). ?Medicine to help control muscle tightening (spasms) in your GI tract (antispasmodic medicines). ?Medicines to help with mental health conditions, such as antidepressants. Talk therapy or counseling. Working with a dietitian to help create a food plan that is right for you. Managing your stress. Follow these instructions at home: Eating and drinking Eat a healthy diet. Eat 5 6 small meals a day. Try to eat meals at about the same times each day. Do not eat large meals. Gradually eat more fiber-rich foods. These include whole grains, fruits, and vegetables. This may be especially helpful if you have IBS with constipation. Eat a diet low in FODMAPs. You may need to avoid foods such as citrus fruits, cabbage, garlic, and onions. Drink enough fluid to keep your urine pale yellow. Keep a journal of foods that seem to trigger symptoms. Avoid foods and drinks that: ?Contain added sugar. ?Make your symptoms worse. These may include dairy products, caffeinated drinks, and carbonated drinks. Alcohol use Do not drink alcohol if: ?Your health care provider tells you not to drink. ?You are , may be , or are planning to become . If you drink alcohol: ?Limit how much you have to: ?0 1 drink a day for women. ?0 2 drinks a day for men. ?Know how much alcohol is in your drink. In the [place] one drink equals one 12 oz bottle of beer (355 mL), one 5 oz glass of wine (148 mL), or one 1 oz glass of hard liquor (44 mL) General instructions Take ddpj-vtn-kmfpcel and prescription medicines only as told by your health care provider. This includes supplements. Get enough exercise. Do at least 150 minutes of moderate-intensity exercise each week. Manage your stress. Getting enough sleep and exercise can help you manage stress. Keep all follow-up visits. This is important. This includes all visits with your health care provider and therapist. Where to find more information International Foundation for Functional Gastrointestinal Disorders: aboutibs.org National [place] of Diabetes and Digestive and Kidney Diseases: niddk.nih.gov Contact a health care provider if: You have constant pain. You lose weight. You have diarrhea that gets worse. You have bleeding from the rectum. You vomit often. You have a fever. Get help right away if: You have severe abdominal pain. You have diarrhea with symptoms of dehydration, such as dizziness or dry mouth. You have bloody or black stools. You have severe abdominal bloating. You have vomiting that does not stop. You have blood in your vomit. Summary Irritable bowel syndrome (IBS) is not one specific disease. It is a group of symptoms that affects digestion. Your intestines may become more sensitive and overreact to certain things. This may be especially true when you eat certain foods or when you are under stress. There is no cure for IBS, but treatment can help relieve symptoms. This information is not intended to replace advice given to you by your health care provider. Make sure you discuss any questions you have with your health care provider. Document Revised: 10/23/2022 Document Reviewed: 10/23/2022 [employer] Patient Education 2023 [employer]. 07/22/2025 18:27:12 Abdominal Pain, Adult, Jnoi-ih-Ukfo Abdominal Pain, Adult Many things can cause belly (abdominal) pain. In most cases, belly pain is not a serious problem and can be watched and treated at home. But in some cases, it can be serious. Your doctor will try to find the cause of your belly pain. Follow these instructions at home: Medicines Take aojm-yhw-bfdwngo and prescription medicines only as told by your doctor. Do not take medicines that help you poop (laxatives) unless told by your doctor. General instructions Watch your belly pain for any changes. Tell your doctor if the pain gets worse. Drink enough fluid to keep your pee (urine) pale yellow. Contact a doctor if: Your belly pain changes or gets worse. You have very bad cramping or bloating in your belly. You vomit. Your pain gets worse with meals, after eating, or with certain foods. You have trouble pooping or have watery poop for more than 2 3 days. You are not hungry, or you lose weight without trying. You have signs of not getting enough fluid or water (dehydration). These may include: ?Dark pee, very little pee, or no pee. ?Cracked lips or dry mouth. ?Feeling sleepy or weak. You have pain when you pee or poop. Your belly pain wakes you up at night. You have blood in your pee. You have a fever. Get help right away if: You cannot stop vomiting. Your pain is only in one part of your belly, like on the right side. You have bloody or black poop, or poop that looks like tar. You have trouble breathing. You have chest pain. These symptoms may be an emergency. Get help right away. Call 911. Do not wait to see if the symptoms will go away. Do not drive yourself to the hospital. This information is not intended to replace advice given to you by your health care provider. Make sure you discuss any questions you have with your health care provider. Document Revised: 08/27/2023 Document Reviewed: 08/27/2023 [employer] Patient Education 2023 [employer]. Follow Up Care 07/22/2025 10:49:16 With:Madhav Fuentes DO [facility] Address: [address] [address] When: Unknown [facility] 08-29-2025 NotePatient Education Gastroenterology Gastroesophageal Reflux Disease, Adult Gastroesophageal reflux (BHUMI) happens when acid from the stomach flows up into the tube that connects the mouth and the stomach (esophagus). Normally, food travels down the esophagus and stays in thestomach to be digested. With BHUMI, food and stomach acid sometimes move back up into the esophagus. You may have a disease called gastroesophageal reflux disease (GERD) if the reflux: ??? Happens often. ??? Causes frequent or very bad symptoms. ??? Causes problems such as damage to the esophagus. When this happens, the esophagus becomes sore and swollen. Over time, GERD can make small holes (ulcers) in the lining of the esophagus. What are the causes? This condition is caused by a problem with the muscle between the esophagus and the stomach. When this muscle is weak or not normal, it does not close properly to keep food and acid from coming back up from the stomach. The muscle can be weak because of: ??? Tobacco use. ??? . ??? Having a certain type of hernia (hiatal hernia). ??? Alcohol use. ??? Certain foods and drinks, such as coffee, chocolate, onions, and peppermint. What increases the risk? Being overweight. ??? Having a disease that affects your connective tissue. ??? Taking NSAIDs, such a ibuprofen. What are the signs or symptoms? Heartburn. ??? Difficult or painful swallowing. ??? The feeling of having a lump in the throat. ??? A bitter taste in the mouth. ??? Bad breath. ??? Having a lot of saliva. ??? Having an upset or bloated stomach. ??? Burping. ??? Chest pain. Different conditions can cause chest pain. Make sure you see your doctor if you have chest pain. ??? Shortness of breath or wheezing. ??? A long-term cough or a cough at night. ??? Wearing away of the surface of teeth (tooth enamel). ??? Weight loss. How is this treated? Making changes to your diet. ??? Taking medicine. ??? Having surgery. Treatment will depend on how bad your symptoms are. Follow these instructions at home: Eating and drinking ??? Follow a diet as told by your doctor. You may need to avoid foods and drinks such as: ? Coffee and tea, with or without caffeine. ? Drinks that contain alcohol. ? Energy drinks and sports drinks. ? Bubbly (carbonated) drinks or sodas. ? Chocolate and cocoa. ? Peppermint and mint flavorings. ? Garlic and onions. ? Horseradish. ? Spicy and acidic foods. These include peppers, chili powder, esposito powder, vinegar, hot sauces, and BBQ sauce. ? [place] fruit juices and citrus fruits, such as oranges, salima, and limes. ? Tomato-based foods. These include red sauce, chili, salsa, and pizza with red sauce. ? Fried and fatty foods. These include donuts, brit[place] islander fries, potato chips, and high-fat dressings. ? High-fat meats. These include hot dogs, rib eye steak, sausage, ham, and edmond. ? High-fat dairy items, such as whole milk, butter, and cream cheese. ??? Eat small meals often. Avoid eating large meals. ??? Avoid drinking large amounts of liquid with your meals. ??? Avoid eating meals during the 2?3 hours before bedtime. ??? Avoid lying down right after you eat. ??? Do not exercise right after you eat. Lifestyle ??? Do not smoke or use any products that contain nicotine or tobacco. If you need help quitting, ask your doctor. ??? Try to lower your stress. If you need help doing this, ask your doctor. ??? If you are overweight, lose an amount of weight that is healthy for you. Ask your doctor about a safe weight loss goal. General instructions ??? Pay attention to any changes in your symptoms. ??? Take lknh-fre-gpwtjda and prescription medicines only as told by your doctor. ??? Do not take aspirin, ibuprofen, or other NSAIDs unless your doctor says it is okay. ??? Wear loose clothes. Do not wear anything tight around your waist. ??? Raise (elevate) the head of your bed about 6 inches (15 cm). You may need to use a wedge to do this. ??? Avoid bending over if this makes your symptoms worse. ??? Keep all follow-up visits. Contact a doctor if: ??? You have new symptoms. ??? You lose weight and you do not know why. ??? You have trouble swallowing or it hurts to swallow. ??? You have wheezing or a cough that keeps happening. ??? You have a hoarse voice. ??? Your symptoms do not get better with treatment. Get help right away if: ??? You have sudden pain in your arms, neck, jaw, teeth, or back. ??? You suddenly feel sweaty, dizzy, or light-headed. ??? You have chest pain or shortness of breath. ??? You vomit and the vomit is green, yellow, or black, or it looks like blood or coffee grounds. ??? You faint. ??? Your poop (stool) is red, bloody, or black. ??? You cannot swallow, drink, or eat. These symptoms may represent a serious probl (more content not included)... [facility] Hospital Discharge instructions Follow Up Care 07/22/2025 10:06:57 With:Madhav Fuentes DO, FAM Address: [address] [id number]- When: Unknown Comments:If needed [facility] 07-15-2025 History of Present illness Narrative* Gloria Saha LPN - 06/07/2025 8:50 AM EDT Reason for Appointment: Patient ID: Darrick Villafuerte is a 35 y.o. female who presents for Abnormal Pap Smear (Patient is present today for a Repeat pap smear. Pt had an abnormal pap smear LGSIL +HPV on 08/16/2024. Pt had a LEEP procedure on 01/12/2025.) Patient presents today for Repeat Pap. MEDICATIONS Current Outpatient Medications Medication Instructions amitriptyline [...] Problems Past Medical History: Diagnosis Date Asthma (HCC) Parotitis 02/24/2017 HISTORY PAST MEDICAL HISTORY SOCIAL HISTORY Past Medical History: Diagnosis Date Asthma (HCC) Parotitis 02/24/2017 Social History Tobacco Use Smoking [...] nursing note reviewed. Exam conducted with a lighting specialist present. Vitals: Estimated body mass index is 25.58 kg/m as calculated from the following: Height as of 07/24/22: 5'. Weight as of this encounter: 131 lb. BP: 116/70 No LMP recorded (lmp unknown). Patient has had an implant. ASSESSMENT & PLAN ICD-10-CM 1. Pap smear to confirm normal after abnormal result Z01.42 Pap Smear HPV DNA probe, amplified 2. LGSIL of cervix of undetermined significance R87.612 Pap Smear HPV DNA probe, amplified 3. H/O LEEP Z98.890 4. Well woman exam with routine gynecological exam Z01.419 Repeat Pap: Patient presents today for a repeat pap. Previous pap results were reviewed and noted to be LGSIL. Question regarding previous results were discussed. Repeat Pap was obtained without difficulty. Follow Up: Patient is to return to the office in 4 months for an annual exam. Documented by Gloria Saha LPN on behalf of: Willem William DO documented in this encounterCameron Regional Medical [id number] History of Present illness Narrative* Nelda Ramos - 01/12/2025 1:50 PM EST Reason for Appointment: Patient ID: Darrick Villafuerte is a 34 y.o. female who presents for Pre-op Visit Patient presents today for Pre Op appointment. Patient is scheduled to undergo LEEP on 02/04/[address] William at [facility]. MEDICATIONS Current Outpatient Medications Medication [...] History: Diagnosis Date Asthma (CMS/HCC) Parotitis 02/24/2017 HISTORY PAST MEDICAL HISTORY SOCIAL HISTORY Past Medical History: Diagnosis Date Asthma (CMS/HCC) Parotitis 02/24/2017 Social History Tobacco Use Smoking [...] nursing note reviewed. Exam conducted with a lighting specialist present. Vitals: Estimated body mass index is [...] reviewed, and patient is to proceed to [facility] OR. Follow Up: Patient is to follow up between 1-2 weeks post operative to assess proper healing and recovery fromprocedure. Documented by Gloria Saha LPN on behalf of: Willem William DO documented in this encounterCameron Regional Medical [id number] History of Present illness Narrative* Willem William DO - 12/27/2024 1:50 PM EST Reason for Appointment: Patient ID: Darrick Villafuerte [...] nursing note reviewed. Exam conducted with a lighting specialist present. Vitals: Estimated body mass index is [...] DO documented in this encounterCameron Regional Medical [id number] Evaluation + Plan note Extracted from:Title:Pain Managment Follow upAuthor:Natalya Prado PA-CDate: 10/29/24 Impression and Plan Patient is a 34-year-old [...] this and follow-up as needed. FELISHA score: 10%.[facility] [id number] NoteConsultation Note Patient: DARRICK VILLAFUERTE Age: 34 [...] TID, # 90 cap(s), Refills(s) 1, Pharmacy: [facility], 155.5, cm, 09/01/24 10:15:00 EDT, Height/Length Dosing, 59, kg, 09/01/24 10:15:00 EDT, Weight Dosing amitriptyline 25 mg Tab: 50 mg = 2 tab(s), Oral, Once a day (at bedtime), X 30 day(s), # 60 tab(s),Refills(s) 1, Pharmacy: [facility] #[facility], 155.5, cm, 09/01/24 10:15:00 EDT, Height/LengthDosing, 59, kg, 09/01/24 10:15:00 EDT, Weight Dosing Documented Medications Documented Tylenol: 500 mg, Daily, PRN as needed for pain, Refills(s) 0 Problem list: All Problems Asthma / SNOMED CT 7492381031 / Confirmed Abnormal placenta affecting management of mother / SNOMED CT 17709428 / Confirmed Cervical dysfunction / SNOMED CT 550828603 / Confirmed Shoulder pain / SNOMED CT 06867209 / Confirmed Objective Vital Signs 10/29/2024 10:35 EST Peripheral Pulse Rate 68 bpm Respiratory Rate 16 br/min Systolic Blood Pressure 100 mmHg Diastolic Blood Pressure 78 mmHg Mean Arterial Pressure, Cuff 85 mmHg General: Alert and oriented, No acute distress. Eye: Normal conjunctiva. HENT: Normocephalic, Normal hearing. Cardiovascular: No edema. Musculoskeletal Normal range of motion. Normal strength. 5/5 strength Integumentary: Warm, Dry, Maddock. Incision healing well Neurologic: Alert, Oriented. Psychiatric: [...] this and follow-up as needed. FELISHA score: 10%.[facility] SystemComment on above:Result Comment: Electronically Signed By: Natalya Prado PA-C\.br\Date and Time Signed: 10/29/24 10:46 [id number] NoteProgress Note-Physician Assessment/Plan 1. Cervical stenosis of [...] deep vein thrombosis (DVT) prophylaxis (Z79.899: Other intermodal dispatcher (current) drug therapy) SCDs, early ambulation, defer [...] made to ensure accuracy, however, inadvertently computerized passenger car cleaning supervisor mistakes may be present. Subjective No acute [...] General: Calm, able to communicate needs, NAD, [place] J collar intact Head: Normocephalic/atraumatic Eyes: Pupils [...] Spine Cervical w/o Contrast (more content not included)...[facility] SystemComment on above:Result Comment: Electronically Signed By: Holly VELEZ\.br\Date and Time Signed: 09/17/24 10:37 EDT\.br\Electronically Co-Signed By: Quang Howe MD\.br\Date and Time Co-Signed: 09/18/24 16:56 [id number] NoteDischarge Summary Patient: DARRICK VILLAFUERTE Age: 34 years Sex: Female : 1990 Associated Diagnoses: None Author: Ender Logan MD Discharge Information Discharge Summary Information: Admit Date/Time: 09/16/24 09:22 Discharge Date/Time: 09/17/24 11:00 Admitting Physician: Ender Logan MD Referring Physician for Admission: Ender Logan MD Consulting Physicians: Natalya Quintero CNP Admitting Diagnoses: Discharge Diagnoses: Other intermodal dispatcher (current) drug therapy Prescription and Home Meds: [...] 17 15:42) DBP 64 mmHg (SEP 17 15:42)[facility] SystemComment on above:Result Comment: Electronically Signed By: Doreen LUKE, Ender Lilly.br\Date and Time Signed: 09/18/24 11:01 [id number] Hospital Discharge instructions Patient Education 09/17/2024 15:58:58 [...] including vitamins, herbs, eye drops, creams, and czgx-xha-fnpffrm medicines. Any problems you or family members [...] provider tells you to take them. Taking oxuw-wbs-vdarocf medicines, vitamins, herbs, and supplements. Surgery safety [...] provider. Document Revised: 02/28/2021 Document Reviewed: 02/28/2021 [employer] Patient Education 2023 [employer]. Follow Up Care 08/18/2024 12:27:51 With:Ender Logan Address: [address], [address] [place] [phone] Business (1) When: Unknown Comments:f/u3wks ok shower and remove dressing [id number] no lift>5lbs keep incis dry clean, wear cervical brace 16/06 6wks [facility] 10-25-2024 NotePatient Education - Text Orthopedics Anterior [...] including vitamins, herbs, eye drops, creams, and idle-pkc-tnfjreh medicines. ??? Any problems you or family [...] tells you to take them. ??? Taking uoeb-raj-skfysne medicines, vitamins, herbs, and supplements. Surgery safety [...] ??? Anterior cervical di (more content not included)...[facility] NoteInterdisciplinary Note - PT PT Evaluation done this date. Pt. with on AM-PAC this date. She is safe and steady with functional activities. No further acute PT needs at this time. [facility]-20[facility] NoteConsultation Note Reason for Consultation Hospitalist- Medical [...] neck supple, anterior neck surgical site intact, [place] Cervical collar intact Chest: No chest wall [...] Dr Logan 09/16/24 Neuro Checks per protocol [place] Cervical Collar at all times CT Spine [...] inactivated - Not Given Postpone due to refusalOhio State Health SystemComment on above:Result Comment: Electronically Signed By: Natalya Quintero CNP\.br\Date and Time Signed: 09/16/24 18:43 EDT\.br\Electronically Co-Signed By: OJUKWU MD, Mbanefo\.br\Date and Time Co- Signed: 09/16/24 19:12 [id number] Evaluation + Plan noteExtracted from:Title: Consult NoteAuthor:Natalya Quintero CNP LDate:09/16/24 1. Cervical stenosis of spin e (M48.02: Spinal stenosis, cervical region) Patient with cervical stenosis with disc herniation with associated upper extremity weakness/numbness S/P anterior cervical discectomy with Dr Logan 09/16/24 Neuro Checks per protocol [place] Cervical Collar at all times CT Spine in am Pain Meds, IV Vanco, and Lovenox as per surgeon's orders PT/OT eval POD 1 Post operative orders, chronic meds resumed, and labs/imaging in for am- per neurosurgeon Hospitalist staff available for acute medical needs. Extracted from:Title:ANES Post GeneralAuthor:Rafy Go DODate: 09/16/24 Plan Transfer/Discharge: Patient exhibiting no signs of N/V. Hydration status is adequate. Extracted from:Title:[place] Basic PREAuthor:Rafy Go DODate: 09/16/24 Plan [place] [employer] Anesthesi[employer] (ASA) physical status classification: Class II. Anesthetic Preoperative Plan: Anesthesia General. Future Appointments Appointment Date:10/29/2024 10:30:00 AM Scheduled Provider:Natalya Prado PA-C Location:[facility] Appointment Type:Pain Management - Follow Up (FT) Diagnostic Tests Pending * Calcium Level Ionized 09/17/24 [facility] 10-24-2024 NoteProgress Note-Physician Patient: DARRICK VILLAFUERTE Age: [...] TID, # 90 cap(s), Refills(s) 1, Pharmacy: [facility], 155.5, cm, 09/01/24 10:15:00 EDT, Height/Length Dosing, 59, kg, 09/01/24 10:15:00 EDT, Weight Dosing Percocet 5 mg-325 mg oral tablet: 1 tab(s), Oral, TID Pain 4-7 for 7 day(s), 21 tab(s), Refill(s) 0, [facility], 155.5, cm, 09/01/24 10:15:00 EDT, Height/Length Dosing, 59, kg, 09/01/24 10:15:00 EDT, Weight Dosing amitriptyline 25 mg Tab: 50 mg = 2 tab(s), Oral, Once a day (at bedtime), X 30 day(s), # 60 tab(s),Refills(s) 1, Pharmacy: [facility], 155.5, cm, 09/01/24 10:15:00 EDT, Height/LengthDosing, 59, kg, 09/01/24 10:15:00 EDT, Weight Dosing cyclobenzaprine 10 mg Tab: 10 mg = 1 tab(s), Oral, TID, X 21 day(s), # 63 tab(s), Refills(s) 0, Pharmacy: [facility], 155.5, cm, 09/01/24 10:15:00 EDT, Height/Length Dosing, 59, kg, 09/01/24 10:15:00 EDT, Weight Dosing Documented Medications Documented Tylenol: 500 mg, Daily, PRN as needed for pain, Refills(s) 0, Home Medications (5) Active amitriptyline 25 mg Tab 50 mg = 2 tab(s), Oral, Once a day (at bedtime) cyclobenza (more content not included)...[facility] Health SystemComment on above:Result Comment: Electronically Signed By: Rafy Go DO\.br\Date and Time Signed: 09/16/24 13:15 [id number] NoteProgress Note-Physician Patient: DARRICK VILLAFUERTE Age: 34 [...] TID, # 90 cap(s), Refills(s) 1, Pharmacy: [facility], 155.5, cm, 09/01/24 10:15:00 EDT, Height/Length Dosing, 59, kg, 09/01/24 10:15:00 EDT, Weight Dosing Percocet 5 mg-325 mg oral tablet: 1 tab(s), Oral, TID Pain 4-7 for 7 day(s), 21 tab(s), Refill(s) 0, [facility], 155.5, cm, 09/01/24 10:15:00 EDT, Height/Length Dosing, 59, kg, 09/01/24 10:15:00 EDT, Weight Dosing amitriptyline 25 mg Tab: 50 mg = 2 tab(s), Oral, Once a day (at bedtime), X 30 day(s), # 60 tab(s),Refills(s) 1, Pharmacy: [facility], 155.5, cm, 09/01/24 10:15:00 EDT, Height/LengthDosing, 59, kg, 09/01/24 10:15:00 EDT, Weight Dosing cyclobenzaprine 10 mg Tab: 10 mg = 1 tab(s), Oral, TID, X 21 day(s), # 63 tab(s), Refills(s) 0, Pharmacy: [facility], 155.5, cm, 09/01/24 10:15:00 EDT, Height/Length [...] affecting management of mother / SNOMED CT 97215198 / Confirmed Asthma / SNOMED CT 9112686393 / Confirmed Cervical dysfunction / SNOMED CT 084022679 / Confirmed Shoulder pain / SNOMED CT 92939703 / Confirmed, Active Problems (4) Abnormal placenta affecting management of mother Asthma Cervical dysfunction Shoulder pain Histories Past Medical History: No active or resolved past medical history items have been selected or recorded. Family History: Entire family history is negative. Procedure history: Laparoscopy (976442015) in 2007 at 18 Years. Comments: 07/09/2024 [...] Systolic Blood Pressure 10 (more content not included)...[facility] SystemComment on above:Result Comment: Electronically Signed By: Rafy Go DO\.br\Date and Time Signed: 09/16/24 10:33 [id number] Evaluation + Plan noteExtracted from:Title:Pain Managment Follow upAuthor:Johan TSANG, AmandaDate:09/01/24 Impression and Plan Patient is a 34-year-old female with a past medical history significant for cervical stenosis, cervical neuritis, degenerative disease and cervical disc bulge. She is having surgery later this month.She is told to maybe come off of some of the medications after the surgery but at this time, she has left arm pain as well as numbness, tingling and weakness that is unbearable. We discussed different options. At this time we are going to have her continue on the Lyrica 200 mg 3 times a day and sheis going to increase the amitriptyline to 50 [...] Appointments Appointment Date:09/16/2024 11:30:00 AM Scheduled Provider: Location:[facility] Appointment Type:Surgery FT Appointment Date:10/29/2024 10:30:00 AM Scheduled Provider:Natalya Prado PA-C Location:.[facility] [place] Appointment Type:Pain Management - Follow Up (FT) [facility] 10-09-2024 NoteConsultation Note Patient: DARRICK VILLAFUERTE Age: [...] left arm pain that she rates an 8?10/10. She did share withme that she is [...] TID, # 90 cap(s), Refills(s) 1, Pharmacy: [facility], 155.5, cm, 09/01/24 10:15:00 EDT, Height/Length Dosing, 59, kg, 09/01/24 10:15:00 EDT, Weight Dosing amitriptyline 25 mg Tab: 50 mg = 2 tab(s), Oral, Once a day (at bedtime), X 30 day(s), # 60 tab(s),Refills(s) 1, Pharmacy: [facility], 155.5, cm, 09/01/24 10:15:00 EDT, Height/LengthDosing, 59, kg, 09/01/24 10:15:00 EDT, Weight Dosing pregabalin 200 mg Cap: 200 mg = 1 cap(s), Oral, BID, DC GPN, # 60 cap(s), Refills(s) 0, Pharmacy: [facility], 152.4, cm, 07/29/24 8:42:00 EDT, Height/Length Dosing, 59.6, kg, 248:42:00 EDT, Weight Dosing Documented Medications Documented Tylenol: 500 mg, Daily, PRN as needed for pain, Refills(s) 0 Problem list: All Problems Asthma / SNOMED CT 2370460968 / Confirmed Abnormal placenta affecting management of mother / SNOMED CT 51540970 / Confirmed Cervical dysfunction / SNOMED CT 463937625 / Confirmed Shoulder pain / SNOMED CT 11616448 / Confirmed Objective Vital Signs 09/01/2024 10:06 [...] deltoid 4/5 Negative Wilda's. Integumentary: Warm, Dry, Maddock. Neurologic: Alert, Oriented. Psychiatric: Cooperative, Appropriate mood [...] thoracic spine: Visualized upper (more content not included)...[facility] SystemComment on above:Result Comment: Electronically Signed By: Natalya Prado PA-C\.br\Date and Time Signed: 09/01/24 10:25 [id number] History of Present illness Narrative* Gerda García [...] Problems Past Medical History: Diagnosis Date Asthma ([facility]) Parotitis 02/24/2017 HISTORY PAST MEDICAL HISTORY SOCIAL HISTORY Past Medical History: Diagnosis Date Asthma ([facility]) Parotitis 02/24/2017 Social History Tobacco Use [...] History: Procedure Laterality Date OTHER SURGICAL HISTORY 2008 Laparoscopy REVIEW OF SYSTEMS Review of Systems: [...] nursing note reviewed. Exam conducted with a lighting specialist present. Vitals: Estimated body mass index is 25.55 kg/m as calculated from the following: Height as of 8/31/22: 5'. Weight as of this encounter: 130 [...] DO documented in this encounterCameron Regional Medical [id number] NotePT - Progress Notes Dr. Logan, Patient [...] reduce pain at this time. Falguni Suggs, [facility]09-11-2024 NotePT - Progress Notes Dr. Bell, Patient [...] to reduce pain at this time. Falguni Suggs [facility]08-28-2024 Evaluation + Plan note Extracted from:Title:Pain Managment H&P new patientAuthor:Natalya Prado PA-C Date:07/21/24 Impression and Plan 1. Cervical [...] effective in addressing the patient's pain. Neither wasoral NSAIDs and muscle relaxers. - Consider alternative [...] Appointments Appointment Date:07/23/2024 03:30:00 PM Scheduled Provider: Location:.[facility] [place] Appointment Type:PT Eval () Appointment Date:07/29/2024 08:40:00 AM Scheduled Provider:Madhav Fuentes DO Location:[facility] Appointment Type: Open Appointment Date:09/01/2024 12:30:00 PM Scheduled Provider:Natalya Prado PA-C Location:[facility] Appointment Type:Pain Management - Follow Up (FT) [facility] 08-28-2024 NoteConsultation Note Patient: DARRICK VILLAFUERTE Age: 34 years Sex: Female : 1990 Associated Diagnoses: None Author: Natalya Prado PA-C Basic Information Accompanied by: No one. Source of history: Self. Referral source: Doreen LUKE, Ender Sood. History limitation: None. 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 Family History: Entire family history is negative. Procedure history: Laparoscope (SNOMED CT 347098866) in 2007 at 18 Years. Comments: 07/09/2024 [...] Appropriate mood & affect. Integumentary: Warm, Dry, Maddock. Review / Management Results review: No qualifying [...] numbness and tin (more content not included)... [facility] SystemComment on above:Result Comment: Electronically Signed By: Johan TSANG, Natalya\.br\Date and Time Signed: 07/21/24 13:13 EDT 07-09-2024 Hospital Discharge instructions Follow Up Care 07/09/2024 07:50:06 With:Alfredo Madhav GARVINALEIDA Address: [address] [id number]- When:4 weeks Comments:4 WEEKS FOLLOWUP [facility] [place] 08-13-2024 Hospital Discharge instructions Patient Education 07/06/2024 21:32:51 Cervical Radiculopathy, Xhyt-nc-Bsur Cervical Radiculopathy Cervical radiculopathy means that a [...] any, tell your doctor. Managing pain Take yevg-trr-rscwybl and prescription medicines only as told by [...] provider. Document Revised: 05/16/2022 Document Reviewed: 05/16/2022 [employer] Patient Education 2022 [employer]. Follow Up Care 07/06/2024 20:29:46 With:Continue following up with your back surgeon as previously scheduled for the MRI. Use the naproxen as needed and the steroid as prescribed. Return to the ED with any worsening symptoms. Address:Unknown When:07/09/2024 21:31:40 With:Jeanne Ocampo Address: [address] [place] [address], [address] Business (1) When:Within 3 Day(s) [facility] 08-13-2024 NoteED Patient Education Note Orthopedics Cervical [...] tell your doctor. Managing pain ? Take mcyc-ddx-kxofbbs and prescription medicines only as told by [...] Treatment may include resti (more content not included)...[facility] Evaluation + Plan noteExtracted from:Title:ED NoteAuthor: Eri Bobo PA-CDate:07/06/24 Cervical radiculopathy, facility specialist bertha (M54.12: Radiculopathy, cervical region) Chronic left [...] Date:07/09/2024 07:00:00 AM Scheduled Provider:Madhav Fuentes DO Location:[facility] Appointment Type:FM New Patient - Adult Appointment Date:07/21/2024 01:00:00 PM Scheduled Provider:Natalya Prado PA-C Location:[facility] Appointment Type:Pain Management - New () [facility] 08-13-2024 Hospital Discharge instructions Follow Up Care 07/06/2024 09:59:04 With:Madhav Fuentes DO, [facility] Address: [address] [id number]- When:4 weeks Comments:4 WEEKS FOLLOWUP [facility] [place] 07-11-2024 Hospital Discharge instructions Patient Education 06/03/2024 [...] your health care provider. Managing pain Take kxhj-uic-dghholm and prescription medicines only as told by [...] provider. Document Revised: 05/16/2022 Document Reviewed: 05/16/2022 [employer] Patient Education 2022 [employer]. Follow Up Care 06/03/2024 13:10:01 With:Ender Logan Address: [address] [place] [address], [address] [place] [phone] Business (1) When:06/06/2024 15:18:17 With:Jeanne Ocampo Address: [address] [place] [address], [address] [place] [address]- Business (1) When:Within 3 Day(s) [facility]07-11-2024 NoteED Patient Education Note Orthopedics Cervical Radiculopathy [...] health care provider. Managing pain ? Take hycd-nit-xailgcl and prescription medicines only as told by [...] visits. This is im (more content not included)...[facility] Hospital Discharge instructions Patient Education 06/01/2024 10:18:00 [...] by mouth or applied to theskin. Take muoo-zsq-kutiqla and prescription medicines only as told by [...] provider. Document Revised: 03/15/2021 Document Reviewed: 02/21/2021 [employer] Patient Education 2022 [employer]. 06/01/2024 10:17:57 Heat Therapy, Aryu-gg-Atqh Heat Therapy Heat therapy can help ease [...] provider. Document Revised: 09/12/2021 Document Reviewed: 09/12/2021 [employer] Patient Education 2022 [employer]. [facility] 07-09-2024 NotePatient Education Orthopedics Musculoskeletal [...] mouth or applied to the skin. Take juyu-law-isggzgl and prescription medicines only as told by [...] provider. Document Revised: 03/15/2021 Document Reviewed: 02/21/2021 [employer] Patient Education ? 2022 [employer]. Physical Medicine and Rehabilitation Heat Therapy Heat [...] include: ? Moist heat (more content not included)...[facility]immz16-10-1995 Evaluation + Plan note Future Scheduled Tests Laboratory* [place]igen [place] 09[facility]11/21 [facility] Future Appointments Appointment Date:06/11/2024 02:40:00 PM Scheduled Provider:MODESTO SALTER Location:[facility] Appointment Type:FM New Patient - Adult [facility] Future Appointments Appointment Date:07/21/2024 01:00:00 PM Scheduled Provider:Natalya Prado PA-C Location:[facility] [place] Appointment Type:Pain Management - New (FT) Appointment Date:07/29/2024 08:40:00 AM Scheduled Provider:Madhav Fuentes DO Location:[facility] Appointment Type:[facility] Evaluation + Plan note Future Appointments Appointment Date:08/05/2024 04:15:00 PM Scheduled Provider: Location:[place] Appointment Type:PT 45 (FT) Appointment Date:08/06/2024 01:45:00 PM Scheduled Provider: Location:.[place] Appointment Type:PT 45 (FT) Appointment Date:08/10/2024 05:00:00 PM Scheduled Provider: Location[place] Appointment Type:PT 45 (FT) Appointment Date:08/13/2024 04:00:00 PM Scheduled Provider: Location:[place] Appointment Type:PT 45 (FT) Appointment Date:08/18/2024 04:00:00 PM Scheduled Provider: Location[place] Appointment Type:PT Re-Eval 30 (FT) Appointment Date:09/01/2024 12:30:00 PM Scheduled Provider:Natalya Prado PA-C Location:[facility] [place] Appointment Type:[facility] - [facility] + Plan note Future Appointments Appointment Date:09/01/2024 12:30:00 PM Scheduled Provider:Natalya Prado PA-C Location:[facility] [place] Appointment Type:Pain Management - Follow Up (FT) Appointment Date:09/16/2024 11:30:00 AM Scheduled Provider: Location:[facility] Appointment Type:Surgery FT [facility] evaluation + Plan note Future Appointments Appointment Date:09/01/2024 12:30:00 PM Scheduled Provider:Natalya Prado PA-C Location:.[facility] [place] Appointment Type:Pain Management - Follow Up (FT) [facility] evaluation + Plan note Future Appointments Appointment Date:07/29/2025 07:20:00 AM Scheduled Provider:Madhav Fuentes DO Location:[facility] Appointment Type:FM [facility] evaluation noteNo assessment information available [facility] Work Phone: evaluation note* Diagnosis LGSIL on Pap smear of cervix [facility] Diagnosis LGSIL on Pap smear of cervix [facility] Diagnosis Pre-op evaluation LGSIL on Pap smear of cervix Cervical high risk human papillomavirus (HPV) DNA test positive documented in this encounter [facility]* Diagnosis Pap smear to confirm normal after abnormal result Encounter for Papanicolaou cervical smear to confirm findings of recent normal smear following initial abnormal smear LGSIL of cervix of undetermined significance H/O LEEP Well woman exam with routine gynecological exam Routine gynecological examination [facility] N[facility] No data available for this [facility] No data available for this section [facility] No data available for this section [facility] Summary Purpose Family History No Family History Records Found No data available [...] History Records FoundNo Family History Records Found Advance Directives No [...] section and content) DATE CREATED AUTHOR 04/07/2021 [facility] DATE CREATED AUTHOR AUTHOR'S ORGANIZ ATION 08/27/2024 [facility] DATE CREATED AUTHOR AUTHOR'S ORGANIZ ATION 09/17/2024 [facility] DATE CREATED AUTHOR AUTHOR'S ORGANIZ ATION 09/18/2024 [facility] DATE CREATED AUTHOR AUTHOR'S ORGANIZ ATION 09/20/2024 [facility] DATE CREATED AUTHOR AUTHOR'S ORGANIZ ATION 09/26/2024 [facility] DATE CREATED AUTHOR AUTHOR'S ORGANIZ ATION 02/09/2025 [facility] DATE CREATED AUTHOR AUTHOR'S ORGANIZ ATION 06/10/2025 [facility] EPIC DATE CREATED AUTHOR AUTHOR'S ORGANIZ ATION 08/04/2025 [facility] DATE CREATED AUTHOR AUTHOR'S ORGANIZ ATION 08/06/2025 [facility] Care Team (unrecognized sect ion and content) Team Status: Inactive Member Role Status Dates Willem William Attending Provider Active Start: [facility] 2023 End: February 09, 2024Team MemberRelationshipSpecialtyStart DateEnd Date Unallocated, [place] Provider, [address] [facility] [place] [address] PCP [facility]05/05/23Team MemberRelationshipSpecialtyStart DateEnd Date Unallocated, Sonia Wilkinson MD [facility] [address] [facility] [place] [address] PCP [facility]05/05/23Te MemberRelationshipSpecialtyStart DateEnd Date Unallocated, Sonia Wilkinson MD [facility] [address] [facility] [place] [address] [facility]05/05/23Te MemberRelationshipSpecialtyStart DateEnd Date Unallocated, Sonia Wilkinson MD [facility] [address] [facility] [place] [address] [facility]05/05/23Te MemberRelationshipSpecialtyStart DateEnd Date Unallocated, Sonia Wilkinson MD [address] [place] [address] [place] [address] [facility]05/05/23Te MemberRelationshipSpecialtyStart DateEnd Date Unallocated, Sonia Wilkinson MD [address] [place] [address] [place] [address] [facility]05/05/23 Team Status: Inactive Member Role Status Dates Willem William DO Attending Provider Active Start : February 04, 2025 End: February 04, 2025Team MemberRelationshipSpecialtyStart DateEnd Date Unallocated, Sonia Wilkinson MD [facility] [address] [facility] [place] [address] [facility]05/05/23Te MemberRelationshipSpecialtyStart DateEnd Date Unallocated, MD Chidi Alonso [address] [facility] [place] [address] [facility]05/05/23 Goals (unrecognized section and content) Goals may be documented in a n alternate section Reason for Visit (unrecogniz ed section and content) ReasonCommentsAbnormal Pap SmearReasonCommentsPre-op VisitReasonCommentsAbnormal Pap SmearPatient is present today for a Repeat pap smear. Pt had an abnormal pap smear LGSIL +HPV on 08/16/2024. Pt had a LEEP procedure on 01/12/2025. FOR RECORDS PERTAINING TO PATIENTS WHO ARE [...] BE BASED ON THE PRIMARY CLINICAL RECORDS. [employer] provides no warranty or guarantee of the accuracy or completeness of information in this document.
[2025-10-13 20:08] LABS: Age Gdln ACOG Testing Note (.); HPV Genotype 18,45 Negative (Negative); IGP, Aptima HPV, rfx 16/18,45 Note (.)
== END 2025-10-10 20:18 | disposition home or self-care (01) ==
LOC: LAB 20:17
PROVIDERS: PCP Family Medicine; Visit Provider Physician Assistant
DX: Z01.42 Encounter for cervical smear to confirm findings of recent normal smear following initial abnormal smear (principal)
CPT/HCPCS: 87624; 88175